=== PATIENT | male | born 1940 | race Caucasian/White ===

== ENCOUNTER 2016-10-03 12:08 | Day surgery (SDC) | payer MEDICARE ==
[2016-10-03 15:07] VITALS: BP 176/96
[2016-10-03] MEDS ORDERED: Acetaminophen TAB* 325 MG ONE (15:41)
[2016-10-03] MEDS ORDERED: Acetaminophen TAB* 325 MG PO ONE (15:41)
--- NOTE | 2016-10-03 15:46 | RAD ---
Indication: Post thoracentesis. Comparison: September 26, 2016 Technique: Upright AP 1510 hours Report: Small dependent LEFT pleural effusion markedly decreased from the prior exam with proportional decreasing compressive atelectasis. Mild prominence of the interstitial markings with decreased volume of the RIGHT lung compared with the prior exam. No focal pulmonary lesion evident. Negative for RIGHT pleural effusion. Negative for pneumothorax. Cardiomegaly. Unremarkable central pulmonary vasculature. IMPRESSION: Negative for pneumothorax post LEFT thoracentesis.
[2016-10-03 16:09] LABS: Body Fluid WBC 809 /mcL
[2016-10-03 17:13] LABS: Body Fluid Appearance Cloudy; Body Fluid Total Cells Counted 100
[2016-10-04 13:47] LABS: Total Protein, BF 3.6 g/dL
--- NOTE | 2016-10-04 16:21 | OP ---
CC: Dr. Fajardo; Dr. Addy Quezada OPERATIVE REPORT: DATE OF OPERATION: 10/03/16 DATE OF : 36 SURGEON: Gautam Fajardo MD NETWORK MGR: None. ANESTHESIOLOGIST: None. PRE-OP DIAGNOSIS: Left pleural effusion. POST-OP DIAGNOSIS: Left pleural effusion. OPERATIVE PROCEDURE: Left posterior thoracentesis. DESCRIPTION OF PROCEDURE: In the ambulatory procedure room, the patient was sitting at the bedside leaning over the table. The posterior chest was prepped with antiseptic and draped in a sterile fas hion. Local infiltrative anesthesia was administered in the left posterior chest and the posterior midscapular line at approximately the 9th interspace and clear fluid was forthcoming. The thoracent esis catheter was then placed without difficulty and suction bottle was used to evacuate the chest. The patient was closely monitored and continued to do well as the volume kept being evacuated, so w e did continue and ultimately 4 L of fluid was obtained. He did this with minimal cough, no dyspnea , was feeling well and the needle was removed. The bandage was placed. He was brought to recovery room. He was observed for half an hour and has good respiratory function and chest x-ray looks good , so he is discharged home. [id number]/[facility] #: [id number]
== END 2016-10-03 15:49 | disposition home or self-care (01) ==
LOC: OR 12:08
PROVIDERS: ATTEND Surgery
DX: J90 Pleural effusion, not elsewhere classified (principal); E11.9 Type 2 diabetes mellitus without complications; Z79.4 Long term (current) use of insulin
CPT/HCPCS: 32554; 36415; 71010; 83615; 84157; 87040; 87205; 88112; 89051; A9270-GY

== ENCOUNTER 2018-02-17 20:55 | Inpatient (IN) | payer MEDICARE ==
[2018-02-17] MEDS ORDERED: NS 0.9% 1000 ML* 1,000 ML IV ONE (21:10)
[2018-02-17 21:44] LABS: ABS Basophils 0 10^3/ul (0-0.2); ABS Eosinophils 0 10^3/ul (0-0.6); ABS Lymphocytes 0.9 10^3/ul (1.0-4.8); ABS Monocytes 0.8 10^3/ul (0-0.8); ABS Neutrophils 5.6 10^3/ul (1.5-7.7); ABS Nucleated RBC 0 10^3/ul; Eosinophil % 0.2 %; Hematocrit 40 % (42-52); Hemoglobin 13.2 g/dl (14.0-18.0); Lymphocyte % 12.3 %; Mean Corpuscular HGB Conc 33 g/dl (31-36); Mean Corpuscular Hemoglobin 28 pg (27-31); Mean Corpuscular Volume 86 fL (80-94); Mean Platelet Volume 8.2 fL (7.4-10.4); Nucleated Red Blood Cells % 0.1; Platelet Count 202 10^3/ul (150-450); Red Blood Count 4.65 10^6/ul (4.00-5.40); Red Cell Distribution Width 16 % (10.5-15); White Blood Count 7.4 10^3/ul (3.5-10.8)
[2018-02-17 21:50] LABS: INR 1.26 (0.77-1.02)
[2018-02-17 22:02] LABS: ALT 14 U/L (7-52); AST 19 U/L (13-39); Albumin 3.7 g/dL (3.2-5.2); Alkaline Phosphatase 87 U/L (34-104); Anion Gap 5 mmol/L (2-11); BUN/Creatinine Ratio 22.1 (8-20); Blood Urea Nitrogen 33 mg/dL (6-24); C Reactive Protein 3.58 mg/L (<8.01); CO2 Carbon Dioxide 31 mmol/L (22-32); Calcium 9.6 mg/dL (8.6-10.3); Chloride 101 mmol/L (101-111); EGFR Non-African American 45.5 (>60); Globulin 3.7 g/dL (2-4); Glucose 123 mg/dL (70-100); Magnesium 1.9 mg/dL (1.9-2.7); Potassium 4.6 mmol/L (3.5-5.0); Sodium 137 mmol/L (135-145); Total Protein 7.4 g/dL (6.4-8.9)
[2018-02-17 22:06] LABS: Alcohol < 10 mg/dL (<10)
[2018-02-17 22:21] LABS: TSH (Thyroid Stimulating Horm) 1.09 mcIU/mL (0.34-5.60)
[2018-02-17] MEDS ORDERED: Furosemide IV* 10 MG/ML VIAL (40 MG) IV ONE (22:52)
--- NOTE | 2018-02-17 22:54 | ED ---
Lower Extremity - HPI Summary HPI Summary: Pt is a 77 year old M presenting to the ED with a chief complaint of weakness. He fell four times today. He usually walks with a cane or rollator, but today his legs kept giving out when he would walk. EMS commonly comes for a lift assist. Pt reports sob. He did not hit his head. 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 Of Injury: Fall From A Standing Position Severity Initially: Mild Severity Currently: Mild Pain Intensity: 2 Pain Scale Used: 0-10 Numeric Timing: Constant Associated Signs And Symptoms: Positive: Negative Aggravating Factor(s): Standing, Ambulation Alleviating Factor(s): Rest - Allergies/Home Medications Allergies/Adverse Reactions: Allergies Allergy/AdvReac Type Severity Reaction Status Date / Time No Known Allergies Allergy Verified 10/03/16 12:21 Home Medications: Home Medications Amlactin TOPICAL BID 02/18/18 [History] Basaglar Kwikpen U-100 7 units SUBCUT BID WITH MEALS 02/18/18 [History Confirmed 02/18/18] Carvedilol TAB* [Coreg TAB*] 25 mg PO BID 02/18/18 [History Confirmed 02/18/18] Furosemide TAB* 20 mg PO DAILY 02/18/18 [History Confirmed 02/18/18] Novolog Flexpen units SUBCUT TID WITH MEALS 02/18/18 [History] PMH/Surg Hx/FS Hx/Imm Hx Previously Healthy: No Endocrine/Hematology History: Reports: Hx Diabetes - WELL CONTROLLED Denies: Hx Anemia Cardiovascular History: Reports: Hx Hypertension - WELL CONTROLLED Denies: Hx Congestive Heart Failure - no history prior to current admission. current admission CHF dx, Hx Pacemaker/ICD Respiratory History: Reports: Hx Chronic Obstructive Pulmonary Disease (COPD), Hx Pleural Effusion, Hx Sleep Apnea - NO CPAP GI History: Reports: Hx Gall Bladder Disease, Hx Gastroesophageal Reflux Disease , Other GI Disorders - RECENT LIVER ABSCESS Denies: Hx Jaundice History: Reports: Hx Benign Prostatic Hyperplasia, Other Problems/ Disorders - BPH Denies: Hx Renal Disease Musculoskeletal History: Reports: Hx Arthritis, Hx Back Problems, Other Musculoskeletal History - SPINAL STENOSIS, SPONDYLOLITHESIS Sensory History: Reports: Hx Cataracts - surgery both eyes, Hx Contacts or Glasses Denies: Hx Hearing Aid Opthamlomology History: Reports: Hx Cataracts - surgery both eyes, Hx Contacts or Glasses Neurological History: Reports: Other Neuro Impairments/Disorders - PERIPHERAL NEUROPATHY FEET R/T DM, VERTIGO Psychiatric History: Reports: Hx Anxiety, Hx Depression Denies: Hx Panic Disorder - Surgical History Surgery Procedure, Year, and Place: CATARACTS. EYE - LASER FOR RETINAL DETACHED. ORIF -FOREARM FX- as a child. LIVER DRNG - FOR ABCESS. 05/25/15 LAP CHOLECYSTECMY. 02/16/15 ERCP. TURP - PROSTATE - BPH Hx Anesthesia Reactions: Yes - EMERGENCE DELIRIUM FOLLOWING ERCP 02/21 Infectious Disease History: No Infectious Disease History: Denies: Hx Clostridium Difficile, Hx of Known/Suspected MRSA, Traveled Outside the [place] in Last 30 Days - Family History Known Family History: Negative: Hypertension, Diabetes - Social History Alcohol Use: None Substance Use Type: Reports: Marijuana Substance Use Comment - Amount & Last Used: medical marijuana Smoking Status (MU): Never Smoked Tobacco Have You Smoked in the Last Year: No Review of Systems Negative: Fever Positive: Shortness Of Breath Negative: Myalgia All Other Systems Reviewed And Are Negative: Yes Physical Exam - Summary Physical Exam Summary: VITAL SIGNS: Reviewed. GENERAL: Patient is a well-developed and nourished male who is lying comfortable in the stretcher. Patient is not in any acute respiratory distress. HEAD AND FACE: No signs of trauma. No ecchymosis, hematomas or skull depressions. No sinus tenderness. EYES: PERRLA, EOMI x 2, No injected conjunctiva, no nystagmus. EARS: Hearing grossly intact. Ear canals and tympanic membranes are within normal limits. MOUTH: Oropharynx within normal limits. NECK: Supple, trachea is midline, no adenopathy, no JVD, no carotid bruit, no c- spine tenderness, neck with full ROM. CHEST: Symmetric, no tenderness at palpation LUNGS: Decreased breath sounds bilaterally, more so on the L side. CVS: Regular rate and rhythm, S1 and S2 present, no murmurs or gallops appreciated. ABDOMEN: Soft, non-tender. No signs of distention. No rebound no guarding, and no masses palpated. Bowel sounds are normal. EXTREMITIES: FROM in all major joints, no cyanosis or clubbing. Bilateral LE edema. NEURO: Alert and oriented x 3. No acute neurological deficits. Speech is normal and follows commands. SKIN: Dry and warm GCS: 15 Triage Information Reviewed: Yes Vital Signs On Initial Exam: Initial Vitals Temp Pulse Resp BP Pulse Ox 97.9 F 83 20 150/98 94 02/17/18 20:59 02/17/18 20:59 02/17/18 20:59 02/17/18 20:59 02/17/18 20:59 Vital Signs Reviewed: Yes Diagnostics - Vital Signs Vital Signs Temp Pulse Resp BP Pulse Ox 02/17/18 22:34 86 24 87 02/17/18 20:59 97.9 F 83 20 150/98 94 - Laboratory Lab Results: Lab Results 02/17/18 02/17/18 02/17/18 Range/Units 21:39 21:39 21:39 WBC 7.4 (3.5-10.8) 10^3/ul RBC 4.65 (4.00-5.40) 10^6/ul Hgb 13.2 L (14.0-18.0) g/dl Hct 40 L (42-52) % MCV 86 (80-94) fL MCH 28 (27-31) pg MCHC 33 (31-36) g/dl RDW 16 H (10.5-15) % Plt Count 202 (150-450) 10^3/ul MPV 8.2 (7.4-10.4) fL Neut % (Auto) 76.3 % Lymph % (Auto) 12.3 % Edgar % (Auto) 10.5 % Eos % (Auto) 0.2 % Baso % (Auto) 0.7 % Absolute Neuts (auto) 5.6 (1.5-7.7) 10^3/ul Absolute Lymphs (auto) 0.9 L (1.0-4.8) 10^3/ul Absolute Monos (auto) 0.8 (0-0.8) 10^3/ul Absolute Eos (auto) 0 (0-0.6) 10^3/ul Absolute Basos (auto) 0 (0-0.2) 10^3/ul Absolute Nucleated RBC 0 10^3/ul Nucleated RBC % 0.1 INR (Anticoag Therapy) 1.26 H (0.77-1.02) Sodium 137 (135-145) mmol/L Potassium 4.6 (3.5-5.0) mmol/L Chloride 101 (101-111) mmol/L Carbon Dioxide 31 (22-32) mmol/L Anion Gap 5 (2-11) mmol/L BUN 33 H (6-24) mg/dL Creatinine 1.49 H (0.67-1.17) mg/dL Est GFR ( Amer) 55.0 (>60) Est GFR (Non-Af Amer) 45.5 (>60) BUN/Creatinine Ratio 22.1 H (8-20) Glucose 123 H (70-100) mg/dL Lactic Acid (0.5-2.0) mmol/L Calcium 9.6 (8.6-10.3) mg/dL Magnesium 1.9 (1.9-2.7) mg/dL Total Bilirubin 0.80 (0.2-1.0) mg/dL AST 19 (13-39) U/L ALT 14 (7-52) U/L Alkaline Phosphatase 87 (34-104) U/L Troponin I 0.22 H* (<0.04) ng/mL C-Reactive Protein 3.58 (<8.01) mg/L B-Natriuretic Peptide (<=100) pg/mL Total Protein 7.4 (6.4-8.9) g/dL Albumin 3.7 (3.2-5.2) g/dL Globulin 3.7 (2-4) g/dL Albumin/Globulin Ratio 1.0 (1-3) TSH 1.09 (0.34-5.60) mcIU/mL Serum Alcohol < 10 (<10) mg/dL 02/17/18 02/17/18 Range/Units 21:39 21:39 WBC (3.5-10.8) 10^3/ul RBC (4.00-5.40) 10^6/ul Hgb (14.0-18.0) g/dl Hct (42-52) % MCV (80-94) fL MCH (27-31) pg MCHC (31-36) g/dl RDW (10.5-15) % Plt Count (150-450) 10^3/ul MPV (7.4-10.4) fL Neut % (Auto) % Lymph % (Auto) % Edgar % (Auto) % Eos % (Auto) % Baso % (Auto) % Absolute Neuts (auto) (1.5-7.7) 10^3/ul Absolute Lymphs (auto) (1.0-4.8) 10^3/ul Absolute Monos (auto) (0-0.8) 10^3/ul Absolute Eos (auto) (0-0.6) 10^3/ul Absolute Basos (auto) (0-0.2) 10^3/ul Absolute Nucleated RBC 10^3/ul Nucleated RBC % INR (Anticoag Therapy) (0.77-1.02) Sodium (135-145) mmol/L Potassium (3.5-5.0) mmol/L Chloride (101-111) mmol/L Carbon Dioxide (22-32) mmol/L Anion Gap (2-11) mmol/L BUN (6-24) mg/dL Creatinine (0.67-1.17) mg/dL Est GFR ( Amer) (>60) Est GFR (Non-Af Amer) (>60) BUN/Creatinine Ratio (8-20) Glucose (70-100) mg/dL Lactic Acid 1.0 (0.5-2.0) mmol/L Calcium (8.6-10.3) mg/dL Magnesium (1.9-2.7) mg/dL Total Bilirubin (0.2-1.0) mg/dL AST (13-39) U/L ALT (7-52) U/L Alkaline Phosphatase (34-104) U/L Troponin I (<0.04) ng/mL C-Reactive Protein (<8.01) mg/L B-Natriuretic Peptide 1592 H (<=100) pg/mL Total Protein (6.4-8.9) g/dL Albumin (3.2-5.2) g/dL Globulin (2-4) g/dL Albumin/Globulin Ratio (1-3) TSH (0.34-5.60) mcIU/mL Serum Alcohol (<10) mg/dL Result Diagrams: 02/17/18 21:39 02/17/18 21:39 Lab Statement: Any lab studies that have been ordered have been reviewed, and results considered in the medical decision making process. - Radiology CXR Radiology Interpretation Completed By: ED Physician Summary of Radiographic Findings: Bilateral venous condition, cardiomegaly, bilateral pleural effusion (R more than L.). Pending official radiology report. - CT Head CT CT Interpretation Completed By: Radiologist Summary of CT Findings: 1. No acute intracranial abnormality. 2. Age-related atrophy and moderate chronic small vessel ischemic disease. ED physician has reviewed this report. Chest CT CT Interpretation Completed By: Radiologist Summary of CT Findings: 1. Large pleural effusions and associated chronic lung volume loss. 2. Simple right renal cyst. ED physician has reviewed this report. - EKG 2138 Cardiac Rate: NL - 84bpm EKG Rhythm: Sinus Rhythm ST Segment: Non-Specific Ectopy: None Summary of EKG Findings: LVH with secondary repolarization abnormality Lower Extremity Course/Dx - Course Course Of Treatment: Pt is a 77 y/o M presenting to the ED due to recent falls. He fell four times today, and his family is concerned as to why. The pt has a hx of COPD and LE edema. Per chest xray, he has bilateral pleural effusion (R more than L), cardiomegaly, and bilateral venous condition. The pt will be admitted to [facility] [place] with diagnoses of CHF, bilateral pleural effusion, and multiple falls. - Diagnoses Provider Diagnoses: Multiple falls, Congestive heart failure (CHF), Bilateral pleural effusion Discharge - Sign-Out/Discharge Documenting (check all that apply): Patient Departure - admit - Discharge Plan Condition: Stable Disposition: ADMITTED TO [facility] Referrals: Addy Quezada MD [Primary Care Provider] - - Attestation Statements Document Initiated by Scribe: Yes Documenting Scribe: Oneyda Swain Provider For Whom Scribe is Documenting (Include Credential): Malorie Brice MD. Scribe Attestation: Oneyda Morfin, scribed for Malorie Brice MD. on 02/18/18 at 0029. Consult Consult: 0019 - Hospitalist paged. [phone] - Spoke with Nito Reyes NP., who will be the accepting provider for the patient.
[2018-02-17 23:26] LABS: Activated Partial Thrombo Time 34.5 seconds (26.0-36.3)
[2018-02-17 23:35] LABS: Creatine Kinase 95 U/L (10-223)
[2018-02-18] MEDS ORDERED: Acetaminophen TAB* 325 MG PO PRN (01:06)
[2018-02-18] MEDS ORDERED: Furosemide IV* 10 MG/ML 2 ML VIAL (20 MG) IV SLOW PU ONE (01:06)
[2018-02-18] MEDS ORDERED: Ondansetron INJ* 2 MG/ML VIAL IV PRN (01:06)
[2018-02-18] MEDS ORDERED: Dextrose 50% Syringe 50 ML* 25 GM/50 ML SYRINGE IV PUSH PRN (01:09)
[2018-02-18] MEDS ORDERED: ceFAZolin 2 GM PREMIX 2 GM/50 ML BAG IVPB SCH (02:00)
[2018-02-18] MEDS: Carvedilol TAB* 25 MG PO SCH ×3 (03:27→20:44)
[2018-02-18 03:32] LABS: Urine Appearance Clear; Urine Bacteria Absent (Absent); Urine Bilirubin Negative (Negative); Urine Blood 2+ (Negative); Urine Color Yellow; Urine Glucose Negative (Negative); Urine Ketones Negative (Negative); Urine Nitrite Negative (Negative); Urine Protein 2+(100 mg/dL) (Negative); Urine Red Blood Cell 2+(6-10/hpf) (Absent); Urine Urobilinogen Negative (Negative); Urine White Blood Cell Absent (Absent)
[2018-02-18 04:36] LABS: ABS Basophils 0 10^3/ul (0-0.2); ABS Eosinophils 0 10^3/ul (0-0.6); ABS Lymphocytes 0.9 10^3/ul (1.0-4.8); ABS Monocytes 0.8 10^3/ul (0-0.8); ABS Neutrophils 5.3 10^3/ul (1.5-7.7); ABS Nucleated RBC 0 10^3/ul; Eosinophil % 0.2 %; Hematocrit 38 % (42-52); Hemoglobin 12.4 g/dl (14.0-18.0); Lymphocyte % 13.3 %; Mean Corpuscular HGB Conc 33 g/dl (31-36); Mean Corpuscular Hemoglobin 28 pg (27-31); Mean Corpuscular Volume 85 fL (80-94); Mean Platelet Volume 8.3 fL (7.4-10.4); Nucleated Red Blood Cells % 0.1; Platelet Count 176 10^3/ul (150-450); Red Blood Count 4.45 10^6/ul (4.00-5.40); Red Cell Distribution Width 15 % (10.5-15); White Blood Count 7.1 10^3/ul (3.5-10.8)
--- NOTE | 2018-02-18 04:45 | HP ---
CC: Dr. Addy Quezada; Dr. Minor * HISTORY AND PHYSICAL: DATE OF ADMISSION: 02/18/18 PRIMARY CARE PROVIDER: Dr. Addy Quezada. ATTENDING PHYSICIAN WHILE IN THE HOSPITAL: Dr. Rebecca Newton * (report dictated by Nito Reyes NP). CHIEF COMPLAINT: 1. Falls. 2. Shortness of breath. HISTORY OF PRESENT ILLNESS: Mr. Paniagua is a 77-year-old male patient. He has a history of CHF, CAD, type 2 diabetes, hypertension, hyperlipidemia, mild anemia , history of liver abscess requiring long-term antibiotics, BPH, GERD, chronic renal insufficiency, history of anxiety. He comes into the ED today stating that he has been falling in the last few days. He is unsure as to why he has been falling. He denies having any chest pain. He denies having any abdominal pain or any nausea or vomiting. He has noticed that the swelling in his lower extremities has been getting much worse. He has noticed redness with the swelling. He has not had any fevers or chills. There have been no URI symptoms. No coughing. He denied any chest discomfort. He does state that he notices when he lies flat, he is more short of breath, cannot catch his breath. He has been having more dyspnea on exertion. He says he has actually lost weight, although he does not check it routinely. In addition to this, he says that he has not been feeling, he has been feeling weak, and he has had increasing falls. His daughter was concerned, so they brought him into the hospital today because of the falls. On evaluation, it was noted that he had significant bilateral pleural effusions. He appeared to be in heart failure. There was concern because of this and we were asked to evaluate for admission. PAST MEDICAL HISTORY: Significant for: 1. CHF, last known EF 40% to 45%. 2. CAD. 3. Type 2 diabetes. 4. Hypertension. 5. Hyperlipidemia. 6. Anemia. 7. History of liver abscess. 8. Pleural effusions in the past. 9. BPH. 10. GERD. 11. CKD. 12. Anxiety. 13. History of SANDY. PAST SURGICAL HISTORY: He has had a cholecystectomy. MEDICATIONS: Home medications include according to his list: 1. Lantus units subcu b.i.d. 2. Aldactone 12.5 mg p.o. daily. 3. Prilosec 30 mg daily 4. Multivitamin 1 tablet daily. 5. Lisinopril 40 mg daily. 6. Lasix 20 mg daily. 7. Cymbalta 30 mg p.o. b.i.d. 8. Coreg 25 mg p.o. b.i.d. 9. Lipitor 20 mg daily. 10. Aspirin 81 mg daily. 11. Insulin sliding scale as directed. ALLERGIES TO MEDICATIONS: Include no known drug allergies. FAMILY HISTORY: His mother of old age. Father had suicidal ideation. SOCIAL HISTORY: He does not smoke. He does not drink. He lives with his . Surrogate decision maker is his daughter. REVIEW OF SYSTEMS: There is no documented fever. He does state that he has lost weight, but he does not quantify how much. He denies having any double vision. There is no ear discharge. He denied having any rhinorrhea. There is no sore throat. No thyroid enlargement. Denies having any chest pain. There is orthopnea. There is nocturnal dyspnea. There was no abdominal pain. No nausea, no vomiting. No dysuria, no frequency. No seizure, no loss of consciousness. No pruritus and no skin ulcerations. Review of 14 systems completed, all others negative. PHYSICAL EXAMINATION GENERAL: At this time, Mr. Paniagua is a 77-year-old male patient. He is sitting in the ED stretcher. He does not appear to be in any acute distress. He appears to be well nourished and well developed. VITAL SIGNS: Blood pressure 177/96, pulse 85, respirations 22, O2 sat 98%, temperature 97.9. HEENT: Head: Atraumatic and normocephalic. Eyes: EOMs are intact. Sclerae anicteric and not pale. Throat: Oral mucosa appears to be moist. No oropharyngeal erythema. NECK: Supple. LUNGS: Diminished in the bases. He does have crackles bilaterally. HEART: Sounds S1, S2. Regular rate and rhythm. No murmurs, rubs, or gallops. ABDOMEN: Soft, flat, and nontender. Bowel sounds are present. EXTREMITIES: Pulses were 2+. He had 3+ pitting edema bilaterally up to his knees, 5/5 strength. NEUROLOGICAL: He is awake, alert, and oriented x3. Tongue midline. Director Mba equal. No gross focal deficits. SKIN: Intact. He does have erythema bilaterally to the lower extremities and the left lower extremity is warmer and there is increased redness up into the thigh, otherwise skin intact. DIAGNOSTIC STUDIES/LAB DATA: Today show a WBC of 7.4, RBC of 4.65, hemoglobin of 13.2, hematocrit of 40, and platelet count of 202. INR was 1.26. His sodium is 137, potassium is 4.6, chloride 101, bicarb 31, BUN 33, creatinine 1.49, glucose 123, lactate 1, calcium 9.6, mag 1.9. Total bili 0.8, AST 19, ALT 14, alk phos 87. CK 95. Troponin 0.22. CRP of 3.58. BNP was 1592. TSH was normal. Toxicology was negative for alcohol. He had a brain CT obtained today as well, which revealed no acute intracranial abnormality, age-related atrophy, and moderate chronic small vessel ischemic change. He had a chest x-ray obtained today, which when I reviewed it, there is significant bilateral pleural effusion and pulmonary edema, looks like the left is greater than the right, he is rotated, and when you review to a chest x-ray done over a year ago, again appears to be much worse. He did have a chest CT obtained today, which showed large pleural effusion and associated chronic lung volume loss, there is simple right renal cyst. EKG obtained today shows a normal sinus rhythm with LVH. He does have intraventricular conduction delay, a T-wave inversion in lead I along with aVL, he has had previously in aVL. No ST elevation was noted. It was reviewed to the previous EKG, appears to be similar with the exception of the T-wave inversion. Old medical records were reviewed. He did have a Lexiscan stress test due to elevated troponin on 12/30/17, which showed a large anterior defect and some reversibility. He had an echo in 2017, which showed EF of 40% to 45%. ASSESSMENT AND PLAN: Mr. Paniagua is a complex 77-year-old male patient coming into the ED today with complaints of frequent falls over the last 4 weeks, increasing swelling. On evaluation today, found to be in congestive heart failure. He will be admitted under inpatient status for: 1. Falls. Etiology is unclear. It could be secondary to the significant amount of edema he has in his lower extremities. I will go ahead and get a PT evaluation. He had a CT brain, which was negative. We will continue to follow and monitor. 2. Congestive heart failure exacerbation, again with an elevated troponin. I suspect he has some demand ischemia. I would get Cardiology involved tomorrow. At this point, we will diurese him with 60 of IV Lasix and continue with Lasix. I do note that he does admit to having weight loss; however, he is clearly fluid overloaded based on chest x-ray, BNP, and of his lower extremity edema. We will continue his beta eugenio, his Aldactone, and I will continue to follow. When repeating his echo, I will certainly get daily weights. 3. Coronary artery disease. Again, according to old records the patient had declined heart cath and opted for conservative medical management. We will continue with his aspirin, statin, and beta-eugenio therapy. 4. Ischemic cardiomyopathy. Again continue his NISREEN, beta eugenio, statin, and Aldactone, and we will diurese as needed. 5. Cellulitis. I will put him on Ancef. I sent off blood cultures. 6. Diabetes. I have ordered lispro sliding scale. Continue his meds as prescribed. 7. Chronic kidney disease. His creatinine is stable. We will monitor. 8. History of anemia. H and H appears to be stable. We will continue to follow. 9. Obstructive sleep apnea. Again, he is noncompliant with mask. 10. Hypertension. Continue his meds as prescribed. 11. Hyperlipidemia. Continue statin therapy. 12. History of anxiety. Continue supportive care. 13. Benign prostatic hyperplasia Continue meds as prescribed. 14. History of gastroesophageal reflux disease. Continue current medical regimen. 15. DVT prophylaxis. He will be placed on heparin subcu. 16. Code status. Full code. 17. Fluids, electrolytes, and nutrition. He can have a heart-healthy diet. TIME SPENT: On this admission was 60 minutes, greater than half the time was spent [id number] with the patient obtaining my history and physical, other half of the time was spent going over the plan of care with the patient and implementing the plan of care. I did discuss the plan of care with my attending, Dr. Newton; she is in agreement. NITOJAKE REYES NP [id number]/[facility] #: [id number] FRANCES
[2018-02-18 04:54] LABS: BUN/Creatinine Ratio 21.3 (8-20); Calcium 9.2 mg/dL (8.6-10.3); EGFR Non-African American 43.5 (>60); Potassium 3.8 mmol/L (3.5-5.0)
[2018-02-18] MEDS: Heparin VIAL(*) 5000 UNITS/ML VIAL (FIVE THOUSAND) SUBCUT SCH ×3 (05:17→20:44)
[2018-02-18] MEDS: Omeprazole CAP* 20 MG PO SCH (07:31)
[2018-02-18] MEDS: Lisinopril TAB* 10 MG PO SCH (08:17)
[2018-02-18] MEDS: DULoxetine DR CAP* 30 MG CAP.DR PO SCH ×2 (08:17→20:44)
[2018-02-18] MEDS: Insulin GLARGINE(*) 1 UNITS UNIT SUBCUT SCH ×2 (08:17→17:09)
[2018-02-18] MEDS: Spironolactone TAB* 25 MG PO SCH (08:18)
[2018-02-18] MEDS: Insulin LISPRO* 1 UNITS UNIT SUBCUT SCH ×3 (08:18→17:10)
--- NOTE | 2018-02-18 08:27 | PN ---
Subjective - Subjective Reason for Note: Progress Note History: Mr. Surendra Paniagua told me about his presentation. He has had x4 falls. He has also had increasing weakness, edema and dyspnea for several days. There has been no chest pain, palpitations, nausea or vomiting. He denies presyncope/ syncope, nausea, vomiting or diaphoresis. 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 This morning he denies any chest pain. He has dyspnea, some orthopnea, but no paroxysmal nocturnal dyspnea. 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) I50.41 Bilateral pleural effusion (Acute) J90 Dyspnea (Acute) R06.00 Essential (primary) hypertension (Acute) I10 Mitral regurgitation (Acute) Multiple falls (Acute) R29.6 Troponin I above reference range (Acute) R74.8 Chronic low back pain (Chronic) M54.5, G89.29 Chronic renal disease, stage 3, moderately decreased glomerular filtration rate between 30-59 mL/min/1.73 square meter (Chronic) N18.3 Hypercholesteremia (Chronic) E78.0 Lumbar spinal stenosis (Chronic) M48.061 Obesity (BMI 35.0-39.9 without comorbidity) (Chronic) E66.01 Pancreatic mass (Chronic) S/P cholecystectomy (Chronic) Z90.49 Type 2 diabetes mellitus treated with insulin (Chronic) E11.9, Z79.4 Current Medications: Current Medications Acetaminophen (Tylenol Tab*) 650 mg PO Q4H PRN PRN Reason: FEVER/PAIN Aspirin (Aspirin Ec Tab*) 81 mg PO DAILY [facility] Last Admin: 02/18/18 08:16 Dose: 81 mg Atorvastatin Calcium (Lipitor*) 20 mg PO DAILY [facility] Last Admin: 02/18/18 08:16 Dose: 20 mg Carvedilol (Coreg Tab*) 25 mg PO BID [facility] Last Admin: 02/18/18 08:17 Dose: Not Given Dextrose (D50w Syringe 50 Ml*) 12.5 gm IV PUSH .FOR FS < 60 - SS PRN PRN Reason: FS < 60 Duloxetine HCl (Cymbalta Cap*) 30 mg PO BID [facility] Last Admin: 02/18/18 08:17 Dose: 30 mg Heparin Sodium (Porcine) (Heparin Vial(*)) 5,000 units SUBCUT Q8HR [facility] Last Admin: 02/18/18 05:17 Dose: 5,000 units Cefazolin Sodium/Dextrose (Kefzol 2 Gm Premix In Ors(*)) 2 gm in 50 mls @ 100 mls/hr IVPB Q8H [facility] Last Admin: 02/18/18 03:34 Dose: 100 mls/hr Insulin Glargine (Lantus(*)) 7 units SUBCUT BID WITH MEALS [facility] Last Admin: 02/18/18 08:17 Dose: 7 units Insulin Human Lispro (Humalog*) 0 units SUBCUT AC [facility]; Protocol Last Admin: 02/18/18 08:18 Dose: 3 units Lisinopril (Prinivil Tab*) 40 mg PO DAILY [facility] Last Admin: 02/18/18 08:17 Dose: 40 mg Omeprazole (Prilosec Cap*) 20 mg PO DAILY@0730 [facility] Last Admin: 02/18/18 07:31 Dose: 20 mg Ondansetron HCl (Zofran Inj*) 4 mg IV Q6H PRN PRN Reason: NAUSEA Spironolactone (Aldactone Tab*) 12.5 mg PO DAILY [facility] Last Admin: 02/18/18 08:18 Dose: 12.5 mg - Review of Systems Constitutional Symptoms: Yes: Fatigue, Unexplained Falls, No: Fever, Night Sweats Dermatology: Rash: Yes - over lower legs Eyes: Negative: Change in Vision Pulmonary: Positive: Shortness of Breath Negative: Cough, Sputum, Hemoptysis, Wheezing Cardiology: Positive: Shortness of Breath, Swelling of Ankles, Peripheral Vascular Dis, Edema, Orthopnoea Negative: Chest Pain, Palpitations, Faintness, Syncope, Proximal NocturnalDyspnea Gastroenterology: Negative: Abdominal Pain, Nausea, Vomiting, Constipation, Diarrhea Genital - Urinary: Negative: Dysuria Neurology: Positive: Change in Balancing, Change in Walking, Numbness\\ Paresthesiae - peripheral neuropathy Negative: Headache, Change in Vision, Diplopia, Change in Speech Psychiatry: Positive: Depression Home Medications: Home Medications Medication Instructions Recorded Confirmed Type Atorvastatin* [Lipitor 20 MG*] 20 mg PO DAILY 02/12/15 02/18/18 History Lisinopril TAB* [Prinivil TAB 10 40 mg PO DAILY 02/12/15 02/18/18 History MG*] Omeprazole CAP* [Prilosec CAP* 20 20 mg PO DAILY 02/12/15 02/18/18 History MG] Aspirin [Aspirin Adult Low Dose 81 81 mg PO DAILY 05/12/15 02/18/18 History MG] Multivitamin [Multivitamins] 1 cap PO DAILY 05/12/15 02/18/18 History Duloxetine HCl 30 mg PO BID 10/03/16 02/18/18 History Spironolactone TAB* [Aldactone TAB 12.5 mg PO DAILY #30 tab 12/30/16 02/18/18 Rx 25 MG*] Amlactin TOPICAL BID 02/18/18 History Basaglar Kwikpen U-100 7 units SUBCUT BID WITH MEALS 02/18/18 02/18/18 History Carvedilol TAB* [Coreg TAB*] 25 mg PO BID 02/18/18 02/18/18 History Furosemide TAB* 20 mg PO DAILY 02/18/18 02/18/18 History Novolog Flexpen units SUBCUT TID WITH MEALS 02/18/18 History Vireo Indigo .4 BID 02/18/18 History Vireo Red .2 BID 02/18/18 History Allergies: Allergies Allergy/AdvReac Type Severity Reaction Status Date / Time No Known Allergies Allergy Verified 10/03/16 12:21 Objective - Vital Signs Vital Signs: Vital Signs 02/17/18 02/17/18 02/17/18 20:59 22:34 22:48 Temperature 97.9 F Pulse Rate 83 86 86 Respiratory 20 24 19 Rate Blood Pressure 150/98 163/111 (mmHg) O2 Sat by Pulse 94 87 97 Oximetry 02/17/18 02/17/18 02/18/18 23:00 23:47 00:00 Temperature Pulse Rate 86 84 84 Respiratory 32 26 26 Rate Blood Pressure 177/102 (mmHg) O2 Sat by Pulse 99 94 98 Oximetry 02/18/18 02/18/18 02/18/18 00:17 00:34 00:47 Temperature Pulse Rate 85 84 79 Respiratory 23 23 26 Rate Blood Pressure 177/96 164/96 (mmHg) O2 Sat by Pulse 98 97 97 Oximetry 02/18/18 02/18/18 02/18/18 01:00 01:17 01:35 Temperature 96.7 F Pulse Rate 83 85 95 Respiratory 28 20 Rate Blood Pressure 174/96 183/99 (mmHg) O2 Sat by Pulse 98 98 94 Oximetry 02/18/18 02/18/18 02/18/18 02:04 02:47 03:57 Temperature 97.7 F 96.8 F 98.4 F Pulse Rate 84 91 85 Respiratory 25 20 20 Rate Blood Pressure 174/96 187/106 181/104 (mmHg) O2 Sat by Pulse 98 94 97 Oximetry 02/18/18 02/18/18 05:47 07:25 Temperature 97.3 F Pulse Rate 79 79 Respiratory 20 Rate Blood Pressure 169/93 176/77 (mmHg) O2 Sat by Pulse 94 Oximetry - Intake and Output Intake and Output: Intake & Output 02/15/18 02/16/18 02/17/18 02/18/18 11:59 11:59 11:59 11:59 Intake Total 50 Output Total 200 Balance -150 Weight 229 lb Intake: Oral 50 Output: Urine 200 Other: # Bowel Movements 0 # Voids 0 ADLs: Meal Record Start: 02/18/18 01: 35 Freq: DAILY@0900,1400,1800 Status: Active Protocol: Created 02/18/18 01:35 System (Rec: 02/18/18 01:35 System [email or web address]) Intake and Output Start: 02/17/18 21: 07 Freq: Status: Active Protocol: Created 02/17/18 21:07 System (Rec: 02/17/18 21:07 System [id number]) Document 02/18/18 02:10 [id number] (Rec: 02/18/18 02:10 [id number]) Intake and Output Start: 02/18/18 01: 35 Freq: DAILY@0600,1400,2200 Status: Active Protocol: Created 02/18/18 01:35 System (Rec: 02/18/18 01:35 System [email or web address]) Document 02/18/18 04:02 [id number] (Rec: 02/18/18 04:02 [id number]) - Physical Exam General: No Cyanosis, Yes Anemia Eye Exam: right: Other - subconjunctival hematoma, bilateral: PERRLA, Normal Fundi, EOMI Skin: Abnormal: Rash - Tight skin over edematous shins is dry and erythematous, not warm, not cellulitis Lungs and Chest: Yes: Respiratory Distress. No: Chest Expansion Full - poor expansion, Percussion Note Resonant - dull both bases, Vessicular Breath Sounds - bilateral pleural effusions, Crackles, Wheezes, Use of Accessory Muscles Heart Rate and Rhythm: Regular Additional Cardiovascular: Yes: Normal Heart Sounds, Pedal Edema - 2+. No: Heart Murmur, Carotid Bruits, Present Pedal Pulse Abdominal Exam: Yes: Soft, Bowel Sounds Present. No: Distention, Abdominal Mass , Abdominal Tenderness - Extremities Cranial Nerves II-XII Intact: Yes Limbs: Normal Tone, Normal Coordination, Abnormal Power - His legs have full movement, but generally weak - Neuro Orientation: A/O x3 Psychiatric: Depressed Speech: Normal Results - Results Lab Results: Laboratory Results - last 24 hr 02/17/18 02/17/18 02/17/18 03:20 21:39 21:39 WBC 7.4 RBC 4.65 Hgb 13.2 L Hct 40 L MCV 86 MCH 28 MCHC 33 RDW 16 H Plt Count 202 MPV 8.2 Neut % (Auto) 76.3 Lymph % (Auto) 12.3 [place] % (Auto) 10.5 Eos % (Auto) 0.2 Baso % (Auto) 0.7 Absolute Neuts (auto) 5.6 Absolute Lymphs (auto) 0.9 L Absolute Monos (auto) 0.8 Absolute Eos (auto) 0 Absolute Basos (auto) 0 Absolute Nucleated RBC 0 Nucleated RBC % 0.1 INR (Anticoag Therapy) 1.26 H APTT 34.5 Sodium Potassium Chloride Carbon Dioxide Anion Gap BUN Creatinine Est GFR ( Amer) Est GFR (Non-Af Amer) BUN/Creatinine Ratio Glucose POC Glucose (mg/dL) Lactic Acid Calcium Magnesium Total Bilirubin AST ALT Alkaline Phosphatase Total Creatine Kinase Troponin I C-Reactive Protein B-Natriuretic Peptide Total Protein Albumin Globulin Albumin/Globulin Ratio TSH Urine Color Yellow Urine Appearance Clear Urine pH 5.0 Ur Specific [place] 1.010 Urine Protein 2+(100 mg/dl) A Urine Ketones Negative Urine Blood 2+ A Urine Nitrate Negative Urine Bilirubin Negative Urine Urobilinogen Negative Ur Leukocyte Esterase Negative Urine WBC (Auto) Absent Urine RBC (Auto) 2+(6-10/hpf) A Urine Bacteria Absent Hyaline Casts Present A Urine Glucose Negative Serum Alcohol 02/17/18 02/17/18 02/17/18 21:39 21:39 21:39 WBC RBC Hgb Hct MCV MCH MCHC RDW Plt Count MPV Neut % (Auto) Lymph % (Auto) [place] % (Auto) Eos % (Auto) Baso % (Auto) Absolute Neuts (auto) Absolute Lymphs (auto) Absolute Monos (auto) Absolute Eos (auto) Absolute Basos (auto) Absolute Nucleated RBC Nucleated RBC % INR (Anticoag Therapy) APTT Sodium 137 Potassium 4.6 Chloride 101 Carbon Dioxide 31 Anion Gap 5 BUN 33 H Creatinine 1.49 H Est GFR ( Amer) 55.0 Est GFR (Non-Af Amer) 45.5 BUN/Creatinine Ratio 22.1 H Glucose 123 H POC Glucose (mg/dL) Lactic Acid 1.0 Calcium 9.6 Magnesium 1.9 Total Bilirubin 0.80 AST 19 ALT 14 Alkaline Phosphatase 87 Total Creatine Kinase 95 Troponin I 0.22 H* C-Reactive Protein 3.58 B-Natriuretic Peptide 1592 H Total Protein 7.4 Albumin 3.7 Globulin 3.7 Albumin/Globulin Ratio 1.0 TSH 1.09 Urine Color Urine Appearance Urine pH Ur Specific [place] Urine Protein Urine Ketones Urine Blood Urine Nitrate Urine Bilirubin Urine Urobilinogen Ur Leukocyte Esterase Urine WBC (Auto) Urine RBC (Auto) Urine Bacteria Hyaline Casts Urine Glucose Serum Alcohol < 10 02/18/18 02/18/18 02/18/18 01:14 01:30 04:24 WBC RBC Hgb Hct MCV MCH MCHC RDW Plt Count MPV Neut % (Auto) Lymph % (Auto) [place] % (Auto) Eos % (Auto) Baso % (Auto) Absolute Neuts (auto) Absolute Lymphs (auto) Absolute Monos (auto) Absolute Eos (auto) Absolute Basos (auto) Absolute Nucleated RBC Nucleated RBC % INR (Anticoag Therapy) APTT Sodium 138 Potassium 3.8 Chloride 101 Carbon Dioxide 31 Anion Gap 6 BUN 33 H Creatinine 1.55 H Est GFR ( Amer) 52.6 Est GFR (Non-Af Amer) 43.5 BUN/Creatinine Ratio 21.3 H Glucose 154 H POC Glucose (mg/dL) Lactic Acid 1.0 Calcium 9.2 Magnesium Total Bilirubin AST ALT Alkaline Phosphatase Total Creatine Kinase Troponin I 0.16 H* 0.18 H* C-Reactive Protein B-Natriuretic Peptide Total Protein Albumin Globulin Albumin/Globulin Ratio TSH Urine Color Urine Appearance Urine pH Ur Specific [place] Urine Protein Urine Ketones Urine Blood Urine Nitrate Urine Bilirubin Urine Urobilinogen Ur Leukocyte Esterase Urine WBC (Auto) Urine RBC (Auto) Urine Bacteria Hyaline Casts Urine Glucose Serum Alcohol 02/18/18 02/18/18 02/18/18 04:25 06:08 07:30 WBC 7.1 RBC 4.45 Hgb 12.4 L Hct 38 L MCV 85 MCH 28 MCHC 33 RDW 15 Plt Count 176 MPV 8.3 Neut % (Auto) 74.2 Lymph % (Auto) 13.3 [place] % (Auto) 11.7 Eos % (Auto) 0.2 Baso % (Auto) 0.6 Absolute Neuts (auto) 5.3 Absolute Lymphs (auto) 0.9 L Absolute Monos (auto) 0.8 Absolute Eos (auto) 0 Absolute Basos (auto) 0 Absolute Nucleated RBC 0 Nucleated RBC % 0.1 INR (Anticoag Therapy) APTT Sodium Potassium Chloride Carbon Dioxide Anion Gap BUN Creatinine Est GFR ( Amer) Est GFR (Non-Af Amer) BUN/Creatinine Ratio Glucose POC Glucose (mg/dL) 157 H Lactic Acid Calcium Magnesium Total Bilirubin AST ALT Alkaline Phosphatase Total Creatine Kinase Troponin I 0.18 H* C-Reactive Protein B-Natriuretic Peptide Total Protein Albumin Globulin Albumin/Globulin Ratio TSH Urine Color Urine Appearance Urine pH Ur Specific [place] Urine Protein Urine Ketones Urine Blood Urine Nitrate Urine Bilirubin Urine Urobilinogen Ur Leukocyte Esterase Urine WBC (Auto) Urine RBC (Auto) Urine Bacteria Hyaline Casts Urine Glucose Serum Alcohol Radiology Results: Patient Name: SURENDRA PANIAGUA Medical Record#: [id number] Ordering Physician: Dar Brice MD Acct.#: [id number] : 1940 Age: 77 Sex: M Location: EMERGENCY DEPARTMENT Exam Date: 02/17/182253 ADM Status: REG ER Order Information: CT CHEST W/O Accession Number: [id number] CPT: 05758 EXAM: CT Chest Without Contrast EXAM DATE/TIME: 02/17/2018 11:21 PM CLINICAL HISTORY: 77 years old, male; Signs and symptoms; Shortness of breath; Additional info: SOB TECHNIQUE: Axial computed tomography images of the chest without intravenous contrast. All CT scans at this facility use at least one of these dose optimization techniques: automated exposure control; mA and/or kV adjustment per patient size (includes targeted exams where dose is matched to clinical indication); or iterative reconstruction. Coronal and sagittal reformatted images were created and reviewed. COMPARISON: C/A WO CT CHEST/ABD W/O 03/23/2015 8:44 AM FINDINGS: Thyroid: No thyroid nodules. Lungs: Round atelectasis superior lingula, superior and posterior basal segments left lower lobe, medial segment right middle lobe, and basilar segments right middle lobe. No bronchiectasis, peribronchial thickening, or luminal defects. Pleural space: Large bilateral pleural effusions. No pneumothorax. Heart: There is moderate atherosclerotic calcification of the coronary arteries. Aorta: The aorta demonstrates mild atherosclerotic calcification. Lymph nodes: Normal. No enlarged lymph nodes. Bones/joints: The thoracic spine demonstrates moderate degenerative changes at multiple levels. No fractures. No suspicious bone lesions. Soft tissues: Normal. Gallbladder and bile ducts: Surgically absent gallbladder. Kidneys and ureters: Right upper pole simple renal cyst measures 3.5 cm (series 2, image 67) previously 2.9 cm. IMPRESSION: 1. Large pleural effusions and associated chronic lung volume loss. 2. Simple right renal cyst. To contact [facility] with a general question: Operations Center - [phone] For direct physician to physician contact: Physician Hotline - [phone] [facility] ([facility] Facility ID #[id number]) <Electronically signed by Debra Bailey MD in OV> 02/17/18 2348Patient Name: SURENDRA PANIAGUA Medical Record#: [id number] Ordering Physician: Dar Brice MD Acct.#: [id number] : 1940 Age: 77 Sex: M Location: EMERGENCY DEPARTMENT Exam Date: 02/17/182253 ADM Status: REG ER Order Information: CT CHEST W/O Accession Number: [id number] CPT: 88663 EXAM: CT Chest Without Contrast EXAM DATE/TIME: 02/17/2018 11:21 PM CLINICAL HISTORY: 77 years old, male; Signs and symptoms; Shortness of breath; Additional info: SOB TECHNIQUE: Axial computed tomography images of the chest without intravenous contrast. All CT scans at this facility use at least one of these dose optimization techniques: automated exposure control; mA and/or kV adjustment per patient size (includes targeted exams where dose is matched to clinical indication); or iterative reconstruction. Coronal and sagittal reformatted images were created and reviewed. COMPARISON: C/A WO CT CHEST/ABD W/O 03/23/2015 8:44 AM FINDINGS: Thyroid: No thyroid nodules. Lungs: Round atelectasis superior lingula, superior and posterior basal segments left lower lobe, medial segment right middle lobe, and basilar segments right middle lobe. No bronchiectasis, peribronchial thickening, or luminal defects. Pleural space: Large bilateral pleural effusions. No pneumothorax. Heart: There is moderate atherosclerotic calcification of the coronary arteries. Aorta: The aorta demonstrates mild atherosclerotic calcification. Lymph nodes: Normal. No enlarged lymph nodes. Bones/joints: The thoracic spine demonstrates moderate degenerative changes at multiple levels. No fractures. No suspicious bone lesions. Soft tissues: Normal. Gallbladder and bile ducts: Surgically absent gallbladder. Kidneys and ureters: Right upper pole simple renal cyst measures 3.5 cm (series 2, image 67) previously 2.9 cm. IMPRESSION: 1. Large pleural effusions and associated chronic lung volume loss. 2. Simple right renal cyst. To contact [facility] with a general question: Operations Center - [phone] For direct physician to physician contact: Physician Hotline - [phone] [facility] ([facility] Facility ID #[id number]) <Electronically signed by Debra Bailey MD in OV> 02/17/18 7890 This report is only to be considered final once signed by the Provider(s) as displayed in the "<Electronically Signed by >" field (s). Absence of a signature indicates the report is in a draft status and still needs to be finalized. In the event this document was created by someone other than the signing Provider, the individual initiating the document will be listed in the "Entered by:" or "Dictated by:" montes de oca. 1 of 2 EKG Report: 84 sinus rhythm CO 218 QTc 478 QRS axis -43. IV conduction delay. LAFB. 1st degree AV block. 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 Assessment - Problem List Assessment: Patient Problems 2+ pitting edema (Acute) Abnormal EKG (Acute) Acute combined systolic and diastolic congestive heart failure (Acute) Bilateral pleural effusion (Acute) Dyspnea (Acute) Essential (primary) hypertension (Acute) Mitral regurgitation (Acute) Multiple falls (Acute) Troponin I above reference range (Acute) Chronic low back pain (Chronic) Chronic renal disease, stage 3, moderately decreased glomerular filtration rate between 30-59 mL/min/1.73 square meter (Chronic) Hypercholesteremia (Chronic) Lumbar spinal stenosis (Chronic) Obesity (BMI 35.0-39.9 without comorbidity) (Chronic) Pancreatic mass (Chronic) S/P cholecystectomy (Chronic) Type 2 diabetes mellitus treated with insulin (Chronic) Vertigo, benign positional (Chronic) Plan: 2+ pitting edema (Acute) Acute combined systolic and diastolic congestive heart failure (Acute) Abnormal EKG (Acute) Bilateral pleural effusion (Acute) Dyspnea (Acute) Troponin I above reference range (Acute)He presents with increasing edema, shortness of breath and weakness. His troponin I levels are elevated. He has new changes on his EKG - but these are not acute. 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 Alternatively, he has some demand ischemia - though I note his rate is not increased. He had a high risk NM stress test 1 year ago (12/30/16). I presume that he has had a MO (or several) in the meantime. We are obtaining a transthoracic echocardiogram. I will give him parenteral diuretics, avoiding electrolyte imbalances. I note he is on a beta eugenio and NISREEN inhibitor and aspirin. I will obtain a cardiology consultation. Essential (primary) hypertension (Acute) His BP is elevated mitral regurgitation (Acute) This may have worsened due to papillary muscle dysfunction - echocardiogram will help. Multiple falls (Acute)Lumbar spinal stenosis (Chronic) He has a history of severe spinal stenosis and a major increase in his edema. I think the acute CHF and these comorbidities explain his falls. He has a normal neurological examination Chronic low back pain (Chronic) secondary diagnosis Chronic renal disease, stage 3, moderately decreased glomerular filtration rate between 30-59 mL/min/1.73 square meter (Chronic) This is likely to be exacerbated when we give him more diuretic therapy Hypercholesteremia (Chronic) continue current Rx Obesity (BMI 35.0-39.9 without comorbidity) (Chronic) Pancreatic mass (Chronic) inactive S/P cholecystectomy (Chronic) Type 2 diabetes mellitus treated with insulin (Chronic) His glycemic control is fine. He has no foot ulcers Vertigo, benign positional (Chronic) not exacerbated I discussed the above with the patient and his code status. He wishes to be full code. I explained he has worsening heart failure, possibly because of a recent silent MO. I explained that this degree of congestive cardiac failure has a poor prognosis. He has no evidence of an acute neurological event. He agrees with the management plan. I tried calling Martha Paniagua () - no response. I called Hannah (daughter) and updated her.
[2018-02-18] MEDS ORDERED: Carvedilol TAB* 25 MG PO SCH (09:00)
[2018-02-18] MEDS ORDERED: Aspirin TAB* 325 MG PO SCH (09:00)
[2018-02-18] MEDS ORDERED: Atorvastatin* 20 MG TAB PO SCH (09:00)
[2018-02-18] MEDS ORDERED: Aspirin EC TAB* 81 MG TAB.EC PO SCH (09:00)
[2018-02-18 11:05] LABS: Magnesium 1.8 mg/dL (1.9-2.7)
[2018-02-18] MEDS ORDERED: Potassium Chlor TAB* 20 MEQ TAB.ER PO ONE (12:22)
--- NOTE | 2018-02-18 12:31 | ECHO ---
Patient: SURENDRA MAYES [facility] Rec#: [id number] : 1940 Date: 02/18/2018 Age: 77y Height: 178 cm / 70.1 in Weight: 99 kg / 218.2 lbs Sex: M BSA: 2.17 Room#: [facility] Admit Date#: 02/18/2018 Type: Inpatient Referring: Nito Reyes NP Reading: Yajaira Sanchez MD Commercial Mortgage Broker: Naomi Ruth RDCS,RDMS CC: Addy Quezada MD Transthoracic Echocardiogram Indication: CHF BP: 163/93 HR: 70 Rhythm: NSR Findings History: CHF, CAD, ischemic cardiomyopathy, DM, HTN, HLD, CKD Technical Comments: The study quality is fair. Left Ventricle: The left ventricular chamber size is normal. Moderate concentric left ventricular hypertrophy is observed. There is a prominent septal knuckle. There is severely decreased left ventricular systolic function. The estimated ejection fraction is 25-30%. The left ventricular diastolic filling pattern is consistent with pseudonormalization. The left ventricular diastolic filling pattern is consistent with elevated left ventricular end-diastolic pressure. The patient was unable to perform a Valsalva maneuver. Left Atrium: The left atrium is moderately dilated. Right Ventricle: The right ventricular cavity size is normal. The right ventricular global systolic function is low normal. Right Atrium: The right atrial cavity size is normal. Aortic Valve: The aortic valve is trileaflet. The aortic valve leaflets are mildly thickened. There is moderate thickening of the non coronary cusp. Systolic excursion of the non coronary cusp is reduced. There is a trace of aortic regurgitation. There is no evidence of aortic stenosis. Mitral Valve: There is mitral annular calcification. The mitral valve leaflets are mildly thickened. There is mild to moderate mitral regurgitation. The mitral regurgitant jet is posteriorly directed. The mitral regurgitant jet is laterally directed. There is no evidence of mitral stenosis. Tricuspid Valve: The tricuspid valve leaflets are normal. There is trace to mild tricuspid regurgitation. Unable to estimate the right ventricular systolic pressure. Pulmonic Valve: The pulmonic valve appears normal. There is a trace pulmonic regurgitation. Pericardium: There is no significant pericardial effusion. A bilateral pleural effusion is present. There is a large pleural effusion. Aorta: The aortic arch is not well visualized. There is mild dilatation of the aortic root. Pulmonary Artery: The main pulmonary artery is not well visualized. Venous: The inferior vena cava is dilated. There is less than 50% respiratory change in the inferior vena cava dimension. Conclusions Moderate concentric left ventricular hypertrophy is observed. The estimated ejection fraction is 25-30%, large area of apical akinesis and hypokinesis extending into the anterior wall c/w with old anteriiior wall WI. The left ventricular diastolic filling pattern is consistent with pseudonormalization with elevated left ventricular end-diastolic pressure. The right ventricular global systolic function is low normal. Trileaflet aortic valve, systolic excursion of the non coronary cusp is reduced, no significant stenosis but aortic valve area may be overestimated due to low EF. There is mild to moderate mitral regurgitation. There is trace to mild tricuspid regurgitation. A bilateral pleural effusion is present. Compared with prior echo of01/22/17, EF has decresased from 40-45%, apical defect larger, MR has increased. Measurements Name Value Normal Range RVIDd (AP) 2D 2.7 cm (0.9 - 2.6) RVDdMajor (2D) 3.2 cm (2.2 - 4.4) RAd ISD 4CH 4.4 cm (3.4 - 4.9) RA (A4C)W 4.2 cm (2.9 - 4.6) IVSd (2D) 1.8 cm (0.6 - 1) LVPWd (2D) 1.4 cm (0.6 - 1) LVIDd (2D) 4.9 cm (3.6 - 5.4) LVIDs (2D) 3.7 cm - LV FS (2D) 25 % (25 - 45) Aortic Annulus 2.1 cm (1.4 - 2.6) Ao root diameter (2D) 3.6 cm (2.1 - 3.5) Ascending Ao 2.8 cm (2.1 - 3.4) LA dimension (AP) 2D 4.7 cm (2.3 - 3.8) LAd ISD 4CH 5.9 cm (2.9 - 5.3) LA ISD 4CH W 5.8 cm (2.5 - 4.5) Name Value Normal Range LA ESV BP (A/L) index 48 ml/m2 - Name Value Normal Range MV E-wave Vmax 0.8 m/sec - MV deceleration time 130 msec - MV A-wave Vmax 0.4 m/sec - MV E:A ratio 1.9 ratio - LV septal e' Vmax 0.04 m/sec - LV lateral e' Vmax 0.04 m/sec - LV E:e' septal ratio 20 ratio - LV E:e' lateral ratio 20 ratio - Name Value Normal Range AV Vmax 0.8 m/sec - AV VTI 16 cm - AV peak gradient 2.6 mmHg - AV mean gradient 1 mmHg - LVOT Vmax 0.6 m/sec - LVOT VTI 12 cm - LVOT peak gradient 1 mmHg - LVOT mean gradient 1 mmHg - Name Value Normal Range MR Vmax 4.5 m/sec - MR VTI 152 cm - MR volume (PISA) 17 ml - MR flow (PISA) 48 ml/sec - MR ERO 0.11 cm2 - MR PISA radius 0.5 cm - MR alias Vmax 31 cm/sec - Name Value Normal Range RAP 8 mmHg - IVC diameter 2.6 cm - Name Value Normal Range PV Vmax 0.4 m/sec - PV peak gradient 1 mmHg -
--- NOTE | 2018-02-18 15:00 | CONS ---
CC: Dr. Quezada * CONSULTATION REPORT: DATE OF CONSULT: 02/18/18 PRIMARY INSEAMER: Dr. Minor. PRIMARY CARE PHYSICIAN: Dr. Quezada. ATTENDING PHYSICIAN: Dr. Yajaira Sanchez. REASON FOR CONSULT: Troponin elevation, history of coronary artery disease. HISTORY OF PRESENT ILLNESS: This is a pleasant 77-year-old gentleman, who belongs to Dr. Minor of our practice due to known history of coronary artery disease with abnormal Lexiscan stress test in December 2016, which revealed a large anterior reversible defect, EF at that time was 42%. Due to the patient's chronic kidney disease, he was deemed too high risk for left heart catheterization. He has been medically treated since then. He also has a notable history of systolic heart failure, ujbf-wq-[id number] mitral regurgitation, hypertension, pancreatic head mass, chronic kidney disease. According to his daughter who is at his bedside, for the last 2 weeks the patient has had increased weakness with increased mechanical falls. Apparently , the patient has had a total of 5 falls in the last 36 hours. Historically, the patient typically falls 1 to 2 times a week. In fact, when I saw him in the office on 01/02/18, he was explaining that he was falling at least 1 to 2 times a week. At that point in time, it was deemed that the falls appeared to be mechanical in nature due to "tripping over cords or rugs." The patient denies loss of consciousness or hitting head. The patient has also been experiencing increased shortness of breath. The patient presented to the emergency department on 01/18/18. While being evaluated, he underwent CAT scan of the chest, which revealed a large left pleural effusion. Troponin was 0.22. Subsequently, he was admitted to telemetry to rule out ACS. The patient denies chest pain, palpitations, sensation of heart racing, orthopnea. He does report ongoing bilateral lower extremity edema and shortness of breath. The patient has actually been seeing the lymphedema clinic due to ongoing lower extremity edema and according to his daughter, was prescribed a medical technical writer to assist with lymphedema. When I last saw the patient in December 2017, I was trying up-titrate his carvedilol therapy; however, due to multiple reasons including medical noncompliance, confusion, advanced age, the patient did not increase carvedilol as directed. His daughter is quite concerned about the patient being cared for by the patient's . Apparently, there has been a lot of family stress surrounding the care of the patient and the daughter is interested in taking him home with her once medically stable to do so. PAST MEDICAL HISTORY: Includes: 1. Diabetes mellitus. 2. Hypertension. 3. Pancreatic head mass. 4. Known left bundle branch block. 5. Chronic kidney disease, baseline creatinine 1.3 to 1.8. 6. Systolic heart failure. 7. Zwgt-wr-wgcierzz mitral regurgitation. 8. Coronary artery disease. 9. BPH. 10. Chronic lymphedema involving lower extremities. PAST SURGICAL HISTORY: Includes: 1. ERCP in 2014. 2. Left-sided thoracentesis, September 2016. 3. Cholecystectomy. HOME MEDICATIONS: Per admission med rec. ALLERGIES: No known drug allergies. FAMILY HISTORY: Noncontributory. SOCIAL HISTORY: The patient is and lives at home with his , retired. Denies drug abuse or alcohol abuse or tobacco abuse. He ambulates with a walker. He does experience frequent falls, which appeared to be mechanical in nature. REVIEW OF SYSTEMS: All systems have been reviewed and otherwise negative except as above mentioned in the HPI. PHYSICAL EXAM: Temperature 97.5, pulse 60, respirations 24, oxygenation 99% on room air, blood pressure 121/59. General: The patient is sleeping upon entering the room with his daughter sitting at bedside. The patient aroused to his name being called. He appears alert and oriented x3. He is in no apparent distress and is cooperative with examination. HEENT: Head is atraumatic, normocephalic. Oral mucosa is moist. Tongue is midline. Neck: Supple. Trachea midline. Positive JVD. No carotid bruits. Cardiac: Normal S1, S2. Regular rate and rhythm. There is a grade 2/5 diastolic mitral murmur. Lungs: Auscultated posteriorly. Severely diminished in left greater than right lung montes de oca. Positive inspiratory crackles when auscultated anteriorly. No evidence of retractions. /GI: Abdomen is protuberant, soft, nontender. Normoactive bowel sounds x4. Extremities: 3+ bilateral lower extremity edema extending into bilateral thighs. Otherwise, no clubbing, no cyanosis. Skin is intact; however, bilateral pretibial surface is red and warm to the touch. No ecchymosis appreciated. DIAGNOSTIC STUDIES/LAB DATA: Blood work: Sodium 138, potassium 3.8, chloride 101, carbon dioxide 31, BUN 33, creatinine 1.5, glucose is 154, magnesium 1.8. Troponin peaked upon presentation at 0.22 on 02/17/18. AST and ALT were normal. INR was elevated at 1.26. White count is 7.1, hemoglobin 12.4, hematocrit 38, and platelets are 176,000. Chest x-ray reveals large left greater than right pleural effusion. Chest CT done 02/17/18 revealed large pleural effusions associated with chronic lung volume loss, simple right renal cyst. Venous Doppler, 02/18/18, was negative for DVTs. Echocardiogram performed 02/18/18 revealed an LVEF of 25% to 30%, moderate LVH. There was prominent septal knuckle, moderate dilatation of the left atrium, trace AI, no , moderate mitral regurgitation, right ventricular systolic pressure was not to be estimated unfortunately. There was a large pleural effusion. There was a large area of apical akinesis and hypokinesis extending to the anterior wall consistent with old anterior wall SC. EKG, 02/18/18, revealed normal sinus rhythm with left bundle branch block, rate 60, QRS complex does appear to be wider compared to 2017 EKG. ASSESSMENT AND PLAN: 1. History of coronary artery disease with abnormal Lexiscan stress test in 2017, which revealed a large anterior reversible defect. EF at that time was 42 %. This was done due to troponin elevation, which peaked at 0.06 at that time. The patient was deemed too high risk for left heart catheterization according to review of medical records and [facility] due to chronic kidney disease. He has been medically treated with aspirin, statin, and beta blockade therapy. He continues to deny complaints of chest pain. He is presenting to the hospital due to increased mechanical falls and shortness of breath. He denies chest pain. There are no new ischemic findings on EKG. He has a known left bundle branch block, which is now complete in nature. At this current time, we will reduce aspirin to 81 mg a day, continue carvedilol 25 mg p.o. b.i.d., up- titrate Lipitor therapy. AST and ALT are within normal limits. We will make the patient n.p.o. after midnight, check viability study. If myocardium is viable, we will consider offering left heart catheterization; however, the patient would be a high risk procedural patient due to known chronic kidney disease and LV dysfunction; however, we will await viability study before making recommendations. 2. History of chronic kidney disease. Baseline creatinine is 1.3 to 1.8. Appears stable today. We will monitor closely given NISREEN inhibitor and Aldactone therapy. 3. Large bilateral left greater than right pleural effusion. Historically required thoracentesis in 2017. He is on IV diuretic therapy, which will need to be monitored with daily BMPs given above #2. We will defer decision for thoracentesis to primary physician, Dr. Quezada, who is also following. The patient does have known pancreatic head mass. I was told that it was benign. He formally followed a physician in [place]; however, he has not had longitudinal followup in several years. Unclear if this is cardiac versus noncardiac in etiology. 4. History of severe LV dysfunction likely due to above #1. LVEF last year was 42%. It is now less than 30%. We will place an order for LifeVest. Continue Coreg 25 mg p.o. b.i.d., lisinopril 40 mg a day, Aldactone 12.5 mg a day, and diuretic therapy with daily BMPs. 5. History of hypertension, controlled on current medical therapy. 6. Disposition: Pending course. 7. The patient is a full code. We will place an order for LifeVest given now severe LV dysfunction. Please note that his daughter is desiring to have the patient discharged to her home. Dr. Sanchez agrees with the above assessment and plan. Thank you for this kind consultation. We will continue to follow the patient. Please do not hesitate to contact our service. ANITA CHAKRABORTY NP [id number]/CPS #: [id number] FRANCES
[2018-02-18] MEDS: Furosemide IV* 10 MG/ML 10 ML VIAL (100 MG) IV SCH (16:27)
--- NOTE | 2018-02-18 17:21 | PN ---
Cardiology Progress Note Date of Service: 02/18/18 - CC: falling See Sharlene Lakeside's complete consultation. I have reviewed, but an unable to esign at this time. I saw the patient and his daughter personally including exam, 35 minutes time spent. The patient was unaware of SOB, was having increasing LE edema and falls. Found in CHF and very tachypnic, able to get off O2 overnight with dieresis. The patient has presumed LAD disease, was on medical management and presents with evidence of AWMI but differential of LBBB, hibernating myocardium as well. I agree with Sharlene's plans and outline. I await the results of this combination stress test and viability study (using Thallium) to be started tomorrow. I agree with the above regimen for fluid overload, CM. The patient's daughter and the patient understand and are agreeable to the above approach. The daughter expressed concern that the patient's medical issues were too complex for the patient and his to manage at home , I concur and the discharge planning nurses are involved. I took the liberty of adding PT evaluation as well due to falls.
[2018-02-18] MEDS ORDERED: Atorvastatin* 80 MG TAB PO ONE (21:00)
[2018-02-19] MEDS: Heparin VIAL(*) 5000 UNITS/ML VIAL (FIVE THOUSAND) SUBCUT SCH ×3 (05:53→21:15)
[2018-02-19 06:39] LABS: ABS Basophils 0 10^3/ul (0-0.2); ABS Eosinophils 0 10^3/ul (0-0.6); ABS Lymphocytes 1.1 10^3/ul (1.0-4.8); ABS Monocytes 0.6 10^3/ul (0-0.8); ABS Neutrophils 3.3 10^3/ul (1.5-7.7); ABS Nucleated RBC 0 10^3/ul; Eosinophil % 0.8 %; Hematocrit 34 % (42-52); Hemoglobin 11.4 g/dl (14.0-18.0); Lymphocyte % 20.9 %; Mean Corpuscular HGB Conc 34 g/dl (31-36); Mean Corpuscular Hemoglobin 28 pg (27-31); Mean Corpuscular Volume 85 fL (80-94); Mean Platelet Volume 8.4 fL (7.4-10.4); Nucleated Red Blood Cells % 0.2; Platelet Count 156 10^3/ul (150-450); Red Blood Count 4.02 10^6/ul (4.00-5.40); Red Cell Distribution Width 16 % (10.5-15)
[2018-02-19 06:54] LABS: BUN/Creatinine Ratio 26.1 (8-20); C Reactive Protein 3.82 mg/L (<8.01); EGFR Non-African American 44.1 (>60); Potassium 3.9 mmol/L (3.5-5.0)
--- NOTE | 2018-02-19 08:11 | PN ---
Subjective - Subjective Reason for Note: Progress Note History: He was awake overnight due to anxiety - he is unable to describe the source of the anxiety. He is not clear whether this is due to dyspnea. He denies chest pain, palpitations and his telemetry was benign. He is not coughing or bringing up sputum. 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) I50.41 Bilateral pleural effusion (Acute) J90 Dyspnea (Acute) R06.00 Essential (primary) hypertension (Acute) I10 Mitral regurgitation (Acute) Multiple falls (Acute) R29.6 Silent non-ST elevation myocardial infarction (Acute) I21.4 Troponin I above reference range (Acute) R74.8 Chronic low back pain (Chronic) M54.5, G89.29 Chronic renal disease, stage 3, moderately decreased glomerular filtration rate between 30-59 mL/min/1.73 square meter (Chronic) N18.3 Hypercholesteremia (Chronic) E78.0 Lumbar spinal stenosis (Chronic) M48.061 Obesity (BMI 35.0-39.9 without comorbidity) (Chronic) E66.01 Pancreatic mass (Chronic) S/P cholecystectomy (Chronic) Z90.49 Type 2 diabetes mellitus treated with insulin (Chronic) E11.9, Z79.4 Current Medications: Current Medications Acetaminophen (Tylenol Tab*) 650 mg PO Q4H PRN PRN Reason: FEVER/PAIN Last Admin: 02/18/18 20:43 Dose: 650 mg Aspirin (Aspirin 81 Mg Chew Tab*) 81 mg PO DAILY [facility] Carvedilol (Coreg Tab*) 25 mg PO BID [facility] Last Admin: 02/18/18 20:44 Dose: 25 mg Dextrose (D50w Syringe 50 Ml*) 12.5 gm IV PUSH .FOR FS < 60 - SS PRN PRN Reason: FS < 60 Duloxetine HCl (Cymbalta Cap*) 30 mg PO BID [facility] Last Admin: 02/18/18 20:44 Dose: 30 mg Furosemide (Lasix Iv*) 60 mg IV 0800,1700 [facility] Last Admin: 02/18/18 16:27 Dose: 60 mg Heparin Sodium (Porcine) (Heparin Vial(*)) 5,000 units SUBCUT Q8HR [facility] Last Admin: 02/19/18 05:53 Dose: 5,000 units Insulin Glargine (Lantus(*)) 7 units SUBCUT BID WITH MEALS [facility] Last Admin: 02/18/18 17:09 Dose: 7 units Insulin Human Lispro (Humalog*) 0 units SUBCUT AC [facility]; Protocol Last Admin: 02/18/18 17:10 Dose: 3 units Lisinopril (Prinivil Tab*) 40 mg PO DAILY [facility] Last Admin: 02/18/18 08:17 Dose: 40 mg Omeprazole (Prilosec Cap*) 20 mg PO DAILY@0730 [facility] Last Admin: 02/18/18 07:31 Dose: 20 mg Ondansetron HCl (Zofran Inj*) 4 mg IV Q6H PRN PRN Reason: NAUSEA Spironolactone (Aldactone Tab*) 12.5 mg PO DAILY [facility] Last Admin: 02/18/18 08:18 Dose: 12.5 mg Home Medications: Home Medications Medication Instructions Recorded Confirmed Type Atorvastatin* [Lipitor 20 MG*] 20 mg PO DAILY 02/12/15 02/18/18 History Lisinopril TAB* [Prinivil TAB 10 40 mg PO DAILY 02/12/15 02/18/18 History MG*] Omeprazole CAP* [Prilosec CAP* 20 20 mg PO DAILY 02/12/15 02/18/18 History MG] Aspirin [Aspirin Adult Low Dose 81 81 mg PO DAILY 05/12/15 02/18/18 History MG] Multivitamin [Multivitamins] 1 cap PO DAILY 05/12/15 02/18/18 History Duloxetine HCl 30 mg PO BID 10/03/16 02/18/18 History Spironolactone TAB* [Aldactone TAB 12.5 mg PO DAILY #30 tab 12/30/16 02/18/18 Rx 25 MG*] Amlactin TOPICAL BID 02/18/18 History Basaglar Kwikpen U-100 7 units SUBCUT BID WITH MEALS 02/18/18 02/18/18 History Carvedilol TAB* [Coreg TAB*] 25 mg PO BID 02/18/18 02/18/18 History Furosemide TAB* 20 mg PO DAILY 02/18/18 02/18/18 History Novolog Flexpen units SUBCUT TID WITH MEALS 02/18/18 History Vireo Indigo .4 BID 02/18/18 History Vireo Red .2 BID 02/18/18 History Allergies: Allergies Allergy/AdvReac Type Severity Reaction Status Date / Time No Known Allergies Allergy Verified 10/03/16 12:21 Objective - Vital Signs Vital Signs: Vital Signs 02/18/18 02/18/18 02/18/18 12:39 15:21 16:07 Temperature 97.5 F 98.0 F Pulse Rate 60 62 Respiratory 24 20 Rate Blood Pressure 121/59 122/65 (mmHg) O2 Sat by Pulse 99 88 94 Oximetry 02/18/18 02/18/18 02/19/18 19:15 20:00 00:22 Temperature 97.8 F 97.8 F Pulse Rate 69 61 Respiratory 22 18 16 Rate Blood Pressure 129/62 133/59 (mmHg) O2 Sat by Pulse 92 90 Oximetry 02/19/18 02/19/18 03:22 07:45 Temperature 97.0 F Pulse Rate 60 Respiratory 16 18 Rate Blood Pressure 149/71 (mmHg) O2 Sat by Pulse 92 Oximetry - Intake and Output Intake and Output: Intake & Output 02/16/18 02/17/18 02/18/18 02/19/18 11:59 11:59 11:59 11:59 Intake Total 460 1120 Output Total 200 450 Balance 260 670 Weight 229 lb 230 lb Intake: Oral 460 1120 Output: Urine 200 450 Other: # Bowel Movements 0 1 Estimated Stool Amount Medium # Voids 0 2 ADLs: Meal Record Start: 02/18/18 01: 35 Freq: DAILY@0900,1400,1800 Status: Active Protocol: Created 02/18/18 01:35 System (Rec: 02/18/18 01:35 System [id number]) Document 02/18/18 09:00 [id number] (Rec: 02/18/18 09:28 [id number] TELE-C01) Document 02/18/18 14:00 [id number] (Rec: 02/18/18 15:32 [id number] TELE-C01) Document 02/18/18 18:00 [id number] (Rec: 02/18/18 21:24 [id number] TELE-M15) Intake and Output Start: 02/17/18 21: 07 Freq: Status: Active Protocol: Created 02/17/18 21:07 System (Rec: 02/17/18 21:07 System ED-C24) Document 02/18/18 02:10 [id number] (Rec: 02/18/18 02:10 [id number] ED-C19) Intake and Output Start: 02/18/18 01: 35 Freq: DAILY@0600,1400,2200 Status: Active Protocol: Created 02/18/18 01:35 System (Rec: 02/18/18 01:35 System [email or web address]) Document 02/18/18 04:02 [id number] (Rec: 02/18/18 04:02 [id number] TELE-C09) Document 02/18/18 14:00 [id number] (Rec: 02/18/18 15:32 [id number] TELE-C01) Document 02/19/18 06:00 [id number] (Rec: 02/19/18 06:19 [id number] TELE-C33) - Physical Exam General Physical Exam Comment: Sitting in a recliner chair - he is in no acute distress. He is warm and well perfused General: No Cyanosis, Yes Anemia, No Jaundice, No Clubbing Skin: Abnormal: Rash - lower legs - erythematous over shins - not cellulitis Lungs and Chest: Yes: Chest Expansion Symetrica, Vessicular Breath Sounds, Respiratory Distress. No: Chest Expansion Full, Percussion Note Resonant - Dull to percussion at bases, Crackles, Wheezes, Use of Accessory Muscles Heart Rate and Rhythm: Regular Additional Cardiovascular: Yes: Normal Heart Sounds, Heart Murmur, Pedal Edema - 2+ Abdominal Exam: Yes: Soft, Bowel Sounds Present. No: Distention, Abdominal Tenderness - Neuro Orientation: A/O x3 Psychiatric: Normal Speech: Normal Results - Results Lab Results: Laboratory Results - last 24 hr 02/18/18 02/18/18 02/18/18 06:08 11:45 16:28 WBC RBC Hgb Hct MCV MCH MCHC RDW Plt Count MPV Neut % (Auto) Lymph % (Auto) [place] % (Auto) Eos % (Auto) Baso % (Auto) Absolute Neuts (auto) Absolute Lymphs (auto) Absolute Monos (auto) Absolute Eos (auto) Absolute Basos (auto) Absolute Nucleated RBC Nucleated RBC % Sodium Potassium Chloride Carbon Dioxide Anion Gap BUN Creatinine Est GFR ( Amer) Est GFR (Non-Af Amer) BUN/Creatinine Ratio Glucose POC Glucose (mg/dL) 149 H 168 H Calcium Magnesium 1.8 L Troponin I 0.18 H* C-Reactive Protein 02/19/18 02/19/18 02/19/18 06:13 06:13 07:31 WBC 5.0 RBC 4.02 Hgb 11.4 L Hct 34 L MCV 85 MCH 28 MCHC 34 RDW 16 H Plt Count 156 MPV 8.4 Neut % (Auto) 66.1 Lymph % (Auto) 20.9 [place] % (Auto) 11.4 Eos % (Auto) 0.8 Baso % (Auto) 0.8 Absolute Neuts (auto) 3.3 Absolute Lymphs (auto) 1.1 Absolute Monos (auto) 0.6 Absolute Eos (auto) 0 Absolute Basos (auto) 0 Absolute Nucleated RBC 0 Nucleated RBC % 0.2 Sodium 140 Potassium 3.9 Chloride 103 Carbon Dioxide 31 Anion Gap 6 BUN 40 H Creatinine 1.53 H Est GFR ( Amer) 53.4 Est GFR (Non-Af Amer) 44.1 BUN/Creatinine Ratio 26.1 H Glucose 106 H POC Glucose (mg/dL) 117 H Calcium 9.0 Magnesium Troponin I C-Reactive Protein 3.82 Other Results/Reports: Transthoracic echocardiogram Conclusions Moderate concentric left ventricular hypertrophy is observed. 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 The left ventricular diastolic filling pattern is consistent with pseudonormalization with elevated left ventricular end-diastolic pressure. The right ventricular global systolic function is low normal. Trileaflet aortic valve, systolic excursion of the non coronary cusp is reduced, no significant stenosis but aortic valve area may be overestimated due to low EF. There is mild to moderate mitral regurgitation. There is trace to mild tricuspid regurgitation. A bilateral pleural effusion is present. Compared with prior echo of01/22/17, EF has decresased from 40-45%, apical defect larger, MR has increased. Assessment - Problem List Assessment: Patient Problems 2+ pitting edema (Acute) Abnormal EKG (Acute) Acute combined systolic and diastolic congestive heart failure (Acute) Bilateral pleural effusion (Acute) Dyspnea (Acute) Essential (primary) hypertension (Acute) Mitral regurgitation (Acute) Multiple falls (Acute) Silent non-ST elevation myocardial infarction (Acute) Troponin I above reference range (Acute) Chronic low back pain (Chronic) Chronic renal disease, stage 3, moderately decreased glomerular filtration rate between 30-59 mL/min/1.73 square meter (Chronic) Hypercholesteremia (Chronic) Lumbar spinal stenosis (Chronic) Obesity (BMI 35.0-39.9 without comorbidity) (Chronic) Pancreatic mass (Chronic) S/P cholecystectomy (Chronic) Type 2 diabetes mellitus treated with insulin (Chronic) Vertigo, benign positional (Chronic) Plan: 2+ pitting edema (Acute)Abnormal EKG (Acute)Acute combined systolic and diastolic congestive heart failure (Acute) 2+ pitting edema (Acute) Abnormal EKG (Acute) likely silent myocardial infarction of unknown date Bilateral pleural effusion (Acute)Dyspnea (Acute) He had a single diuretic dose yesterday without a large result (if this was completely captured). I will increase the dose of furosemide. I have reviewed the cardiology consultations from Sharlene Ortiz NP and Dr. Yajaira Sanchez. They are considering an anterior AR vs LBBB - this is more likely LBBB. He is due for NM imaging of his heart to look for reversible ischemia and viable myocardium. A year ago Yosvany Siva wanted conservative management of a high risk stress test. He states "reality is setting in" this time around and hasn't yet fully decided what to do if there is viable myocardium that is at risk for further ischemic damage on a stress test. He has bilateral pleural effusions. The left is large than the right. He has had a prior thoracocentesis and this gave him relief. I will consider this tomorrow after the cardiac risk stratification and contingent decision making. Essential (primary) hypertension (Acute) this is controlled Mitral regurgitation (Acute) This remains moderate Multiple falls (Acute) His swollen legs and spinal stenosis make falls likely. OT assessed he would benefit from skilled OT. His ultimate mobility is questioned by PT given the severity of his cardiac injuries Chronic low back pain (Chronic) No pain today Chronic renal disease, stage 3, moderately decreased glomerular filtration rate between 30-59 mL/min/1.73 square meter (Chronic) No change with single dose of IV diuretic Hypercholesteremia (Chronic) Lumbar spinal stenosis (Chronic) ongoing Obesity (BMI 35.0-39.9 without comorbidity) (Chronic) Pancreatic mass (Chronic) benign S/P cholecystectomy (Chronic) Type 2 diabetes mellitus treated with insulin (Chronic) controlled Vertigo, benign positional (Chronic) Not exacerbated Yosvany Paniagua questioned me about code status and I explained this again to him - he didn't change his decision. He would like to be discharged to [facility]'s home ( his daughter). However, it remains to be seen if this is a safe plan of discharge. We will stratify his cardiac risk today by ascertaining if he has areas of his heart that are vulnerable to acute ischemic damage (reversible ischemia). Long conversation with [facility]. Plan - go ahead with investigations. We will meet on Friday morning after risk stratification and decide on best way ahead (Hannah Thomas, Yosvany and myself) about future management. She thinks he will agree to skilled care for sub acute rehab for a better chance of succeeding in independent living at [facility]'s home subsequently.
[2018-02-19] MEDS: Insulin LISPRO* 1 UNITS UNIT SUBCUT SCH ×3 (08:13→17:03)
[2018-02-19] MEDS: DULoxetine DR CAP* 30 MG CAP.DR PO SCH ×2 (08:41→21:13)
[2018-02-19] MEDS: Lisinopril TAB* 10 MG PO SCH (08:41)
[2018-02-19] MEDS: Spironolactone TAB* 25 MG PO SCH (08:41)
[2018-02-19] MEDS: Omeprazole CAP* 20 MG PO SCH (08:41)
[2018-02-19] MEDS: Carvedilol TAB* 25 MG PO SCH ×2 (08:41→21:15)
[2018-02-19] MEDS: Furosemide IV* 10 MG/ML 10 ML VIAL (100 MG) IV SCH ×2 (08:42→17:03)
[2018-02-19] MEDS: Insulin GLARGINE(*) 1 UNITS UNIT SUBCUT SCH ×2 (08:42→17:03)
[2018-02-19] MEDS: Aspirin 81 mg CHEW TAB* 81 MG TAB.CHEW PO SCH (08:42)
[2018-02-19] MEDS ORDERED: Metolazone TAB* 5 MG PO ONE (08:46)
[2018-02-19] MEDS: Potassium Chlor TAB* 20 MEQ TAB.ER PO SCH ×2 (09:18→21:14)
--- NOTE | 2018-02-19 10:46 | PN ---
<Sharlene Ortiz - Last Filed: 02/19/18 10:41> Subjective Date of Service: 02/19/18 - CAD, ICM, CKD, Pleural effusions Interval History: No events last night per nursing staff however patient was awake most of the night due to " anxiety" He continues to deny chest pain, sensation of heart racing, palpitations, SOB. He reports good urinary output, denies dizziness or lightheadedness and currently is sitting in a chair reading a history book. Medications Active Medications: Acetaminophen (Tylenol Tab*) 650 mg PO Q4H PRN PRN Reason: FEVER/PAIN Last Admin: 02/18/18 20:43 Dose: 650 mg Aspirin (Aspirin 81 Mg Chew Tab*) 81 mg PO DAILY [facility] Last Admin: 02/19/18 08:42 Dose: 81 mg Carvedilol (Coreg Tab*) 25 mg PO BID [facility] Last Admin: 02/19/18 08:41 Dose: 25 mg Dextrose (D50w Syringe 50 Ml*) 12.5 gm IV PUSH .FOR FS < 60 - SS PRN PRN Reason: FS < 60 Duloxetine HCl (Cymbalta Cap*) 30 mg PO BID [facility] Last Admin: 02/19/18 08:41 Dose: 30 mg Furosemide (Lasix Iv*) 80 mg IV 0800,1700 [facility] Heparin Sodium (Porcine) (Heparin Vial(*)) 5,000 units SUBCUT Q8HR [facility] Last Admin: 02/19/18 05:53 Dose: 5,000 units Insulin Glargine (Lantus(*)) 7 units SUBCUT BID WITH MEALS [facility] Last Admin: 02/19/18 08:42 Dose: 7 units Insulin Human Lispro (Humalog*) 0 units SUBCUT AC [facility]; Protocol Last Admin: 02/19/18 08:13 Dose: Not Given Lisinopril (Prinivil Tab*) 40 mg PO DAILY [facility] Last Admin: 02/19/18 08:41 Dose: 40 mg Omeprazole (Prilosec Cap*) 20 mg PO DAILY@0730 [facility] Last Admin: 02/19/18 08:41 Dose: 20 mg Ondansetron HCl (Zofran Inj*) 4 mg IV Q6H PRN PRN Reason: NAUSEA Potassium Chloride (Klor Con Er Tab*) 20 meq PO BID [facility] Last Admin: 02/19/18 09:18 Dose: 20 meq Spironolactone (Aldactone Tab*) 12.5 mg PO DAILY [facility] Last Admin: 02/19/18 08:41 Dose: 12.5 mg Objective Vital Signs: Temp Pulse Resp BP Pulse Ox 98.4 F 65 16 172/96 96 02/19/18 08:34 02/19/18 08:34 02/19/18 08:34 02/19/18 08:34 02/19/18 08:34 Oxygen Devices in Use Now: Nasal Cannula Appearance: sitting in chair, NAD, cooperative with exam, alert and oriented X3 Ears/Nose/Mouth/Throat: NL Teeth, Lips, Gums, Mucous Membranes Moist Neck: No Thyroid Enlargement, Masses, - - + JVD, no carotid bruit. Respiratory: - - diminished throughout with inspiratory and expiratory crackles. Left lung sounds are more diminished than right. Cardiovascular: - - Normal S1, S2, RRR, grade 3/6 systolic aortic murmur, + gallop. 3+ bilateral lower extremity edema Abdominal: NL Sounds; No Tenderness; No Distention Skin: - - + redness involving bilateral pretibial surface of both legs. Lines/Tubes/Other Access: Clean, Dry and Intact Peripheral IV Laboratory Results: 02/19/18 06:13 02/19/18 06:13 INR (Anticoag Therapy) 1.26 (0.77-1.02) H 02/17/18 21:39 APTT 34.5 seconds (26.0-36.3) 02/17/18 21:39 Total Bilirubin 0.80 mg/dL (0.2-1.0) 02/17/18 21:39 AST 19 U/L (13-39) 02/17/18 21:39 ALT 14 U/L (7-52) 02/17/18 21:39 Alkaline Phosphatase 87 U/L (34-104) 02/17/18 21:39 B-Natriuretic Peptide 1592 pg/mL (<=100) H 02/17/18 21:39 Total Protein 7.4 g/dL (6.4-8.9) 02/17/18 21:39 Albumin 3.7 g/dL (3.2-5.2) 02/17/18 21:39 Globulin 3.7 g/dL (2-4) 02/17/18 21:39 Albumin/Globulin Ratio 1.0 (1-3) 02/17/18 21:39 TSH 1.09 mcIU/mL (0.34-5.60) 02/17/18 21:39 02/17/18 02/18/18 02/18/18 21:39 01:14 04:24 Troponin I 0.22 H* 0.16 H* 0.18 H* 02/18/18 06:08 Troponin I 0.18 H* Laboratory Results - last 24 hr 02/18/18 02/18/18 02/18/18 06:08 11:45 16:28 WBC RBC Hgb Hct MCV MCH MCHC RDW Plt Count MPV Neut % (Auto) Lymph % (Auto) [place] % (Auto) Eos % (Auto) Baso % (Auto) Absolute Neuts (auto) Absolute Lymphs (auto) Absolute Monos (auto) Absolute Eos (auto) Absolute Basos (auto) Absolute Nucleated RBC Nucleated RBC % Sodium Potassium Chloride Carbon Dioxide Anion Gap BUN Creatinine Est GFR ( Amer) Est GFR (Non-Af Amer) BUN/Creatinine Ratio Glucose POC Glucose (mg/dL) 149 H 168 H Calcium Magnesium 1.8 L Troponin I 0.18 H* C-Reactive Protein 02/19/18 02/19/18 02/19/18 06:13 06:13 07:31 WBC 5.0 RBC 4.02 Hgb 11.4 L Hct 34 L MCV 85 MCH 28 MCHC 34 RDW 16 H Plt Count 156 MPV 8.4 Neut % (Auto) 66.1 Lymph % (Auto) 20.9 [place] % (Auto) 11.4 Eos % (Auto) 0.8 Baso % (Auto) 0.8 Absolute Neuts (auto) 3.3 Absolute Lymphs (auto) 1.1 Absolute Monos (auto) 0.6 Absolute Eos (auto) 0 Absolute Basos (auto) 0 Absolute Nucleated RBC 0 Nucleated RBC % 0.2 Sodium 140 Potassium 3.9 Chloride 103 Carbon Dioxide 31 Anion Gap 6 BUN 40 H Creatinine 1.53 H Est GFR ( Amer) 53.4 Est GFR (Non-Af Amer) 44.1 BUN/Creatinine Ratio 26.1 H Glucose 106 H POC Glucose (mg/dL) 117 H Calcium 9.0 Magnesium Troponin I C-Reactive Protein 3.82 Diagnostic Imaging: Echo 02/18/2018; LVEF 25-305 with mild to moderate MR Venous duplex 02/18/2018; negative DVT. Viability study is pending and to be done today. EKG Data: none to review for today. Assessment/Plan #1 Decompensated SHF; likely ischemic in nature given LVEF was 42 last year with large reversible anterior defect. LVEF now 25-30%. Continue aggressive IV diuresis I agree with increase dose. Will add 2.5mg Metolazone before tonights dose of lasix. Continue Coreg 25mg PO BID, Lisinopril 40mg/day, Aldactone 12.5/ day. Renal function is stable. Recommend daily BMP with aggressive diuretic. Daily weights, NA+ restricted diet < 1500mg, fluid restricted diet. will follow. [facility] approved. Patient full code #2 h/o CAD with troponinemia; troponin peaked upon presentation at .22. He continues to deny chest pain. He is to have viabilty study today. Will follow. On ASA, statin and Bblocker therapy. #3 L>R pleural effusion. on IV lasdix 80mg BID. Dr. Quezada is considering thorocentesis tomorrow depending on viability study which will determine if patient may benefit from revascularization. #4 h/o CKD; creat stable. #5 Disposition pending course. Will follow closely.Patient is a full code. Attending: Ayaan Garcia <Ayaan Garcia - Last Filed: 02/19/18 14:38> Subjective Interval History: addendum Jessica Garcia MD. Patient seen and examined and d/w Ms. Ortiz and daughter [place] at bedside. SURENDRA MAYES is a 77 year old M. Patient's diagnosis is CHF CELLULITIS., falls, cardiomyopathy, CKD, hypertension. Patient without complaints of cp or llanes. Limited by numbness /weakness in legs associated with recent falls. Found to have reduced LV function and viability study is pending. I explained that he is at risk for worsening renal insufficiency/possible dialysis and worseing cognitive function with cath/iv contract/ and possible cabg. In addition, I explained that the leg weakness may be related to noncardiac issues and may not improve with revascularization. I answered multiple questions about options for further evaluation and treatment including medical management given the potential risks and his focus on quality of life. Will await further results of his thallium scan. for now, 1. will try to optimize medical rx with addition of hydralazine, nitrates 2. will check ekg, tropoinins. 3. continue beta eugenio more than 35 min spent face to face and coordinating care. Medications Active Medications: Acetaminophen (Tylenol Tab*) 650 mg PO Q4H PRN PRN Reason: FEVER/PAIN Last Admin: 02/18/18 20:43 Dose: 650 mg Aspirin (Aspirin 81 Mg Chew Tab*) 81 mg PO DAILY [facility] Last Admin: 02/19/18 08:42 Dose: 81 mg Carvedilol (Coreg Tab*) 25 mg PO BID [facility] Last Admin: 02/19/18 08:41 Dose: 25 mg Dextrose (D50w Syringe 50 Ml*) 12.5 gm IV PUSH .FOR FS < 60 - SS PRN PRN Reason: FS < 60 Duloxetine HCl (Cymbalta Cap*) 30 mg PO BID [facility] Last Admin: 02/19/18 08:41 Dose: 30 mg Furosemide (Lasix Iv*) 80 mg IV 0800,1700 [facility] Heparin Sodium (Porcine) (Heparin Vial(*)) 5,000 units SUBCUT Q8HR [facility] Last Admin: 02/19/18 13:46 Dose: 5,000 units Hydralazine HCl (Apresoline Tab*) 10 mg PO TID [facility] Last Admin: 02/19/18 13:45 Dose: 10 mg Insulin Glargine (Lantus(*)) 7 units SUBCUT BID WITH [facility] Last Admin: 02/19/18 08:42 Dose: 7 units Insulin Human Lispro (Humalog*) 0 units SUBCUT AC [facility]; Protocol Last Admin: 02/19/18 11:20 Dose: Not Given Isosorbide Dinitrate (Isordil Tab*) 5 mg PO TID [facility] Last Admin: 02/19/18 13:45 Dose: 5 mg Lisinopril (Prinivil Tab*) 40 mg PO DAILY [facility] Last Admin: 02/19/18 08:41 Dose: 40 mg Omeprazole (Prilosec Cap*) 20 mg PO DAILY@0730 [facility] Last Admin: 02/19/18 08:41 Dose: 20 mg Ondansetron HCl (Zofran Inj*) 4 mg IV Q6H PRN PRN Reason: NAUSEA Potassium Chloride (Klor Con Er Tab*) 20 meq PO BID [facility] Last Admin: 02/19/18 09:18 Dose: 20 meq Spironolactone (Aldactone Tab*) 12.5 mg PO DAILY [facility] Last Admin: 02/19/18 08:41 Dose: 12.5 mg Objective Vital Signs: Temp Pulse Resp BP Pulse Ox 98.0 F 52 16 148/71 98 02/19/18 11:04 02/19/18 11:04 02/19/18 11:04 02/19/18 11:04 02/19/18 11:04 Laboratory Results: 02/19/18 06:13 02/19/18 06:13 INR (Anticoag Therapy) 1.26 (0.77-1.02) H 02/17/18 21:39 APTT 34.5 seconds (26.0-36.3) 02/17/18 21:39 Total Bilirubin 0.80 mg/dL (0.2-1.0) 02/17/18 21:39 AST 19 U/L (13-39) 02/17/18 21:39 ALT 14 U/L (7-52) 02/17/18 21:39 Alkaline Phosphatase 87 U/L (34-104) 02/17/18 21:39 B-Natriuretic Peptide 1592 pg/mL (<=100) H 02/17/18 21:39 Total Protein 7.4 g/dL (6.4-8.9) 02/17/18 21:39 Albumin 3.7 g/dL (3.2-5.2) 02/17/18 21:39 Globulin 3.7 g/dL (2-4) 02/17/18 21:39 Albumin/Globulin Ratio 1.0 (1-3) 02/17/18 21:39 TSH 1.09 mcIU/mL (0.34-5.60) 02/17/18 21:39 02/17/18 02/18/18 02/18/18 21:39 01:14 04:24 Troponin I 0.22 H* 0.16 H* 0.18 H* 02/18/18 06:08 Troponin I 0.18 H*
[2018-02-19] MEDS ORDERED: Regadenoson* 0.4 MG/5 ML SYRINGE ONE (11:53)
[2018-02-19] MEDS: hydrALAZINE TAB* 10 MG PO SCH ×2 (13:45→21:15)
[2018-02-19] MEDS: Isosorbide Dinitrate TAB* 5 MG PO SCH ×2 (13:45→21:13)
[2018-02-19] MEDS: traZODone TAB* 50 MG TAB PO SCH (21:14)
[2018-02-20] MEDS: Heparin VIAL(*) 5000 UNITS/ML VIAL (FIVE THOUSAND) SUBCUT SCH ×3 (05:51→21:32)
[2018-02-20 06:29] LABS: ABS Basophils 0 10^3/ul (0-0.2); ABS Eosinophils 0 10^3/ul (0-0.6); ABS Monocytes 0.7 10^3/ul (0-0.8); ABS Neutrophils 4.1 10^3/ul (1.5-7.7); ABS Nucleated RBC 0 10^3/ul; Eosinophil % 0.7 %; Hematocrit 35 % (42-52); Hemoglobin 11.9 g/dl (14.0-18.0); Lymphocyte % 16.4 %; Mean Corpuscular HGB Conc 34 g/dl (31-36); Mean Corpuscular Hemoglobin 29 pg (27-31); Mean Corpuscular Volume 85 fL (80-94); Mean Platelet Volume 8.2 fL (7.4-10.4); Nucleated Red Blood Cells % 0; Platelet Count 171 10^3/ul (150-450); Red Blood Count 4.12 10^6/ul (4.00-5.40); Red Cell Distribution Width 15 % (10.5-15); White Blood Count 5.8 10^3/ul (3.5-10.8)
[2018-02-20 06:45] LABS: Calcium 9.1 mg/dL (8.6-10.3); Potassium 3.9 mmol/L (3.5-5.0)
--- NOTE | 2018-02-20 07:52 | PN ---
Subjective - Subjective Reason for Note: Progress Note History: He had a good result from his diuretic therapy. He was more comfortable overnight and had no problems with chest pain or dyspnea. He is doing better with mobilization, according to PT - needs to use a RW. 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) I50.41 Bilateral pleural effusion (Acute) J90 Dyspnea (Acute) R06.00 Essential (primary) hypertension (Acute) I10 Mitral regurgitation (Acute) Multiple falls (Acute) R29.6 Silent non-ST elevation myocardial infarction (Acute) I21.4 Troponin I above reference range (Acute) R74.8 Chronic low back pain (Chronic) M54.5, G89.29 Chronic renal disease, stage 3, moderately decreased glomerular filtration rate between 30-59 mL/min/1.73 square meter (Chronic) N18.3 Hypercholesteremia (Chronic) E78.0 Lumbar spinal stenosis (Chronic) M48.061 Obesity (BMI 35.0-39.9 without comorbidity) (Chronic) E66.01 Pancreatic mass (Chronic) S/P cholecystectomy (Chronic) Z90.49 Type 2 diabetes mellitus treated with insulin (Chronic) E11.9, Z79.4 Current Medications: Current Medications Acetaminophen (Tylenol Tab*) 650 mg PO Q4H PRN PRN Reason: FEVER/PAIN Last Admin: 02/18/18 20:43 Dose: 650 mg Aspirin (Aspirin 81 Mg Chew Tab*) 81 mg PO DAILY [facility] Last Admin: 02/19/18 08:42 Dose: 81 mg Carvedilol (Coreg Tab*) 25 mg PO BID [facility] Last Admin: 02/19/18 21:15 Dose: 25 mg Dextrose (D50w Syringe 50 Ml*) 12.5 gm IV PUSH .FOR FS < 60 - SS PRN PRN Reason: FS < 60 Duloxetine HCl (Cymbalta Cap*) 30 mg PO BID [facility] Last Admin: 02/19/18 21:13 Dose: 30 mg Furosemide (Lasix Iv*) 80 mg IV 0800,1700 [facility] Last Admin: 02/19/18 17:03 Dose: 80 mg Heparin Sodium (Porcine) (Heparin Vial(*)) 5,000 units SUBCUT Q8HR [facility] Last Admin: 02/20/18 05:51 Dose: 5,000 units Hydralazine HCl (Apresoline Tab*) 10 mg PO TID [facility] Last Admin: 02/19/18 21:15 Dose: 10 mg Insulin Glargine (Lantus(*)) 7 units SUBCUT BID WITH MEALS [facility] Last Admin: 02/19/18 17:03 Dose: 7 units Insulin Human Lispro (Humalog*) 0 units SUBCUT AC [facility]; Protocol Last Admin: 02/19/18 17:03 Dose: 3 units Isosorbide Dinitrate (Isordil Tab*) 5 mg PO TID [facility] Last Admin: 02/19/18 21:13 Dose: 5 mg Lisinopril (Prinivil Tab*) 40 mg PO DAILY [facility] Last Admin: 02/19/18 08:41 Dose: 40 mg Omeprazole (Prilosec Cap*) 20 mg PO DAILY@0730 [facility] Last Admin: 02/19/18 08:41 Dose: 20 mg Ondansetron HCl (Zofran Inj*) 4 mg IV Q6H PRN PRN Reason: NAUSEA Potassium Chloride (Klor Con Er Tab*) 20 meq PO BID [facility] Last Admin: 02/19/18 21:14 Dose: 20 meq Spironolactone (Aldactone Tab*) 12.5 mg PO DAILY [facility] Last Admin: 02/19/18 08:41 Dose: 12.5 mg Trazodone HCl (Desyrel Tab*) 50 mg PO BEDTIME [facility] Last Admin: 02/19/18 21:14 Dose: 50 mg Home Medications: Home Medications Medication Instructions Recorded Confirmed Type Atorvastatin* [Lipitor 20 MG*] 20 mg PO DAILY 02/12/15 02/18/18 History Lisinopril TAB* [Prinivil TAB 10 40 mg PO DAILY 02/12/15 02/18/18 History MG*] Omeprazole CAP* [Prilosec CAP* 20 20 mg PO DAILY 02/12/15 02/18/18 History MG] Aspirin [Aspirin Adult Low Dose 81 81 mg PO DAILY 05/12/15 02/18/18 History MG] Multivitamin [Multivitamins] 1 cap PO DAILY 05/12/15 02/18/18 History Duloxetine HCl 30 mg PO BID 10/03/16 02/18/18 History Spironolactone TAB* [Aldactone TAB 12.5 mg PO DAILY #30 tab 12/30/16 02/18/18 Rx 25 MG*] Amlactin TOPICAL BID 02/18/18 History Basaglar Kwikpen U-100 7 units SUBCUT BID WITH MEALS 02/18/18 02/18/18 History Carvedilol TAB* [Coreg TAB*] 25 mg PO BID 02/18/18 02/18/18 History Furosemide TAB* 20 mg PO DAILY 02/18/18 02/18/18 History Novolog Flexpen units SUBCUT TID WITH MEALS 02/18/18 History Vireo Indigo .4 BID 02/18/18 History Vireo Red .2 BID 02/18/18 History Allergies: Allergies Allergy/AdvReac Type Severity Reaction Status Date / Time No Known Allergies Allergy Verified 10/03/16 12:21 Objective - Vital Signs Vital Signs: Vital Signs 02/19/18 02/19/18 02/19/18 07:45 08:34 10:44 Temperature 98.4 F Pulse Rate 65 Respiratory 18 16 Rate Blood Pressure 172/96 140/78 (mmHg) O2 Sat by Pulse 96 Oximetry 02/19/18 02/19/18 02/19/18 11:04 15:24 19:36 Temperature 98.0 F 97.0 F Pulse Rate 52 61 65 Respiratory 16 18 16 Rate Blood Pressure 148/71 137/66 175/87 (mmHg) O2 Sat by Pulse 98 95 96 Oximetry 02/19/18 02/19/18 02/20/18 20:00 23:35 03:28 Temperature 98.1 F 97.7 F Pulse Rate 67 64 Respiratory 20 20 20 Rate Blood Pressure 146/63 133/58 (mmHg) O2 Sat by Pulse 93 89 Oximetry - Intake and Output Intake and Output: Intake & Output 02/17/18 02/18/18 02/19/18 02/20/18 11:59 11:59 11:59 11:59 Intake Total 460 1120 560 Output Total 272 152 2638 Balance 260 670 -2920 Weight 229 lb 230 lb 222 lb 8 oz Intake: Oral 460 1120 560 Output: Urine 495 170 7657 Other: # Bowel Movements 0 1 1 Estimated Stool Amount Medium Medium # Voids 0 2 ADLs: Meal Record Start: 02/18/18 01: 35 Freq: DAILY@0900,1400,1800 Status: Active Protocol: Created 02/18/18 01:35 System (Rec: 02/18/18 01:35 System [email or web address]-C02) Document 02/18/18 09:00 [id number] (Rec: 02/18/18 09:28 [id number] TELE-C01) Document 02/18/18 14:00 [id number] (Rec: 02/18/18 15:32 [id number] TELE-C01) Document 02/18/18 18:00 [id number] (Rec: 02/18/18 21:24 [id number] TELE-M15) Document 02/19/18 09:00 [id number] (Rec: 02/19/18 10:48 [id number] TELE-C05) Document 02/19/18 14:00 [id number] (Rec: 02/19/18 14:57 [id number] TELE-C05) Document 02/19/18 18:00 [id number] (Rec: 02/19/18 18:28 [id number] TELE-C01) Intake and Output Start: 02/17/18 21: 07 Freq: Status: Active Protocol: Created 02/17/18 21:07 System (Rec: 02/17/18 21:07 System ED-C24) Document 02/18/18 02:10 [id number] (Rec: 02/18/18 02:10 [id number] ED-C19) Intake and Output Start: 02/18/18 01: 35 Freq: DAILY@0600,1400,2200 Status: Active Protocol: Created 02/18/18 01:35 System (Rec: 02/18/18 01:35 System TELE-C02) Document 02/18/18 04:02 [id number] (Rec: 02/18/18 04:02 [id number] TELE-C09) Document 02/18/18 14:00 [id number] (Rec: 02/18/18 15:32 [id number] TELE-C01) Document 02/19/18 06:00 [id number] (Rec: 02/19/18 06:19 [id number] TELE-C33) Document 02/19/18 14:00 [id number] (Rec: 02/19/18 14:57 [id number] TELE-C05) Document 02/19/18 17:45 [id number] (Rec: 02/19/18 17:46 [id number] TELE-C01) Document 02/19/18 18:39 [id number] (Rec: 02/19/18 18:39 [id number] TELE-C01) Document 02/19/18 20:18 [id number] (Rec: 02/19/18 20:18 [id number] TELE-C01) Document 02/19/18 21:13 [id number] (Rec: 02/19/18 21:13 [id number] TELE-C01) Document 02/20/18 06:00 [id number] (Rec: 02/20/18 06:23 [id number] TELE-C35) - Physical Exam General Physical Exam Comment: He was lying flat, comfortably with his NC malpositioned and non-functional. He showed no respiratory distress. General: No Cyanosis, No Anemia, No Jaundice, No Clubbing Lungs and Chest: Yes: Chest Expansion Symetrica, Crackles. No: Chest Expansion Full, Percussion Note Resonant - dull bases L>R, Vessicular Breath Sounds - diminished bases, Wheezes, Respiratory Distress, Use of Accessory Muscles Heart Rate and Rhythm: Regular Additional Cardiovascular: Yes: Normal Heart Sounds, Heart Murmur, Pedal Edema Abdominal Exam: Yes: Soft, Bowel Sounds Present. No: Distention, Abdominal Tenderness Results - Results Lab Results: Laboratory Results - last 24 hr 02/19/18 02/19/18 02/19/18 07:31 11:09 16:35 WBC RBC Hgb Hct MCV MCH MCHC RDW Plt Count MPV Neut % (Auto) Lymph % (Auto) [place] % (Auto) Eos % (Auto) Baso % (Auto) Absolute Neuts (auto) Absolute Lymphs (auto) Absolute Monos (auto) Absolute Eos (auto) Absolute Basos (auto) Absolute Nucleated RBC Nucleated RBC % Sodium Potassium Chloride Carbon Dioxide Anion Gap BUN Creatinine Est GFR ( Amer) Est GFR (Non-Af Amer) BUN/Creatinine Ratio Glucose POC Glucose (mg/dL) 117 H 100 167 H Calcium 02/20/18 02/20/18 06:15 06:15 WBC 5.8 RBC 4.12 Hgb 11.9 L Hct 35 L MCV 85 MCH 29 MCHC 34 RDW 15 Plt Count 171 MPV 8.2 Neut % (Auto) 70.7 Lymph % (Auto) 16.4 [place] % (Auto) 11.4 Eos % (Auto) 0.7 Baso % (Auto) 0.8 Absolute Neuts (auto) 4.1 Absolute Lymphs (auto) 1.0 Absolute Monos (auto) 0.7 Absolute Eos (auto) 0 Absolute Basos (auto) 0 Absolute Nucleated RBC 0 Nucleated RBC % 0 Sodium 140 Potassium 3.9 Chloride 102 Carbon Dioxide 33 H Anion Gap 5 BUN 44 H Creatinine 1.63 H Est GFR ( Amer) 49.6 Est GFR (Non-Af Amer) 41.0 BUN/Creatinine Ratio 27.0 H Glucose 103 H POC Glucose (mg/dL) Calcium 9.1 Assessment - Problem List Assessment: Patient Problems 2+ pitting edema (Acute) Abnormal EKG (Acute) Acute combined systolic and diastolic congestive heart failure (Acute) Bilateral pleural effusion (Acute) Dyspnea (Acute) Essential (primary) hypertension (Acute) Mitral regurgitation (Acute) Multiple falls (Acute) Silent non-ST elevation myocardial infarction (Acute) Troponin I above reference range (Acute) Chronic low back pain (Chronic) Chronic renal disease, stage 3, moderately decreased glomerular filtration rate between 30-59 mL/min/1.73 square meter (Chronic) Hypercholesteremia (Chronic) Lumbar spinal stenosis (Chronic) Obesity (BMI 35.0-39.9 without comorbidity) (Chronic) Pancreatic mass (Chronic) S/P cholecystectomy (Chronic) Type 2 diabetes mellitus treated with insulin (Chronic) Vertigo, benign positional (Chronic) Plan: 2+ pitting edema (Acute)Abnormal EKG (Acute)Acute combined systolic and diastolic congestive heart failure (Acute)Bilateral pleural effusion (Acute) Dyspnea (Acute) Mitral regurgitation (Acute) Silent non-ST elevation myocardial infarction (Acute)Troponin I above reference range (Acute) I have reviewed Dr. Garcia's note. We are continuing active diuretic therapy and I note a slight bump in his BUN/Cr and a notable negative water balance. He seems more comfortable. He will complete his myocardial risk assessment today. We will consider if he is a candidate for revascularization, an ICD or other interventions. Also, we will establish if he would benefit from a left thoracocentisis. I note that he has some degree of venous insufficiency in his legs contributing to his edema - he was previously going (not faithfully) to the lymphedema clinic. Essential (primary) hypertension (Acute) Controlled Multiple falls (Acute) He is progressing with PT Lumbar spinal stenosis (Chronic)Chronic low back pain (Chronic) secondary problem Chronic renal disease, stage 3, moderately decreased glomerular filtration rate between 30-59 mL/min/1.73 square meter (Chronic) We are watching this closely Hypercholesteremia (Chronic) secondary diagnosis Obesity (BMI 35.0-39.9 without comorbidity) (Chronic) Pancreatic mass (Chronic) secondary diagnosis S/P cholecystectomy (Chronic) Type 2 diabetes mellitus treated with insulin (Chronic) controlled with insulin therapy Vertigo, benign positional (Chronic) inactive. I discussed the above with the patient and he agrees with the management plan. I spoke to his daughter Hannah. She is concerned there is something separately wrong with his legs. I explained that he has chronic problems with his legs due to spinal stenosis and edema, but this is exacerbated by the weakness from his acute CHF. I will meet with the family tomorrow morning to help them make some choices once we have the cardiac evaluations completed and the cardiologists have informed me about his cardiac status.
[2018-02-20] MEDS: Insulin LISPRO* 1 UNITS UNIT SUBCUT SCH ×3 (08:27→17:09)
[2018-02-20] MEDS: Lisinopril TAB* 10 MG PO SCH (08:50)
[2018-02-20] MEDS: Potassium Chlor TAB* 20 MEQ TAB.ER PO SCH ×2 (08:50→21:24)
[2018-02-20] MEDS: Carvedilol TAB* 25 MG PO SCH (08:50)
[2018-02-20] MEDS: Furosemide IV* 10 MG/ML 10 ML VIAL (100 MG) IV SCH ×2 (08:50→17:09)
[2018-02-20] MEDS: hydrALAZINE TAB* 10 MG PO SCH ×3 (08:50→21:25)
[2018-02-20] MEDS: Aspirin 81 mg CHEW TAB* 81 MG TAB.CHEW PO SCH (08:50)
[2018-02-20] MEDS: DULoxetine DR CAP* 30 MG CAP.DR PO SCH ×2 (08:50→21:24)
[2018-02-20] MEDS: Omeprazole CAP* 20 MG PO SCH (08:50)
[2018-02-20] MEDS: Insulin GLARGINE(*) 1 UNITS UNIT SUBCUT SCH ×2 (08:50→17:09)
[2018-02-20] MEDS: Spironolactone TAB* 25 MG PO SCH (08:51)
[2018-02-20] MEDS: Isosorbide Dinitrate TAB* 5 MG PO SCH ×3 (09:18→21:23)
[2018-02-20] MEDS: Carvedilol TAB* 6.25 MG PO SCH (21:24)
[2018-02-20] MEDS: traZODone TAB* 50 MG TAB PO SCH (21:24)
[2018-02-21] MEDS: Heparin VIAL(*) 5000 UNITS/ML VIAL (FIVE THOUSAND) SUBCUT SCH ×3 (05:12→21:26)
[2018-02-21 06:56] LABS: ABS Basophils 0.1 10^3/ul (0-0.2); ABS Eosinophils 0 10^3/ul (0-0.6); ABS Lymphocytes 1.1 10^3/ul (1.0-4.8); ABS Monocytes 0.7 10^3/ul (0-0.8); ABS Neutrophils 3.5 10^3/ul (1.5-7.7); ABS Nucleated RBC 0 10^3/ul; Eosinophil % 0.9 %; Hematocrit 35 % (42-52); Hemoglobin 11.7 g/dl (14.0-18.0); Lymphocyte % 20.3 %; Mean Corpuscular HGB Conc 33 g/dl (31-36); Mean Corpuscular Hemoglobin 29 pg (27-31); Mean Corpuscular Volume 85 fL (80-94); Mean Platelet Volume 8.3 fL (7.4-10.4); Nucleated Red Blood Cells % 0.1; Platelet Count 176 10^3/ul (150-450); Red Cell Distribution Width 16 % (10.5-15); White Blood Count 5.3 10^3/ul (3.5-10.8)
[2018-02-21] MEDS: Omeprazole CAP* 20 MG PO SCH (07:28)
[2018-02-21] MEDS: Furosemide IV* 10 MG/ML 10 ML VIAL (100 MG) IV SCH (07:28)
[2018-02-21 07:31] LABS: CO2 Carbon Dioxide 32 mmol/L (22-32); Calcium 9.3 mg/dL (8.6-10.3); Chloride 100 mmol/L (101-111); Sodium 139 mmol/L (135-145)
[2018-02-21 07:36] LABS: BUN/Creatinine Ratio 26.9 (8-20); Blood Urea Nitrogen 45 mg/dL (6-24); EGFR Non-African American 39.9 (>60); Glucose 105 mg/dL (70-100)
[2018-02-21 08:03] LABS: Anion Gap 7 mmol/L (2-11)
[2018-02-21] MEDS: Insulin LISPRO* 1 UNITS UNIT SUBCUT SCH ×3 (08:15→17:47)
[2018-02-21] MEDS: Insulin GLARGINE(*) 1 UNITS UNIT SUBCUT SCH ×2 (08:56→18:00)
[2018-02-21] MEDS: Carvedilol TAB* 6.25 MG PO SCH ×2 (09:00→21:24)
[2018-02-21] MEDS: DULoxetine DR CAP* 30 MG CAP.DR PO SCH ×2 (09:01→21:23)
[2018-02-21] MEDS: Spironolactone TAB* 25 MG PO SCH (09:02)
[2018-02-21] MEDS: Aspirin 81 mg CHEW TAB* 81 MG TAB.CHEW PO SCH (09:02)
[2018-02-21] MEDS: hydrALAZINE TAB* 10 MG PO SCH (09:02)
[2018-02-21] MEDS: Lisinopril TAB* 10 MG PO SCH (09:03)
[2018-02-21] MEDS: Potassium Chlor TAB* 20 MEQ TAB.ER PO SCH ×2 (09:03→21:25)
[2018-02-21] MEDS: Isosorbide Dinitrate TAB* 5 MG PO SCH (09:07)
--- NOTE | 2018-02-21 10:31 | PN ---
Subjective - Subjective Reason for Note: Progress Note History: He is feeling stronger now that he has had diuretic therapy. He was able to walk around the [place] twice yesterday with a walker. He describes no paroxysmal nocturnal dyspnea or chest pressure/pain. He is in no distress. His glycemic control is on target. His BP remains a little high. 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) I50.41 Bilateral pleural effusion (Acute) J90 Dyspnea (Acute) R06.00 Essential (primary) hypertension (Acute) I10 Mitral regurgitation (Acute) Multiple falls (Acute) R29.6 Silent non-ST elevation myocardial infarction (Acute) I21.4 Troponin I above reference range (Acute) R74.8 Chronic low back pain (Chronic) M54.5, G89.29 Chronic renal disease, stage 3, moderately decreased glomerular filtration rate between 30-59 mL/min/1.73 square meter (Chronic) N18.3 Hypercholesteremia (Chronic) E78.0 Lumbar spinal stenosis (Chronic) M48.061 Obesity (BMI 35.0-39.9 without comorbidity) (Chronic) E66.01 Pancreatic mass (Chronic) S/P cholecystectomy (Chronic) Z90.49 Type 2 diabetes mellitus treated with insulin (Chronic) E11.9, Z79.4 Current Medications: Current Medications Acetaminophen (Tylenol Tab*) 650 mg PO Q4H PRN PRN Reason: FEVER/PAIN Last Admin: 02/18/18 20:43 Dose: 650 mg Aspirin (Aspirin 81 Mg Chew Tab*) 81 mg PO DAILY [facility] Last Admin: 02/21/18 09:02 Dose: 81 mg Carvedilol (Coreg Tab*) 12.5 mg PO BID [facility] Last Admin: 02/21/18 09:00 Dose: 12.5 mg Dextrose (D50w Syringe 50 Ml*) 12.5 gm IV PUSH .FOR FS < 60 - SS PRN PRN Reason: FS < 60 Duloxetine HCl (Cymbalta Cap*) 30 mg PO BID [facility] Last Admin: 02/21/18 09:01 Dose: 30 mg Furosemide (Lasix Iv*) 80 mg IV 0800,1700 [facility] Last Admin: 02/21/18 07:28 Dose: 80 mg Heparin Sodium (Porcine) (Heparin Vial(*)) 5,000 units SUBCUT Q8HR [facility] Last Admin: 02/21/18 05:12 Dose: 5,000 units Hydralazine HCl (Apresoline Tab*) 10 mg PO TID [facility] Last Admin: 02/21/18 09:02 Dose: 10 mg Insulin Glargine (Lantus(*)) 7 units SUBCUT BID WITH MEALS [facility] Last Admin: 02/21/18 08:56 Dose: 7 units Insulin Human Lispro (Humalog*) 0 units SUBCUT AC [facility]; Protocol Last Admin: 02/21/18 08:15 Dose: Not Given Isosorbide Dinitrate (Isordil Tab*) 5 mg PO TID [facility] Last Admin: 02/21/18 09:07 Dose: 5 mg Lisinopril (Prinivil Tab*) 40 mg PO DAILY [facility] Last Admin: 02/21/18 09:03 Dose: 40 mg Omeprazole (Prilosec Cap*) 20 mg PO DAILY@0730 [facility] Last Admin: 02/21/18 07:28 Dose: 20 mg Ondansetron HCl (Zofran Inj*) 4 mg IV Q6H PRN PRN Reason: NAUSEA Potassium Chloride (Klor Con Er Tab*) 20 meq PO BID [facility] Last Admin: 02/21/18 09:03 Dose: 20 meq Spironolactone (Aldactone Tab*) 12.5 mg PO DAILY [facility] Last Admin: 02/21/18 09:02 Dose: 12.5 mg Trazodone HCl (Desyrel Tab*) 50 mg PO BEDTIME [facility] Last Admin: 02/20/18 21:24 Dose: 50 mg Home Medications: Home Medications Medication Instructions Recorded Confirmed Type Atorvastatin* [Lipitor 20 MG*] 20 mg PO DAILY 02/12/15 02/18/18 History Lisinopril TAB* [Prinivil TAB 10 40 mg PO DAILY 02/12/15 02/18/18 History MG*] Omeprazole CAP* [Prilosec CAP* 20 20 mg PO DAILY 02/12/15 02/18/18 History MG] Aspirin [Aspirin Adult Low Dose 81 81 mg PO DAILY 05/12/15 02/18/18 History MG] Multivitamin [Multivitamins] 1 cap PO DAILY 05/12/15 02/18/18 History Duloxetine HCl 30 mg PO BID 10/03/16 02/18/18 History Spironolactone TAB* [Aldactone TAB 12.5 mg PO DAILY #30 tab 12/30/16 02/18/18 Rx 25 MG*] Amlactin TOPICAL BID 02/18/18 History Basaglar Kwikpen U-100 7 units SUBCUT BID WITH MEALS 02/18/18 02/18/18 History Carvedilol TAB* [Coreg TAB*] 25 mg PO BID 02/18/18 02/18/18 History Furosemide TAB* 20 mg PO DAILY 02/18/18 02/18/18 History Novolog Flexpen units SUBCUT TID WITH MEALS 02/18/18 History Vireo Indigo .4 BID 02/18/18 History Vireo Red .2 BID 02/18/18 History Allergies: Allergies Allergy/AdvReac Type Severity Reaction Status Date / Time No Known Allergies Allergy Verified 10/03/16 12:21 Objective - Vital Signs Vital Signs: Vital Signs 02/20/18 02/20/18 02/20/18 11:53 15:22 19:05 Temperature 97.2 F 97.6 F Pulse Rate 58 57 Respiratory 18 16 18 Rate Blood Pressure 140/60 123/59 (mmHg) O2 Sat by Pulse 94 95 Oximetry 02/20/18 02/20/18 02/21/18 19:47 23:44 04:05 Temperature 98.1 F 98.3 F 97.4 F Pulse Rate 64 61 65 Respiratory 16 20 24 Rate Blood Pressure 162/79 147/68 155/70 (mmHg) O2 Sat by Pulse 95 93 90 Oximetry 02/21/18 08:03 Temperature 98.1 F Pulse Rate 65 Respiratory 16 Rate Blood Pressure 164/82 (mmHg) O2 Sat by Pulse 97 Oximetry - Intake and Output Intake and Output: Intake & Output 02/18/18 02/19/18 02/20/18 02/21/18 11:59 11:59 11:59 11:59 Intake Total 460 1120 800 0 Output Total 684 282 8883 3150 Balance 260 670 -2930 -3150 Weight 229 lb 230 lb 222 lb 8 oz 217 lb 4.8 oz Intake: Oral 460 1120 800 0 Output: Urine 074 182 3328 3150 Liquid Stool 0 0 Other: Estimated Void Small Medium # Bowel Movements 0 1 1 1 Estimated Stool Amount Medium Medium Medium # Voids 0 2 1 ADLs: Meal Record Start: 02/18/18 01: 35 Freq: DAILY@0900,1400,1800 Status: Active Protocol: Created 02/18/18 01:35 System (Rec: 02/18/18 01:35 System TELE-C02) Document 02/18/18 09:00 [id number] (Rec: 02/18/18 09:28 [id number] TELE-C01) Document 02/18/18 14:00 [id number] (Rec: 02/18/18 15:32 [id number] TELE-C01) Document 02/18/18 18:00 [id number] (Rec: 02/18/18 21:24 [id number] TELE-M15) Document 02/19/18 09:00 [id number] (Rec: 02/19/18 10:48 [id number] TELE-C05) Document 02/19/18 14:00 [id number] (Rec: 02/19/18 14:57 [id number] TELE-C05) Document 02/19/18 18:00 [id number] (Rec: 02/19/18 18:28 [id number] TELE-C01) Document 02/20/18 09:00 [id number] (Rec: 02/20/18 15:01 [id number] TELE-C05) Document 02/20/18 14:00 [id number] (Rec: 02/20/18 15:04 [id number] TELE-C05) Document 02/20/18 18:24 [id number] (Rec: 02/20/18 18:24 [id number] TELE-C01) Intake and Output Start: 02/17/18 21: 07 Freq: Status: Active Protocol: Created 02/17/18 21:07 System (Rec: 02/17/18 21:07 System ED-C24) Document 02/18/18 02:10 [id number] (Rec: 02/18/18 02:10 [id number] ED-C19) Intake and Output Start: 02/18/18 01: 35 Freq: DAILY@0600,1400,2200 Status: Active Protocol: Created 02/18/18 01:35 System (Rec: 02/18/18 01:35 System TELE-C02) Document 02/18/18 04:02 [id number] (Rec: 02/18/18 04:02 [id number] TELE-C09) Document 02/18/18 14:00 [id number] (Rec: 02/18/18 15:32 [id number] TELE-C01) Document 02/19/18 06:00 [id number] (Rec: 02/19/18 06:19 [id number] TELE-C33) Document 02/19/18 14:00 [id number] (Rec: 02/19/18 14:57 [id number] TELE-C05) Document 02/19/18 17:45 [id number] (Rec: 02/19/18 17:46 [id number] TELE-C01) Document 02/19/18 18:39 [id number] (Rec: 02/19/18 18:39 [id number] TELE-C01) Document 02/19/18 20:18 [id number] (Rec: 02/19/18 20:18 RVP1704 TELE-C01) Document 02/19/18 21:13 [id number] (Rec: 02/19/18 21:13 [id number] TELE-C01) Document 02/20/18 06:00 [id number] (Rec: 02/20/18 06:23 [id number] TELE-C35) Document 02/20/18 12:54 CIF1683 (Rec: 02/20/18 12:54 [id number] TELE-C02) Document 02/20/18 18:24 [id number] (Rec: 02/20/18 18:24 [id number] TELE-C01) Document 02/20/18 22:00 [id number] (Rec: 02/20/18 22:06 [id number] TELE-C13) Document 02/21/18 06:00 [id number] (Rec: 02/21/18 06:50 [id number] TELE-C35) Document 02/21/18 07:51 [id number] (Rec: 02/21/18 07:51 [id number] TELE-C02) - Physical Exam General Physical Exam Comment: He is sitting in a chair and is not in any distress breathing room air. He has chronic edema of his legs. General: No Cyanosis, No Anemia, No Jaundice, No Clubbing Lungs and Chest: Yes: Chest Expansion Symetrica, Vessicular Breath Sounds, Crackles - scattered. No: Chest Expansion Full, Percussion Note Resonant - dull at bases, Respiratory Distress, Use of Accessory Muscles Heart Rate and Rhythm: Regular Additional Cardiovascular: Yes: Normal Heart Sounds, Heart Murmur, Pedal Edema Abdominal Exam: Yes: Soft. No: Distention, Abdominal Tenderness - Neuro Orientation: A/O x3 Psychiatric: Normal Speech: Normal Results - Results Lab Results: Laboratory Results - last 24 hr 02/20/18 02/20/18 02/21/18 11:24 16:15 06:43 WBC 5.3 RBC 4.10 Hgb 11.7 L Hct 35 L MCV 85 MCH 29 MCHC 33 RDW 16 H Plt Count 176 MPV 8.3 Neut % (Auto) 65.5 Lymph % (Auto) 20.3 Mcclain % (Auto) 12.2 Eos % (Auto) 0.9 Baso % (Auto) 1.1 Absolute Neuts (auto) 3.5 Absolute Lymphs (auto) 1.1 Absolute Monos (auto) 0.7 Absolute Eos (auto) 0 Absolute Basos (auto) 0.1 Absolute Nucleated RBC 0 Nucleated RBC % 0.1 Sodium Potassium Chloride Carbon Dioxide Anion Gap BUN Creatinine Est GFR ( Amer) Est GFR (Non-Af Amer) BUN/Creatinine Ratio Glucose POC Glucose (mg/dL) 200 H 191 H Calcium Troponin I 02/21/18 02/21/18 06:43 07:27 WBC RBC Hgb Hct MCV MCH MCHC RDW Plt Count MPV Neut % (Auto) Lymph % (Auto) Mcclain % (Auto) Eos % (Auto) Baso % (Auto) Absolute Neuts (auto) Absolute Lymphs (auto) Absolute Monos (auto) Absolute Eos (auto) Absolute Basos (auto) Absolute Nucleated RBC Nucleated RBC % Sodium 139 Potassium TNP Chloride 100 L Carbon Dioxide 32 Anion Gap 7 BUN 45 H Creatinine 1.67 H Est GFR ( Amer) 48.3 Est GFR (Non-Af Amer) 39.9 BUN/Creatinine Ratio 26.9 H Glucose 105 H POC Glucose (mg/dL) 115 H Calcium 9.3 Troponin I 0.07 H* Radiology Results: Patient Name: SURENDRA MAYES Medical Record#: [id number] Ordering Physician: Sharlene Ortiz NP Acct.#: [id number] : 1940 Age: 77 Sex: M Location: [address] [place] [address]/TELEMETRY Exam Date: 02/19/18 1223 ADM Status: ADM IN Order Information: NM MYOCARD THALL 24H VIABILITY Accession Number: [id number] CPT: 98774 INDICATION: Assess viability. COMPARISON: Comparison is made with a prior study from December 30, 2016. Technique: A myocardial perfusion stress study was performed on February 19, 2018. Under the direction of Dr. Sanchez the patient was given an intravenous injection of Lexiscan. Subsequently the patient was given intravenous injection of 3.0 mCi of technetium thallium-201 chloride and the heart was imaged in multiple projections. The patient returned approximately 4 hours later and was reimaged. The patient returned in 24 hours and was given a reinjection of 1.1 mCi of technetium thallium-201 chloride and the heart was reimaged. Images were reconstructed in the axial, sagittal and coronal planes and in a 3- D format FINDINGS: There is a large defect on the post pharmacologic stress images involving the apex adjacent anterior, lateral and inferior olivia. On the 4 hour delayed images there is mild jordin-infarct redistribution in the anterior and inferoseptal olivia. There is no additional redistribution is seen on the 24-hour delayed images. IMPRESSION: LARGE INFARCT DESCRIBED WITH MILD JORDIN-INFARCT ISCHEMIC CHANGE. ASSESSMENT: High risk. <Electronically signed by Serge Espana MD in OV> 02/20/18 1502 Dictated By: Serge Espana MD Dictated Date/Time: 02/20/18 1502 Transcribed Date/Time: 02/20/18 1443 Copy to: CC:Addy Quezada MD; Sharlene Ortiz BILLING [employer]LECTIONS SPECIALIST; Rebecca Newton MD Imaging - [facility] - [facility] [address] [address] ph ([phone]) ph ([phone]) ph ([phone]) This report is only to be considered final once signed by the Provider(s) as displayed in the "<Electronically Signed by >" field (s). Absence of a signature indicates the report is in a draft status and still needs to be finalized. In the event this document was created by someone other than the signing Provider, the individual initiating the document will be listed in the "Entered by:" or "Dictated by:" [place]. 1 of 2 Assessment - Problem List Assessment: Patient Problems 2+ pitting edema (Acute) Abnormal EKG (Acute) Acute combined systolic and diastolic congestive heart failure (Acute) Bilateral pleural effusion (Acute) Dyspnea (Acute) Essential (primary) hypertension (Acute) Mitral regurgitation (Acute) Multiple falls (Acute) Silent non-ST elevation myocardial infarction (Acute) Troponin I above reference range (Acute) Chronic low back pain (Chronic) Chronic renal disease, stage 3, moderately decreased glomerular filtration rate between 30-59 mL/min/1.73 square meter (Chronic) Hypercholesteremia (Chronic) Lumbar spinal stenosis (Chronic) Obesity (BMI 35.0-39.9 without comorbidity) (Chronic) Pancreatic mass (Chronic) S/P cholecystectomy (Chronic) Type 2 diabetes mellitus treated with insulin (Chronic) Vertigo, benign positional (Chronic) Plan: Acute combined systolic and diastolic congestive heart failure (Acute)Silent non -ST elevation myocardial infarction (Acute) Abnormal EKG (Acute)Bilateral pleural effusion (Acute)Dyspnea (Acute) Mitral regurgitation (Acute) Troponin I above reference range (Acute) He is doing better with IV furosemide therapy. He is stronger and is more functional than he has been for many weeks Essential (primary) hypertension (Acute) His BP remains on the high side Multiple falls (Acute) This was exacerbated by his CHF-related weakness 2+ pitting edema (Acute) He has lost a component that is mobilizable by diuretic - however, he has venous insufficiency/lymphedema that will not improve much more Chronic low back pain (Chronic) stable Chronic renal disease, stage 3, moderately decreased glomerular filtration rate between 30-59 mL/min/1.73 square meter (Chronic) This remains stable despite the diuretic therapy Hypercholesteremia (Chronic) continue current Rx Lumbar spinal stenosis (Chronic) A major comorbidity contributing to his poor mobilization Obesity (BMI 35.0-39.9 without comorbidity) (Chronic) Pancreatic mass (Chronic) This is benign S/P cholecystectomy (Chronic) Type 2 diabetes mellitus treated with insulin (Chronic) on target Vertigo, benign positional (Chronic) Inactive. I had a 30 min discussion with Surendra Mayes, his daughter Hannah and her . For the first half, Dr. Ayaan Garcia was present. 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 - We gave the poor prognosis if he has no intervention - that he would likely have further episodes of worsening heart failure/infarction. His heart would enlarge. He would become weaker. He would be at high risk of malignant heart rhythm disturbances. Thus there would be a downward clinical course punctuated by acute cardiac events. The prognosis 1 - 2 years at most. However, during that time he would likely be able to continue his usual main sedentary enthusiasms - reading being top amongst these. - We discussed interventions and their risks - cardiac catheterization - with the possibility of renal damage or even the need for dialysis. With that data he would either not have anatomy amenable to revascularization and he would be back to conservative management. Intervention would most likely be CABG - stenting less likely given the diffuse pattern of myocardial dysfunction on the thallium scan. - We outlined CABG - this would be at another center. It is possible he would have an uncomplicated path which would require skilled rehabilitation afterwards. However, there are many risks - myocardial infarction during the procedure, stroke or other more unusual issues. After surgery there is the possibility of rhythm disturbances (predominantly atrial fibrillation, but ventricular rhythm disturbances are possible with his scarred LV). Wound healing issues. Bed sores etc. - If all of this goes well his prognosis will be better with the CABG, but he continues to have a poor prognosis (maybe years rather than months) from his CHF due already to his diastolic dysfunction and his currently infarcted myocardium. - A month or so after surgery we would be able to assess the benefits of the surgery. He may continue to require an ICD. He may also need resynchronization therapy (he has LBBB). We answered many question. In the end Surendra Mayes was clear as to what he wants - he would like to go the interventional route. He can articulate the possible problems and understands the risks. I discussed this with Dr. Garcia. On balance, we think he would best have the cardiac catheterization at [facility] in case the anatomy precludes revascularization. If the anatomy looks consistent with surgery, we will decide based upon the appearance of the anatomy whether this is acute (direct transfer to a tertiary care center for emergency CABG) subacute - discharge, further improvement in management of his CHF and outpatient elective CABG.
[2018-02-21] MEDS: hydrALAZINE TAB* 25 MG PO SCH ×3 (12:31→21:24)
[2018-02-21] MEDS: Isosorbide Dinitrate TAB* 10 MG PO SCH ×3 (12:31→21:24)
[2018-02-21] MEDS: traZODone TAB* 50 MG TAB PO SCH (21:25)
[2018-02-22] MEDS: Heparin VIAL(*) 5000 UNITS/ML VIAL (FIVE THOUSAND) SUBCUT SCH ×3 (05:30→21:55)
[2018-02-22 05:49] LABS: BUN/Creatinine Ratio 27.5 (8-20); Calcium 9.2 mg/dL (8.6-10.3); EGFR Non-African American 44.1 (>60); Potassium 3.8 mmol/L (3.5-5.0)
[2018-02-22] MEDS: Insulin LISPRO* 1 UNITS UNIT SUBCUT SCH ×3 (07:40→16:57)
[2018-02-22] MEDS ORDERED: Furosemide IV* 10 MG/ML 10 ML VIAL (100 MG) IV SCH (09:00)
[2018-02-22] MEDS: Omeprazole CAP* 20 MG PO SCH (09:02)
[2018-02-22] MEDS: DULoxetine DR CAP* 30 MG CAP.DR PO SCH ×2 (09:02→21:55)
[2018-02-22] MEDS: Aspirin 81 mg CHEW TAB* 81 MG TAB.CHEW PO SCH (09:04)
[2018-02-22] MEDS: Carvedilol TAB* 6.25 MG PO SCH ×2 (09:04→21:55)
[2018-02-22] MEDS: Lisinopril TAB* 10 MG PO SCH (09:04)
[2018-02-22] MEDS: hydrALAZINE TAB* 25 MG PO SCH ×3 (09:04→21:54)
[2018-02-22] MEDS: Spironolactone TAB* 25 MG PO SCH (09:04)
[2018-02-22] MEDS: Potassium Chlor TAB* 20 MEQ TAB.ER PO SCH ×2 (09:05→21:55)
[2018-02-22] MEDS: Insulin GLARGINE(*) 1 UNITS UNIT SUBCUT SCH ×2 (09:05→17:08)
[2018-02-22] MEDS: Isosorbide Dinitrate TAB* 10 MG PO SCH ×3 (09:52→21:55)
--- NOTE | 2018-02-22 10:36 | PN ---
Subjective - Subjective Reason for Note: Progress Note History: He is feeling comfortable this morning. He has had no dyspnea overnight. He has continued to respond to diuretic therapy. 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) I50.41 Bilateral pleural effusion (Acute) J90 Dyspnea (Acute) R06.00 Essential (primary) hypertension (Acute) I10 Mitral regurgitation (Acute) Multiple falls (Acute) R29.6 Silent non-ST elevation myocardial infarction (Acute) I21.4 Troponin I above reference range (Acute) R74.8 Chronic low back pain (Chronic) M54.5, G89.29 Chronic renal disease, stage 3, moderately decreased glomerular filtration rate between 30-59 mL/min/1.73 square meter (Chronic) N18.3 Hypercholesteremia (Chronic) E78.0 Lumbar spinal stenosis (Chronic) M48.061 Obesity (BMI 35.0-39.9 without comorbidity) (Chronic) E66.01 Pancreatic mass (Chronic) S/P cholecystectomy (Chronic) Z90.49 Type 2 diabetes mellitus treated with insulin (Chronic) E11.9, Z79.4 Current Medications: Current Medications Acetaminophen (Tylenol Tab*) 650 mg PO Q4H PRN PRN Reason: FEVER/PAIN Last Admin: 02/18/18 20:43 Dose: 650 mg Aspirin (Aspirin 81 Mg Chew Tab*) 81 mg PO DAILY [facility] Last Admin: 02/22/18 09:04 Dose: 81 mg Carvedilol (Coreg Tab*) 12.5 mg PO BID [facility] Last Admin: 02/22/18 09:04 Dose: 12.5 mg Dextrose (D50w Syringe 50 Ml*) 12.5 gm IV PUSH .FOR FS < 60 - SS PRN PRN Reason: FS < 60 Duloxetine HCl (Cymbalta Cap*) 30 mg PO BID [facility] Last Admin: 02/22/18 09:02 Dose: 30 mg Furosemide (Lasix Iv*) 80 mg IV DAILY [facility] Last Admin: 02/22/18 08:59 Dose: 80 mg Heparin Sodium (Porcine) (Heparin Vial(*)) 5,000 units SUBCUT Q8HR [facility] Last Admin: 02/22/18 05:30 Dose: 5,000 units Hydralazine HCl (Apresoline Tab*) 25 mg PO TID [facility] Last Admin: 02/22/18 09:04 Dose: 25 mg Insulin Glargine (Lantus(*)) 7 units SUBCUT BID WITH MEALS [facility] Last Admin: 02/22/18 09:05 Dose: 7 units Insulin Human Lispro (Humalog*) 0 units SUBCUT AC [facility]; Protocol Last Admin: 02/22/18 07:40 Dose: Not Given Isosorbide Dinitrate (Isordil Tab*) 10 mg PO TID [facility] Last Admin: 02/22/18 09:52 Dose: 10 mg Lisinopril (Prinivil Tab*) 40 mg PO DAILY [facility] Last Admin: 02/22/18 09:04 Dose: 40 mg Omeprazole (Prilosec Cap*) 20 mg PO DAILY@0730 [facility] Last Admin: 02/22/18 09:02 Dose: 20 mg Ondansetron HCl (Zofran Inj*) 4 mg IV Q6H PRN PRN Reason: NAUSEA Potassium Chloride (Klor Con Er Tab*) 20 meq PO BID [facility] Last Admin: 02/22/18 09:05 Dose: 20 meq Spironolactone (Aldactone Tab*) 12.5 mg PO DAILY [facility] Last Admin: 02/22/18 09:04 Dose: 12.5 mg Trazodone HCl (Desyrel Tab*) 50 mg PO BEDTIME [facility] Last Admin: 02/21/18 21:25 Dose: 50 mg Home Medications: Home Medications Medication Instructions Recorded Confirmed Type Atorvastatin* [Lipitor 20 MG*] 20 mg PO DAILY 02/12/15 02/18/18 History Lisinopril TAB* [Prinivil TAB 10 40 mg PO DAILY 02/12/15 02/18/18 History MG*] Omeprazole CAP* [Prilosec CAP* 20 20 mg PO DAILY 02/12/15 02/18/18 History MG] Aspirin [Aspirin Adult Low Dose 81 81 mg PO DAILY 05/12/15 02/18/18 History MG] Multivitamin [Multivitamins] 1 cap PO DAILY 05/12/15 02/18/18 History Duloxetine HCl 30 mg PO BID 10/03/16 02/18/18 History Spironolactone TAB* [Aldactone TAB 12.5 mg PO DAILY #30 tab 12/30/16 02/18/18 Rx 25 MG*] Amlactin TOPICAL BID 02/18/18 History Basaglar Kwikpen U-100 7 units SUBCUT BID WITH MEALS 02/18/18 02/18/18 History Carvedilol TAB* [Coreg TAB*] 25 mg PO BID 02/18/18 02/18/18 History Furosemide TAB* 20 mg PO DAILY 02/18/18 02/18/18 History Novolog Flexpen units SUBCUT TID WITH MEALS 02/18/18 History Vireo Indigo .4 BID 02/18/18 History Vireo Red .2 BID 02/18/18 History Allergies: Allergies Allergy/AdvReac Type Severity Reaction Status Date / Time No Known Allergies Allergy Verified 10/03/16 12:21 Objective - Vital Signs Vital Signs: Vital Signs 02/21/18 02/21/18 02/21/18 11:46 15:26 15:56 Temperature 98.2 F 97.0 F Pulse Rate 56 59 Respiratory 16 16 Rate Blood Pressure 144/74 136/78 126/64 (mmHg) O2 Sat by Pulse 95 96 Oximetry 02/21/18 02/21/18 02/21/18 20:00 20:16 23:00 Temperature 97.2 F 98.0 F Pulse Rate 60 69 Respiratory 17 14 16 Rate Blood Pressure 134/61 143/65 (mmHg) O2 Sat by Pulse 96 91 Oximetry 02/22/18 02/22/18 02/22/18 02:05 03:51 07:15 Temperature 98.4 F 97.9 F Pulse Rate 64 67 Respiratory 28 16 Rate Blood Pressure 160/70 148/67 162/81 (mmHg) O2 Sat by Pulse 96 93 Oximetry 02/22/18 07:41 Temperature Pulse Rate Respiratory 16 Rate Blood Pressure (mmHg) O2 Sat by Pulse Oximetry - Intake and Output Intake and Output: Intake & Output 02/19/18 02/20/18 02/21/18 02/22/18 11:59 11:59 11:59 11:59 Intake Total 1120 469 93 7526 Output Total 450 3730 3150 1600 Balance 670 -2930 -3070 -460 Weight 230 lb 222 lb 8 oz 217 lb 4.8 oz 212 lb 9.6 oz Intake: Oral 1120 570 10 5957 Output: Urine 450 3730 3150 1600 Liquid Stool 0 0 Other: Estimated Void Small Medium # Bowel Movements 1 1 1 0 Estimated Stool Amount Medium Medium Medium # Voids 2 1 ADLs: Meal Record Start: 02/18/18 01: 35 Freq: DAILY@0900,1400,1800 Status: Active Protocol: Created 02/18/18 01:35 System (Rec: 02/18/18 01:35 System TELE-C02) Document 02/18/18 09:00 [id number] (Rec: 02/18/18 09:28 [id number] TELE-C01) Document 02/18/18 14:00 [id number] (Rec: 02/18/18 15:32 RRV6886 TELE-C01) Document 02/18/18 18:00 [id number] (Rec: 02/18/18 21:24 [id number] TELE-M15) Document 02/19/18 09:00 [id number] (Rec: 02/19/18 10:48 WID7054 TELE-C05) Document 02/19/18 14:00 [id number] (Rec: 02/19/18 14:57 [id number] TELE-C05) Document 02/19/18 18:00 [id number] (Rec: 02/19/18 18:28 [id number] TELE-C01) Document 02/20/18 09:00 GOQ0503 (Rec: 02/20/18 15:01 IBL7536 TELE-C05) Document 02/20/18 14:00 [id number] (Rec: 02/20/18 15:04 KRZ2377 TELE-C05) Document 02/20/18 18:24 [id number] (Rec: 02/20/18 18:24 MLI4401 TELE-C01) Document 02/21/18 09:00 [id number] (Rec: 02/21/18 15:19 FYT9155 TELE-C08) Document 02/21/18 14:00 [id number] (Rec: 02/21/18 15:21 [id number] TELE-C08) Document 02/21/18 18:00 [id number] (Rec: 02/21/18 21:22 [id number] TELE-C07) Intake and Output Start: 02/17/18 21: 07 Freq: Status: Active Protocol: Created 02/17/18 21:07 System (Rec: 02/17/18 21:07 System ED-C24) Document 02/18/18 02:10 [id number] (Rec: 02/18/18 02:10 WVG1069 ED-C19) Intake and Output Start: 02/18/18 01: 35 Freq: DAILY@0600,1400,2200 Status: Active Protocol: Created 02/18/18 01:35 System (Rec: 02/18/18 01:35 System TELE-C02) Document 02/18/18 04:02 [id number] (Rec: 02/18/18 04:02 ZTJ4090 TELE-C09) Document 02/18/18 14:00 [id number] (Rec: 02/18/18 15:32 [id number] TELE-C01) Document 02/19/18 06:00 [id number] (Rec: 02/19/18 06:19 VES1073 TELE-C33) Document 02/19/18 14:00 ZVX7167 (Rec: 02/19/18 14:57 SSP8848 TELE-C05) Document 02/19/18 17:45 XTE1984 (Rec: 02/19/18 17:46 IKI3648 TELE-C01) Document 02/19/18 18:39 QCI7104 (Rec: 02/19/18 18:39 OVK3885 TELE-C01) Document 02/19/18 20:18 EJI8871 (Rec: 02/19/18 20:18 SBC3945 TELE-C01) Document 02/19/18 21:13 [id number] (Rec: 02/19/18 21:13 [id number] TELE-C01) Document 02/20/18 06:00 TPS1334 (Rec: 02/20/18 06:23 FYM4473 TELE-C35) Document 02/20/18 12:54 NZD8621 (Rec: 02/20/18 12:54 IIQ9557 TELE-C02) Document 02/20/18 18:24 [id number] (Rec: 02/20/18 18:24 SQV6058 TELE-C01) Document 02/20/18 22:00 AYG0475 (Rec: 02/20/18 22:06 LNQ7271 TELE-C13) Document 02/21/18 06:00 [id number] (Rec: 02/21/18 06:50 QTI8326 TELE-C35) Document 02/21/18 07:51 [id number] (Rec: 02/21/18 07:51 IPX4726 TELE-C02) Document 02/21/18 14:00 [id number] (Rec: 02/21/18 15:21 SZJ8025 TELE-C08) Document 02/21/18 22:00 [id number] (Rec: 02/21/18 22:55 PYU5621 TELE-C01) Document 02/22/18 05:44 [id number] (Rec: 02/22/18 05:51 [id number] TELE-C33) - Physical Exam General: No Cyanosis, No Anemia, No Jaundice, No Clubbing Lungs and Chest: Yes: Chest Expansion Full, Chest Expansion Symetrica, Crackles. No: Percussion Note Resonant, Vessicular Breath Sounds, Wheezes, Respiratory Distress, Use of Accessory Muscles Heart Rate and Rhythm: Regular Additional Cardiovascular: Yes: Normal Heart Sounds, Heart Murmur, Pedal Edema Abdominal Exam: Yes: Soft. No: Distention, Abdominal Tenderness Results - Results Lab Results: Laboratory Results - last 24 hr 02/21/18 02/21/18 02/22/18 11:52 16:54 05:25 Sodium 139 Potassium 3.8 Chloride 97 L Carbon Dioxide 38 H Anion Gap 4 BUN 42 H Creatinine 1.53 H Est GFR ( Amer) 53.4 Est GFR (Non-Af Amer) 44.1 BUN/Creatinine Ratio 27.5 H Glucose 119 H POC Glucose (mg/dL) 246 H 114 H Calcium 9.2 02/22/18 07:14 Sodium Potassium Chloride Carbon Dioxide Anion Gap BUN Creatinine Est GFR ( Amer) Est GFR (Non-Af Amer) BUN/Creatinine Ratio Glucose POC Glucose (mg/dL) 120 H Calcium Assessment - Problem List Assessment: Patient Problems 2+ pitting edema (Acute) Abnormal EKG (Acute) Acute combined systolic and diastolic congestive heart failure (Acute) Bilateral pleural effusion (Acute) Dyspnea (Acute) Essential (primary) hypertension (Acute) Mitral regurgitation (Acute) Multiple falls (Acute) Silent non-ST elevation myocardial infarction (Acute) Troponin I above reference range (Acute) Chronic low back pain (Chronic) Chronic renal disease, stage 3, moderately decreased glomerular filtration rate between 30-59 mL/min/1.73 square meter (Chronic) Hypercholesteremia (Chronic) Lumbar spinal stenosis (Chronic) Obesity (BMI 35.0-39.9 without comorbidity) (Chronic) Pancreatic mass (Chronic) S/P cholecystectomy (Chronic) Type 2 diabetes mellitus treated with insulin (Chronic) Vertigo, benign positional (Chronic) Plan: 1. Acute systolic and diastolic CHF/ischemic heart disease: he has responded well to IV diuretic therapy, nitrates and hydralazine. Dr. Garcia thinks that this response is encouraging as the nitrates may have helped his myocardial perfusion. He is going to have a cardiac catheterization tomorrow to determine if he is a candidate for revascularization (CABG or even angioplasty/stenting). He has had a good response from diuretic therapy. 2. Pleural effusions - no indication right now for thoracocentesis as he has no dyspnea. 3. Renal insufficiency - his kidneys have tolerated the diuretic therapy 4. T2D: Well controlled 5. Hypertension: his BP remains on the high side, he is tolerating the vasodilators. I discussed the above with the patient and he is aware of and approves of the management plan
[2018-02-22] MEDS: traZODone TAB* 50 MG TAB PO SCH (21:55)
[2018-02-23] MEDS: Insulin LISPRO* 1 UNITS UNIT SUBCUT SCH ×4 (04:01→17:42)
[2018-02-23] MEDS ORDERED: NS 0.9% 1000 ML* 1,000 ML IV SCH ×2 (07:00→08:44)
[2018-02-23] MEDS: Omeprazole CAP* 20 MG PO SCH (07:44)
[2018-02-23 07:56] LABS: BUN/Creatinine Ratio 24.7 (8-20); EGFR Non-African American 45.1 (>60); Potassium 4.2 mmol/L (3.5-5.0)
[2018-02-23] MEDS: Insulin GLARGINE(*) 1 UNITS UNIT SUBCUT SCH ×2 (07:56→18:37)
--- NOTE | 2018-02-23 08:34 | PN ---
Subjective - Subjective Reason for Note: Progress Note History: He is feeling well this morning having slept through the night. He has no dyspnea at rest, palpitations, chest pressure, nausea, diaphoresis or light headedness. He feels his legs are improved in terms of edema. 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) I50.41 Bilateral pleural effusion (Acute) J90 Dyspnea (Acute) R06.00 Essential (primary) hypertension (Acute) I10 Mitral regurgitation (Acute) Multiple falls (Acute) R29.6 Silent non-ST elevation myocardial infarction (Acute) I21.4 Troponin I above reference range (Acute) R74.8 Chronic low back pain (Chronic) M54.5, G89.29 Chronic renal disease, stage 3, moderately decreased glomerular filtration rate between 30-59 mL/min/1.73 square meter (Chronic) N18.3 Hypercholesteremia (Chronic) E78.0 Lumbar spinal stenosis (Chronic) M48.061 Obesity (BMI 35.0-39.9 without comorbidity) (Chronic) E66.01 Pancreatic mass (Chronic) S/P cholecystectomy (Chronic) Z90.49 Type 2 diabetes mellitus treated with insulin (Chronic) E11.9, Z79.4 Current Medications: Current Medications Acetaminophen (Tylenol Tab*) 650 mg PO Q4H PRN PRN Reason: FEVER/PAIN Last Admin: 02/18/18 20:43 Dose: 650 mg Aspirin (Aspirin 81 Mg Chew Tab*) 81 mg PO DAILY [facility] Last Admin: 02/22/18 09:04 Dose: 81 mg Carvedilol (Coreg Tab*) 12.5 mg PO BID [facility] Last Admin: 02/22/18 21:55 Dose: 12.5 mg Dextrose (D50w Syringe 50 Ml*) 12.5 gm IV PUSH .FOR FS < 60 - SS PRN PRN Reason: FS < 60 Duloxetine HCl (Cymbalta Cap*) 30 mg PO BID [facility] Last Admin: 02/22/18 21:55 Dose: 30 mg Hydralazine HCl (Apresoline Tab*) 25 mg PO TID [facility] Last Admin: 02/22/18 21:54 Dose: 25 mg Sodium Chloride (Ns 0.9% 1000 Ml*) 1,000 mls @ 25 mls/hr IV PER RATE [facility] Last Admin: 02/23/18 07:40 Dose: 25 mls/hr Insulin Glargine (Lantus(*)) 7 units SUBCUT BID WITH MEALS [facility] Last Admin: 02/23/18 07:56 Dose: 7 units Insulin Human Lispro (Humalog*) 0 units SUBCUT AC [facility]; Protocol Last Admin: 02/23/18 07:43 Dose: Not Given Isosorbide Dinitrate (Isordil Tab*) 10 mg PO TID [facility] Last Admin: 02/22/18 21:55 Dose: 10 mg Omeprazole (Prilosec Cap*) 20 mg PO DAILY@0730 [facility] Last Admin: 02/23/18 07:44 Dose: Not Given Ondansetron HCl (Zofran Inj*) 4 mg IV Q6H PRN PRN Reason: NAUSEA Potassium Chloride (Klor Con Er Tab*) 20 meq PO BID [facility] Last Admin: 02/22/18 21:55 Dose: 20 meq Spironolactone (Aldactone Tab*) 12.5 mg PO DAILY [facility] Last Admin: 02/22/18 09:04 Dose: 12.5 mg Trazodone HCl (Desyrel Tab*) 50 mg PO BEDTIME [facility] Last Admin: 02/22/18 21:55 Dose: 50 mg Home Medications: Home Medications Medication Instructions Recorded Confirmed Type Atorvastatin* [Lipitor 20 MG*] 20 mg PO DAILY 02/12/15 02/18/18 History Lisinopril TAB* [Prinivil TAB 10 40 mg PO DAILY 02/12/15 02/18/18 History MG*] Omeprazole CAP* [Prilosec CAP* 20 20 mg PO DAILY 02/12/15 02/18/18 History MG] Aspirin [Aspirin Adult Low Dose 81 81 mg PO DAILY 05/12/15 02/18/18 History MG] Multivitamin [Multivitamins] 1 cap PO DAILY 05/12/15 02/18/18 History Duloxetine HCl 30 mg PO BID 10/03/16 02/18/18 History Spironolactone TAB* [Aldactone TAB 12.5 mg PO DAILY #30 tab 12/30/16 02/18/18 Rx 25 MG*] Amlactin TOPICAL BID 02/18/18 History Basaglar Kwikpen U-100 7 units SUBCUT BID WITH MEALS 02/18/18 02/18/18 History Carvedilol TAB* [Coreg TAB*] 25 mg PO BID 02/18/18 02/18/18 History Furosemide TAB* 20 mg PO DAILY 02/18/18 02/18/18 History Novolog Flexpen units SUBCUT TID WITH MEALS 02/18/18 History Vireo Indigo .4 BID 02/18/18 History Vireo Red .2 BID 02/18/18 History Allergies: Allergies Allergy/AdvReac Type Severity Reaction Status Date / Time No Known Allergies Allergy Verified 10/03/16 12:21 Objective - Vital Signs Vital Signs: Vital Signs 02/22/18 02/22/18 02/22/18 12:08 13:44 15:50 Temperature 97.1 F 97.4 F Pulse Rate 55 58 61 Respiratory 16 16 Rate Blood Pressure 133/69 136/67 139/67 (mmHg) O2 Sat by Pulse 98 96 Oximetry 02/22/18 02/22/18 02/22/18 19:06 20:36 23:15 Temperature 97.3 F 98.2 F Pulse Rate 58 64 Respiratory 16 16 22 Rate Blood Pressure 139/63 156/76 (mmHg) O2 Sat by Pulse 95 92 Oximetry 02/23/18 03:18 Temperature 97.7 F Pulse Rate 67 Respiratory 18 Rate Blood Pressure 144/58 (mmHg) O2 Sat by Pulse 93 Oximetry - Intake and Output Intake and Output: Intake & Output 02/20/18 02/21/18 02/22/18 02/23/18 11:59 11:59 11:59 11:59 Intake Total 076 57 3527 1360 Output Total 3730 3150 1600 2550 Balance -2930 -3070 -342 -1190 Weight 222 lb 8 oz 217 lb 4.8 oz 212 lb 9.6 oz 212 lb 4.8 oz Intake: Oral 075 51 9021 1360 Output: Urine 3730 3150 1600 2550 Liquid Stool 0 0 Other: Estimated Void Small Medium # Bowel Movements 1 1 0 0 Estimated Stool Amount Medium Medium Small # Voids 1 0 ADLs: Meal Record Start: 02/18/18 01: 35 Freq: DAILY@0900,1400,1800 Status: Active Protocol: Created 02/18/18 01:35 System (Rec: 02/18/18 01:35 System TELE-C02) Document 02/18/18 09:00 [id number] (Rec: 02/18/18 09:28 [id number] TELE-C01) Document 02/18/18 14:00 [id number] (Rec: 02/18/18 15:32 [id number] TELE-C01) Document 02/18/18 18:00 [id number] (Rec: 02/18/18 21:24 GPS5915 TELE-M15) Document 02/19/18 09:00 SHV0843 (Rec: 02/19/18 10:48 HOC5982 TELE-C05) Document 02/19/18 14:00 MDE5860 (Rec: 02/19/18 14:57 ELH8309 TELE-C05) Document 02/19/18 18:00 [id number] (Rec: 02/19/18 18:28 IOH0507 TELE-C01) Document 02/20/18 09:00 [id number] (Rec: 02/20/18 15:01 YWK6998 TELE-C05) Document 02/20/18 14:00 UHW0337 (Rec: 02/20/18 15:04 PBU1681 TELE-C05) Document 02/20/18 18:24 JOU2273 (Rec: 02/20/18 18:24 WVB9162 TELE-C01) Document 02/21/18 09:00 LDW4632 (Rec: 02/21/18 15:19 MEG8469 TELE-C08) Document 02/21/18 14:00 QCC4212 (Rec: 02/21/18 15:21 XWG2594 TELE-C08) Document 02/21/18 18:00 OSY2059 (Rec: 02/21/18 21:22 [id number] TELE-C07) Document 02/22/18 09:00 ZAN2655 (Rec: 02/22/18 14:21 FIK7692 TELE-C13) Document 02/22/18 14:00 UIS8753 (Rec: 02/22/18 14:23 HTX0091 TELE-C13) Document 02/22/18 17:45 [id number] (Rec: 02/22/18 17:46 VPJ6268 TELE-C01) Intake and Output Start: 02/17/18 21: 07 Freq: Status: Active Protocol: Created 12/11/18 21:07 System (Rec: 02/17/18 21:07 System ED-C24) Document 02/18/18 02:10 [id number] (Rec: 02/18/18 02:10 [id number] ED-C19) Intake and Output Start: 02/18/18 01: 35 Freq: DAILY@0600,1400,2200 Status: Active Protocol: Created 02/18/18 01:35 System (Rec: 02/18/18 01:35 System TELE-C02) Document 02/18/18 04:02 [id number] (Rec: 02/18/18 04:02 GNC1260 TELE-C09) Document 02/18/18 14:00 ACY5513 (Rec: 02/18/18 15:32 [id number] TELE-C01) Document 02/19/18 06:00 KSH6540 (Rec: 02/19/18 06:19 IMJ1834 TELE-C33) Document 02/19/18 14:00 BYY0002 (Rec: 02/19/18 14:57 EDV3601 TELE-C05) Document 02/19/18 17:45 KRC5700 (Rec: 02/19/18 17:46 BAS7334 TELE-C01) Document 02/19/18 18:39 XUQ1524 (Rec: 02/19/18 18:39 PCB0360 TELE-C01) Document 02/19/18 20:18 WAQ5964 (Rec: 02/19/18 20:18 UVH5188 TELE-C01) Document 02/19/18 21:13 WJR5104 (Rec: 02/19/18 21:13 WFT9138 TELE-C01) Document 02/20/18 06:00 ISV4915 (Rec: 02/20/18 06:23 THZ1642 TELE-C35) Document 02/20/18 12:54 [id number] (Rec: 02/20/18 12:54 LZV6998 TELE-C02) Document 02/20/18 18:24 EKE2003 (Rec: 02/20/18 18:24 AHP8300 TELE-C01) Document 02/20/18 22:00 LYQ5725 (Rec: 02/20/18 22:06 GQP8539 TELE-C13) Document 02/21/18 06:00 SRL8178 (Rec: 02/21/18 06:50 BCA4086 TELE-C35) Document 02/21/18 07:51 VCN5030 (Rec: 02/21/18 07:51 QJX9588 TELE-C02) Document 02/21/18 14:00 LYH8962 (Rec: 02/21/18 15:21 CBQ7125 TELE-C08) Document 02/21/18 22:00 KYH6949 (Rec: 02/21/18 22:55 EXI0518 TELE-C01) Document 02/22/18 05:44 UIS6078 (Rec: 02/22/18 05:51 YNY1399 TELE-C33) Document 02/22/18 14:00 KXP1127 (Rec: 02/22/18 14:23 HOE5500 TELE-C13) Document 02/22/18 14:26 JPH6439 (Rec: 02/22/18 14:26 PAR6692 TELE-C13) Document 02/22/18 21:58 WBA0466 (Rec: 02/22/18 21:58 MGU6181 TELE-C01) Document 02/23/18 01:30 TWS7922 (Rec: 02/23/18 01:30 ADW9886 TELE-M11) Document 02/23/18 04:07 [id number] (Rec: 02/23/18 04:07 KHP8478 TELE-M11) Document 02/23/18 06:00 PRD0637 (Rec: 02/23/18 06:22 QZO2924 TELE-C33) Document 02/23/18 06:00 MHC9523 (Rec: 02/23/18 06:21 MJA6515 TELE-M11) - Physical Exam General: No Cyanosis, No Anemia, No Jaundice, No Clubbing Lungs and Chest: Yes: Chest Expansion Full, Chest Expansion Symetrica, Percussion Note Resonant - dull bases L>R, Vessicular Breath Sounds, Crackles, Wheezes. No: Respiratory Distress Heart Rate and Rhythm: Regular Additional Cardiovascular: Yes: Normal Heart Sounds, Heart Murmur, Pedal Edema Abdominal Exam: Yes: Soft. No: Distention, Abdominal Tenderness - Neuro Orientation: A/O x3 Speech: Normal Results - Results Lab Results: Laboratory Results - last 24 hr 02/22/18 02/22/18 02/23/18 11:59 16:28 03:53 Sodium Potassium Chloride Carbon Dioxide Anion Gap BUN Creatinine Est GFR ( Amer) Est GFR (Non-Af Amer) BUN/Creatinine Ratio Glucose POC Glucose (mg/dL) 213 H 111 H 164 H Calcium 02/23/18 02/23/18 07:29 07:42 Sodium 140 Potassium 4.2 Chloride 100 L Carbon Dioxide 36 H Anion Gap 4 BUN 37 H Creatinine 1.50 H Est GFR ( Amer) 54.6 Est GFR (Non-Af Amer) 45.1 BUN/Creatinine Ratio 24.7 H Glucose 88 POC Glucose (mg/dL) 82 Calcium 9.0 Assessment - Problem List Assessment: Patient Problems 2+ pitting edema (Acute) Abnormal EKG (Acute) Acute combined systolic and diastolic congestive heart failure (Acute) Bilateral pleural effusion (Acute) Dyspnea (Acute) Essential (primary) hypertension (Acute) Mitral regurgitation (Acute) Multiple falls (Acute) Silent non-ST elevation myocardial infarction (Acute) Troponin I above reference range (Acute) Chronic low back pain (Chronic) Chronic renal disease, stage 3, moderately decreased glomerular filtration rate between 30-59 mL/min/1.73 square meter (Chronic) Hypercholesteremia (Chronic) Lumbar spinal stenosis (Chronic) Obesity (BMI 35.0-39.9 without comorbidity) (Chronic) Pancreatic mass (Chronic) S/P cholecystectomy (Chronic) Type 2 diabetes mellitus treated with insulin (Chronic) Vertigo, benign positional (Chronic) Plan: 2+ pitting edema (Acute) Acute combined systolic and diastolic congestive heart failure (Acute) Bilateral pleural effusion (Acute) Abnormal EKG (Acute) Dyspnea (Acute)Troponin I above reference range (Acute) He has continued to benefit from his current pharmacology. He is much improved compared to his state on admission. Dr. Bhavik Rossi is planning a coronary angiogram this morning using minimal dye to reduce risk to his renal function. If there is a possibility revascularization will improve myocardial function, we will transfer him for this procedure ( whether this be angioplasty or the more likely CABG). If there is no clear benefit from revascularization, we will manage him with maximal medical therapy. Essential (primary) hypertension (Acute) stable Mitral regurgitation (Acute) secondary diagnosis Multiple falls (Acute) This is multifactorial - but weakness from CHF was an exacerbating factor Chronic renal disease, stage 3, moderately decreased glomerular filtration rate between 30-59 mL/min/1.73 square meter (Chronic) This remains stable, despite diuretic use Type 2 diabetes mellitus treated with insulin (Chronic) His glucose is 80 mg/ dl this morning and he has had glargine 7 units this morning. I would prefer an IV infusion of 10% Dextrose/W at 50 mls per hour, but we can also check his FS more frequently. I will discuss this with Dr. Rossi I discussed the above with the patient and he agrees to proceed with the coronary angiogram.
[2018-02-23] MEDS ORDERED: D10W 500 ML BAG* 500 ML IV SCH (09:00)
[2018-02-23] MEDS: Carvedilol TAB* 6.25 MG PO SCH ×2 (10:10→22:00)
[2018-02-23] MEDS: Spironolactone TAB* 25 MG PO SCH (10:11)
[2018-02-23] MEDS: hydrALAZINE TAB* 25 MG PO SCH ×3 (10:11→22:00)
[2018-02-23] MEDS: Aspirin 81 mg CHEW TAB* 81 MG TAB.CHEW PO SCH (10:11)
[2018-02-23] MEDS ORDERED: Midazolam* 1 MG/ML 10 ML VIAL (10 MG) ONE (12:26)
[2018-02-23] MEDS ORDERED: fentaNYL* 50 MCG/ML 2 ML VIAL (100 MCG VIAL) ONE (12:26)
[2018-02-23] MEDS ORDERED: Heparin 2 UNITS/ML IVPREMIX* 2,000 ML IV ONE (12:27)
[2018-02-23] MEDS ORDERED: Iodixanol 320 (CONTRAST) 100 ML SDV ONE (12:27)
[2018-02-23] MEDS ORDERED: Lidocaine 1% INJ* 10 MG/ML 30 ML SDV ONE (12:27)
[2018-02-23] MEDS: Isosorbide Dinitrate TAB* 10 MG PO SCH ×3 (14:14→22:01)
[2018-02-23] MEDS ORDERED: Nitroglycerin TAB 0.4 MG* 0.4 MG TAB ONE (14:22)
[2018-02-23] MEDS ORDERED: hydrALAZINE TAB* 25 MG PO ONE (15:00)
[2018-02-23] MEDS ORDERED: Isosorbide Dinitrate TAB* 10 MG PO ONE (15:00)
[2018-02-23] MEDS: Potassium Chlor TAB* 20 MEQ TAB.ER PO SCH ×2 (16:00→22:01)
[2018-02-23] MEDS: DULoxetine DR CAP* 30 MG CAP.DR PO SCH ×2 (16:00→22:00)
--- NOTE | 2018-02-23 16:36 | CATH ---
CC: Dr. Addy Quezada; Dr. Joan Minor, [facility] CARDIAC CATHETERIZATION REPORT: DATE OF PROCEDURE: 02/23/18 INDICATION FOR PROCEDURE: The patient with severe left ventricular systolic dysfunction with evidence of prior apical infarct with question some hibernating myocardium to limited areas by thallium imaging, assessed for the presence of significant multivessel disease to decide on possible therapy options. The patient with a history of chronic renal insufficiency, insulin- requiring diabetes. PROCEDURE: Coronary arteriography, left heart catheterization. APPROACH: Right femoral artery. PRE-CARDIAC CATHETERIZATION LABORATORY RESULTS: Hemoglobin and hematocrit 11.7 and 35 with a platelet count of 176,000. BUN and creatinine were 37 and 1.5, sodium 140, potassium 4.2, chloride 100, bicarb 36. EQUIPMENT UTILIZED: 1. Right femoral artery sheath was a 5-Paraguayan diagnostic sheath. 2. Coronary arteriography diagnostic catheters - a 5-Paraguayan FL4 and a 5-[place]aguayan FR4 curved diagnostic catheter. DESCRIPTION OF PROCEDURE: The patient was interviewed and examined on the floor of the hospital where the risks and benefits were explained. Particular attention was made to describing the potential for worsening renal failure given the fact that he has chronic renal insufficiency. He understood them along with his daughter and both wished to proceed. The patient was brought to the cardiovascular laboratory where a formal time- out was performed. The patient was prepped and draped in sterile fashion. The right femoral artery area was anesthetized with 1% lidocaine. The right femoral artery where he was cannulated, a 5-Paraguayan introducer was placed and coronary arteriography was performed trying to utilize as minimal dye as possible. Of note the right coronary catheter crossed the aortic valve and as such left heart catheterization was obtained. Following this, an injection was made into the right femoral sheath and found that it was in the deep femoral artery. Decision was made to perform manual compression in the holding area. The total contrast used was 45 cc of Omnipaque dye. The radiation exposure included 4.1 minutes of fluoro time. The air kerma radiation was 1109 milligray. The DAP radiation was 6354 microgray per meter square. RESULTS: HEMODYNAMIC DATA: Left heart catheterization revealed left ventricular pressure 189 over left ventricular end-diastolic pressure of 28, central aortic pressure was 190/92 with a mean of 131. CORONARY ARTERIOGRAPHY: A. Left coronary artery: 1. Left main - there was calcium seen in the distal portion of the left main. There was mild tapering of it of approximately 25% to 30%. 2. Left anterior descending artery - there was heavy calcification seen throughout the course of the left anterior descending artery. Just prior to the first septal moving worker, there was narrowing of 45% to 50%. After the first septal moving worker, the artery had a critically diffusely diseased area of high-grade stenosis of 90%. Past this in the mid to distal portion was another subtotally occluded area. Further down the artery was subtotally occluded. It seemed to traverse to the apical region. The distal most part of the LAD was difficult to assess as to whether or not it is a chronic total occlusion and filled by collaterals from a large first septal moving worker. The mid diagonal branches of the left anterior descending artery are not visualized at all in an antegrade fashion and I do not see good evidence for retrograde filling. 3. Circumflex artery - the circumflex artery supplied a very high thin first obtuse marginal branch. The second obtuse marginal branch was longer in nature and had multiple high-grade stenoses seen in its proximal to mid portion. The caliber of the vessel is possibly borderline bypassable. The continuation of the circumflex supplied a low-lying bifurcating obtuse marginal branch. The superior branch is not well visualized. The lower inferior branch extends across the low posterolateral wall and had a critically stenosed proximal area. In general, the artery size of the mid to distal vessels throughout the left system are small in caliber. B. Right coronary artery - dominant vessel supplying the PDA and at least 4 posterior left ventricular branches. There was kckk-ai-xrwegdnf disease seen in the proximal and mid portion of the right coronary artery. As it turned on to the inferior surface, there was an area of 40% to 45%. The PDA itself had a proximal to mid segment that had a critical 95% obstruction. The first and second posterior left ventricular branches were small in caliber and somewhat short in nature. The third posterior left ventricular branch was a longer vessel. The exact caliber of it is questionable given the fact that it could be hypoperfused or just severely diffusely diseased. OVERALL ASSESSMENT: Severe multivessel disease as described above with small caliber mid to distal vessels. Elevated left ventricular end-diastolic pressure in the face of significant systolic hypertension. At this point in time, an opinion is needed at a tertiary medical center, one that can offer potential opinions regarding high-risk PCI to multivessel versus high-risk bypass surgery versus only medical management. I will discuss this at length with the patient's daughter as well as the patient as to the center they wish to proceed to consider for evaluation. This information was shared with Dr. Addy Quezada. [id number]/[facility] #: [id number] FRANCES
[2018-02-23] MEDS ORDERED: Lisinopril TAB* 10 MG PO ONE (17:50)
[2018-02-23] MEDS: traZODone TAB* 50 MG TAB PO SCH (22:01)
[2018-02-24 06:40] LABS: BUN/Creatinine Ratio 25.4 (8-20); Calcium 8.8 mg/dL (8.6-10.3); EGFR Non-African American 49.7 (>60); Potassium 4.7 mmol/L (3.5-5.0)
[2018-02-24] MEDS: Insulin LISPRO* 1 UNITS UNIT SUBCUT SCH (08:18)
[2018-02-24 08:25] VITALS: BP 118/49
--- NOTE | 2018-02-24 12:02 | DS ---
CC: Dr. Bhavik Rossi; Dr. Jeannie Minor; Department of Cardiology at [facility] * TRANSFER SUMMARY: A transfer [facility] to [facility]. DATE OF ADMISSION: 02/18/18. DATE OF DISCHARGE: 02/24/18. DISCHARGE DIAGNOSES: 1. Acute systolic and diastolic congestive cardiac failure. 2. Weakness and multiple falls. 3. Triple vessel coronary artery disease. 4. History of silent myocardial infarction. COMORBIDITIES: 1. Lymphedema both legs. 2. Bilateral pleural effusion, left greater than right. 3. Lwzt-nc-lmhuyexv mitral regurgitation. 4. Troponin I above reference range. 5. Stage 3 chronic renal disease. SECONDARY DIAGNOSES: 1. Type 2 diabetes mellitus, insulin requiring. 2. Essential hypertension. 3. Dyslipidemia. 4. History of morbid obesity. 5. Benign pancreatic mass. 6. Lumbar spinal stenosis with gait disorder. 7. Chronic low back pain. 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, [place]. He has had multiple chronic comorbidities, which include congestive cardiac failure, coronary artery disease , type 2 diabetes mellitus insulin requiring, lymphedema of his legs, lumbar spinal stenosis. His presentation is documented in the admitting history and physical by Rebecca Newton MD. In short, he had history of worsening weakness and difficulty. He had several falls prior to presenting to the emergency room with weakness and dyspnea and worsening edema. PHYSICAL EXAMINATION: Vital Signs: Temperature 97.9, pulse 83, respirations 20 , oxygen saturation 94%, blood pressure 150/98. He was found to have acute congestive cardiac failure with bilateral pleural effusions, left worse than right and marked edema of both legs. INITIAL INVESTIGATIONS: At presentation, sodium 137, potassium 4.6, chloride 101, bicarbonate 31, BUN 33, creatinine 1.49, EGFR of 45.5, glucose 123, calcium 9.6. LFTs were normal. Troponin I's are 0.22. BNP 1592. TSH was 1.09. CBC showed a white count of 7.4, hemoglobin of 13.2, hematocrit 40, and platelets 202,000. INR 1.26, APTT 34.5. Urinalysis showed 2+ protein, 2+ blood. Serum alcohol was less than 10. Initial 12-lead EKG: Rate 84, NV interval 218, QTC 478, QRS axis -43. He has an intraventricular conduction defect, which just falls short of full criteria for a left bundle-branch block. He has left anterior fascicular block, Q's in III and aVF, and poor R-wave progression and left ventricular hypertrophy. INITIAL IMPRESSION: Acute congestive cardiac failure, which was likely systolic on the basis of the investigations at clinical evaluation. He was admitted for intensive management of his congestive heart failure and for investigation of the underlying ischemic causes. IMAGING: Owing to his altered mental status at presentation, he had a CT scan of his brain, which showed no acute intracranial abnormality and just age- related atrophy. Chest x-ray revealing pulmonary edema associated with right and a large left pleural effusion. CAT scan of his chest without contrast: Large left pleural effusion, associated left lung volume loss on 02/18/18. A venous Doppler study was negative for DVT on 02/19/18. A nuclear medicine thallium viability scan, which showed a large infarct in the post- pharmacological stress images adjacent anterolateral and inferior olivia. On 4- hour delayed images, mild nick-infarct redistribution. Transthoracic echocardiogram on 02/18/18: Moderate concentric LVH, estimated ejection fraction 25% to 30%, large area of apical akinesis and hypokinesis extending into the anterior wall consistent with old anterior wall infarct with thinning, left ventricular diastolic filling pattern suggestive of elevated LV end- diastolic pressure, eokn-sn-zfwegwer mitral regurgitation, nzsik-yc-ytma tricuspid regurgitation. PROCEDURES: On 02/23/18, cardiac catheterization, the report is part of the electronic medical records. This showed severe multivessel disease with small caliber peu-og-nppyyt vessels. Detailed description is in Dr. Rossi's electronic consultation. HOSPITAL COURSE: Initial phase of his hospitalization, we treated him aggressively for his acute congestive cardiac failure. This included IV furosemide 80 mg twice daily. We added isosorbide dinitrate and also hydralazine. He tolerated this well. He had a gratifying diuresis and he had marked improvement in his clinical status. He was seen in consultation by several cardiologists during this hospitalization. They were particularly impressed by his marked clinical improvement and attributed a portion of this to the use of nitrates, which may have helped with some reversible ischemia. He was able to walk again with the help of physical therapy and a walker. A LifeVest was used to reduce his risk of malignant dysrhythmias, though none was seen during telemetry. On the day of transfer, he is feeling well. He has no chest pain, shortness of breath or palpitations. In fact, he has not had chest pain during all of his medical problems due most likely to neuropathy from his diabetes. PHYSICAL EXAMINATION ON DAY OF DISCHARGE: He is warm and well perfused, in no acute distress, eating breakfast. Temperature 97.9, heart rate 83, respirations 20, oxygen saturation 94%, blood pressure 150/98. He has no cyanosis, anemia, jaundice, clubbing or lymphadenopathy. Cardiovascular System : His pulse was regular. Venous pressure was not distended. Heart sounds were normal. He has a 2/6 systolic murmur in the apex. He has 2+ chronic edema of both legs with some erythema over his shins. Respiratory System: Chest expansion was symmetrical. Percussion note dull particularly at the left base. Breath sounds diminished in the left base, some basal crackles. No wheezes. Abdominal Examination: No distention, masses, tenderness or organomegaly. Nervous System: He is alert and oriented. Cranial nerves II through XII intact. Speech normal. He is moving his arms and his legs. INVESTIGATIONS ON DAY OF DISCHARGE: Sodium 138, potassium 3.8, bicarbonate 31, BUN 33, creatinine 1.55, EGFR 43.5, glucose 154, lactic acid 1.0. Troponin I of 0.18. On the penultimate day in the hospital, his BNP was 1592. ASSESSMENT AND PLAN: 1. Multivessel coronary artery disease in the patient with acute congestive cardiac failure with a large area of damaged myocardium over the apex and anterior wall. We had long conversations with Yosvany Paniagua and his family. He wishes to go for further risk stratification and revascularization if this is possible either by surgery or by angioplasty. He needs to go to a tertiary care center for this. I note that he has responded well to diuretics therapy and also vasodilators. He has not had any major rhythm disturbances. He is currently wearing a LifeVest. 2. Chronic lymphedema. His legs were less swollen; however, this is chronic and persistent. 3. Left pleural effusion. We have not performed the thoracocentesis as he is not especially symptomatic at present. 4. Essential hypertension. His blood pressure is maintained despite addition of vasodilators, diuretics, and nitrates. 5. Multiple falls. His tendency to fall is multifactorial. He has severe spinal stenosis in the lumbar region. He has marked lymphedema of his legs, but also the weakness of his acute congestive cardiac failure contributed to this. 6. Silent non-ST elevation myocardial infarction. The age of his previous heart attack is unknown. A year ago, he was stratified for risk in the hospital and at that time he had not infarcted this area; however, he does not have symptoms of chest pain or equivalence when he has ischemia. 7. Chronic renal disease, stage 3. This has not exacerbated after the dye load from the cardiac catheterization. 8. Hypercholesterolemia. Continue current medication. 9. Morbid obesity. This is longstanding. 10. Type 2 diabetes mellitus, insulin requiring. His requirement for insulin during his hospitalization plummeted. It is clear that as an outpatient, he is not being compliant of his diet or exercise . 11. Pancreatic mass. This is being evaluated at [facility] and is thought to be benign. DISCHARGE MEDICATIONS: 1. Acetaminophen 650 mg q.4 hours p.r.n. 2. Aspirin 81 mg daily. 3. Carvedilol 12.5 mg twice daily. 4. Duloxetine 30 mg twice daily. 5. Hydralazine 25 mg t.i.d. p.o. 6. Glargine insulin 7 units b.i.d. subcutaneously. 7. Lispro insulin plus scale 2 units for every 50 mg/dL greater than 150 mg/dL. 8. Isosorbide dinitrate 10 mg p.o. t.i.d. 9. Lisinopril 20 mg daily. 10. Omeprazole 20 mg daily. 11. Ondansetron 4 mg q.6 hours p.r.n. for nausea. 12. Potassium chloride 20 mEq p.o. b.i.d. 13. Spironolactone 12.5 mg daily. 14. Trazodone 50 mg q.h.s. We are holding his furosemide prior to transportation. SPECIAL MEASURES: He will wear a LifeVest during his transportation. [id number]/[facility] [place]: [id number] [facility]
== END 2018-02-24 09:10 | disposition short-term general hospital (02) | DRG 286 ==
LOC: ED 20:55 → MEDTELE 02-18 01:01
PROVIDERS: ADMIT Internal Medicine; ATTEND Internal Medicine
PROC: 4A02XM4 Measurement of Cardiac Total Activity, External Approach (ICD-10-PCS; 2018-02-19)
PROC: 4A023N7 Measurement of Cardiac Sampling and Pressure, Left Heart, Percutaneous Approach (ICD-10-PCS; 2018-02-23)
PROC: B2111ZZ Fluoroscopy of Multiple Coronary Arteries using Low Osmolar Contrast (ICD-10-PCS; principal; 2018-02-23 12:00)
DX: I13.0 Hypertensive heart and chronic kidney disease with heart failure and stage 1 through stage 4 chronic kidney disease, or unspecified chronic kidney disease (principal); I50.43 Acute on chronic combined systolic (congestive) and diastolic (congestive) heart failure; I24.8 Other forms of acute ischemic heart disease; J44.9 Chronic obstructive pulmonary disease, unspecified; K21.9 Gastro-esophageal reflux disease without esophagitis; N40.0 Benign prostatic hyperplasia without lower urinary tract symptoms; M19.90 Unspecified osteoarthritis, unspecified site; M43.10 Spondylolisthesis, site unspecified; R21 Rash and other nonspecific skin eruption; E11.42 Type 2 diabetes mellitus with diabetic polyneuropathy; F41.9 Anxiety disorder, unspecified; F32.9 Major depressive disorder, single episode, unspecified; R40.2412 Glasgow coma scale score 13-15, at arrival to emergency department; N28.1 Cyst of kidney, acquired; R29.6 Repeated falls; I89.0 Lymphedema, not elsewhere classified; I25.10 Atherosclerotic heart disease of native coronary artery without angina pectoris; K86.9 Disease of pancreas, unspecified; E11.22 Type 2 diabetes mellitus with diabetic chronic kidney disease; I25.5 Ischemic cardiomyopathy; E66.01 Morbid (severe) obesity due to excess calories; D63.1 Anemia in chronic kidney disease; G47.33 Obstructive sleep apnea (adult) (pediatric); M54.5 Low back pain; G89.29 Other chronic pain; N18.3 Chronic kidney disease, stage 3 (moderate); E78.00 Pure hypercholesterolemia, unspecified; M48.061 Spinal stenosis, lumbar region without neurogenic claudication; K86.89 Other specified diseases of pancreas; H57.89 Other specified disorders of eye and adnexa; H81.10 Benign paroxysmal vertigo, unspecified ear; I08.1 Rheumatic disorders of both mitral and tricuspid valves; I44.7 Left bundle-branch block, unspecified; Z98.42 Cataract extraction status, left eye; Z98.41 Cataract extraction status, right eye; I25.2 Old myocardial infarction; Z90.49 Acquired absence of other specified parts of digestive tract; Z91.81 History of falling; Z79.82 Long term (current) use of aspirin; Z79.02 Long term (current) use of antithrombotics/antiplatelets; Z68.35 Body mass index [BMI] 35.0-35.9, adult
CPT/HCPCS: 36415; 70450; 71045; 71250; 76937; 78452; 80048; 80053; 80320; 81003; 81015; 82550; 83605; 83735; 83880; 84443; 84484; 85025; 85610; 85730; 86140; 87040; 93005; 93017; 93306; 93458; 93970; 99284; A9270-GY; A9502; A9505; C1769; C1887; G0480; G8978-GP-CJ; G8979-GP-CI; G8987-GO-CL; G8988-GO-CI; J0690; J1644; J1940; J2250; J2785; J3010

== ENCOUNTER 2018-07-10 14:32 | Observation (INO) | payer MEDICARE ==
--- OUTSIDE RECORDS SUMMARY | 2018-07-10 14:53 | XMS REPORT | Continuity of Care Document ---
:1940 External Reference #:[id number] Author Name Aleksandar Salas MD Address [facility] [place] [address] Care Team Providers Name Role Phone Addy Quezada MD Care Team Information [employer] Worker Unavailable Addy Quezada MD Primary Care Physician Unavailable Payers Date Identification Numbers Payment Provider Subscriber Policy Number: [id number] Medicare Yosvany Paniagua PayID: [id number] [facility] [address] [place] [address] Policy Number: [id number] [facility] Health Care Option Yosvany Lopez Siva PayID: [id number] Claims, [address] [place] [address] Advance Directives Description No Information Available Problems Active Problems Provider Date Problem Onset: Cyst of pancreas Perfecto Hurley MD Onset: 07/01/2016 Diabetes mellitus Perfecto Hurley MD Onset: 07/02/2016 Family History Description No Information Available Social History Type Date Description Comments Sex Unknown Tobacco Use Start: Unknown Patient has never smoked Smoking Status Reviewed: 07/01/18 Patient has never smoked Allergies, Adverse Reactions, Alerts Active Allergies Reaction Severity Comments Date Lyrica Other Moderate 04/25/2016 Pregabalin 07/03/2016 Medications Active Medications SIG Qnty Indications Ordering Date Provider Vireo Yellow Evening Perfecto Hurley 07/02/2016 Amlodipine Besylate amlodipine 5 mg Unknown 5mg tablet 1 pill daily Tablets Atenolol atenolol 50 mg Unknown 50mg Tablets tablet 1 opill daily Atorvastatin Calcium atorvastatin 20 mg Unknown tablet 1 pill daily 20mg Tablets Aspirin Low Dose Baby Aspirin 81 mg Unknown 81mg chewable tablet Chew Chewtabs 1 tablet every day by oral route. Duloxetine HCL duloxetine 30 mg Unknown 30mg capsule,delayed Caps DR Part release Take 1 capsule twice a day by oral route. Humalog Kwikpen Humalog KwikPen 100 Unknown unit/mL subcutaneous 100Unit/ML Solution base is 6u 3x daily Pen-Inject and 2u for every 50 over 150 up to 75u TDD Levemir Flexpen Levemir FlexTouch Unknown 100 unit/mL (3 mL) 100Unit/ML Solution subcutaneous insulin Pen-Inject pen 29u twice daily mdd 60u Lisinopril lisinopril 40 mg Unknown 40mg Tablets tablet Take 1 Tablet By Mouth Every Day Lorazepam lorazepam 0.5 mg Unknown 0.5mg Tablets tablet 1 pill daily as needed, MDD 1 Meclizine HCL meclizine 12.5 mg Unknown 12.5mg tablet as needed Tablets Omeprazole Magnesium omeprazole 20 mg Unknown capsule,delayed 20.6(20Base) mg release [address] C[address] Spenser Mendoza In Am Unknown Alprazolam take 1 tab this Unknown 0.5mg evening and 1 tab Tablets 30-60 minutes before procedure Lantus Solostar 18 u AmM and 12u PM Unknown 100Unit/ML Solution Pen-Inject Immunizations CPT Code Status Date Vaccine Lot # [id number] Given 12/19/2015 Influenza Virus Vacc[place], [place] [id number] Given 12/08/2014 Influenza Virus Vacc[place], [place] [id number] Given 01/24/2004 Pneumovax Vital Signs Date Vital Result Comment 07/01/2018 2:42pm Height 69 inches 5'9" Weight 2002.00 lb BP Systolic 138 mmHg BP Diastolic 88 mmHg Heart Rate 62 /min BMI (Body Mass Index) 295.6 kg/m2 02/12/2017 12:53pm Height 69 inches 5'9" Weight 233.00 lb BP Systolic 148 mmHg BP Diastolic 90 mmHg Heart Rate 82 /min BMI (Body Mass Index) 34.4 kg/m2 07/02/2016 10:50am Height 68 inches 5'8" Weight 252.00 lb BMI (Body Mass Index) 38.3 kg/m2 Results Test Date Facility Test Result H/L Range Note BUN/Creat/GFR 09/23/[place] [facility] [place] Blood Urea Nitrogen 23 mg/dL N 8-26 [facility] Creatinine 1.3 mg/dL N 0.6-1.3 1 [facility]oc BUN/Creatinine Ratio 17.7 N 8-20 Egfr Non- 53.3 >60 Egfr 64.4 >60 2 BMP W/Egfr 02/05/2017 [facility] Sodium(!) <pending> Potassium(!) <pending> Chloride Serum/Plasma(!) <pending> Carbon Dioxide Ser/Plasm(!) <pending> Calcium Ser/Plasma Mass/Vol(!) <pending> Glucose Serum(!) <pending> Xray 01/22/2017 [facility] [place] Chest PA And Lat 2 <pending> VWS CBC W/Auto 01/01/2017 [facility] White Blood Count <pending> Differential(!) Ser Auto CNT RBC Red Blood Count <pending> Hemoglobin Blood <pending> Hematocrit <pending> MCV (Corpuscular Volume) <pending> MCH (Corpuscular Hemoglobin) <pending> MCHC (Corpuscular Hemog Conc) <pending> RDW <pending> Platelet Count Blood Auto CNT <pending> MPV <pending> Lymph% <pending> [place]% <pending> Neutrophil % <pending> Absolute Lymphocytes <pending> Absolute Monocytes <pending> Absolute Neutrophils <pending> Xray 12/30/2016 [facility] [place] Chest PA And <pending> Lat 2 VWS Xray 12/26/2016 [facility] [place] Chest PA And <pending> Lat 2 VWS Xray 12/19/2016 [facility] [place] Chest PA And <pending> Lat 2 VWS Xray 10/03/2016 [facility] [place] Chest Ap <pending> Portable Laboratory test 09/17/2016 [facility] - Urea 27 mg/dL High 6-24 [address] [facility] Nitrogen(!) [place] [address] [phone] Creatinine Serum Mass/Vol(!) 1.5 mg/dL High 0.5-1.4 Xray 04/23/2016 [facility] [place] Abdomen W/Wo <pending> Creatinine and 04/23/2016 N2N/CCD Import creatinine 1.53 mg/dL High 0.67- 1. Glomerular 17 filtration rate.predicte eGFR 57.0 >60 eGFR non- 44.4 >60 Xray 09/14/2015 [facility] [place] Abdomen W/Wo <pending> Laboratory test 05/25/2015 [facility] Pathology Surgical <pending> finding Other CBC W/Auto 05/10/2015 [facility] White Blood Count <pending> Differential(!) Ser Auto CNT RBC Red Blood Count <pending> Hemoglobin Blood <pending> Hematocrit <pending> MCV (Corpuscular Volume) <pending> MCH (Corpuscular Hemoglobin) <pending> MCHC (Corpuscular Hemog Conc) <pending> RDW <pending> Platelet Count Blood Auto CNT <pending> MPV <pending> Lymph% <pending> [place]% <pending> Neutrophil % <pending> Absolute Lymphocytes <pending> Absolute Monocytes <pending> Absolute Neutrophils <pending> Xray 05/01/2015 [facility] [place] Abdomen W/O <pending> Xray 03/31/2015 [facility] [place] Abscess Drain <pending> Xray 03/30/2015 [facility] [place] Abdomen W/O <pending> Xray 03/29/2015 [facility] [place] Chest Ap <pending> Portable Laboratory test 03/22/2015 [facility] Occult Blood <pending> finding Stool Comp Metabolic 02/17/2015 [facility] [place] Sodium 137 mmol/L N 133-145 Panel Potassium 4.3 mmol/L N 3.5-5.0 Chloride 105 mmol/L N 101-111 Co2 Carbon Dioxide 24 mmol/L N 22-32 Anion Gap 8 mmol/L N 2-11 Glucose 168 mg/dL High 70-100 Blood Urea Nitrogen 30 mg/dL High 6-24 Creatinine 1.53 mg/dL High 0.67-1.17 BUN/Creatinine Ratio 19.6 N 8-20 Calcium 8.7 mg/dL N 8.6-10.3 Total Protein 6.0 g/dL Low 6.4-8.9 Albumin 3.2 g/dL N 3.2-5.2 Globulin 2.8 g/dL N 2-4 Albumin/Globulin Ratio 1.1 N 1-3 Total Bilirubin 0.50 mg/dL N 0.2-1.0 Alkaline Phosphatase 272 U/L High 34-104 Alt 161 U/L High 7-52 Ast 40 U/L High 13-39 Egfr Non- 44.5 N >60 Egfr 57.2 N >60 3 Laboratory test finding 02/17/2015 [facility] [place] 19-9 27 U/mL N <55 4 CBC Auto Diff 02/17/2015 [facility] [place] White Blood Count 10.3 10^3/uL N 3.5-10.8 Red Blood Count 4.18 10^6/uL N 4.0-5.4 Hemoglobin 12.6 g/dL Low 14.0-18.0 Hematocrit 37 % Low 42-52 Mean Corpuscular Volume 89 fL N 80-94 Mean Corpuscular Hemoglobin 30 pg N 27-31 Mean Corpuscular HGB Conc 34 g/dL N 31-36 Red Cell Distribution Width 14 % N 10.5-15 Platelet Count 283 10^3/uL N 150-450 Mean Platelet Volume 8 um3 N 7.4-10.4 Abs Neutrophils 7.3 10^3/uL N 1.5-7.7 Abs Lymphocytes 1.6 10^3/uL N 1.0-4.8 Abs Monocytes 1.3 10^3/uL High 0-0.8 Abs Eosinophils 0 10^3/uL N 0-0.6 Abs Basophils 0 10^3/uL N 0-0.2 Abs Nucleated RBC 0 10^3/uL N Granulocyte % 71.4 % N 38-83 Lymphocyte % 15.9 % Low 25-47 Monocyte % 12.1 % High 1-9 Eosinophil % 0.4 % N 0-6 Basophil % 0.2 % N 0-2 Nucleated Red Blood Cells % 0 N BMP W/O Egfr(!) 02/16/2015 [facility] Sodium(!) <pending> Potassium(!) <pending> Chloride Serum/Plasma(!) <pending> Carbon Dioxide Ser/Plasm(!) <pending> BUN - Urea Nitrogen(!) <pending> Calcium Ser/Plasma Mass/Vol(!) <pending> Creatinine Serum Mass/Vol(!) <pending> Glucose Serum(!) <pending> Liver Panel 02/16/2015 [facility] Alkaline Phosphatase(!) <pending> GGT-Gammaglytamyl Trans (!) <pending> Ast - Sgot <pending> Alt - SGPT <pending> LDH Ser/Plasma <pending> Bilirubin Total Mass/Vol(!) <pending> Bilirubin Direct Mass/Vol(!) <pending> Protein Total <pending> Albumin Serum/Plasma(!) <pending> Cholesterol Total Mass/Vol(!) <pending> Laboratory test 02/16/2015 [facility] C-Reative Protein <pending> finding CBC No Diff 02/16/2015 [facility] Hematocrit <pending> Hemoglobin Blood <pending> Platelet Count Blood Auto CNT <pending> RBC Red Blood Count <pending> RDW <pending> White Blood Count Ser Auto CNT <pending> MCH (Corpuscular Hemoglobin) <pending> MCHC (Corpuscular Hemog Conc) <pending> MPV <pending> MCV (Corpuscular Volume) <pending> Laboratory test 02/16/2015 [facility]oc Glucose Blood <pending> finding Laboratory test 02/15/2015 [facility] Pathology Surgical <pending> finding Other Urinalysis Complete 02/12/2015 [facility] Ua Appearance <pending> W/ Micro(! Ua Bacteria <pending> Ua Bilirubin <pending> Ua Blood Qual <pending> Ua Casts <pending> Ua Casts Other <pending> Ua Color <pending> Ua Crystals Unidentified <pending> Ua Epithelial Cells QL <pending> Ua Glucose <pending> Ua Ketones <pending> Ua Leuko <pending> Ua Nitrite <pending> Ua PH Test <pending> Ua Protein <pending> Ua RBC <pending> Ua Source <pending> Ua Specific [place] <pending> Ua Urobilinogen <pending> Ua WBC <pending> Ua Yeast <pending> Xray 02/12/2015 [facility] [place] US Gall Bladder <pending> Xray 02/12/2015 [facility] [place] Chest PA And Lat 2 VWS <pending> Xray 02/12/2015 [facility] [place] Cta Chest/Abd/Pel <pending> Xray 02/24/2002 [facility] [place] NM/Myocardium <pending> 1 Church Warden: [id number] 2 Because ethnic data is not always readily available, this report includes an eGFR for both -Americans and non- Americans. The National Kidney Disease Education Program (NKDEP) does not endorse the use of the MDRD equation for patients that are not between the ages of 18 and 70, are , have extremes of body size, muscle mass, or nutritional status, or are non- or non-. According to the National Kidney Foundation, irrespective of diagnosis, the stage of the disease is based on the level of kidney function: Stage Description GFR(mL/min/1.73 m(2)) 1 Kidney damage with normal or decreased GFR 90 2 Kidney damage with mild decrease in GFR 60-89 3 Moderate decrease in GFR 30-59 4 Severe decrease in GFR 15-29 5 Kidney failure <15 (or dialysis) 3 Because ethnic data is not always readily available, this report includes an eGFR for both -Americans and non- Americans. The National Kidney Disease Education Program (NKDEP) does not endorse the use of the MDRD equation for patients that are not between the ages of 18 and 70, are , have extremes of body size, muscle mass, or nutritional status, or are non- or non-. According to the National Kidney Foundation, irrespective of diagnosis, the stage of the disease is based on the level of kidney function: Stage Description GFR(mL/min/1.73 m(2)) 1 Kidney damage with normal or decreased GFR 90 2 Kidney damage with mild decrease in GFR 60-89 3 Moderate decrease in GFR 30-59 4 Severe decrease in GFR 15-29 5 Kidney failure <15 (or dialysis) 4 ADDITIONAL INFORMATION The testing method is an immunoenzymatic assay manufactured by [employer] and performed on the [employer] DxI 800. Values obtained with different assay methods or kits may be different and cannot be used interchangeably. Test results cannot be interpreted as absolute evidence for the presence or absence of malignant disease. Test Performed by: [address] [address] [employer] Packer: Giovanni G. Morice, II, M.D., Ph.D. Procedures Date Code Description Status 02/14/2015 70788 Ercp RM Duct Stones/Debris/Calculi Completed 02/14/2015 99457 Ercp+Sphincterectomy/Papillotomy Completed 02/14/2015 59575 Ercp W/ Biopsy; Single Or Multiple Completed 10/31/2006 24665 Colonscopy+Biopsy Completed 09/07/2003 55275 EGD+Biopsy Single Or Multiple Completed Encounters Type Date Location Provider Dx Diagnosis Office Visit 02/12/2017 [facility] Aleksandar Arnold K86.2 Cyst of pancreas 1:00p Marty Salas MD Office Visit 07/02/2016 [facility] Perfecto Dunn K86.2 Cyst of pancreas 11:00a [facility] Nitza Hurley MD Office Visit 02/17/2015 [facility]enterology Arash Gonsalves K86.8 Other specified 4:00p Marty Polanco MD diseases of pancreas K80.10 Calculus of gallbladder w chronic cholecyst w/o obstruction 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 We had another long discussion regarding his cyst. We discussed the fact that it has been very stable on his last MRI and we can probably extend at the next MRI. They are understanding and agreeable. I think we can probably hold off until at least next number. We may not need to perform any more MRIs. They are understanding of this. We will touch base with them next year and they will call sooner if any symptoms change
--- OUTSIDE RECORDS SUMMARY | 2018-07-10 14:53 | XMS REPORT | Continuity of Care Document ---
:1940 External Reference #:[id number] Author Name Wil Das M.D. Address [address] [place] [address] Care Team Providers Name Role Phone Giovanni Patton NP Care Team Information Quiller Hand Unavailable Addy Quezada M.D. Primary Care Physician Unavailable Payers Date Identification Numbers Payment Provider Subscriber Policy Number: [id number] [place] [employer] Yosvany Paniagua PayID: [id number] [address] [place] [address] Policy Number: [id number] [facility] Yosvany Paniagua PayID: [id number] [address] [place] [address] Advance Directives Description No Information Available Problems Active Problems Provider Date Type 2 diabetes mellitus Wil Das M.D. Onset: 03/28/2009 Essential hypertension Wil Das M.D. Onset: 03/28/2009 Impacted cerumen Wil Das M.D. Onset: 06/26/2011 Obstructive sleep apnea syndrome Wil Das M.D. 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 Tobacco Use Start: Unknown Never Smoked Cigarettes Tobacco Use Start: Unknown End: current.no Unknown Tobacco Use Start: Unknown End: current.no Unknown Smokeless Tobacco current.no ETOH Use does not drink alcohol Tobacco Use Start: Unknown Patient has never smoked Smoking Status Reviewed: 06/29/18 Patient has never smoked Allergies, Adverse Reactions, Alerts Description No Known Drug Allergies Medications Active Medications SIG Qnty Indications Ordering Provider Date Nitroglycerin Unknown 0.4mg Tablets Sub Basaglar Kwikpen Inject 7 Units Unknown 100Unit/ML Under The Skin Solution Pen-Inject Twice A Day Novolog Flexpen Inject 3 Units Unknown 100Unit/ML Under The Skin Solution Pen-Inject Three Times Daily And Inject 2 Units For Every 50 Over 150 Up To A Total Daily Dose Of 75 Units Trazodone HCL Take 1 Tablet By Unknown 50mg Tablets Mouth Every Day Torsemide Take 2 Tablets By Unknown 10mg Tablets Mouth Every Day Pantoprazole Sodium Take 1 Tablet By Unknown 40mg Mouth Every Day Tablets DR Lisinopril Take 1 Tablet By Unknown 5mg Tablets Mouth Every Day Duloxetine HCL Take 1 Capsule By Unknown 30mg Caps DR Mouth Twice A Day Part Clopidogrel Bisulfate Abdi TAPE CONTROLLED MACHINE STITCHER, 75mg Giovanni Tablets Carvedilol Take 1 Tablet By Unknown 25mg Tablets Mouth Twice A Day Bupropion Hydrochloride Abdi TAPE CONTROLLED MACHINE STITCHER, ER (XL) Giovanni 150mg Tablets ER 24HR Atorvastatin Calcium Abdi TAPE CONTROLLED MACHINE STITCHER, 80mg Giovanni Tablets History Medications Evoxac 1 po tid 90days 527.7 Wil Aguero 03/28/2009 - 30mg Capsules Mahogany Das 06/26/2011 Refalen Unknown - 06/30/2018 Miralax Unknown - 06/30/2018 Lexapro Unknown - 06/30/2018 Lisinopril/Hydrochloro Unknown - thiazide 06/30/2018 20/12.5 Amitriptyline HCL one po qhs 90tabs Unknown - 25mg 06/26/2011 Tablets Atenolol Unknown - 50mg Tablets 06/30/2018 Terazosin HCL Unknown - 10mg 06/30/2018 Capsules Avepro Unknown - 06/30/2018 Humalog Unknown - 06/30/2018 Aspirin qd Unknown - 81mg Chewtabs 06/30/2018 Omeprazole Unknown - 06/30/2018 Lisinopril Unknown - 06/30/2018 One Daily Unknown - 06/30/2018 Avodart Unknown - 0.5mg Capsules 06/30/2018 Immunizations Description No Information Available Vital Signs Date Vital Result Comment 06/30/2018 2:11pm Weight 200.12 lb Weight 90.777 kg Height 67 inches 5'7" Height in cm's 170.2 cm BMI (Body Mass Index) 31.3 kg/m2 06/26/2011 3:24pm BP Systolic 188 mmHg BP Diastolic 81 mmHg Heart Rate 66 /min Respiratory Rate 16 /min Weight 265.25 lb Weight 120.317 kg Height 68.50 inches 5'8.50" Height in cm's 174.0 cm BMI (Body Mass Index) 39.7 kg/m2 03/28/2009 2:37pm BP Systolic 163 mmHg BP Diastolic 80 mmHg Heart Rate 73 /min Respiratory Rate 16 /min Results Description No Information Available Procedures Date Code Description Status 06/30/2018 46197 Fiberoptic Laryngoscopy Completed 06/26/2011 96568 Binocular Microscopy Completed 03/28/2009 64259 Removal Wax Impaction Completed 03/28/2009 42040 Fiberoptic Laryngoscopy Completed Encounters Type Date Location Provider Dx Diagnosis Office Visit 06/30/2018 [place] Wil Aguero H61.23 Impacted cerumen, 2:00p 03/10/07 Mahogany Das bilateral R49.0 Dysphonia 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, 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, bilateral Office Visit 06/26/2011 [place] Wil Aguero 327.23 Obstructive 3:15p 03/10/07 Mahogany Das Sleep Apnea Adult Pediatric 327.23 Obstructive Sleep Apnea Adult Pediatric 380.4 Impacted Cerumen / Wax 380.4 Impacted Cerumen / Wax Office Visit 03/28/2009 [place] Wil Aguero 784.49 Hoarseness 2:45p 03/10/07 Mahogany Das /Other 527.7 Xerostomia/Hyposecretion/Dry Mouth 380.4 Impacted Cerumen / Wax 250.00 Diabetes, Type II W/Out Metion Of Complication Or Unspec.Typ 401.9 High Blood Pressure Or Hypertension/Unspecified Plan of Treatment 06/30/2018 - Wil Das M.D.H61.23 Impacted cerumen, bilateralComments:The patients ears were cleaned without difficulty. This was not enough to cause his hearing loss.R49.0 DysphoniaComments:The patient has a left vocal cord paralysis. This might be idiopathic/post viral given it happened when the other family members had a URI. But we can't assume that. This could be cancer and the workup is for a neck and chest CT with contrast ( if his kidneys can handle the contrast)Treatment is either with an injection medialization or a thyroplasty. The latter is more definitive but an open neck surgery. The latter is easier from an anesthesia standpoint with less risk but is not as definitive.the plan is for :CT with contrast if possible, non contrast if needed because of kidney functionTranscutaneous Merari Implant injection into the left vocal cord. I will need the Olympus flexible nasolaryngoscopy during this surgeryThis procedure is done under local anesthesia with or without some IV sedation.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, unilateralNew Xrays:CT Chest with contrast, Ordered: 06/30/18CT Soft Tissue Neck with contrast, Ordered: 06/30/18H90.3 Sensorineural hearing loss, bilateralComments:He has had hearing aids but keeps on missing them. I have recommended:. [email or web address]/and getting rechargeable hearing aids
--- OUTSIDE RECORDS SUMMARY | 2018-07-10 14:53 | XMS REPORT | Continuity of Care Document ---
:1940 External Reference #:[id number] Author Name Gladys Weiss Care Team Providers Name Role Phone Addy Quezada MD Primary Care Physician Unavailable Payers Date Identification Numbers Payment Provider Subscriber Effective: 2004 Policy Number: [id number] Medicare Surendra Paniagua PayID: [id number] [address] [place] [address] Policy Number: [id number] [facility] Surendra Jessica Siva PayID: [id number] [address] [place] [address] Advance Directives Description No Information Available Problems Active Problems Provider Date Obstructive sleep apnea syndrome Tuyet Soares DNP, RN, [employer]- Onset: Resolved Problems Body mass index 30+ - obesity Tuyet Soares DNP, RN, [employer]-BC Onset: 2017 Resolved: 04/09/2018 Family History Date Family Member(s) Observation Comments General and 2 out of 3 children with sleep apnea Father No Current Problems Father due to Suicide () Mother due to Obstruction () - in late 70s Mother No Current Problems Siblings 1 Siblings 1 brother passed Hodgkin Social History Type Date Description Comments Sex Unknown Marital Status Lives With Daughter Hannah and family Occupation Retired Tobacco Use Start: Unknown Never Smoked Cigarettes Smoking Status Reviewed: 07/03/18 Never Smoked Cigarettes ETOH Use Rarely consumes alcohol Tobacco Use Start: Unknown Patient has never smoked Recreational Drug Use Denies Drug Use Exercise Type/Frequency Exercises regularly physical therapy 2-3 times weekly Allergies, Adverse Reactions, Alerts Active Allergies Reaction Severity Comments Date Pregabalin Per rehab facility 04/09/2018 Keflex Per rehab facility 04/09/2018 Inactive Allergies NKDA 04/13/2015 Medications Active Medications SIG Qnty Indications Ordering Provider Date Compression - ble 2units Sharlene Ortiz NP 06/05/2018 Stockings swelling/edema- Misc below the knee Acetaminophen Take 650 mg by Faith Mata 03/27/2018 325mg mouth every 6 Vásquez, [employer] Tablets hours as needed for pain Carvedilol take one tablet by 60tabs Sharlene Otriz NP 03/16/2018 25mg mouth twice a day. Tablets Colace 3 capsules daily Unknown 100mg Capsules Torsemide 1 by mouth every Unknown 20mg day Tablets Pantoprazole Sodium 1 by mouth every Unknown day 40mg Tablets DR [place] Sliding scale as Unknown 100Unit/ML directed. check Solution blood sugar before meals. Bupropion HCL ER Take 150 mg by Unknown (SR) mouth every day in 150mg Tablets ER the am 12HR Trazodone HCL 2 by mouth every Unknown 50mg day .. Tablets Nitroglycerin Take 0.4 mg Unknown 0.4mg sublingual every 5 Tablets Sub minutes as needed for chest pain. MDD 3 tabs Eucerin Cream Apply topically to Unknown Cream bilateral lower extremities two times per day Clopidogrel Take 75 mg by Unknown Bisulfate mouth every day 75mg Tablets Duloxetine HCL Take 30 mg po Unknown 30mg twice daily Wu Tran Inject 7 units SQ Unknown Q Am and 7 units Q 100Unit/ML Solution PM, as directed Aspir-81 1 by mouth every Unknown 81mg Tablets day Multiple Vitamin Take 1 tablet by Unknown mouth every day Tablets Atorvastatin Take 80 mg by Unknown (Lipitor) mouth at bedtime 80mg Tablets Lisinopril Take 1 tablets by Unknown 10mg mouth every day Tablets History Medications Torsemide take 1 by mouth 30tabs Najma Lou, 05/22/2018 - 10mg Tablets daily N.P. 06/22/2018 Lasix 1 by mouth every 30tabs Jeannie Salomon 05/19/2018 - 20mg Tablets day Mahogany Minor 05/22/2018 Torsemide Take 20 mg by Nelida James, 04/10/2018 - 20mg Tablets mouth once daily D.O. 05/20/2018 Hold - see triage Vireo bid Sharlene Ortiz, 01/02/2018 - .4 [employer] 03/15/2018 Levofloxacin 1 by mouth every 14tabs K75.0 Huber D. 05/17/2015 - 500mg day Mahogany Cedeño Unknown Tablets Levaquin 1 by mouth every 14tabs Huber DMiriam 05/09/2015 - 500mg Tablets day Mahogany Cedeño 06/06/2015 Aspirin 2 by mouth every Unknown - 325mg Tablets 6 hours as needed 04/09/2018 Calazime Skin apply topically Unknown - Protectant/Olivamine to buttocks two 06/04/2018 times per day Paste Torsemide 1 by mouth every Unknown - 20mg Tablets day 03/26/2018 Vireo Red bid Unknown - .2 Powder 03/15/2018 Vireo Indigo 1 @ 4 am and 1 in Unknown - evening 05/20/2017 Vireo Red 1 in Am/ 1 in PM Unknown - 05/20/2017 Ondansetron HCL 1 tablet po tid Giovanni Patton, - 4mg as needed ( for [employer] 01/27/2017 Tablets nausea) Spironolactone 1 tablet po daily Addy Quezada MD - 25mg Hold (see triage) 05/21/2018 Tablets Furosemide 1 by mouth every 90tabs Sharlene Ortiz, - 20mg Tablets day [employer] 03/15/2018 Hydrocodone-Acetaminop Eckenrode, - stephany Braun NP Unknown 5-325mg Tablets Tylenol 1 tab every 6 hrs Unknown - prn MDD 4 03/15/2018 Levemir 40 units sc twice Unknown - 100Unit/ML daily Unknown Solution Bupropion HCL ER (SR) 1 by mouth once Unknown - daily Unknown 150mg Tablets ER 12HR Humalog base is 6 units Unknown - 100Unit/ML then 2 unit for 03/15/2018 Solution every blood sugar over 150 sc before meals Lorazepam 1 po q 6 hrs prn Unknown - 0.5mg Tablets anxiety 04/12/2015 Omeprazole 1 by mouth every Unknown - 20mg Capsules day 04/26/2018 Triamterene/Hydrochlor 1 by mouth every Unknown - othiazide day Unknown 37.5-25mg Capsules Amlodipine Besylate 1 by mouth every Unknown - 5mg day 01/15/2017 Tablets Atenolol 1 by mouth every Unknown - 50mg Tablets day 01/15/2017 Metronidazole one tablet by Unknown - 500mg mouth 2 times 05/16/2015 Tablets daily Ceftriaxone Sodium iv every 24 hours Unknown - 2gm x 40 days at [facility] [place] [facility] [place]2015 [facility] Immunizations CPT Code Status Date Vaccine Lot # [id number] Given 12/12/2014 Influenza Virus Vaccine, Quadrivalent, Split, Preservative Free Vital Signs Date Vital Result Comment 07/03/2018 1:44pm Height 68 inches 5'8" Weight 208.75 lb Heart Rate 64 /min BP Systolic Sitting 136 mmHg Lue reg cuff BP Diastolic Sitting 82 mmHg Lue reg cuff BMI (Body Mass Index) 31.7 kg/m2 06/05/2018 1:47pm Height 68 inches 5'8" Weight 196.00 lb with shoes Heart Rate 70 /min BP Systolic Sitting 130 mmHg Lue reg cuff BP Diastolic Sitting 60 mmHg Lue reg cuff Respiratory Rate 16 /min BMI (Body Mass Index) 29.8 kg/m2 05/22/2018 2:42pm Height 68 inches 5'8" Weight 196.00 lb w/o shoes Heart Rate 60 /min BP Systolic Sitting 125 mmHg Rue reg cuff BP Diastolic Sitting 65 mmHg Rue reg cuff BMI (Body Mass Index) 29.8 kg/m2 Ejection Fraction 30-35% 05/12/18 echo 04/27/2018 1:52pm Height 68 inches 5'8" Weight 190.50 lb with shoes and life vest Heart Rate 56 /min BP Systolic Sitting 122 mmHg ule sitting regular cuff BP Diastolic Sitting 62 mmHg ule sitting regular cuff BMI (Body Mass Index) 29.0 kg/m2 Ejection Fraction 25-30% Echo 02/18/18 04/09/2018 2:18pm Height 68 inches 5'8" Weight 209.00 lb Heart Rate 60 /min BP Systolic Sitting 134 mmHg BP Diastolic Sitting 82 mmHg BMI (Body Mass Index) 31.8 kg/m2 Ejection Fraction 25-30% echo 02/18/18 04/09/2018 10:11am Height 68 inches 5'8" Weight 194.00 lb Heart Rate 64 /min BP Systolic Sitting 134 mmHg Lue reg cuff BP Diastolic Sitting 72 mmHg Lue reg cuff Respiratory Rate 16 /min O2 % BldC Oximetry 95 % On Ra BMI (Body Mass Index) 29.5 kg/m2 03/16/2018 1:38pm Weight 196.50 lb Heart Rate 68 /min BP Systolic Sitting 125 mmHg Rue reg cuff BP Diastolic Sitting 65 mmHg Rue reg cuff Respiratory Rate 18 /min 01/02/2018 2:33pm Weight 207.00 lb with shoes Heart Rate 96 /min BP Systolic Sitting 152 mmHg Lue large cuff BP Diastolic Sitting 90 mmHg Lue large cuff Ejection Fraction 40-45 echocardiogram 01/22/17 09/25/2017 9:18am Height 68 inches 5'8" Weight 227.00 lb Heart Rate 80 /min BP Systolic Sitting 132 mmHg Lue large cuff BP Diastolic Sitting 82 mmHg Lue large cuff Respiratory Rate 22 /min O2 % BldC Oximetry 95 % On Ra BMI (Body Mass Index) 34.5 kg/m2 05/21/2017 11:18am Height 68 inches 5'8" Weight 237.00 lb Heart Rate 78 /min BP Systolic Sitting 140 mmHg BP Diastolic Sitting 80 mmHg Respiratory Rate 16 /min O2 % BldC Oximetry 93 % BMI (Body Mass Index) 36.0 kg/m2 04/03/2017 2:03pm Height 68 inches 5'8" Weight 231.00 lb Heart Rate 64 /min BP Systolic Sitting 126 mmHg BP Diastolic Sitting 86 mmHg Respiratory Rate 14 /min O2 % BldC Oximetry 98 % BMI (Body Mass Index) 35.1 kg/m2 Neck Circumference in inches 18.25 01/28/2017 12:49pm Height 68 inches 5'8" Weight 237.00 lb with shoes Heart Rate 82 /min BP Systolic Sitting 142 mmHg BP Diastolic Sitting 80 mmHg Respiratory Rate 18 /min BMI (Body Mass Index) 36.0 kg/m2 Ejection Fraction 40-45% 01/22/2017-echo 01/16/2017 11:21am Height 68 inches 5'8" Weight 236.00 lb with shoes, at home 233.3 lbs Heart Rate 80 /min BP Systolic Sitting 90 mmHg Rue reg cuff BP Diastolic Sitting 70 mmHg Rue reg cuff Respiratory Rate 17 /min BMI (Body Mass Index) 35.9 kg/m2 Ejection Fraction 40-45% date 12/27/16 ECHO 10/02/2016 10:32am Height 68 inches 5'8" Weight 245.00 lb Heart Rate 76 /min BP Systolic 150 mmHg BP Diastolic 90 mmHg Respiratory Rate 20 /min Body Temperature 97.4 F BMI (Body Mass Index) 37.2 kg/m2 06/07/2015 1:42pm Height 68 inches 5'8" Weight 236.00 lb per pt report Heart Rate 60 /min BP Systolic Sitting 130 mmHg BP Diastolic Sitting 62 mmHg Respiratory Rate 14 /min Body Temperature 97.4 F BMI (Body Mass Index) 35.9 kg/m2 05/17/2015 1:18pm Height 68 inches 5'8" Weight 237.00 lb Heart Rate 60 /min BP Systolic Sitting 126 mmHg BP Diastolic Sitting 72 mmHg Respiratory Rate 14 /min Body Temperature 98.3 F BMI (Body Mass Index) 36.0 kg/m2 04/27/2015 1:28pm Height 68 inches 5'8" Weight 227.00 lb Heart Rate 74 /min BP Systolic Sitting 140 mmHg BP Diastolic Sitting 78 mmHg Respiratory Rate 16 /min Body Temperature 96.7 F BMI (Body Mass Index) 34.5 kg/m2 04/13/2015 1:23pm Height 68 inches 5'8" Weight 241.00 lb Heart Rate 66 /min BP Systolic Sitting 152 mmHg BP Diastolic Sitting 74 mmHg Respiratory Rate 16 /min Body Temperature 96.9 F BMI (Body Mass Index) 36.6 kg/m2 Results Test Date Facility Test Result H/L Range Note Basic Metabolic 06/29/2018 [facility] Sodium 139 mmol/L N 135- [address] [place] [address] [phone] Potassium 3.6 mmol/L N 3.5-5.0 Chloride 103 mmol/L N 101-111 Co2 Carbon Dioxide 32 mmol/L N 22-32 Anion Gap 4 mmol/L N 2-11 Glucose 157 mg/dL High 70-100 Blood Urea Nitrogen 32 mg/dL High 6-24 Creatinine 1.46 mg/dL High 0.67-1.17 BUN/Creatinine Ratio 21.9 High 8-20 Calcium 8.2 mg/dL Low 8.6-10.3 Egfr Non- 46.6 >60 Egfr 56.4 >60 1 Basic Metabolic Panel 06/12/2018 [facility] Sodium 139 mmol/L N 135-145 2 [address] [place] [address] [phone] Potassium 3.7 mmol/L N 3.5-5.0 Chloride 104 mmol/L N 101-111 Co2 Carbon Dioxide 31 mmol/L N 22-32 Anion Gap 4 mmol/L N 2-11 Glucose 116 mg/dL High 70-100 Blood Urea Nitrogen 31 mg/dL High 6-24 Creatinine 1.34 mg/dL High 0.67-1.17 BUN/Creatinine Ratio 23.1 High 8-20 Calcium 8.4 mg/dL Low 8.6-10.3 Egfr Non- 51.4 >60 Egfr 62.2 >60 3 Basic Metabolic Panel 06/01/2018 [facility] Sodium 135 mmol/L N 135-145 [address] [place] [address] [phone] Potassium 3.9 mmol/L N 3.5-5.0 Chloride 102 mmol/L N 101-111 Co2 Carbon Dioxide 29 mmol/L N 22-32 Anion Gap 4 mmol/L N 2-11 Glucose 171 mg/dL High 70-100 Blood Urea Nitrogen 28 mg/dL High 6-24 Creatinine 1.47 mg/dL High 0.67-1.17 BUN/Creatinine Ratio 19.0 N 8-20 Calcium 8.0 mg/dL Low 8.6-10.3 Egfr Non- 46.2 >60 Egfr 55.9 >60 4 Basic Metabolic Panel 05/22/2018 [facility] Sodium 137 mmol/L N 135-145 [address] [place] [address] [phone] Potassium 4.1 mmol/L N 3.5-5.0 Chloride 106 mmol/L N 101-111 Co2 Carbon Dioxide 25 mmol/L N 22-32 Anion Gap 6 mmol/L N 2-11 Glucose 84 mg/dL N 70-100 Blood Urea Nitrogen 36 mg/dL High 6-24 Creatinine 1.35 mg/dL High 0.67-1.17 BUN/Creatinine Ratio 26.7 High 8-20 Calcium 8.5 mg/dL Low 8.6-10.3 Egfr Non- 51.0 >60 Egfr 61.7 >60 5 Basic Metabolic Panel 05/12/2018 [facility] Sodium 135 mmol/L N 135-[address] [place] [address] [phone] Potassium 4.9 mmol/L N 3.5-5.0 Chloride 104 mmol/L N 101-111 Co2 Carbon Dioxide 22 mmol/L N 22-32 Anion Gap 9 mmol/L N 2-11 Glucose 136 mg/dL High 70-100 Blood Urea Nitrogen 47 mg/dL High 6-24 Creatinine 1.48 mg/dL High 0.67-1.17 BUN/Creatinine Ratio 31.8 High 8-20 Calcium 8.6 mg/dL N 8.6-10.3 Egfr Non- 45.8 >60 Egfr 55.5 >60 6 CBC Auto Diff 05/12/2018 [facility] White Blood 5.6 10^3/uL N 3.5-10.[address] [place] [address] [phone] Red Blood Count 3.75 10^6/uL Low 4.00-5.40 Hemoglobin 10.9 g/dL Low 14.0-18.0 Hematocrit 32 % Low 42-52 Mean Corpuscular Volume 85 fL N 80-94 Mean Corpuscular Hemoglobin 29 pg N 27-31 Mean Corpuscular HGB Conc 34 g/dL N 31-36 Red Cell Distribution Width 15 % N 10.5-15 Platelet Count 180 10^3/uL N 150-450 Mean Platelet Volume 7.7 fL N 7.4-10.4 Abs Neutrophils 4.0 10^3/uL N 1.5-7.7 Abs Lymphocytes 0.9 10^3/uL Low 1.0-4.8 Abs Monocytes 0.6 10^3/uL N 0-0.8 Abs Eosinophils 0.1 10^3/uL N 0-0.6 Abs Basophils 0 10^3/uL N 0-0.2 Abs Nucleated RBC 0 10^3/uL Granulocyte % 71.3 % Lymphocyte % 16.1 % Monocyte % 10.6 % Eosinophil % 1.5 % Basophil % 0.5 % Nucleated Red Blood Cells % 0 Laboratory test 05/12/2018 [facility] C Reactive 5.57 mg/L N < 8.01 finding [address] [facility] [place] [address] [phone] Urinalysis Profile 05/12/2018 [facility] Urine Color Yellow [address] [place] [address] [phone] Urine Appearance Clear Urine Specific [place] 1.012 N 1.010-1.030 Urine pH 6.0 N 5-9 Urine Urobilinogen Negative Negative Urine Ketones Negative Negative Urine Protein Negative Negative Urine Leukocytes Negative Negative Urine Blood Negative Negative * * Abnormal Negative 7 Urine Nitrite Negative Negative Urine Bilirubin Negative Negative Urine Glucose Negative Negative Basic Metabolic 05/09/2018 [facility] Sodium 134 mmol/L Low 135-145 Panel [address] [place] [address] [phone] Potassium 4.8 mmol/L N 3.5-5.0 Chloride 103 mmol/L N 101-111 Co2 Carbon Dioxide 26 mmol/L N 22-32 Anion Gap 5 mmol/L N 2-11 Glucose 137 mg/dL High 70-100 Blood Urea Nitrogen 51 mg/dL High 6-24 Creatinine 1.63 mg/dL High 0.67-1.17 BUN/Creatinine Ratio 31.3 High 8-20 Calcium 8.7 mg/dL N 8.6-10.3 Egfr Non- 41.0 >60 Egfr 49.6 >60 8 Basic Metabolic Panel 05/07/2018 [facility] Sodium 135 mmol/L N 135-145 [address] [place] [address] [phone] Potassium 4.6 mmol/L N 3.5-5.0 Chloride 102 mmol/L N 101-111 Co2 Carbon Dioxide 29 mmol/L N 22-32 Anion Gap 4 mmol/L N 2-11 Glucose 97 mg/dL N 70-100 Blood Urea Nitrogen 60 mg/dL High 6-24 Creatinine 1.83 mg/dL High 0.67-1.17 BUN/Creatinine Ratio 32.8 High 8-20 Calcium 8.8 mg/dL N 8.6-10.3 Egfr Non- 35.9 >60 Egfr 43.4 >60 9 Basic Metabolic Panel 04/15/2018 [facility] Sodium 137 mmol/L N 135-145 [address] [place] [address] [phone] Potassium 3.9 mmol/L N 3.5-5.0 Chloride 104 mmol/L N 101-111 Co2 Carbon Dioxide 26 mmol/L N 22-32 Anion Gap 7 mmol/L N 2-11 Glucose 83 mg/dL N 70-100 Blood Urea Nitrogen 57 mg/dL High 6-24 Creatinine 1.58 mg/dL High 0.67-1.17 BUN/Creatinine Ratio 36.1 High 8-20 Calcium 8.7 mg/dL N 8.6-10.3 Egfr Non- 42.5 >60 Egfr 51.4 >60 11 Basic Metabolic Panel 04/13/2018 [facility] Sodium 135 mmol/L N 135-145 [address] [place] [address] [phone] Potassium 4.4 mmol/L N 3.5-5.0 Chloride 104 mmol/L N 101-111 Co2 Carbon Dioxide 25 mmol/L N 22-32 Anion Gap 6 mmol/L N 2-11 Glucose 160 mg/dL High 70-100 Blood Urea Nitrogen 54 mg/dL High 6-24 Creatinine 1.59 mg/dL High 0.67-1.17 BUN/Creatinine Ratio 34.0 High 8-20 Calcium 8.6 mg/dL N 8.6-10.3 Egfr Non- 42.2 >60 Egfr 51.1 >60 13 Basic Metabolic Panel 04/01/2018 [facility] Sodium 136 mmol/L N 135-145 [address] [place] [address] [phone] Potassium 4.5 mmol/L N 3.5-5.0 Chloride 104 mmol/L N 101-111 Co2 Carbon Dioxide 28 mmol/L N 22-32 Anion Gap 4 mmol/L N 2-11 Glucose 96 mg/dL N 70-100 Blood Urea Nitrogen 54 mg/dL High 6-24 Creatinine 1.47 mg/dL High 0.67-1.17 BUN/Creatinine Ratio 36.7 High 8-20 Calcium 9.1 mg/dL N 8.6-10.3 Egfr Non- 46.2 >60 Egfr 55.9 >60 15 Basic Metabolic Panel 03/26/2018 [facility] Sodium 135 mmol/L N 135-145 [address] [place] [address] [phone] Potassium 4.6 mmol/L N 3.5-5.0 Chloride 101 mmol/L N 101-111 Co2 Carbon Dioxide 29 mmol/L N 22-32 Anion Gap 5 mmol/L N 2-11 Glucose 107 mg/dL High 70-100 Blood Urea Nitrogen 67 mg/dL High 6-24 Creatinine 1.70 mg/dL High 0.67-1.17 BUN/Creatinine Ratio 39.4 High 8-20 Calcium 8.9 mg/dL N 8.6-10.3 Egfr Non- 39.1 >60 Egfr 47.3 >60 16 Laboratory test 03/26/2018 [facility] Magnesium 1.9 mg/dL N 1.9-2.7 finding [address] [place] [address] [phone] Lipid Profile 01/19/2018 [facility] Triglycerides 93 mg/dL 17 (Trig/Chol/HDL) [address] [place] [address] [phone] Cholesterol 112 mg/dL 18 HDL Cholesterol 32.1 mg/dL 19 LDL Cholesterol 61 mg/dL 20 Comp Metabolic Panel 01/19/2018 [facility] Sodium 141 mmol/L N 135-145 [address] [place] [address] [phone] Potassium 4.4 mmol/L N 3.5-5.0 Chloride 103 mmol/L N 101-111 Co2 Carbon Dioxide 31 mmol/L N 22-32 Anion Gap 7 mmol/L N 2-11 Glucose 175 mg/dL High 70-100 Blood Urea Nitrogen 24 mg/dL N 6-24 Creatinine 1.34 mg/dL High 0.67-1.17 BUN/Creatinine Ratio 17.9 N 8-20 Calcium 9.7 mg/dL N 8.6-10.3 Total Protein 6.9 g/dL N 6.4-8.9 Albumin 3.5 g/dL N 3.2-5.2 Globulin 3.4 g/dL N 2-4 Albumin/Globulin Ratio 1.0 N 1-3 Total Bilirubin 0.90 mg/dL N 0.2-1.0 Alkaline Phosphatase 93 U/L N 34-104 Alt 13 U/L N 7-52 Ast 15 U/L N 13-39 Egfr Non- 51.4 >60 Egfr 62.2 >60 21 Lipid Panel - 01/19/2018 [facility] Creatine 55 U/L N 10-223 [address] Kinase(CK) [place] [address] [phone] Laboratory test 10/03/2016 [facility] Gram Stain SEE RESULT [address] [place] [place] [address] [phone] Body Fluid Total 10/03/2016 [facility] Total Protein, 3.6 g/dL N [address] [place] [address] [phone] Fluid Source PLEURAL FLUID N 25 Lactate 10/03/2016 [facility] Lactate 140 U/L N 26 Dehydrogenase,BF [address] Dehydrogenase, BF [place], [place] [id number] [phone] Fluid Source PLEURAL FLUID N 27 Laboratory test 10/03/2016 [facility] Cytology SEE RESULT [address] [place] [address] [phone] Body Fluid Cell 10/03/2016 [facility] Body Fluid Pleural Fluid N Count [address] [place] [address] [phone] Body Fluid Appearance Cloudy N Body Fluid Color Yellow N Body Fluid Volume 7 mL N Body Fluid WBC 809 /mcL N 29 Body Fluid RBC 1114 /mcL N Body Fluid Neutrophils 16 % N Body Fluid Lymph 77 % N Body Fluid Bradley 7 % N Body Fluid Total Cells Counted 100 N Fluid Reviewed By MD (SEE NOTE) N 30 Laboratory test 10/03/2016 [facility] Body Fluid SEE RESULT [address] [place] [address] Bottles [phone] CBC Auto Diff 05/10/2015 [facility] White Blood 8.2 10^3/uL N 3.5-[address] Count .8 [place] [address] [phone] Red Blood Count 4.62 10^6/uL N 4.0-5.4 Hemoglobin 13.0 g/dL Low 14.0-18.0 Hematocrit 39 % Low 42-52 Mean Corpuscular Volume 83 fL N 80-94 Mean Corpuscular Hemoglobin 28 pg N 27-31 Mean Corpuscular HGB Conc 34 g/dL N 31-36 Red Cell Distribution Width 18 % High 10.5-15 Platelet Count 281 10^3/uL N 150-450 Mean Platelet Volume 8 um3 N 7.4-10.4 Abs Neutrophils 6.0 10^3/uL N 1.5-7.7 Abs Lymphocytes 1.6 10^3/uL N 1.0-4.8 Abs Monocytes 0.6 10^3/uL N 0-0.8 Abs Eosinophils 0 10^3/uL N 0-0.6 Abs Basophils 0.1 10^3/uL N 0-0.2 Abs Nucleated RBC 0 10^3/uL N Granulocyte % 72.6 % N 38-83 Lymphocyte % 19.0 % Low 25-47 Monocyte % 7.0 % N 1-9 Eosinophil % 0.6 % N 0-6 Basophil % 0.8 % N 0-2 Nucleated Red Blood Cells % 0 N Comp Metabolic Panel 05/10/2015 [facility] Sodium 137 mmol/L N 133-145 [address] [place] [address] [phone] Potassium 3.9 mmol/L N 3.5-5.0 Chloride 106 mmol/L N 101-111 Co2 Carbon Dioxide 25 mmol/L N 22-32 Anion Gap 6 mmol/L N 2-11 Glucose 228 mg/dL High 70-100 Blood Urea Nitrogen 21 mg/dL N 6-24 Creatinine 1.29 mg/dL High 0.67-1.17 BUN/Creatinine Ratio 16.3 N 8-20 Calcium 9.0 mg/dL N 8.6-10.3 Total Protein 6.6 g/dL N 6.4-8.9 Albumin 3.5 g/dL N 3.2-5.2 Globulin 3.1 g/dL N 2-4 Albumin/Globulin Ratio 1.1 N 1-3 Total Bilirubin 0.50 mg/dL N 0.2-1.0 Alkaline Phosphatase 59 U/L N 34-104 Alt 17 U/L N 7-52 Ast 19 U/L N 13-39 Egfr Non- 54.2 N >60 Egfr 69.6 N >60 32 Laboratory test 05/10/2015 [facility] C Reactive < 1.00 N < 5.00 [address] Protein mg/[place] [address] [phone] CBC Auto Diff 05/03/2015 [facility] White Blood 8.5 N 3.5- 10.[address] Count 10^3/[place] [address] [phone] Red Blood Count 4.57 10^6/uL N 4.0-5.4 Hemoglobin 12.9 g/dL Low 14.0-18.0 Hematocrit 39 % Low 42-52 Mean Corpuscular Volume 84 fL N 80-94 Mean Corpuscular Hemoglobin 28 pg N 27-31 Mean Corpuscular HGB Conc 34 g/dL N 31-36 Red Cell Distribution Width 18 % High 10.5-15 Platelet Count 314 10^3/uL N 150-450 Mean Platelet Volume 8 um3 N 7.4-10.4 Abs Neutrophils 7.0 10^3/uL N 1.5-7.7 Abs Lymphocytes 0.8 10^3/uL Low 1.0-4.8 Abs Monocytes 0.6 10^3/uL N 0-0.8 Abs Eosinophils 0 10^3/uL N 0-0.6 Abs Basophils 0.1 10^3/uL N 0-0.2 Abs Nucleated RBC 0 10^3/uL N Granulocyte % 82.6 % N 38-83 Lymphocyte % 9.2 % Low 25-47 Monocyte % 7.2 % N 1-9 Eosinophil % 0.4 % N 0-6 Basophil % 0.6 % N 0-2 Nucleated Red Blood Cells % 0 N Comp Metabolic Panel 05/03/2015 [facility] Sodium 136 mmol/L N 133-[address] [place] [address] [phone] Potassium 4.5 mmol/L N 3.5-5.0 Chloride 106 mmol/L N 101-111 Co2 Carbon Dioxide 25 mmol/L N 22-32 Anion Gap 5 mmol/L N 2-11 Glucose 153 mg/dL High 70-100 Blood Urea Nitrogen 29 mg/dL High 6-24 Creatinine 1.53 mg/dL High 0.67-1.17 BUN/Creatinine Ratio 19.0 N 8-20 Calcium 9.1 mg/dL N 8.6-10.3 Total Protein 6.9 g/dL N 6.4-8.9 Albumin 3.5 g/dL N 3.2-5.2 Globulin 3.4 g/dL N 2-4 Albumin/Globulin Ratio 1.0 N 1-3 Total Bilirubin 0.40 mg/dL N 0.2-1.0 Alkaline Phosphatase 76 U/L N 34-104 Alt 15 U/L N 7-52 Ast 21 U/L N 13-39 Egfr Non- 44.5 N >60 Egfr 57.2 N >60 34 Laboratory test 05/03/2015 [facility] C Reactive < 1.00 N < 5.00 [address] Protein mg/[place] [address] [phone] CBC Auto Diff 04/26/2015 [facility] White Blood 6.5 N 3.5- 10.[address] Count 10^3/[place] [address] [phone] Red Blood Count 4.40 10^6/uL N 4.0-5.4 Hemoglobin 12.3 g/dL Low 14.0-18.0 Hematocrit 37 % Low 42-52 Mean Corpuscular Volume 84 fL N 80-94 Mean Corpuscular Hemoglobin 28 pg N 27-31 Mean Corpuscular HGB Conc 33 g/dL N 31-36 Red Cell Distribution Width 18 % High 10.5-15 Platelet Count 276 10^3/uL N 150-450 Mean Platelet Volume 9 um3 N 7.4-10.4 Abs Neutrophils 4.3 10^3/uL N 1.5-7.7 Abs Lymphocytes 1.4 10^3/uL N 1.0-4.8 Abs Monocytes 0.7 10^3/uL N 0-0.8 Abs Eosinophils 0.1 10^3/uL N 0-0.6 Abs Basophils 0.1 10^3/uL N 0-0.2 Abs Nucleated RBC 0 10^3/uL N Granulocyte % 65.6 % N 38-83 Lymphocyte % 22.1 % Low 25-47 Monocyte % 10.4 % High 1-9 Eosinophil % 0.8 % N 0-6 Basophil % 1.1 % N 0-2 Nucleated Red Blood Cells % 0 N Comp Metabolic Panel 04/26/2015 [facility] Sodium 136 mmol/L N 133-[address] [place] [address] [phone] Potassium 4.2 mmol/L N 3.5-5.0 Chloride 105 mmol/L N 101-111 Co2 Carbon Dioxide 25 mmol/L N 22-32 Anion Gap 6 mmol/L N 2-11 Glucose 190 mg/dL High 70-100 Blood Urea Nitrogen 30 mg/dL High 6-24 Creatinine 1.52 mg/dL High 0.67-1.17 BUN/Creatinine Ratio 19.7 N 8-20 Calcium 9.0 mg/dL N 8.6-10.3 Total Protein 6.6 g/dL N 6.4-8.9 Albumin 3.4 g/dL N 3.2-5.2 Globulin 3.2 g/dL N 2-4 Albumin/Globulin Ratio 1.1 N 1-3 Total Bilirubin 0.40 mg/dL N 0.2-1.0 Alkaline Phosphatase 81 U/L N 34-104 Alt 12 U/L N 7-52 Ast 15 U/L N 13-39 Egfr Non- 44.8 N >60 Egfr 57.6 N >60 36 Laboratory test 04/26/2015 [facility] C Reactive 1.22 mg/L N < 5.[address] [place] [address] [phone] CBC Auto Diff 04/19/2015 [facility] White Blood 6.5 N 3.5- 10.[address] Count 10^3/uL [place] [address] [phone] Red Blood Count 4.34 10^6/uL N 4.0-5.4 Hemoglobin 12.3 g/dL Low 14.0-18.0 Hematocrit 37 % Low 42-52 Mean Corpuscular Volume 85 fL N 80-94 Mean Corpuscular Hemoglobin 28 pg N 27-31 Mean Corpuscular HGB Conc 34 g/dL N 31-36 Red Cell Distribution Width 18 % High 10.5-15 Platelet Count 266 10^3/uL N 150-450 Mean Platelet Volume 8 um3 N 7.4-10.4 Abs Neutrophils 4.6 10^3/uL N 1.5-7.7 Abs Lymphocytes 1.1 10^3/uL N 1.0-4.8 Abs Monocytes 0.7 10^3/uL N 0-0.8 Abs Eosinophils 0 10^3/uL N 0-0.6 Abs Basophils 0.1 10^3/uL N 0-0.2 Abs Nucleated RBC 0 10^3/uL N Granulocyte % 70.5 % N 38-83 Lymphocyte % 17.5 % Low 25-47 Monocyte % 10.4 % High 1-9 Eosinophil % 0.5 % N 0-6 Basophil % 1.1 % N 0-2 Nucleated Red Blood Cells % 0.1 N Comp Metabolic Panel 04/19/2015 [facility] Sodium 137 mmol/L N 133-[address] [place] [address] [phone] Potassium 4.0 mmol/L N 3.5-5.0 Chloride 107 mmol/L N 101-111 Co2 Carbon Dioxide 26 mmol/L N 22-32 Anion Gap 4 mmol/L N 2-11 Glucose 152 mg/dL High 70-100 Blood Urea Nitrogen 25 mg/dL High 6-24 Creatinine 1.32 mg/dL High 0.67-1.17 BUN/Creatinine Ratio 18.9 N 8-20 Calcium 8.9 mg/dL N 8.6-10.3 Total Protein 6.9 g/dL N 6.4-8.9 Albumin 3.4 g/dL N 3.2-5.2 Globulin 3.5 g/dL N 2-4 Albumin/Globulin Ratio 1.0 N 1-3 Total Bilirubin 0.40 mg/dL N 0.2-1.0 Alkaline Phosphatase 95 U/L N 34-104 Alt 11 U/L N 7-52 Ast 13 U/L N 13-39 Egfr Non- 52.7 N >60 Egfr 67.8 N >60 38 Laboratory test 04/19/2015 [facility] C Reactive 1.35 mg/L N < 5.00 [address] [place] [address] [phone] CBC Auto Diff 04/12/2015 [facility] White Blood 8.2 N 3.5- 10.[address] Count 10^3/[place] [address] [phone] Red Blood Count 4.22 10^6/uL N 4.0-5.4 Hemoglobin 11.8 g/dL Low 14.0-18.0 Hematocrit 35 % Low 42-52 Mean Corpuscular Volume 84 fL N 80-94 Mean Corpuscular Hemoglobin 28 pg N 27-31 Mean Corpuscular HGB Conc 33 g/dL N 31-36 Red Cell Distribution Width 16 % High 10.5-15 Platelet Count 316 10^3/uL N 150-450 Mean Platelet Volume 8 um3 N 7.4-10.4 Abs Neutrophils 6.1 10^3/uL N 1.5-7.7 Abs Lymphocytes 1.4 10^3/uL N 1.0-4.8 Abs Monocytes 0.6 10^3/uL N 0-0.8 Abs Eosinophils 0 10^3/uL N 0-0.6 Abs Basophils 0.1 10^3/uL N 0-0.2 Abs Nucleated RBC 0 10^3/uL N Granulocyte % 74.6 % N 38-83 Lymphocyte % 16.6 % Low 25-47 Monocyte % 7.6 % N 1-9 Eosinophil % 0.4 % N 0-6 Basophil % 0.8 % N 0-2 Nucleated Red Blood Cells % 0 N Comp Metabolic Panel 04/12/2015 [facility] Sodium 137 mmol/L N 133-[address] [place] [address] [phone] Potassium 4.1 mmol/L N 3.5-5.0 Chloride 105 mmol/L N 101-111 Co2 Carbon Dioxide 26 mmol/L N 22-32 Anion Gap 6 mmol/L N 2-11 Glucose 221 mg/dL High 70-100 Blood Urea Nitrogen 24 mg/dL N 6-24 Creatinine 1.39 mg/dL High 0.67-1.17 BUN/Creatinine Ratio 17.3 N 8-20 Calcium 9.1 mg/dL N 8.6-10.3 Total Protein 6.9 g/dL N 6.4-8.9 Albumin 3.3 g/dL N 3.2-5.2 Globulin 3.6 g/dL N 2-4 Albumin/Globulin Ratio 0.9 Low 1-3 Total Bilirubin 0.40 mg/dL N 0.2-1.0 Alkaline Phosphatase 86 U/L N 34-104 Alt 14 U/L N 7-52 Ast 14 U/L N 13-39 Egfr Non- 49.7 N >60 Egfr 63.9 N >60 40 Laboratory test 04/12/2015 [facility] C Reactive 1.44 mg/L N < 5.00 [address] [place] [address] [phone] CBC Auto Diff 04/05/2015 [facility] White Blood 9.7 N 3.5- 10.[address] Count 10^3/[place] [address] [phone] Red Blood Count 3.73 10^6/uL Low 4.0-5.4 Hemoglobin 10.3 g/dL Low 14.0-18.0 Hematocrit 32 % Low 42-52 Mean Corpuscular Volume 85 fL N 80-94 Mean Corpuscular Hemoglobin 28 pg N 27-31 Mean Corpuscular HGB Conc 33 g/dL N 31-36 Red Cell Distribution Width 15 % N 10.5-15 Platelet Count 392 10^3/uL N 150-450 Mean Platelet Volume 7 um3 Low 7.4-10.4 Abs Neutrophils 7.6 10^3/uL N 1.5-7.7 Abs Lymphocytes 1.4 10^3/uL N 1.0-4.8 Abs Monocytes 0.6 10^3/uL N 0-0.8 Abs Eosinophils 0 10^3/uL N 0-0.6 Abs Basophils 0.1 10^3/uL N 0-0.2 Abs Nucleated RBC 0 10^3/uL N Granulocyte % 78.1 % N 38-83 Lymphocyte % 14.2 % Low 25-47 Monocyte % 6.6 % N 1-9 Eosinophil % 0.3 % N 0-6 Basophil % 0.8 % N 0-2 Nucleated Red Blood Cells % 0 N Laboratory test 04/05/2015 [facility] C Reactive 8.74 mg/L High < 5.00 [address] [place] [address] [phone] Comp Metabolic 04/05/2015 [facility] Sodium 136 N 133-[address] mmol/[place] [address] [phone] Potassium 4.3 mmol/L N 3.5-5.0 Chloride 103 mmol/L N 101-111 Co2 Carbon Dioxide 26 mmol/L N 22-32 Anion Gap 7 mmol/L N 2-11 Glucose 187 mg/dL High 70-100 Blood Urea Nitrogen 22 mg/dL N 6-24 Creatinine 1.35 mg/dL High 0.67-1.17 BUN/Creatinine Ratio 16.3 N 8-20 Calcium 8.8 mg/dL N 8.6-10.3 Total Protein 6.5 g/dL N 6.4-8.9 Albumin 2.9 g/dL Low 3.2-5.2 Globulin 3.6 g/dL N 2-4 Albumin/Globulin Ratio 0.8 Low 1-3 Total Bilirubin 0.40 mg/dL N 0.2-1.0 Alkaline Phosphatase 92 U/L N 34-104 Alt 21 U/L N 7-52 Ast 20 U/L N 13-39 Egfr Non- 51.4 N >60 Egfr 66.1 N >60 43 1 Because ethnic data is not always readily [...] 15-29 5 Kidney failure <15 (or dialysis) 2 [id number] 3 Because ethnic data is not always [...] 5 Kidney failure <15 (or dialysis) 4 Because ethnic data is not always readily [...] 15-29 5 Kidney failure <15 (or dialysis) 5 Because ethnic data is not always readily [...] 15-29 5 Kidney failure <15 (or dialysis) 6 Because ethnic data is not always readily [...] 15-29 5 Kidney failure <15 (or dialysis) 7 *Ascorbic acid is present which may interfere with detection of blood. 8 Because ethnic data is not always readily [...] 15-29 5 Kidney failure <15 (or dialysis) 9 Because ethnic data is not always readily [...] 15-29 5 Kidney failure <15 (or dialysis) 10 [facility] , Room Number [id number] 11 Because ethnic data is not always readily [...] 15-29 5 Kidney failure <15 (or dialysis) 12 [facility] [id number] 13 Because ethnic data is not always readily [...] 15-29 5 Kidney failure <15 (or dialysis) 14 [facility] , Room Number [id number] 15 Because ethnic data is not always readily [...] 15-29 5 Kidney failure <15 (or dialysis) 16 Because ethnic data is not always readily [...] 15-29 5 Kidney failure <15 (or dialysis) 17 Desirable: <150 Borderline High: 150-199 High: 200-499 Very High: >500 18 Desirable: <200 Borderline High: 200-239 High: >239 19 Low: <40 Desirable: 40-60 High: >60 20 Desirable: <100 Near Optimal: 100-129 Borderline High: 130-159 High: 160-189 Very High: >189 21 Because ethnic data is not always readily [...] 15-29 5 Kidney failure <15 (or dialysis) 22 FASTING Copy Result to: ADDY QUEZADA ([id number]) 23 SEE RESULT BELOW Name: SURENDRA PANIAGUA : [address]: Gautam Fajardo MD Acct: [id number] Unit: [id number] AGE: 76 Location: OR Re10/03/16 SEX: M Status: KARIE SDC SPEC: [id number] DELMY: 10/03/16-14[address] [facility] [address]: Gautam Fajardo MD REQ: [id number] RECD: 10/03/16-1513 STATUS: SUNITA WOLFE DR: Addy Quezada MD _ SOURCE: BODY FLUID SPDESC:PLEURA ORDERED: Gram Stain Procedure Result Reported Site Gram Stain Final 10/03/16- 1615 ML 4+ Nucleated Cells No Neutrophils Observed No Organisms Seen BY CYTOSPIN SMEAR. * ML - [facility] ([facility]) . END OF REPORT * ML=Testing performed at Main Lab DEPARTMENT OF PATHOLOGY, [address] [place] [place] [address] Yogesh Hampton M.D. Director [facility] # [id number] 24 REFERENCE VALUE Not Applicable 25 Test Performed by: [facility] [address] [place] [address] 26 REFERENCE VALUE Not Applicable 27 Test Performed by: [facility] [address] [place] [address] 28 SEE RESULT BELOW Name: SURENDRA PANIAGUA: [address]: Gautam Fajardo MD Acct: [id number] Unit: [id number] AGE: 76 Location: OR Re10/03/16 SEX: M Status: DEP SDC SPEC: [id number] DELMY: 10/03/16-14[address] [facility] [address]: Gautam Fajardo MD REQ: [id number] RECD: 10/03/16 STATUS: SOUT _ ORDERED: NG THIN LAYER FINAL DIAGNOSIS Pleural, left, thoracentesis: --Negative for malignant cells. --Inflammation. 1. PLEURAL - LEFT PLEURAL EFFUSION CLINICAL HISTORY Left pleural effusion. GROSS DESCRIPTION 1.7 liter of cloudy elizalde yellow gelatinous fluid. Signed (signature on file) Zayda Gray MD [id number] END OF REPORT * ML=Testing performed at Main Lab DEPARTMENT OF PATHOLOGY, [address] [place] [place] [address] Yogesh Hampton M.D. Director [facility] # [id number] 29 -- REFERENCE VALUE -- Synovial: <150/mcL Peritoneal: <500/mcL Pleural: <500/mcL Pericardial: <500/mcL 30 Lymphocytes and reactive mesothelial cells. No evidence of an acute inflammatory response. No evidence of malignancy. Reviewed by Zayda Gray MD 31 SEE RESULT BELOW Name: SURENDRA PANIAGUA : [address]: Gautam Fajardo MD Acct: [id number] Unit: [id number] AGE: 76 Location: OR Re10/03/16 SEX: M Status: DEP SDC SPEC: [id number] DELMY: 10/03/16-14[address] [facility] [address]: Gautam Fajardo MD REQ: [id number] RECD: 10/03/16 STATUS: SUNITA WOLFE DR: Addy Quezada MD _ SOURCE: PLEURAL FL SPDESC: ORDERED: BF Cult Bottles Procedure Result Reported Site BF Aerobic Culture Bottle Final 10/08/16- 1513 ML No Growth Day 5 BF Anaerobic Culture Bottle Final 10/08/16- 1513 ML No Growth Day 5 * ML - MAIN LAB ([facility]) . END OF REPORT * ML=Testing performed at Main Lab DEPARTMENT OF PATHOLOGY, [address] [place] [address] Yogesh Hampton M.D. Director [facility] # [id number] 32 Because ethnic data is not always readily [...] 15-29 5 Kidney failure <15 (or dialysis) 33 Acute inflammation: >10.00 34 Because ethnic data is not always readily [...] 15-29 5 Kidney failure <15 (or dialysis) 35 Acute inflammation: >10.00 36 Because ethnic data is not always readily [...] 15-29 5 Kidney failure <15 (or dialysis) 37 Acute inflammation: >10.00 38 Because ethnic data is not always readily [...] 15-29 5 Kidney failure <15 (or dialysis) 39 Acute inflammation: >10.00 40 Because ethnic data is not always readily [...] 15-29 5 Kidney failure <15 (or dialysis) 41 Acute inflammation: >10.00 42 Acute inflammation: >10.00 43 Because ethnic data is not always readily [...] 15-29 5 Kidney failure <15 (or dialysis) Procedures Date Code Description Status 06/25/2018 34841 Echocardiogram, Limited Study Completed 06/25/2018 00575 Echocardiogram, Limited Study Completed 06/05/2018 80050 EKG Tracing & Interpretation Completed 05/18/2018 15156 Polysomnography Sleep Staging 4+ Parameters Completed 05/12/2018 52463 Echocardiogram, Limited Study Completed 05/12/2018 12754 Echocardiogram, Limited Study Completed 03/16/2018 56713 EKG Tracing & Interpretation Completed 02/23/2018 09787 Left Heart Cath. Incl S/I Coronaries, Angio S/I V Gram If Completed Done 02/21/2018 38089 EKG, Interpretation Only Completed 02/19/2018 37676 Treadmill Interp/Report Only Completed 02/19/2018 88224 Stress Test Supervsn W/Out I/R Completed 02/18/2018 82906 EKG, Interpretation Only Completed 02/18/2018 64983 ECHO Transthorasic Realtime 2D W Doppler & Color Flow Hosp Completed 01/02/2018 12215 EKG Tracing & Interpretation Completed 04/08/2017 44611 Sleep Study Unattended,HRT Rate,Oxygen Sat,Resp Completed Effort/Airflow 01/22/2017 26226 ECHO Transthorasic Realtime 2D W Doppler & Color Flow Hosp Completed 01/16/2017 87290 EKG Tracing & Interpretation Completed 12/30/2016 65865 Treadmill Interp/Report Only Completed 12/30/2016 67439 Stress Test Supervsn W/Out I/R Completed 12/27/2016 23566 ECHO Transthorasic Realtime 2D W Doppler & Color Flow Hosp Completed 10/03/2016 91362 Thoracentesis Needle/Catheter Aspiration W/ Img Guidance Completed 10/12/2015 26967 EEG Recording Awake & Drowsy Completed 05/25/2015 08083 Laparoscopy Cholecystectomy Completed Encounters Type Date Location Provider Dx Diagnosis Office Visit 07/03/2018 [facility] Sharlene Ortiz, 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 N18.3 Chronic kidney disease, stage 3 (moderate) G47.30 Sleep apnea, unspecified Office Visit 04/09/2018 2:30p [facility] Sharlene I25.5 Ischemic Cardiology Radhaselma, [employer] cardiomyopathy I12.9 Hypertensive chronic kidney disease w stg 1-4/unsp chr kdny N18.3 Chronic kidney disease, stage 3 (moderate) 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 I34.0 Nonrheumatic mitral (valve) insufficiency I50.810 Right heart failure, unspecified Office Visit 04/09/2018 Pulmonology And Tuyet G47.33 Obstructive sleep 10:00a Sleep Services Of Fany, RUKHSANA, RN, apnea (adult) [employer] (pediatric) Z68.31 Body mass index (BMI) 31.0-31.9, adult Office Visit 04/01/2018 10:30a [facility] Nelida I25.5 Ischemic Eduar James cardiomyopathy 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 I44.7 Left bundle-branch block, unspecified I12.9 Hypertensive chronic kidney disease w stg 1-4/unsp chr kdny E11.22 Type 2 diabetes mellitus w diabetic chronic kidney disease N18.3 Chronic kidney disease, stage 3 (moderate) Office Visit 03/16/2018 2:00p Leander Su I25.5 Ischemic Cardiology Of Diana, [employer] cardiomyopathy [facility] 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 cardiomyopathy I21.4 Non-St elevation (Nstemi) myocardial infarction I50.9 Heart failure, unspecified E11.9 Type 2 diabetes mellitus without complications I34.0 Nonrheumatic mitral (valve) insufficiency I10 Essential (primary) hypertension N18.9 Chronic kidney disease, unspecified Office Visit 02/21/2018 Ciarra Herring I25.5 Ischemic 2:20p Cardiology Mahogany Garcia cardiomyopathy E11.9 Type 2 diabetes mellitus without complications I10 Essential (primary) hypertension I50.9 Heart failure, unspecified I21.4 Non-St elevation (Nstemi) myocardial infarction Office Visit 02/20/2018 2:16p [facility] Ayaan Herring I50.9 Heart failure, Mahogany Garcia unspecified 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 I25.5 Ischemic cardiomyopathy N18.9 Chronic kidney disease, unspecified Office Visit 02/18/2018 12:25p [facility], R06.02 Shortness of Of [facility] [employer] breath R79.89 Other specified abnormal findings of blood chemistry R29.6 Repeated falls I44.7 Left bundle-branch block, unspecified I12.9 Hypertensive chronic kidney disease w stg 1-4/unsp chr kdny N18.9 Chronic kidney disease, unspecified I50.22 Chronic systolic (congestive) heart failure 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 G47.33 Obstructive sleep apnea (adult) (pediatric) N18.3 Chronic kidney disease, stage 3 (moderate) R29.6 Repeated falls Office Visit 09/25/2017 Pulmonology And Tuyet G47.33 Obstructive sleep 9:15a Sleep Services Of RUKHSANA Soares RN, apnea (adult) [facility] (pediatric) Z68.34 Body mass index (BMI) 34.0-34.9, adult Office Visit 05/21/2017 Pulmonology And Tuyet G47.33 Obstructive sleep 11:15a Sleep Services Of URKHSANA Soares RN, apnea (adult) [facility] (pediatric) Office Visit 04/03/2017 Pulmonology And Angelica Michelle, G47.33 Obstructive sleep 2:00p Sleep Services Of MD ludwig (adult) Radha (pediatric) Office Visit 01/28/2017 [facility] ASHLEY Tanner 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 1:00p Of [facility] systolic and diastolic hrt fail I34.0 Nonrheumatic mitral (valve) insufficiency I10 Essential (primary) hypertension R09.02 Hypoxemia Office Visit 01/16/2017 11:20a [facility] Jeannie SMiriam I50.9 Heart failure, Cardiology Of Mahogany Minor unspecified [facility] 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 systolic and diastolic hrt fail I42.9 Cardiomyopathy, unspecified I34.0 Nonrheumatic mitral (valve) insufficiency I10 Essential (primary) hypertension I44.0 Atrioventricular block, first degree R94.31 Abnormal electrocardiogram [ECG] [EKG] Office Visit 12/30/2016 9:58a [facility] Brent Arnold I50.9 Heart failure, Of Radha Salas M.D. unspecified Office Visit 12/29/2016 12:05p [facility] Yajaira Sanchez 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 Of aRdha Vides systolic and diastolic hrt fail Office Visit 12/28/2016 12:04p [facility] Yajaira Sanchez 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 Of Radha Vides systolic and diastolic hrt fail Office Visit 12/27/2016 12:02p [facility] Jeannie Salomon I50.9 Heart failure, [facility], bronwynified Mahogany I42.9 Cardiomyopathy, unspecified I34.0 Nonrheumatic mitral (valve) insufficiency I10 Essential (primary) hypertension Office Visit 12/26/2016 1:39p [facility] Nelida I50.9 Heart failure, Assoc,avril James D.O. unspecified Hospitalists J96.01 Acute respiratory failure with hypoxia J90 Pleural effusion, not elsewhere classified E11.42 Type 2 diabetes mellitus with diabetic polyneuropathy Office Visit 10/02/2016 10:30a Krishna Dunn J90 Pleural effusion, Associates Of Radha Fajardo M.D. not elsewhere classified J90 Pleural effusion, not elsewhere classified Office Visit 06/07/2015 1:40p [facility] Huber D. K75.0 Abscess of Infectious Sarah Cedeño. liver Diseases Office Visit 05/17/2015 1:20p [facility] Claudy Arnold K75.0 Abscess of Infectious Sarah Cedeño. liver Diseases Office Visit 04/27/2015 1:40p [facility] Claudy Arnold K75.0 Abscess of Infectious Sarah Cedeño. liver Diseases R93.2 Abnormal findings on dx imaging of liver and biliary tract Office Visit 04/13/2015 1:40p [facility] Claudy Arnold K75.0 Abscess of liver Infectious Sarah Cedeño. Diseases Office Visit 03/31/2015 12:49p [facility] Claudy Arnold K75.0 Abscess of liver Infectious Sarah Cedeño. Diseases Office Visit 03/30/2015 9:06a [facility] Claudy Arnold K75.0 Abscess of liver Infectious Sarah Cdeeño. Diseases Office Visit 03/29/2015 9:00a [facility] Claudy Arnold R78.81 Bacteremia Infectious Mahogany Cedeño Diseases K75.0 Abscess of liver Office Visit 03/28/2015 8:49a [facility] Claudy Arnold R78.81 Bacteremia Infectious Diseases Mahogany Cedeño K75.0 Abscess of liver K80.20 Calculus of gallbladder w/o cholecystitis w/o obstruction E11.21 Type 2 diabetes mellitus with diabetic nephropathy E11.40 Type 2 diabetes mellitus with diabetic neuropathy, unsp E11.319 Type 2 diabetes w unsp diabetic rtnop w/o macular edema Office Visit 02/12/2015 4:15p [facility] Skylar Pickens, M54.6 Pain in Assoc,pc N.P. thoracic spine Hospitalists K86.9 Disease of pancreas, unspecified I10 Essential (primary) hypertension E11.9 Type 2 diabetes mellitus without complications Office Visit 11/15/2009 Neurosurgery Manuel Sanchez 756.12 Spondylolisthesis 9:00a Services Of Radha Rowe M.D. 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 Congenital 724.02 Spinal Stenosis, Lumbar Region, W/O Neurogenic Claudication Plan of Treatment Future Appointment(s):08/18/2018 3:30 pm - Ica Pacer Schedule at [facility]08/07/2018 4:00 pm - Jeannie Minor M.D. 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 Minor in 1 month after device implant. f/u with device clinic in 1.5 months.Recommendations:Please increase Torsemide to 20mg in am and 10mg at noon. obtain labs on Friday07/06/2018 Continuedaily weights, elevating legs, reduce sodium intake.N18.3 Chronic kidney disease, stage 3 (moderate)G47.30 Sleep apnea, unspecified
--- NOTE | 2018-07-10 15:33 | ED ---
Altered Mental Status - HPI Summary HPI Summary: A 77 y/o male accompanied by her daughter presents to [facility] with a chief complaint of being disoriented since 09:00 today. Per daughter, the patient is better now but was at [facility] yesterday having a pacemaker and defibrillator placed in the same day. The patient was reportedly normal last night but woke up today feeling more "fuzzy" than usual. Per daughter, the patient was asking the same things over and over again on a loop, saying that he couldnt get the closed captions to work on the TV, and so Dr. Quezada recommended he come to the ED. Pt denies any fever, chills, erythema of eyes, sore throat, CP, SOB, cough, abdominal pain, N/V, dysuria, hematuria, myalgia, edema, rash, or dizziness. He denies a Hx of CVA. There were no falls that the daughter knows about, but states that the patient has had difficulty walking. The patient is on Plavix. - History Of Current Complaint Chief Complaint: EDAltMentalStatus Stated Complaint: DISORIENTED PER PT DAUGHTER Time Seen by Provider: 07/10/18 15:26 Hx Obtained From: Patient, Family/Automotive Hardware Engineer Onset/Duration: Still Present Timing: Constant, Lasting Hours Severity Initially: Mild Severity Currently: Mild Character: Confusion Aggravating Factor(s): Nothing Alleviating Factor(s): Nothing Associated Signs And Symptoms: Negative: Dizziness, Nausea, Vomiting, Fever - Allergies/Home Medications Allergies/Adverse Reactions: Allergies Allergy/AdvReac Type Severity Reaction Status Date / Time No Known Allergies Allergy Verified 07/10/18 14:45 Home Medications: Home Medications Aspirin 81 mg CHEW TAB* 81 mg PO DAILY 07/10/18 [History Confirmed 07/10/18] Atorvastatin* [Lipitor 80 MG*] 80 mg PO DAILY WITH MEAL 07/10/18 [History Confirmed 07/10/18] Bupropion XL* [Wellbutrin XL *] 150 mg PO QAM 07/10/18 [History Confirmed ] Carvedilol TAB* [Coreg TAB*] 25 mg PO BID 07/10/18 [History Confirmed 07/10/18] Clopidogrel TAB* [Plavix TAB*] 75 mg PO DAILY 07/10/18 [History Confirmed ] DULoxetine CAP* [Cymbalta CAP*] 30 mg PO BID 07/10/18 [History Confirmed 05/26] Docusate CAP* [Colace Cap*] 300 mg PO DAILY 07/10/18 [History Confirmed 07/10/18 ] Insulin GLARGINE(*) [Lantus(*)] 7 units SUBCUT BID 07/10/18 [History Confirmed 07/10/18] Insulin LISPRO* [HumaLOG*] 3 units SUBCUT .WITH MEALS 07/10/18 [History Confirmed 07/10/18] Lisinopril TAB* [Prinivil TAB 5 MG*] 5 mg PO DAILY 07/10/18 [History Confirmed 07/10/18] Multivit-Min/FA/Lycopen/Lutein [Centrum Silver Men Tablet] 1 tab PO DAILY [History Confirmed 07/10/18] Nitroglycerin TAB 0.4 MG* 0.4 mg SL Q5M PRN 07/10/18 [History Confirmed 07/10/18 ] Pantoprazole TAB * [Protonix TAB*] 40 mg PO DAILY 07/10/18 [History Confirmed ] Torsemide TAB* [Demadex 20 MG*] 10 mg PO DAILY 07/10/18 [History Confirmed 07/10] traZODone TAB* [Desyrel TAB*] 100 mg PO BEDTIME 07/10/18 [History Confirmed 05/26] PMH/Surg Hx/FS Hx/Imm Hx Endocrine/Hematology History: Reports: Hx Diabetes - DM II Denies: Hx Anemia Cardiovascular History: Reports: Hx Coronary Artery Disease, Hx Hypertension, Hx Peripheral Vascular Disease Denies: Hx Angina, Hx Auto Implanted Cardiovert Defib, Hx Cardiac Arrest, Hx Congestive Heart Failure - no history prior to current admission. current admission CHF dx, Hx Pacemaker/ICD Respiratory History: Reports: Hx Chronic Obstructive Pulmonary Disease (COPD), Hx Pleural Effusion, Hx Sleep Apnea - NO CPAP GI History: Reports: Hx Gall Bladder Disease, Hx Gastroesophageal Reflux Disease , Other GI Disorders - RECENT LIVER ABSCESS Denies: Hx Jaundice History: Reports: Hx Benign Prostatic Hyperplasia, Other Problems/ Disorders - BPH Denies: Hx Renal Disease Musculoskeletal History: Reports: Hx Arthritis, Hx Back Problems, Other Musculoskeletal History - SPINAL STENOSIS, SPONDYLOLITHESIS Sensory History: Reports: Hx Cataracts - surgery both eyes, Hx Contacts or Glasses Denies: Hx Hearing Aid Opthamlomology History: Reports: Hx Cataracts - surgery both eyes, Hx Contacts or Glasses Neurological History: Reports: Other Neuro Impairments/Disorders - PERIPHERAL NEUROPATHY FEET R/T DM, VERTIGO Denies: Hx Headaches, Hx Migraine, Hx Nerve Disease, Hx Seizures, Hx Spinal Cord Injury, Hx Transient Ischemic Attacks (TIA) Psychiatric History: Reports: Hx Anxiety, Hx Depression Denies: Hx Panic Disorder - Surgical History Surgery Procedure, Year, and Place: CATARACTS. EYE - LASER FOR RETINAL DETACHED. ORIF -FOREARM FX- as a child. LIVER DRNG - FOR ABCESS. 05/25/15 LAP CHOLECYSTECMY. 02/16/15 ERCP. TURP - PROSTATE - BPH Hx Anesthesia Reactions: Yes - EMERGENCE DELIRIUM FOLLOWING ERCP 02/21 Infectious Disease History: No Infectious Disease History: Denies: Hx Clostridium Difficile, Hx of Known/Suspected MRSA, Traveled Outside the [place] in Last 30 Days - Family History Known Family History: Negative: Hypertension, Diabetes - Social History Alcohol Use: None Substance Use Type: Reports: None Substance Use Comment - Amount & Last Used: medical marijuana Smoking Status (MU): Never Smoked Tobacco Have You Smoked in the Last Year: No Review of Systems Positive: Fatigue. Negative: Fever, Chills Negative: Erythema Negative: Sore Throat Negative: Chest Pain Negative: Shortness Of Breath, Cough Negative: Abdominal Pain, Vomiting, Nausea Negative: dysuria, hematuria Positive: Arthralgia - left shoulder. Negative: Myalgia, Edema Negative: Rash Neurological: Negative - dizziness, Other - positive: disoriented All Other Systems Reviewed And Are Negative: Yes Physical Exam - Summary Physical Exam Summary: Constitutional: Well-developed, Well-nourished, Alert. (-) Distressed Skin: Warm, Dry HENT: Normocephalic; Atraumatic Eyes: Conjunctiva normal Neck: Musculoskeletal ROM normal neck. (-) JVD, (-) Stridor, (-) Tracheal deviation Cardio: Rhythm regular, rate normal, Heart sounds normal; Intact distal pulses; The pedal pulses are 2+ and symmetric. Radial pulses are 2+ and symmetric. (-) Murmur Pulmonary/Chest wall: Effort normal. (-) Respiratory distress, (-) Wheezes, (-) Rales Abd: Soft, (-) tenderness, (-) Distension, (-) Guarding, (-) Rebound Musculoskeletal: (-) Edema Lymph: (-) Cervical adenopathy Neuro: Alert, Oriented x3, Mild right facial asymmetry with lip line, right eyebrow did not fully elevate, 100 percent accurate with sentences, object naming and describing scene, language currently seems fluent. Psych: Mood and affect Normal Triage Information Reviewed: Yes Vital Signs On Initial Exam: Initial Vitals Temp Pulse Resp BP Pulse Ox 99.2 F 61 18 134/78 92 07/10/18 14:38 07/10/18 14:38 07/10/18 14:38 07/10/18 14:38 07/10/18 14:38 Vital Signs Reviewed: Yes - Dre Coma Scale Best Eye Response: 4 - Spontaneous Best Motor Response: 6 - Obeys Commands Best Verbal Response: 5 - Oriented Coma Scale Total: 15 Diagnostics - Vital Signs Vital Signs Temp Pulse Resp BP Pulse Ox 07/10/18 15:18 63 10 149/83 92 07/10/18 14:38 99.2 F 61 18 134/78 92 - Laboratory Result Diagrams: 07/11/18 02:57 07/11/18 02:57 Lab Statement: Any lab studies that have been ordered have been reviewed, and results considered in the medical decision making process. - Radiology CXR Radiology Interpretation Completed By: Radiologist Summary of Radiographic Findings: The constellation of findings favors chronic pulmonary edema with pleural effusions and. rounded atelectasis. ED physician has reviewed this imaging report. - CT Brain CT Interpretation Completed By: Radiologist Summary of CT Findings: Involutional change and stigmata of chronic small vessel ischemic disease. No acute intracranial process evident. ED physician has reviewed this imaging report. head/neck CTA CT Interpretation Completed By: Radiologist Summary of CT Findings: Head IMPRESSION: Negative CTA neck. No significant stenosis or occlusion. Neck IMPRESSION: 1. Pacemaker in position from the left with subcutaneous gas throughout the. generator pocket suggesting placement. Infection is not excluded. 2. Bilateral pleural effusions with suggestion of some loculation on the left. 3. Plaque in the proximal internal carotid arteries bilaterally with less than. 30% stenosis on the right and 30- 50% stenosis on the left. 4. Degenerative spondylosis of the cervical spine with multilevel spinal. stenosis and neural foraminal stenosis. ED physician has reviewed this imaging report. - EKG 16:59 Cardiac Rate: Other Rate - Paced rhythm at 65 bpm. Summary of EKG Findings: Paced rhythm at 65 bpm, no STEMI. Re-Evaluation - Re-Evaluation First Eval Re-Evaluation Time: 15:59 Change: Unchanged Comment: Mild right facial asymmetry with lip line, right eyebrow did not fully elevate, 100 percent accurate with sentences, object naming and describing scene , language currently seems fluent. Second Eval Re-Evaluation Time: 17:14 Change: Unchanged Comment: Reviewed notes from [facility], Pt has Fults scientific MRI compatible pacemaker defibrillator Altered Mental Statu Course/Dx - Course Course Of Treatment: A 77 y/o male accompanied by her daughter presents to [facility] with a chief complaint of being disoriented since 09:00 today. Per daughter, the patient is better now but was at [facility] yesterday having a pacemaker and defibrillator placed in the same day. The patient woke up today feeling more fuzzy than usual. Per daughter, the patient was asking the same things over and over again on a loop, saying that he couldnt get the closed captions to work on the TV, and so Dr. Quezada recommended he come to the ED. The physical exam revealed mild right facial asymmetry with lip line, right eyebrow did not fully elevate, 100 percent accurate with sentences, object naming and describing scene, language currently seems fluent. GCS 15. CXR impression: The constellation of findings favors chronic pulmonary edema with pleural effusions and. rounded atelectasis. EKG showed Paced rhythm at 65 bpm, no STEMI. Reviewed notes from [facility], Pt has Fults scientific MRI compatible pacemaker defibrillator. Brain CT impression: Involutional change and stigmata of chronic small vessel ischemic disease. No acute intracranial process evident. Head/neck CTA impression: Head IMPRESSION: Negative CTA neck. No significant stenosis or occlusion. Neck IMPRESSION: 1. Pacemaker in position from the left with subcutaneous gas throughout the. generator pocket suggesting placement. Infection is not excluded. 2. Bilateral pleural effusions with suggestion of some loculation on the left. 3. Plaque in the proximal internal carotid arteries bilaterally with less than. 30% stenosis on the right and 30-50% stenosis on the left. 4. Degenerative spondylosis of the cervical spine with multilevel spinal. stenosis and neural foraminal stenosis. Case discussed with Dr. Abreu, hospitalist, who accepted the patient for admission. - Diagnoses Provider Diagnoses: CVA (cerebral vascular accident) - Provider Notifications Discussed Care Of Patient With: Gautam Zhang Time Discussed With Above Provider: 18:30 Instructed by Provider To: Other - recommended CTA of head and neck and MRI done this weekend and recommended admission to the hospital. Discharge - Sign-Out/Discharge Documenting (check all that apply): Patient Departure - Discharge Plan Condition: Stable Disposition: ADMITTED TO [facility] - Billing Disposition and Condition Condition: STABLE Disposition: Admitted to [facility] - Attestation Statements Document Initiated by Scribe: Yes Documenting Scribe: Bhavik Fox Provider For Whom Scribe is Documenting (Include Credential): Sascha Quick MD Scribe Attestation: IBhavik, scribed for Sascha Quick MD on 07/24/18 at 1746. Scribe Documentation Reviewed: Yes Provider Attestation: The documentation as recorded by the [email or web address] accurately reflects the service I personally performed and the decisions made by , Sascha Quick MD Status of Scribe Document: Viewed Consult Consult: At 17:22 Discussed with Christni coroner technician, who reports that they are backlogged with patients. At 20:[address] Abreu, hospitalist, who accepted the patient for admission.
[2018-07-10 17:01] LABS: ABS Basophils 0.1 10^3/ul (0-0.2); ABS Lymphocytes 0.9 10^3/ul (1.0-4.8); ABS Monocytes 0.9 10^3/ul (0-0.8); ABS Neutrophils 5.8 10^3/ul (1.5-7.7); Eosinophil % 0.4 %; Hematocrit 30 % (42-52); Hemoglobin 10.2 g/dL (14.0-18.0); Lymphocyte % 12.1 %; Mean Corpuscular HGB Conc 34 g/dL (31-36); Mean Corpuscular Hemoglobin 29 pg (27-31); Mean Corpuscular Volume 85 fL (80-94); Mean Platelet Volume 7.5 fL (7.4-10.4); Platelet Count 186 10^3/uL (150-450); Red Blood Count 3.47 10^6 /uL (4.18-5.48); Red Cell Distribution Width 16 % (10.5-15); White Blood Count 7.7 10^3/uL (3.5-10.8)
[2018-07-10 17:17] LABS: ALT 13 U/L (7-52); AST 20 U/L (13-39); Albumin 2.9 g/dL (3.2-5.2); Albumin/Globulin Ratio 0.7 (1-3); Alkaline Phosphatase 106 U/L (34-104); Anion Gap 4 mmol/L (2-11); BUN/Creatinine Ratio 26.4 (8-20); Blood Urea Nitrogen 38 mg/dL (6-24); CO2 Carbon Dioxide 32 mmol/L (22-32); Calcium 8.7 mg/dL (8.6-10.3); Chloride 103 mmol/L (101-111); EGFR African American 57.3 (>60); EGFR Non-African American 47.3 (>60); Globulin 3.9 g/dL (2-4); Glucose 151 mg/dL (70-100); Potassium 3.4 mmol/L (3.5-5.0); Sodium 139 mmol/L (135-145); Total Protein 6.8 g/dL (6.4-8.9)
[2018-07-10 17:26] LABS: Troponin I 0.08 ng/mL (<0.04)
[2018-07-10] MEDS ORDERED: Iodixanol* (CONTRAST) 320 MG/ML 100 ML SDV IV ONE (18:41)
[2018-07-10] MEDS ORDERED: Atorvastatin* 80 MG TAB PO SCH (19:00)
[2018-07-10] MEDS ORDERED: Dextrose 50% Syringe 50 ML* 25 GM/50 ML SYRINGE IV PUSH PRN (20:55)
[2018-07-10] MEDS ORDERED: Potassium Chlor TAB* 20 MEQ TAB.ER PO ONE (20:56)
[2018-07-10] MEDS ORDERED: Enoxaparin(*) 40 MG/0.4 ML SYR SUBCUT SCH (21:00)
[2018-07-10] MEDS ORDERED: traZODone TAB* 50 MG TAB PO SCH (21:00)
[2018-07-10] MEDS ORDERED: Nitroglycerin TAB 0.4 MG* 0.4 MG TAB SL PRN (21:15)
[2018-07-10 22:11] LABS: Troponin I 0.07 ng/mL (<0.04)
--- NOTE | 2018-07-10 22:46 | ADMNOTE ---
Subjective Date of Service: 07/10/18 Interval History: HISTORY AND PHYSICAL PCP: CC: trouble speaking HPI: Patient is a 77 year old man who had AICD/pacer placed 1 day prior to admission at the [facility]. His reported to the ED that he had normal mental status when she drove him home yesterday, but that upon waking this morning he seemed confused, and had word-finding difficulty. She initially though he was just groggy, so she put him back to bed. However, she noted continued mild aphasia, trouble reading closed captioning on the TV, and so she spoke to his primary care office. He was referred to the ED. There was a concern about RT facial droop in the ED, but NIHSS was 30. His does endorse mild dementia. The patient says he does not know if anything is wrong. He denies headache, pain, or limb weakness. Patient has complex cardiac history. He had a cardiac cath in early February 2018, showed multi-vessel disease, with severe stenosis distal LAD, RCA and Circ. He had an EF of 30-35% in 05/25. He was referred to Dr. Lopez in [place], had a stent to LAD later in February. He was scheduled for AICD due to low EF, widened QRS, risk of VT. He also has a pancreatic mass. This has been followed by PCP and gastroenterology. 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, surrogate decision maker is daughter Hannah, never smoker, no alcohol/drug use Past Medical History: Findings - ischemic cardiomyopathy, type 2 diabetes, hypertension, hyperlipidemia, CAD, anemia, anxiety, h/o liver abscess, BPH, GERD , CKD, sleep apnea, dementia; PSH: CABG Review of Systems - Review of Systems General Comments: patient is vague historian Dermatology: Positive: Normal HEENT: Positive: Normal Eyes: Positive: Normal Thyroid: Positive: Normal Pulmonary: Positive: Normal Cardiology: Positive: Normal Gastroenterology: Positive: Normal Genital - Urinary: Positive: Normal Genitourinary - Male: Positive: Prostatism Musculoskeletal: Negative: Low Back Pain Endocrinology: Positive: Diabetes Mellitus Hematologic/Lymphatic: Positive: Anemia Neurology: Positive: Change in Speech Negative: Headache, Diplopia, Numbness\Paresthesiae Psychiatry: Positive: Normal Objective Active Medications: Home Medications: Aspirin (Aspirin 81 Mg Chew Tab*) 81 mg PO DAILY [facility] Atorvastatin Calcium (Lipitor*) 80 mg PO 1900 [facility] Bupropion HCl (Wellbutrin Xl *) 150 mg PO QAM [facility] Carvedilol (Coreg Tab*) 25 mg PO BID [facility] Clopidogrel Bisulfate (Plavix Tab*) 75 mg PO DAILY [facility] Docusate Sodium (Colace Cap*) 300 mg PO DAILY [facility] Duloxetine HCl (Cymbalta Cap*) 30 mg PO BID [facility] Insulin Glargine (Lantus(*)) 7 units SUBCUT BID [facility] Insulin Human Lispro (Humalog*) 3 units SUBCUT AC TID [facility]; Lisinopril (Prinivil Tab*) 5 mg PO DAILY [facility] Nitroglycerin (Nitroglycerin Tab 0.4 Mg*) 0.4 mg SL Q5M PRN PRN Reason: PAIN - CHEST Pantoprazole Sodium (Protonix Tab*) 40 mg PO DAILY [facility] Torsemide (Torsemide) 10 mg PO DAILY [facility] Trazodone HCl (Desyrel Tab*) 100 mg PO BEDTIME [facility] Vital Signs - 8 hr 07/10/18 07/10/18 07/10/18 15:18 15:48 16:00 Temperature Pulse Rate 63 63 63 Respiratory 10 9 8 Rate Blood Pressure 149/83 152/78 (mmHg) O2 Sat by Pulse 92 92 91 Oximetry 07/10/18 07/10/18 07/10/18 20:18 20:48 21:00 Temperature Pulse Rate 69 68 68 Respiratory 5 1 30 Rate Blood Pressure 171/78 159/89 (mmHg) O2 Sat by Pulse 93 94 92 Oximetry 07/10/18 22:05 Temperature 37.2 C Pulse Rate 68 Respiratory 12 Rate Blood Pressure 179/84 (mmHg) O2 Sat by Pulse 94 Oximetry Oxygen Devices in Use Now: None Appearance: alert, no distress Eyes: No Scleral Icterus Ears/Nose/Mouth/Throat: Clear Oropharnyx Neck: NL Appearance and Movements; NL JVP, Trachea Midline, No Thyroid Enlargement, Masses Respiratory: Symmetrical Chest Expansion and Respiratory Effort, Clear to Auscultation Cardiovascular: NL Sounds; No Murmurs; No JVD, RRR Abdominal: NL Sounds; No Tenderness; No Distention Lymphatic: No Cervical Adenopathy Extremities: - - 1+ edema bilat LE Skin: No Rash or Ulcers, - - AICD site LT upper chest wound fresh but clear/dry/ intact, covered w/ glue Neurological: NL Sensation, NL Muscle Strength and Tone, - - alert, oriented to place, self, thinks it's late July 2017, speech intact, no significant facial droop Lines/Tubes/Other Access: Clean, Dry and Intact Peripheral IV Nutrition: Taking PO's Result Diagrams: 07/11/18 02:57 07/11/18 02:57 Additional Lab and Data: Laboratory Tests 07/10/18 07/10/18 07/10/18 16:51 16:51 16:52 Glucose 151 H POC Glucose (mg/dL) Lactic Acid 0.6 Calcium 8.7 Total Bilirubin 0.40 Troponin I 0.08 H* B-Natriuretic Peptide 690 H Albumin 2.9 L 07/10/18 07/10/18 21:46 22:45 Glucose POC Glucose (mg/dL) 289 H Lactic Acid Calcium Total Bilirubin Troponin I 0.07 H* B-Natriuretic Peptide Albumin Diagnostic Imaging: CXR: pulmonary edema with small pleural effusions bilat CT brain: no bleed/acute infarct CTA head/neck: mild plaques in carotids, bilateral pleural effusions, question of loculation on LT EKG Data: 100% paced Assess/Plan/Problems-Billing Assessment: 77 year old man with pacer/AICD placement yesterday in [place], here with possible TIA/stroke - Patient Problems (1) Aphasia due to stroke Current Visit: Yes Status: Acute Priority: High Code(s): LDA5360 - SNOMED Code(s): 43890992 Comment: -Differential would include small embolism from heart, carotids, vs lacunar infarct -May have had TIA, resolved now -Already on dual antiplatelet therapy, no clear way to upgrade -Will have MRI tomorrow, and consultation with neurology -Overall, I suspect he has mild dementia with some new aphasia related to conscious sedation yesterday, that should clear on its own. (2) Ischemic cardiomyopathy Current Visit: Yes Status: Acute Priority: Medium Code(s): I25.5 - ISCHEMIC CARDIOMYOPATHY SNOMED Code(s): 088363163 Comment: -Cardiac situation appears stable -Will monitor on telemetry, and trend troponins. (3) Chronic renal disease, stage 3, moderately decreased glomerular filtration rate between 30-59 mL/min/1.73 square meter Current Visit: Yes Status: Chronic Priority: Medium Code(s): N18.3 - CHRONIC KIDNEY DISEASE, STAGE 3 (MODERATE) SNOMED Code(s): 511922029 Comment: -Creatinine is at baseline -Will avoid nephrotoxic drugs (4) Type 2 diabetes mellitus treated with insulin Current Visit: Yes Status: Chronic Priority: Medium Code(s): E11.9 - TYPE 2 DIABETES MELLITUS WITHOUT COMPLICATIONS; Z79.4 - DISH CARRIER (CURRENT) USE OF INSULIN SNOMED Code(s): 208667219 Comment: -Will continue present doses long-acting insulin and use sliding scale mealtime insulin while inpatient (5) DVT prophylaxis Current Visit: Yes Status: Acute Priority: Low Code(s): Z29.9 - ENCOUNTER FOR PROPHYLACTIC MEASURES, UNSPECIFIED SNOMED Code(s): 173172449 Comment: -SC Lovenox Status and Disposition: observation
[2018-07-10] MEDS: Insulin LISPRO* 1 UNITS UNIT SUBCUT SCH (22:49)
[2018-07-10] MEDS: Carvedilol TAB* 25 MG PO SCH (22:50)
[2018-07-11 00:53] LABS: Troponin I 0.07 ng/mL (<0.04)
[2018-07-11 03:10] LABS: ABS Eosinophils 0.1 10^3/ul (0-0.6); ABS Lymphocytes 0.9 10^3/ul (1.0-4.8); ABS Neutrophils 5.5 10^3/ul (1.5-7.7); Eosinophil % 1.1 %; Hematocrit 30 % (42-52); Hemoglobin 10.2 g/dL (14.0-18.0); Lymphocyte % 11.6 %; Mean Corpuscular HGB Conc 34 g/dL (31-36); Mean Corpuscular Hemoglobin 29 pg (27-31); Mean Corpuscular Volume 85 fL (80-94); Mean Platelet Volume 7.7 fL (7.4-10.4); Platelet Count 175 10^3/uL (150-450); Red Blood Count 3.56 10^6 /uL (4.18-5.48); Red Cell Distribution Width 16 % (10.5-15); White Blood Count 7.4 10^3/uL (3.5-10.8)
[2018-07-11 03:25] LABS: Anion Gap 4 mmol/L (2-11); BUN/Creatinine Ratio 25.9 (8-20); Blood Urea Nitrogen 35 mg/dL (6-24); CO2 Carbon Dioxide 30 mmol/L (22-32); Calcium 8.6 mg/dL (8.6-10.3); Chloride 104 mmol/L (101-111); EGFR African American 61.7 (>60); Glucose 153 mg/dL (70-100); Magnesium 1.9 mg/dL (1.9-2.7); Potassium 3.5 mmol/L (3.5-5.0); Sodium 138 mmol/L (135-145)
[2018-07-11 03:29] LABS: Troponin I 0.07 ng/mL (<0.04)
[2018-07-11] MEDS ORDERED: Docusate CAP* 100 MG PO SCH (09:00)
[2018-07-11] MEDS ORDERED: Aspirin 81 mg CHEW TAB* 81 MG TAB.CHEW PO SCH (09:00)
[2018-07-11] MEDS ORDERED: Pantoprazole TAB * 40 MG TAB PO SCH (09:00)
[2018-07-11] MEDS ORDERED: Potassium Chlor TAB* 10 MEQ TAB.ER PO SCH (09:00)
[2018-07-11] MEDS ORDERED: Lisinopril TAB* 5 MG PO SCH (09:00)
[2018-07-11] MEDS ORDERED: Clopidogrel TAB* 75 MG PO SCH (09:00)
[2018-07-11] MEDS ORDERED: BuPROPion XL* 150 MG TAB.XL PO SCH (09:00)
[2018-07-11] MEDS ORDERED: Insulin GLARGINE(*) 1 UNITS UNIT SUBCUT SCH (09:00)
[2018-07-11] MEDS ORDERED: Torsemide TAB 10 MG PO SCH (09:00)
[2018-07-11] MEDS ORDERED: DULoxetine DR CAP* 30 MG CAP.DR PO SCH (09:00)
--- NOTE | 2018-07-11 09:42 | PN ---
Subjective - Subjective Reason for Note: Discharge Note History: DISCHARGE SUMMARY: I reviewed his presentation with altered mental status in the admitting history and physical. He is feeling back to normal today. He has no symptoms of neurological deficit. He is able to give an account of himself and is ready to go home Active Problems: Active Problems Altered mental status (Acute) R41.82 ICD (implantable cardioverter-defibrillator) in place (Acute) Z95.810 Chronic renal disease, stage 3, moderately decreased glomerular filtration rate between 30-59 mL/min/1.73 square meter (Chronic) N18.3 -Creatinine is at baseline -Will avoid nephrotoxic drugs DVT prophylaxis (Chronic) Z29.9 -SC Lovenox Ischemic cardiomyopathy (Chronic) I25.5 -Cardiac situation appears stable -Will monitor on telemetry, and trend troponins. Type 2 diabetes mellitus treated with insulin (Chronic) E11.9, Z79.4 -Will continue present doses long-acting insulin and use sliding scale mealtime insulin while inpatient Current Medications: Current Medications Aspirin (Aspirin 81 Mg Chew Tab*) 81 mg PO DAILY [facility] Atorvastatin Calcium (Lipitor*) 80 mg PO 1900 [facility] Last Admin: 07/10/18 22:50 Dose: 80 mg Bupropion HCl (Wellbutrin Xl *) 150 mg PO QAM [facility] Carvedilol (Coreg Tab*) 25 mg PO BID [facility] Last Admin: 07/10/18 22:50 Dose: 25 mg Clopidogrel Bisulfate (Plavix Tab*) 75 mg PO DAILY [facility] Dextrose (D50w Syringe 50 Ml*) 12.5 gm IV PUSH .FOR FS < 60 - SS PRN PRN Reason: FS < 60 Docusate Sodium (Colace Cap*) 300 mg PO DAILY [facility] Duloxetine HCl (Cymbalta Cap*) 30 mg PO BID [facility] Enoxaparin Sodium (Lovenox(*)) 40 mg SUBCUT Q24H [facility] Last Admin: 07/10/18 22:57 Dose: 40 mg Insulin Glargine (Lantus(*)) 7 units SUBCUT BID [facility] Insulin Human Lispro (Humalog*) 0 units SUBCUT ACHS [facility]; Protocol Last Admin: 07/10/18 22:49 Dose: 3 units Lisinopril (Prinivil Tab*) 5 mg PO DAILY [facility] Nitroglycerin (Nitroglycerin Tab 0.4 Mg*) 0.4 mg SL Q5M PRN PRN Reason: PAIN - CHEST Pantoprazole Sodium (Protonix Tab*) 40 mg PO DAILY [facility] Potassium Chloride (Klor Con Er Tab*) 10 meq PO BID [facility] Torsemide (Torsemide) 10 mg PO DAILY [facility] Trazodone HCl (Desyrel Tab*) 100 mg PO BEDTIME [facility] Last Admin: 07/10/18 22:50 Dose: 100 mg - Review of Systems Constitutional Symptoms: Yes: Fatigue, No: Fever, Night Sweats Pulmonary: Negative: Cough, Sputum Cardiology: Positive: Swelling of Ankles Negative: Chest Pain, Shortness of Breath, Palpitations Gastroenterology: Positive: Constipation Negative: Abdominal Pain, Nausea, Anorexia Genital - Urinary: Positive: Normal Home Medications: Home Medications Medication Instructions Recorded Confirmed Type Aspirin 81 mg CHEW TAB* 81 mg PO DAILY 07/10/18 07/10/18 History Atorvastatin* [Lipitor 80 MG*] 80 mg PO DAILY WITH MEAL 07/10/18 07/10/18 History Bupropion XL* [Wellbutrin XL *] 150 mg PO QAM 07/10/18 07/10/18 History Carvedilol TAB* [Coreg TAB*] 25 mg PO BID 07/10/18 07/10/18 History Clopidogrel TAB* [Plavix TAB*] 75 mg PO DAILY 07/10/18 07/10/[address] CAP* [Cymbalta CAP*] 30 mg PO BID 07/10/18 07/10/18 History Docusate CAP* [Colace Cap*] 300 mg PO DAILY 07/10/18 07/10/18 History Insulin GLARGINE(*) [Lantus(*)] 7 units SUBCUT BID 07/10/18 07/10/18 History Insulin LISPRO* [HumaLOG*] 3 units SUBCUT .WITH MEALS 07/10/18 07/10/18 History Lisinopril TAB* [Prinivil TAB 5 5 mg PO DAILY 07/10/18 07/10/18 History MG*] Multivit-Min/FA/Lycopen/Lutein 1 tab PO DAILY 07/10/18 07/10/18 History [Centrum Silver Men Tablet] Nitroglycerin TAB 0.4 MG* 0.4 mg SL Q5M PRN 07/10/18 07/10/18 History Pantoprazole TAB * [Protonix TAB*] 40 mg PO DAILY 07/10/18 07/10/18 History Torsemide TAB* [Demadex 20 MG*] 10 mg PO DAILY 07/10/18 07/10/18 History traZODone TAB* [Desyrel TAB*] 100 mg PO BEDTIME 07/10/18 07/10/18 History Allergies: Allergies Allergy/AdvReac Type Severity Reaction Status Date / Time No Known Allergies Allergy Verified 07/10/18 14:45 Objective - Vital Signs Vital Signs: Vital Signs 07/10/18 07/10/18 07/10/18 14:38 15:18 15:48 Temperature 99.2 F Pulse Rate 61 63 63 Respiratory 18 10 9 Rate Blood Pressure 134/78 149/83 152/78 (mmHg) O2 Sat by Pulse 92 92 92 Oximetry 07/10/18 07/10/18 07/10/18 16:00 16:18 17:00 Temperature Pulse Rate 63 Respiratory 8 10 17 Rate Blood Pressure 159/84 (mmHg) O2 Sat by Pulse 91 Oximetry 07/10/18 07/10/18 07/10/18 17:08 17:18 17:48 Temperature Pulse Rate 64 61 Respiratory 15 12 18 Rate Blood Pressure 155/79 149/74 163/77 (mmHg) O2 Sat by Pulse 93 92 Oximetry 07/10/18 07/10/18 07/10/18 18:00 18:18 18:49 Temperature Pulse Rate 67 Respiratory 12 22 28 Rate Blood Pressure 151/76 160/76 (mmHg) O2 Sat by Pulse 94 Oximetry 07/10/18 07/10/18 07/10/18 19:09 19:18 19:49 Temperature Pulse Rate 69 69 68 Respiratory 13 9 19 Rate Blood Pressure 163/78 156/79 (mmHg) O2 Sat by Pulse 89 90 93 Oximetry 07/10/18 07/10/18 07/10/18 20:00 20:18 20:48 Temperature Pulse Rate 69 69 68 Respiratory 20 5 1 Rate Blood Pressure 171/78 159/89 (mmHg) O2 Sat by Pulse 94 93 94 Oximetry 07/10/18 07/10/18 07/10/18 21:00 21:18 21:49 Temperature Pulse Rate 68 Respiratory 30 12 8 Rate Blood Pressure 172/99 181/86 (mmHg) O2 Sat by Pulse 92 Oximetry 07/10/18 07/10/18 07/10/18 22:00 22:05 22:30 Temperature 98.9 F 98.3 F Pulse Rate 68 73 Respiratory 19 12 17 Rate Blood Pressure 179/84 175/80 (mmHg) O2 Sat by Pulse 94 93 Oximetry 07/11/18 03:45 Temperature 97.8 F Pulse Rate 70 Respiratory 14 Rate Blood Pressure 166/81 (mmHg) O2 Sat by Pulse 92 Oximetry - Intake and Output Intake and Output: Intake & Output 07/08/18 07/09/18 07/10/18 07/11/18 11:59 11:59 11:59 11:59 Intake Total 0 Output Total 0 Balance 0 Weight 205 lb 6 oz Intake: Oral 0 Output: Urine 0 Other: Estimated Void Medium # Voids 1 ADLs: Meal Record Start: 07/10/18 22: 12 Freq: DAILY@0900,1400,1800 Status: Active Protocol: Created 07/10/18 22:12 System (Rec: 07/10/18 22:12 System [email or web address]) Intake and Output Start: 07/10/18 14: 45 Freq: Status: Active Protocol: Created 07/10/18 14:45 System (Rec: 07/10/18 14:45 System [id number]) Intake and Output Start: 07/10/18 22: 12 Freq: DAILY@0600,1400,2200 Status: Active Protocol: Created 07/10/18 22:12 System (Rec: 07/10/18 22:12 System [email or web address]) Document 07/11/18 05:14 [id number] (Rec: 07/11/18 06:01 [id number] [email or web address]) - Physical Exam General Physical Exam Comment: warm and well perfused/hydrated. Sitting calmly in a chair. Conversational and in his usual baseline mental state. He is oriented x 3. He is able to independently stand and walk with a walker half way down the tinajero with clear stability. General: No Cyanosis, Yes Anemia, No Jaundice, No Clubbing Lungs and Chest: Yes: Chest Expansion Full, Chest Expansion Symetrica, Percussion Note Resonant, Vessicular Breath Sounds. No: Crackles, Wheezes Heart Rate and Rhythm: Regular Additional Cardiovascular: Yes: Normal Heart Sounds, Heart Murmur, Pedal Edema - 1+ Abdominal Exam: Yes: Soft, Bowel Sounds Present. No: Distention, Abdominal Tenderness - Extremities Cranial Nerves II-XII Intact: Yes Limbs: Normal Power, Normal Tone, Normal Coordination - finger-nose, Normal Gait - with walker - Neuro Orientation: A/O x3 Psychiatric: Normal Speech: Normal Results - Results Lab Results: Laboratory Results - last 24 hr 07/10/18 07/10/18 07/10/18 16:51 16:51 16:51 WBC 7.7 RBC 3.47 L Hgb 10.2 L Hct 30 L MCV 85 MCH 29 MCHC 34 RDW 16 H Plt Count 186 MPV 7.5 Neut % (Auto) 75.2 Lymph % (Auto) 12.1 [place] % (Auto) 11.6 Eos % (Auto) 0.4 Baso % (Auto) 0.7 Absolute Neuts (auto) 5.8 Absolute Lymphs (auto) 0.9 L Absolute Monos (auto) 0.9 H Absolute Eos (auto) 0.0 Absolute Basos (auto) 0.1 Absolute Nucleated RBC 0.0 Nucleated RBC % 0.0 Sodium 139 Potassium 3.4 L Chloride 103 Carbon Dioxide 32 Anion Gap 4 BUN 38 H Creatinine 1.44 H Est GFR ( Amer) 57.3 Est GFR (Non-Af Amer) 47.3 BUN/Creatinine Ratio 26.4 H Glucose 151 H POC Glucose (mg/dL) Lactic Acid 0.6 Calcium 8.7 Magnesium Total Bilirubin 0.40 AST 20 ALT 13 Alkaline Phosphatase 106 H Troponin I 0.08 H* B-Natriuretic Peptide Total Protein 6.8 Albumin 2.9 L Globulin 3.9 Albumin/Globulin Ratio 0.7 L 07/10/18 07/10/18 07/10/18 16:52 21:46 22:45 WBC RBC Hgb Hct MCV MCH MCHC RDW Plt Count MPV Neut % (Auto) Lymph % (Auto) [place] % (Auto) Eos % (Auto) Baso % (Auto) Absolute Neuts (auto) Absolute Lymphs (auto) Absolute Monos (auto) Absolute Eos (auto) Absolute Basos (auto) Absolute Nucleated RBC Nucleated RBC % Sodium Potassium Chloride Carbon Dioxide Anion Gap BUN Creatinine Est GFR ( Amer) Est GFR (Non-Af Amer) BUN/Creatinine Ratio Glucose POC Glucose (mg/dL) 289 H Lactic Acid Calcium Magnesium Total Bilirubin AST ALT Alkaline Phosphatase Troponin I 0.07 H* B-Natriuretic Peptide 690 H Total Protein Albumin Globulin Albumin/Globulin Ratio 07/11/18 07/11/18 07/11/18 00:25 02:57 02:57 WBC 7.4 RBC 3.56 L Hgb 10.2 L Hct 30 L MCV 85 MCH 29 MCHC 34 RDW 16 H Plt Count 175 MPV 7.7 Neut % (Auto) 73.3 Lymph % (Auto) 11.6 [place] % (Auto) 13.4 Eos % (Auto) 1.1 Baso % (Auto) 0.6 Absolute Neuts (auto) 5.5 Absolute Lymphs (auto) 0.9 L Absolute Monos (auto) 1.0 H Absolute Eos (auto) 0.1 Absolute Basos (auto) 0.0 Absolute Nucleated RBC 0.0 Nucleated RBC % 0.0 Sodium 138 Potassium 3.5 Chloride 104 Carbon Dioxide 30 Anion Gap 4 BUN 35 H Creatinine 1.35 H Est GFR ( Amer) 61.7 Est GFR (Non-Af Amer) 51.0 BUN/Creatinine Ratio 25.9 H Glucose 153 H POC Glucose (mg/dL) Lactic Acid Calcium 8.6 Magnesium 1.9 Total Bilirubin AST ALT Alkaline Phosphatase Troponin I 0.07 H* 0.07 H* B-Natriuretic Peptide Total Protein Albumin Globulin Albumin/Globulin Ratio 07/11/18 08:06 WBC RBC Hgb Hct MCV MCH MCHC RDW Plt Count MPV Neut % (Auto) Lymph % (Auto) [place] % (Auto) Eos % (Auto) Baso % (Auto) Absolute Neuts (auto) Absolute Lymphs (auto) Absolute Monos (auto) Absolute Eos (auto) Absolute Basos (auto) Absolute Nucleated RBC Nucleated RBC % Sodium Potassium Chloride Carbon Dioxide Anion Gap BUN Creatinine Est GFR ( Amer) Est GFR (Non-Af Amer) BUN/Creatinine Ratio Glucose POC Glucose (mg/dL) 160 H Lactic Acid Calcium Magnesium Total Bilirubin AST ALT Alkaline Phosphatase Troponin I B-Natriuretic Peptide Total Protein Albumin Globulin Albumin/Globulin Ratio Radiology Results: [facility] Patient Name:SURENDRA PANIAGUA MR: [id number] : 1940 aneurysm. IMPRESSION: Negative CTA neck. No significant stenosis or occlusion. EXAM: CT Angiography Neck With Contrast EXAM DATE/TIME: 07/10/2018 7:02 PM CLINICAL HISTORY: 77 years old, male; Signs and symptoms; Speech disturbance; Aphasia; Additional info: Expressive aphasia TECHNIQUE: Imaging protocol: Axial computed tomographic angiography images of the neck with intravenous contrast using CT angiography protocol. Coronal and sagittal reformatted images were created and reviewed. 3D rendering: MIP reconstructed images were created and reviewed. Radiation optimization: All CT scans at this facility use at least one of these dose optimization techniques: automated exposure control; mA and/or kV adjustment per patient size (includes targeted exams where dose is matched to clinical indication); or iterative reconstruction. Contrast material: VISI 320; Contrast volume: 80 ml; Contrast route: IV; COMPARISON: BRAIN WO CT BRAIN WO 07/10/2018 5:43 PM FINDINGS: VASCULATURE: Right common carotid artery: Normal. No significant stenosis. No dissection or occlusion. Right internal carotid artery: Plaque proximal right internal carotid artery with less than 30% stenosis. Right external carotid artery: Normal. No occlusion or significant stenosis. Right vertebral artery: Normal. No significant stenosis. No dissection or occlusion. Left common carotid artery: Normal. No significant stenosis. No dissection or occlusion. Left internal carotid artery: Pacemaker in position from the left with subcutaneous gas around the generator pocket suggesting recent placement. Plaque in the proximal left internal carotid artery with 30-50% stenosis. Left external carotid artery: Normal. No occlusion or significant stenosis. Left vertebral artery: Normal. No significant stenosis. No dissection or occlusion. NECK: Bones/joints: Degenerative spondylosis of the cervical spine with multilevel spinal and neural foraminal stenosis. Soft tissues: Normal. No significant soft tissue swelling. Lungs: Bilateral pleural effusions question of some loculation on the left. IMPRESSION: 1. Pacemaker in position from the left with subcutaneous gas throughout the generator pocket suggesting placement. Infection is not excluded. 2. Bilateral pleural effusions with suggestion of some loculation on the left. 3. Plaque in the proximal internal carotid arteries bilaterally with less than 30% stenosis on the right and 30-50% stenosis on the left. 4. Degenerative spondylosis of the cervical spine with multilevel spinal stenosis and neural foraminal stenosis. This report is only to be considered final once signed by the Provider(s) as displayed in the "<Electronically Signed by >" field (s). Absence of a signature indicates the report is in a draft status and still needs to be finalized. In the event this document was created by someone other than the signing Provider, the individual initiating the document will be listed in the "Entered by:" or "Dictated by:" [place]. [facility] Patient Name:SURENDRA PANIAGUA MR: [id number] : 1940 COMMENT: Reference per NASCET criteria for degree of stenosis: Mild: less than 50% stenosis. Moderate: 50-69% stenosis. Severe: 70-94% stenosis. Near occlusion: 95-99% stenosis. To contact [facility] with a general question: Operations Center - [phone] For direct physician to physician contact: Physician Hotline - [phone] [facility] [place] ([facility] Facility ID #[id number]) <Electronically signed by Sony Hall MD in OV> 07/10/182008 Dictated By: Sony Hall MD Dictated Date/Time: 07/10/182008 Transcribed Date/Time: Copy to: CC:Addy Quezada MD; Sascha Quick MD Imaging - [facility] - [place] [facility] [address] [address] ph [phone]) ph ([phone]) ph ([phone]) Assessment - Problem List Assessment: Patient Problems Altered mental status (Acute) ICD (implantable cardioverter-defibrillator) in place (Acute) Chronic renal disease, stage 3, moderately decreased glomerular filtration rate between 30-59 mL/min/1.73 square meter (Chronic) DVT prophylaxis (Chronic) Ischemic cardiomyopathy (Chronic) Type 2 diabetes mellitus treated with insulin (Chronic) Chronic low back pain (Chronic) Essential (primary) hypertension (Chronic) Hypercholesteremia (Chronic) Lumbar spinal stenosis (Chronic) Mitral regurgitation (Chronic) Obesity (BMI 35.0-39.9 without comorbidity) (Chronic) Pancreatic mass (Chronic) S/P cholecystectomy (Chronic) Vertigo, benign positional (Chronic) Plan: Altered mental status (Acute) He presented with altered speech and disorientation. This has completely cleared. This morning he is neurologically intact. The neuro-imaging shows nothing new. I think this episode was likely fatigue. Other possibilities are a seizure and a TIA. There is no requirement to change his medication. He is safe for discharge. I will follow him as an outpatient ICD (implantable cardioverter-defibrillator) in place (Acute) this was just replaced - no problems Mild elevation of troponin I - I think this relates to the ICD procedure Secondary diagnoses: no acute problems: Chronic renal disease, stage 3, moderately decreased glomerular filtration rate between 30-59 mL/min/1.73 square meter (Chronic) DVT prophylaxis (Chronic) Ischemic cardiomyopathy (Chronic) Type 2 diabetes mellitus treated with insulin (Chronic) Chronic low back pain (Chronic) Essential (primary) hypertension (Chronic) Hypercholesteremia (Chronic) Lumbar spinal stenosis (Chronic) Mitral regurgitation (Chronic) Obesity (BMI 35.0-39.9 without comorbidity) (Chronic) Pancreatic mass (Chronic) S/P cholecystectomy (Chronic) Vertigo, benign positional (Chronic) I spoke with Surendra Paniagua and also his daughter Hannah. He will visit me for a transition of care visit at my primary care office early this coming week.
[2018-07-11] MEDS: Insulin LISPRO* 1 UNITS UNIT SUBCUT SCH ×2 (09:46→12:13)
[2018-07-11] MEDS: Carvedilol TAB* 25 MG PO SCH (09:50)
[2018-07-11 12:45] VITALS: BP 128/58
== END 2018-07-11 13:18 | disposition home or self-care (01) ==
LOC: ED 14:32 → MEDTELE 20:53
PROVIDERS: ADMIT Internal Medicine; ATTEND Internal Medicine
DX: R41.82 Altered mental status, unspecified (principal); Z95.810 Presence of automatic (implantable) cardiac defibrillator; N18.3 Chronic kidney disease, stage 3 (moderate); I25.5 Ischemic cardiomyopathy; R47.01 Aphasia; R53.83 Other fatigue; I25.10 Atherosclerotic heart disease of native coronary artery without angina pectoris; I12.9 Hypertensive chronic kidney disease with stage 1 through stage 4 chronic kidney disease, or unspecified chronic kidney disease; I73.9 Peripheral vascular disease, unspecified; Z79.82 Long term (current) use of aspirin; E11.22 Type 2 diabetes mellitus with diabetic chronic kidney disease; Z79.4 Long term (current) use of insulin; N40.0 Benign prostatic hyperplasia without lower urinary tract symptoms; K21.9 Gastro-esophageal reflux disease without esophagitis; Z29.9 Encounter for prophylactic measures, unspecified
CPT/HCPCS: 36415; 70450; 70496; 70498; 71045; 80048; 80053; 83605; 83735; 83880; 84484; 85025; 93005; 96372; 99285; A9270-GY; G0378; J1650; Q9967

== ENCOUNTER 2018-08-16 14:46 | Emergency (ER) | payer MEDICARE ==
[2018-08-16 15:04] VITALS: BP 139/73
--- OUTSIDE RECORDS SUMMARY | 2018-08-16 15:13 | XMS REPORT | Continuity of Care Document ---
:1940 External Reference #:[id number] Author Name Jaci Vela Care Team Providers Name Role Phone Giovanni Patton NP Care Team Information Interface Engineer Unavailable Addy Quezada M.D. Primary Care Physician Unavailable Payers Date Identification Numbers Payment Provider Subscriber Policy Number: [id number] [place] [employer] [employer] Yosvany Paniagua PayID: [id number] [address] [place] [address] Policy Number: [id number] [facility] Yosvany Paniagua PayID: [id number] [address] [place] [address] Advance Directives Description No Information Available Problems [...] Twice A Day Part Clopidogrel Bisulfate Abdi REGISTERED DIET TECHNICIAN, 75mg Giovanni Tablets Carvedilol Take 1 Tablet By Unknown 25mg Tablets Mouth Twice A Day Bupropion Hydrochloride Abdi REGISTERED DIET TECHNICIAN, ER (XL) Giovanni 150mg Tablets ER 24HR Atorvastatin Calcium Abdi REGISTERED DIET TECHNICIAN, 80mg Giovanni Tablets History Medications Evoxac 1 [...] Available Procedures Date Code Description Status 06/30/2018 22825 Fiberoptic Laryngoscopy Completed 06/26/2011 93441 Binocular Microscopy Completed 03/28/2009 14388 Removal Wax Impaction Completed 03/28/2009 36208 Fiberoptic Laryngoscopy Completed Encounters Type Date Location Provider Dx Diagnosis Office Visit 06/30/2018 [place],After Wil Aguero H61.23 Impacted cerumen, 2:00p 03/10/07 Mahogany Das bilateral R49.0 Dysphonia 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, 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, bilateral Office Visit 06/26/2011 [place],After Wil Aguero 327.23 Obstructive 3:15p 03/10/07 Mahogany Das Sleep Apnea Adult Pediatric 327.23 Obstructive Sleep Apnea Adult Pediatric 380.4 Impacted Cerumen / Wax 380.4 Impacted Cerumen / Wax Office Visit 03/28/2009 [place],After Wil Aguero 784.49 Hoarseness 2:45p 03/10/07 Mhaogany Das /Other 527.7 Xerostomia/Hyposecretion/Dry Mouth 380.4 Impacted Cerumen / Wax 250.00 Diabetes, Type II W/Out Metion Of Complication Or Unspec.Typ 401.9 High Blood Pressure Or Hypertension/Unspecified Plan of Treatment Future Appointment(s):08/19/2018 7:45 am - Wil Das M.D. at [facility]
--- OUTSIDE RECORDS SUMMARY | 2018-08-16 15:13 | XMS REPORT | Continuity of Care Document ---
:1940 External Reference #:[id number] Author Name Bharati Diego Care Team Providers Name Role Phone Addy Quezada MD Primary Care Physician Unavailable Payers Date Identification Numbers Payment Provider Subscriber Effective: 2004 Policy Number: [id number] Medicare Surendra Paniagua PayID: [id number] [address] [place] [address] Policy Number: [id number] [facility] Surendra Jessica Siva PayID: [id number] [address] [place] [address] Problems Active Problems Provider Date Obstructive sleep apnea syndrome Tuyet Soares DNP, RN, RN RESEARCH-BC Onset: Resolved Problems Body mass index 30+ - obesity Tuyet Soares DNP, RN, RN RESEARCH-BC Onset: 2017 Resolved: 04/09/2018 Family History Date [...] Unknown Never Smoked Cigarettes Smoking Status Reviewed: 08/07/18 Never Smoked Cigarettes ETOH Use Rarely consumes [...] Medications SIG Qnty Indications Ordering Provider Date K-Tab one po qd 30tabs Jeannie Salomon 08/07/2018 10Meq Tablets Mahogany Minor ER Compression 40 - ble 2units Sharlene Ortiz NP 06/05/2018 Stockings swelling/edema- Misc below the knee Acetaminophen Take 650 mg by Faith Mata 03/27/2018 325mg mouth every 6 Vásquez, MEDICAL SPECIALIST Tablets hours as needed for pain Carvedilol take one tablet 60tabs Sharlene Ortiz NP 03/16/2018 25mg by mouth twice a Tablets day. Colace 3 capsules daily Unknown 100mg Capsules Torsemide 1 by mouth every 90tabs Sharlene Ortiz NP 20mg morning, and 1 by Tablets mouth at noon Pantoprazole Sodium 1 by mouth every Unknown day 40mg Tablets DR [place] Sliding scale as Unknown 100Unit/ML directed. check Solution blood sugar before meals. Bupropion HCL ER Take 150 mg by Unknown (SR) mouth every day 150mg Tablets ER in the am 12HR Trazodone HCL 2 by mouth every Unknown 50mg day .. Tablets Nitroglycerin Take 0.4 mg Unknown 0.4mg sublingual every Tablets Sub 5 minutes as needed for chest pain. MDD 3 tabs Clopidogrel Take 75 mg by Unknown Bisulfate mouth every day 75mg Tablets Duloxetine HCL Take 30 mg po Unknown 30mg twice daily Basaglar Kwikpen Inject 7 units SQ Unknown Q Am and 7 units 100Unit/ML Solution Q PM, as directed Aspir-81 1 by mouth every Unknown 81mg Tablets day Multiple Vitamin Take 1 tablet by Unknown mouth every day Tablets Atorvastatin Take 80 mg by Unknown (Lipitor) mouth at bedtime 80mg Tablets Lisinopril take 1 tablets by 90tabs Sharlene Ortiz NP 10mg mouth every day Tablets History Medications Torsemide take 1 by mouth 30tabs Najma Lou, 05/22/2018 - 10mg Tablets daily N.P. 06/22/2018 Lasix 1 by mouth every 30tabs Jeannie S. 05/19/2018 - 20mg Tablets day Mahogany Minor 05/22/2018 Torsemide Take 20 mg by Nelida James, 04/10/2018 - 20mg Tablets mouth once daily D.O. 05/20/2018 Hold - see triage Vireo bid Sharlene Ortiz, 01/02/2018 - .4 MEDICAL SPECIALIST 03/15/2018 Levofloxacin 1 by mouth every 14tabs K75.0 Huber D. 05/17/2015 - 500mg day Mahogany Cedeño Unknown Tablets Levaquin 1 by mouth every 14tabs Huber DMiriam 05/09/2015 - 500mg Tablets day Mahogany Cedeño 06/06/2015 Aspirin 2 by mouth every 6 Unknown - 325mg Tablets hours as needed 04/09/2018 Calazime Skin apply topically to Unknown - Protectant/Olivamine buttocks two times 06/04/2018 per day Paste Torsemide 1 by mouth every Unknown - 20mg Tablets day 03/26/2018 Eucerin Cream Apply topically to Unknown - Cream bilateral lower 08/06/2018 extremities two times per day Vireo Red bid Unknown - .2 Powder 03/15/2018 Vireo Indigo 1 @ 4 am and 1 in Unknown - evening 05/20/2017 Vireo Red 1 in Am/ 1 in PM Unknown - 05/20/2017 Ondansetron HCL 1 tablet po tid as Abdi, - 4mg needed ( for KENNA Davila 01/27/2017 Tablets nausea) Spironolactone 1 tablet po daily Addy Quezada MD - 25mg Hold (see triage) 05/21/2018 Tablets Furosemide 1 by mouth every 90tabs Sharlene Ortiz, - 20mg Tablets day MEDICAL SPECIALIST 03/15/2018 Hydrocodone-Acetaminop [place], - hen IAIN Braun Unknown 5-325mg Tablets Tylenol 1 tab every [...] Unknown - 2gm x 40 days at [facility] 05/10/2015 [facility] Immunizations CPT Code Status Date Vaccine Lot # [id number] Given 12/12/2014 Influenza Virus Vaccine, Quadrivalent, Split, Preservative Free Vital Signs Date Vital Result Comment 08/07/2018 3:44pm Height 68 inches 5'8" Weight 200.00 lb with shoes Heart Rate 62 /min reg ectopy BP Systolic Sitting 130 mmHg Lue reg cuff BP Diastolic Sitting 80 mmHg Lue reg cuff Respiratory Rate 16 /min BMI (Body Mass Index) 30.4 kg/m2 Ejection Fraction 35-40% date 06/25/18 ECHO 07/03/2018 1:44pm Height 68 inches 5'8" Weight [...] Test Result H/L Range Note Basic Metabolic 07/17/2018 [facility] Sodium 137 mmol/L N 135- [address] [place] [address] [phone] Potassium 3.8 mmol/L N 3.5-5.0 Chloride 101 mmol/L N 101-111 Co2 Carbon Dioxide 32 mmol/L N 22-32 Anion Gap 4 mmol/L N 2-11 Glucose 158 mg/dL High 70-100 Blood Urea Nitrogen 37 mg/dL High 6-24 Creatinine 1.49 mg/dL High 0.67-1.17 BUN/Creatinine Ratio 24.8 High 8-20 Calcium 8.6 mg/dL N 8.6-10.3 Egfr Non- 45.5 >60 Egfr 55.0 >60 1 Basic Metabolic Panel 07/13/2018 [facility] Sodium 138 mmol/L N 135-145 [address] [place] [address] [phone] Potassium 3.9 mmol/L N 3.5-5.0 Chloride 102 mmol/L N 101-111 Co2 Carbon Dioxide 31 mmol/L N 22-32 Anion Gap 5 mmol/L N 2-11 Glucose 176 mg/dL High 70-100 Blood Urea Nitrogen 34 mg/dL High 6-24 Creatinine 1.39 mg/dL High 0.67-1.17 BUN/Creatinine Ratio 24.5 High 8-20 Calcium 8.2 mg/dL Low 8.6-10.3 Egfr Non- 49.3 >60 Egfr 59.6 >60 2 Basic Metabolic Panel 07/08/2018 [facility] Sodium 140 mmol/L N 135-145 [address] [place] [address] [phone] Potassium 3.5 mmol/L N 3.5-5.0 Chloride 101 mmol/L N 101-111 Co2 Carbon Dioxide 33 mmol/L High 22-32 Anion Gap 6 mmol/L N 2-11 Glucose 140 mg/dL High 70-100 Blood Urea Nitrogen 38 mg/dL High 6-24 Creatinine 1.51 mg/dL High 0.67-1.17 BUN/Creatinine Ratio 25.2 High 8-20 Calcium 8.6 mg/dL N 8.6-10.3 Egfr Non- 44.8 >60 Egfr 54.2 >60 3 Basic Metabolic Panel 07/06/2018 [facility] Sodium 139 mmol/L N 135-145 [address] [place] [address] [phone] Potassium 3.4 mmol/L Low 3.5-5.0 Chloride 102 mmol/L N 101-111 Co2 Carbon Dioxide 32 mmol/L N 22-32 Anion Gap 5 mmol/L N 2-11 Glucose 154 mg/dL High 70-100 Blood Urea Nitrogen 37 mg/dL High 6-24 Creatinine 1.43 mg/dL High 0.67-1.17 BUN/Creatinine Ratio 25.9 High 8-20 Calcium 8.7 mg/dL N 8.6-10.3 Egfr Non- 47.7 >60 Egfr 57.7 >60 4 Basic Metabolic Panel 06/29/2018 [facility] Sodium 139 mmol/L N 135-145 [address] [place] [address] [phone] Potassium 3.6 mmol/L N 3.5-5.0 Chloride 103 mmol/L N 101-111 Co2 Carbon Dioxide 32 mmol/L N 22-32 Anion Gap 4 mmol/L N 2-11 Glucose 157 mg/dL High 70-100 Blood Urea Nitrogen 32 mg/dL High 6-24 Creatinine 1.46 mg/dL High 0.67-1.17 BUN/Creatinine Ratio 21.9 High 8-20 Calcium 8.2 mg/dL Low 8.6-10.3 Egfr Non- 46.6 >60 Egfr 56.4 >60 5 Basic Metabolic Panel 06/12/2018 [facility] Sodium 139 mmol/L N 135-145 6 [address] [place] [address] [phone] Potassium 3.7 mmol/L N 3.5-5.0 Chloride 104 mmol/L N 101-111 Co2 Carbon Dioxide 31 mmol/L N 22-32 Anion Gap 4 mmol/L N 2-11 Glucose 116 mg/dL High 70-100 Blood Urea Nitrogen 31 mg/dL High 6-24 Creatinine 1.34 mg/dL High 0.67-1.17 BUN/Creatinine Ratio 23.1 High 8-20 Calcium 8.4 mg/dL Low 8.6-10.3 Egfr Non- 51.4 >60 Egfr 62.2 >60 7 Basic Metabolic Panel 06/01/2018 [facility] Sodium 135 mmol/L N 135-145 [address] [place] [address] [phone] Potassium 3.9 mmol/L N 3.5-5.0 Chloride 102 mmol/L N 101-111 Co2 Carbon Dioxide 29 mmol/L N 22-32 Anion Gap 4 mmol/L N 2-11 Glucose 171 mg/dL High 70-100 Blood Urea Nitrogen 28 mg/dL High 6-24 Creatinine 1.47 mg/dL High 0.67-1.17 BUN/Creatinine Ratio 19.0 N 8-20 Calcium 8.0 mg/dL Low 8.6-10.3 Egfr Non- 46.2 >60 Egfr 55.9 >60 8 Basic Metabolic Panel 05/22/2018 [facility] Sodium 137 mmol/L N 135-145 [address] [place] [address] [phone] Potassium 4.1 mmol/L N 3.5-5.0 Chloride 106 mmol/L N 101-111 Co2 Carbon Dioxide 25 mmol/L N 22-32 Anion Gap 6 mmol/L N 2-11 Glucose 84 mg/dL N 70-100 Blood Urea Nitrogen 36 mg/dL High 6-24 Creatinine 1.35 mg/dL High 0.67-1.17 BUN/Creatinine Ratio 26.7 High 8-20 Calcium 8.5 mg/dL Low 8.6-10.3 Egfr Non- 51.0 >60 Egfr 61.7 >60 9 Basic Metabolic Panel 05/12/2018 [facility] Sodium 135 mmol/L N 135-145 [address] [place] [address] [phone] Potassium 4.9 mmol/L N 3.5-5.0 Chloride 104 mmol/L N 101-111 Co2 Carbon Dioxide 22 mmol/L N 22-32 Anion Gap 9 mmol/L N 2-11 Glucose 136 mg/dL High 70-100 Blood Urea Nitrogen 47 mg/dL High 6-24 Creatinine 1.48 mg/dL High 0.67-1.17 BUN/Creatinine Ratio 31.8 High 8-20 Calcium 8.6 mg/dL N 8.6-10.3 Egfr Non- 45.8 >60 Egfr 55.5 >60 10 CBC Auto Diff 05/12/2018 [facility] White Blood 5.6 10^3/uL N 3.5-10.[address] [place] [address] [phone] Red Blood Count 3.75 10^6/uL Low 4.00-5.40 [...] Blood Cells % 0 Laboratory test 05/12/2018 [facility] C Reactive 5.57 mg/L N < 8.01 finding [address] [facility] [place] [address] [phone] Urinalysis Profile 05/12/2018 [facility] Urine Color Yellow [address] [place] [address] [phone] Urine Appearance Clear Urine Specific [place] 1.012 N 1.010-1.030 Urine pH 6.0 N 5-9 Urine Urobilinogen Negative Negative Urine Ketones Negative Negative Urine Protein Negative Negative Urine Leukocytes Negative Negative Urine Blood Negative Negative * * Abnormal Negative 11 Urine Nitrite Negative Negative Urine Bilirubin Negative Negative Urine Glucose Negative Negative Basic Metabolic 05/09/2018 [facility] Sodium 134 mmol/L Low 135-145 Panel [address] [place] [address] [phone] Potassium 4.8 mmol/L N 3.5-5.0 Chloride 103 mmol/L N 101-111 Co2 Carbon Dioxide 26 mmol/L N 22-32 Anion Gap 5 mmol/L N 2-11 Glucose 137 mg/dL High 70-100 Blood Urea Nitrogen 51 mg/dL High 6-24 Creatinine 1.63 mg/dL High 0.67-1.17 BUN/Creatinine Ratio 31.3 High 8-20 Calcium 8.7 mg/dL N 8.6-10.3 Egfr Non- 41.0 >60 Egfr 49.6 >60 12 Basic Metabolic Panel 05/07/2018 [facility] Sodium 135 mmol/L N 135-145 [address] [place] [address] [phone] Potassium 4.6 mmol/L N 3.5-5.0 Chloride 102 mmol/L N 101-111 Co2 Carbon Dioxide 29 mmol/L N 22-32 Anion Gap 4 mmol/L N 2-11 Glucose 97 mg/dL N 70-100 Blood Urea Nitrogen 60 mg/dL High 6-24 Creatinine 1.83 mg/dL High 0.67-1.17 BUN/Creatinine Ratio 32.8 High 8-20 Calcium 8.8 mg/dL N 8.6-10.3 Egfr Non- 35.9 >60 Egfr 43.4 >60 13 Basic Metabolic Panel 04/15/2018 [facility] Sodium 137 mmol/L N 135-145 14 [address] [place] [address] [phone] Potassium 3.9 mmol/L N 3.5-5.0 Chloride 104 mmol/L N 101-111 Co2 Carbon Dioxide 26 mmol/L N 22-32 Anion Gap 7 mmol/L N 2-11 Glucose 83 mg/dL N 70-100 Blood Urea Nitrogen 57 mg/dL High 6-24 Creatinine 1.58 mg/dL High 0.67-1.17 BUN/Creatinine Ratio 36.1 High 8-20 Calcium 8.7 mg/dL N 8.6-10.3 Egfr Non- 42.5 >60 Egfr 51.4 >60 15 Basic Metabolic Panel 04/13/2018 [facility] Sodium 135 mmol/L N 135-145 16 [address] [place] [address] [phone] Potassium 4.4 mmol/L N 3.5-5.0 Chloride 104 mmol/L N 101-111 Co2 Carbon Dioxide 25 mmol/L N 22-32 Anion Gap 6 mmol/L N 2-11 Glucose 160 mg/dL High 70-100 Blood Urea Nitrogen 54 mg/dL High 6-24 Creatinine 1.59 mg/dL High 0.67-1.17 BUN/Creatinine Ratio 34.0 High 8-20 Calcium 8.6 mg/dL N 8.6-10.3 Egfr Non- 42.2 >60 Egfr 51.1 >60 17 Basic Metabolic Panel 04/01/2018 [facility] Sodium 136 mmol/L N 135-145 18 [address] [place] [address] [phone] Potassium 4.5 mmol/L N 3.5-5.0 Chloride 104 mmol/L N 101-111 Co2 Carbon Dioxide 28 mmol/L N 22-32 Anion Gap 4 mmol/L N 2-11 Glucose 96 mg/dL N 70-100 Blood Urea Nitrogen 54 mg/dL High 6-24 Creatinine 1.47 mg/dL High 0.67-1.17 BUN/Creatinine Ratio 36.7 High 8-20 Calcium 9.1 mg/dL N 8.6-10.3 Egfr Non- 46.2 >60 Egfr 55.9 >60 19 Basic Metabolic Panel 03/26/2018 [facility] Sodium 135 mmol/L N 135-145 [address] [place] [address] [phone] Potassium 4.6 mmol/L N 3.5-5.0 Chloride 101 mmol/L N 101-111 Co2 Carbon Dioxide 29 mmol/L N 22-32 Anion Gap 5 mmol/L N 2-11 Glucose 107 mg/dL High 70-100 Blood Urea Nitrogen 67 mg/dL High 6-24 Creatinine 1.70 mg/dL High 0.67-1.17 BUN/Creatinine Ratio 39.4 High 8-20 Calcium 8.9 mg/dL N 8.6-10.3 Egfr Non- 39.1 >60 Egfr 47.3 >60 20 Laboratory test 03/26/2018 [facility] Magnesium 1.9 mg/dL N 1.9-2.7 finding [address] [place] [address] [phone] Lipid Panel - 01/19/2018 [facility] Creatine 55 U/L N 10-223 [address] Kinase(CK) [place] [address] [phone] Comp Metabolic 01/19/2018 [facility] Sodium 141 mmol/L N 135- [address] [place] [address] [phone] Potassium 4.4 mmol/L N 3.5-5.0 Chloride 103 [...] Egfr Non- 51.4 >60 Egfr 62.2 >60 22 Lipid Profile 01/19/2018 [facility] Triglycerides 93 mg/dL 23 (Trig/Chol/HDL) [address] [place] [address] [phone] Cholesterol 112 mg/dL 24 HDL Cholesterol 32.1 mg/dL 25 LDL Cholesterol 61 mg/dL 26 Laboratory test 10/03/2016 [facility] Gram Stain SEE RESULT [address] [place] [address] [phone] Body Fluid Total 10/03/2016 [facility] Total 3.6 g/dL N [address] Protein, [place] [address] [phone] Fluid Source PLEURAL FLUID N 29 Lactate 10/03/2016 [facility] Lactate 140 U/L N 30 Dehydrogenase,BF [address] Dehydrogenase, [place] [address] [phone] Fluid Source PLEURAL FLUID N 31 Laboratory test 10/03/2016 [facility] Body Fluid SEE RESULT [address] [place] [address] [phone] Body Fluid Cell 10/03/2016 [facility] Body Fluid Pleural Fluid N Count [address] Source [place], [place] [id number] [phone] Body Fluid Appearance Cloudy N Body Fluid Color Yellow N Body Fluid Volume 7 mL N Body Fluid WBC 809 /mcL N 33 Body Fluid RBC 1114 /mcL N Body Fluid Neutrophils 16 % N Body Fluid Lymph 77 % N Body Fluid [place] 7 % N Body Fluid Total Cells Counted 100 N Fluid Reviewed By MD (SEE NOTE) N 34 Laboratory test 10/03/2016 [facility] Cytology SEE RESULT [address] Non-Alfalfa Dehydrator Operator BELOW [place], [place] [id number] [phone] Laboratory test 05/10/2015 [facility] C Reactive < 1.00 mg/L N < 5.00 [address] Protein [place], [place] [id number] [phone] Comp Metabolic 05/10/2015 [facility] Sodium 137 mmol/L N 133- [address] [place] [address] [phone] Potassium 3.9 mmol/L N 3.5-5.0 Chloride 106 [...] 54.2 N >60 Egfr 69.6 N >60 37 CBC Auto Diff 05/10/2015 [facility] White Blood 8.2 10^3/uL N 3.5-10.[address] [place] [address] [phone] Red Blood Count 4.62 10^6/uL N 4.0-5.4 [...] Nucleated Red Blood Cells % 0 N CBC Auto Diff 05/03/2015 [facility] White Blood 8.5 10^3/uL N 3.5-10.[address] [place] [address] [phone] Red Blood Count 4.57 10^6/uL N 4.0-5.4 [...] % 0 N Comp Metabolic Panel 05/03/2015 [facility] Sodium 136 mmol/L N 133-[address] [place] [address] [phone] Potassium 4.5 mmol/L N 3.5-5.0 Chloride 106 [...] 44.5 N >60 Egfr 57.2 N >60 38 Laboratory test 05/03/2015 [facility] C Reactive < 1.00 N < 5.00 [address] Protein mg/[place] [address] [phone] CBC Auto Diff 04/26/2015 [facility] White Blood 6.5 N 3.5- 10.[address] Count 10^3/[place] [address] [phone] Red Blood Count 4.40 10^6/uL N 4.0-5.4 [...] % 0 N Comp Metabolic Panel 04/26/2015 [facility] Sodium 136 mmol/L N 133-[address] [place] [address] [phone] Potassium 4.2 mmol/L N 3.5-5.0 Chloride 105 [...] 44.8 N >60 Egfr 57.6 N >60 40 Laboratory test 04/26/2015 [facility] C Reactive 1.22 mg/L N < 5.00 [address] [place] [address] [phone] Laboratory test 04/19/2015 [facility] C Reactive 1.35 mg/L N < 5.00 [address] [place] [address] [phone] Comp Metabolic 04/19/2015 [facility] Sodium 137 mmol/L N 133- [address] [place] [address] [phone] Potassium 4.0 mmol/L N 3.5-5.0 Chloride 107 [...] 52.7 N >60 Egfr 67.8 N >60 43 CBC Auto Diff 04/19/2015 [facility] White Blood 6.5 10^3/uL N 3.5-10.[address] [place] [address] [phone] Red Blood Count 4.34 10^6/uL N 4.0-5.4 [...] Cells % 0.1 N Comp Metabolic Panel 04/12/2015 [facility] Sodium 137 mmol/L N 133-[address] [place], [place] [address] [phone] Potassium 4.1 mmol/L N 3.5-5.0 Chloride 105 [...] 49.7 N >60 Egfr 63.9 N >60 44 CBC Auto Diff 04/12/2015 [facility] White Blood 8.2 10^3/uL N 3.5-10.[address] [place] [address] [phone] Red Blood Count 4.22 10^6/uL N 4.0-5.4 [...] Blood Cells % 0 N Laboratory test 04/12/2015 [facility] C Reactive 1.44 mg/L N < 5.00 [address] [place] [address] [phone] CBC Auto Diff 04/05/2015 [facility] White Blood 9.7 N 3.5- 10.[address] Count 10^3/[place] [address] [phone] Red Blood Count 3.73 10^6/uL Low 4.0-5.4 [...] Cells % 0 N Comp Metabolic Panel 04/05/2015 [facility] Sodium 136 mmol/L N 133-[address] [place] [address] [phone] Potassium 4.3 mmol/L N 3.5-5.0 Chloride 103 [...] 51.4 N >60 Egfr 66.1 N >60 46 Laboratory test 04/05/2015 [facility] C Reactive 8.74 mg/L High < 5.00 [address] [place] [address] [phone] 1 Because ethnic data is not always [...] 5 Kidney failure <15 (or dialysis) 2 Because ethnic data is not always [...] 5 Kidney failure <15 (or dialysis) 6 [id number] 7 Because ethnic data is not always readily [...] 15-29 5 Kidney failure <15 (or dialysis) 8 Because ethnic data is not always [...] 5 Kidney failure <15 (or dialysis) 10 Because ethnic data is not always readily [...] 15-29 5 Kidney failure <15 (or dialysis) 11 *Ascorbic acid is present which may interfere with detection of blood. 12 Because ethnic data is not always readily [...] 15-29 5 Kidney failure <15 (or dialysis) 13 Because ethnic data is not always [...] Kidney failure <15 (or dialysis) 14 [facility] , Room Number [id number] 15 Because ethnic data is not always [...] 5 Kidney failure <15 (or dialysis) 16 [facility] [id number] 17 Because ethnic data is not always readily [...] 15-29 5 Kidney failure <15 (or dialysis) 18 [facility] , Room Number [id number] 19 Because ethnic data is not always readily [...] 15-29 5 Kidney failure <15 (or dialysis) 20 Because ethnic data is not always readily [...] 15-29 5 Kidney failure <15 (or dialysis) 21 FASTING Copy Result to: ADDY QUEZADA ([id number]) 22 Because ethnic data is not always readily [...] 15-29 5 Kidney failure <15 (or dialysis) 23 Desirable: <150 Borderline High: 150-199 High: 200-499 Very High: >500 24 Desirable: <200 Borderline High: 200-239 High: >239 25 Low: <40 Desirable: 40-60 High: >60 26 Desirable: <100 Near Optimal: 100-129 Borderline High: 130-159 High: 160-189 Very High: >189 27 SEE RESULT BELOW Name: SURENDRA PANIAGUA : [address]: Gautam Fajardo MD Acct: [id number] Unit: [id number] AGE: 76 Location: OR Re10/03/16 SEX: M Status: DEP SDC SPEC: [id number] DELMY: 10/03/16-[address] [facility] [address]: Gautam Fajardo MD REQ: [id number] RECD: 10/03/16151 STATUS: SUNITA WOLFE DR: Addy Quezada MD _ SOURCE: BODY FLUID SPDESC:PLEURA ORDERED: Gram Stain Procedure Result Reported Site Gram Stain Final 10/03/16- 1615 ML 4+ Nucleated Cells No Neutrophils Observed No Organisms Seen BY CYTOSPIN SMEAR. * ML - [facility] ([facility]) . END OF REPORT * ML=Testing performed at Main Lab DEPARTMENT OF PATHOLOGY, [address] [place] [address] Yogesh Hampton M.D. Director [facility] # [id number] 28 REFERENCE VALUE Not Applicable 29 Test Performed by: [facility] [address] [place] [address] 30 REFERENCE VALUE Not Applicable 31 Test Performed by: [facility] [address] [place] [address] 32 SEE RESULT BELOW Name: SURENDRA PANIAGUA: [address]: Gautam Fajardo MD Acct: [id number] Unit: [id number] AGE: 76 Location: OR Re10/03/16 SEX: M Status: DEP SDC SPEC: [id number] DELMY: 10/03/[address] [facility] [address]: Gautam Fajardo MD REQ: [id number] RECD: 10/03/16 STATUS: SUNITA WOLFE DR: Addy [...] performed at Main Lab DEPARTMENT OF PATHOLOGY, [address] [place] [address] Yogesh Hampton M.D. Director [facility] # [id number] 33 -- REFERENCE VALUE -- Synovial: <150/mcL Peritoneal: <500/mcL Pleural: <500/mcL Pericardial: <500/mcL 34 Lymphocytes and reactive mesothelial cells. No evidence of an acute inflammatory response. No evidence of malignancy. Reviewed by Zayda Gray MD 35 SEE RESULT BELOW Name: SURENDRA PANIAGUA : [address]: Gautam Fajardo MD Acct: [id number] Unit: [id number] AGE: 76 Location: OR Re10/03/16 SEX: M Status: DEP [facility] SPEC: [id number] DELMY: 10/03/16-[address] [facility] [address]: Gautam Fajardo MD REQ: [id number] RECD: 10/03/16 STATUS: SOUT _ ORDERED: NG THIN LAYER FINAL DIAGNOSIS Pleural, left, thoracentesis: --Negative for malignant cells. --Inflammation. 1. PLEURAL - LEFT PLEURAL EFFUSION CLINICAL HISTORY Left pleural effusion. GROSS DESCRIPTION 1.7 liter of cloudy elizalde yellow gelatinous fluid. Signed (signature on file) Zayda Gray MD 1446 END OF REPORT * ML=Testing performed at Main Lab DEPARTMENT OF PATHOLOGY, [address] [place] [address] Yogesh Hampton M.D. Director [facility] # [id number] 36 Acute inflammation: >10.00 37 Because ethnic data is not always readily [...] 15-29 5 Kidney failure <15 (or dialysis) 38 Because ethnic data is not always [...] 15-29 5 Kidney failure <15 (or dialysis) 44 Because ethnic data is not always readily [...] 15-29 5 Kidney failure <15 (or dialysis) 45 Acute inflammation: >10.00 46 Because ethnic data is not always readily [...] 15-29 5 Kidney failure <15 (or dialysis) 47 Acute inflammation: >10.00 Procedures Date Code Description Status 08/07/2018 41365 Icd Eval With Iterative Adjustmt Multiple Lead System Completed 06/25/2018 40298 Echocardiogram, Limited Study Completed 06/25/2018 04361 Echocardiogram, Limited Study Completed 06/05/2018 37178 EKG Tracing & Interpretation Completed 05/18/2018 13457 Polysomnography Sleep Staging 4+ Parameters Completed 05/12/2018 46676 Echocardiogram, Limited Study Completed 05/12/2018 81224 Echocardiogram, Limited Study Completed 03/16/2018 04366 EKG Tracing & Interpretation Completed 02/23/2018 91261 Left Heart Cath. Incl S/I Coronaries, Angio S/I V Gram If Completed Done 02/21/2018 72020 EKG, Interpretation Only Completed 02/19/2018 38888 Treadmill Interp/Report Only Completed 02/19/2018 43100 Stress Test Supervsn W/Out I/R Completed 02/18/2018 14535 EKG, Interpretation Only Completed 02/18/2018 35921 ECHO Transthorasic Realtime 2D W Doppler & Color Flow Hosp Completed 01/02/2018 34520 EKG Tracing & Interpretation Completed 04/08/2017 59906 Sleep Study Unattended,HRT Rate,Oxygen Sat,Resp Completed Effort/Airflow 01/22/2017 76584 ECHO Transthorasic Realtime 2D W Doppler & Color Flow Hosp Completed 01/16/2017 42029 EKG Tracing & Interpretation Completed 12/30/2016 86361 Treadmill Interp/Report Only Completed 12/30/2016 98722 Stress Test Supervsn W/Out I/R Completed 12/27/2016 89457 ECHO Transthorasic Realtime 2D W Doppler & Color Flow Hosp Completed 10/03/2016 34080 Thoracentesis Needle/Catheter Aspiration W/ Img Guidance Completed 10/12/2015 15737 EEG Recording Awake & Drowsy Completed 05/25/2015 39719 Laparoscopy Cholecystectomy Completed Encounters Type Date Location Provider Dx Diagnosis Office Visit 07/10/2018 [facility] Catalino Arnold R47.01 Aphasia 9:48a Assoc,avril Abreu M.D.,FACP Hospitalists Office Visit 07/03/2018 [facility] Sharlene Ortiz, I25.10 [facility] 2:00p [place] MEDICAL SPECIALIST 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 I25.5 Ischemic Cardiology Of Carmine N.P. 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 N18.3 Chronic kidney disease, stage 3 (moderate) I25.10 [facility] heart disease of [place] coronary artery w/o ang pctrs I34.0 Nonrheumatic mitral (valve) insufficiency I50.810 Right heart failure, unspecified Office Visit 04/09/2018 [facility] And Tuyet G47.33 Obstructive sleep 10:00a Sleep Services Of Fany, RUKHSANA, RN, apnea (adult) [place] RN RESEARCH-BC (pediatric) Z68.31 Body mass index (BMI) 31.0-31.9, adult Office Visit 04/01/2018 10:30a [facility] Chepe Krause I25.5 Ischemic Eduar James cardiomyopathy I25.10 [facility] heart disease of [place] coronary artery w/o ang pctrs I44.7 Left bundle-branch block, unspecified 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 cardiomyopathy I21.4 Non-St elevation (Nstemi) myocardial infarction I50.9 Heart failure, unspecified E11.9 Type 2 diabetes mellitus without complications I34.0 Nonrheumatic mitral (valve) insufficiency I10 Essential (primary) hypertension N18.9 Chronic kidney disease, unspecified Office Visit 02/21/2018 [facility] Ayaan Herring I25.5 Ischemic 2:20p Cardiology Mahogany Garcia cardiomyopathy E11.9 Type 2 diabetes mellitus without complications I10 Essential (primary) hypertension I50.9 Heart failure, unspecified I21.4 Non-St elevation (Nstemi) myocardial infarction Office Visit 02/20/2018 2:16p [facility] Ayaan Herring I50.9 Heart failure, Mahogany Garcia unspecified I25.10 Aths[facility] heart disease of [place] coronary artery w/o ang pctrs I25.5 Ischemic cardiomyopathy N18.9 Chronic kidney disease, unspecified Office Visit 02/18/2018 12:25p [facility] Sharlene Ortiz, R06.02 Shortness of Of [place] MEDICAL SPECIALIST breath R79.89 Other specified abnormal findings of blood chemistry R29.6 Repeated falls I44.7 Left bundle-branch block, unspecified I12.9 Hypertensive chronic kidney disease w stg 1-4/unsp chr kdny N18.9 Chronic kidney disease, unspecified I50.22 Chronic systolic (congestive) heart failure I25.10 Athscl heart disease of [place] coronary artery w/o ang pctrs Office Visit 02/18/2018 [facility] I11.0 Hypertensive heart 8:56a Assoc,pc Eric, N.P. 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 MEDICAL SPECIALIST systolic and diastolic hrt fail I10 Essential (primary) hypertension I25.10 Athscl heart disease of [place] coronary artery w/o ang pctrs G47.33 Obstructive sleep apnea (adult) (pediatric) N18.3 Chronic kidney disease, stage 3 (moderate) R29.6 Repeated falls Office Visit 09/25/2017 Pul[facility] And Tuyet G47.33 Obstructive sleep 9:15a Sleep Services Of RUKHSANA Soares RN, apnea (adult) [facility] RN RESEARCH-BC (pediatric) Z68.34 Body mass index (BMI) 34.0-34.9, adult Office Visit 05/21/2017 Pul[facility] Tuyet G47.33 Obstructive sleep 11:15a Sleep Services Of RUKHSANA Soares RN, apnea (adult) [facility]- (pediatric) Office Visit 04/03/2017 Pulmonology And Angelica Martinez G47.33 Obstructive sleep 2:00p Sleep Services Of MD ludwig (adult) [facility] (pediatric) Office Visit 01/28/2017 [facility] ASHLEY Tanner 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 1:00p Of [facility] systolic and diastolic hrt fail I34.0 Nonrheumatic mitral (valve) insufficiency I10 Essential (primary) hypertension R09.02 Hypoxemia Office Visit 01/16/2017 11:20a [facility] Jeannie Salomon I50.9 Heart failure, Cardiology Of Mahogany Minor unspecified [facility] 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 systolic and diastolic hrt fail I42.9 Cardiomyopathy, unspecified I34.0 Nonrheumatic mitral (valve) insufficiency I10 Essential (primary) hypertension I44.0 Atrioventricular block, first degree R94.31 Abnormal electrocardiogram [ECG] [EKG] Office Visit 12/30/2016 9:58a [facility] Brent Arnold I50.9 Heart failure, Of Radha Salas M.D. unspecified Office Visit 12/29/2016 12:05p [facility] Yajaira Sanchez 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 Of Radha Vides systolic and diastolic hrt fail Office Visit 12/28/2016 12:04p [facility] Yajaira Sanchez 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 Of Radha Vides systolic and diastolic hrt fail Office Visit 12/27/2016 12:02p [facility] Jeannie Salomon I50.Ximena Heart failure, nickie Minor M.D. I42.9 Cardiomyopathy, unspecified I34.0 Nonrheumatic mitral (valve) insufficiency I10 Essential (primary) hypertension Office Visit 12/26/2016 1:39p [facility] Nelida I50.9 Heart failure, Assoc,pc Jacob, D.O. unspecified Hospitalists J96.01 Acute respiratory failure with hypoxia J90 Pleural effusion, not elsewhere classified E11.42 Type 2 diabetes mellitus with diabetic polyneuropathy Office Visit 10/02/2016 10:30a Surgical Gautam Dunn J90 Pleural effusion, Associates Of Radha Fajardo M.D. not elsewhere classified J90 Pleural effusion, not elsewhere classified Office Visit 06/07/2015 1:40p [facility] Claudy Arnold K75.0 Abscess of Infectious Mahogany Cedeño liver Diseases Office Visit 05/17/2015 1:20p [facility] Claudy Arnold K75.0 Abscess of Infectious Sarah Cedeño. liver Diseases Office Visit 04/27/2015 1:40p [facility] Claudy Arnold K75.0 Abscess of Infectious Mahogany Cedeño liver Diseases R93.2 Abnormal findings on dx imaging of liver and biliary tract Office Visit 04/13/2015 1:40p [facility] Claudy Arnold K75.0 Abscess of liver Infectious Sarah Cedeño. Diseases Office Visit 03/31/2015 12:49p [facility] Claudy Arnold K75.0 Abscess of liver Infectious Mahogany Cedeño Diseases Office Visit 03/30/2015 9:06a [facility] Claudy Arnold K75.0 Abscess of liver Infectious Mahogany Cedeño Diseases Office Visit 03/29/2015 9:00a [facility] Claudy Arnold R78.81 Bacteremia Infectious Mahogany Cedeño Diseases K75.0 Abscess of liver Office Visit 03/28/2015 8:49a [facility] Claudy Arnold R78.81 Bacteremia Infectious Diseases Mahogany Cedeño K75.0 Abscess of liver K80.20 Calculus of gallbladder w/o cholecystitis w/o obstruction E11.21 Type 2 diabetes mellitus with diabetic nephropathy E11.40 Type 2 diabetes mellitus with diabetic neuropathy, unsp E11.319 Type 2 diabetes w unsp diabetic rtnop w/o macular edema Office Visit 02/12/2015 4:15p [facility] Skylar Pickens, M54.6 Pain in Assoc,pc N.P. [...] Manuel Sanchez 756.12 Spondylolisthesis 9:45a Services Of Mahogany Leyva 724.02 Spinal Stenosis, Lumbar Region, W/O Neurogenic Claudication Plan of Treatment 08/07/2018 - Jeannie Minor M.D.I25.5 Ischemic cardiomyopathyNew Orders: Echocardiogram, Ordered: 08/07/18Follow up:6-8 wks ov Sharlene MEDICAL SPECIALIST 9 months ov with meZ95.810 Presence of automatic (implantable) cardiac zwweqqgperfzaF86.10 Atherosclerotic heart disease of [place] coronary artery withG47.30 Sleep apnea, unspecified
== END 2018-08-16 16:41 | disposition left against medical advice (07) ==
LOC: ED 14:46
DX: E16.2 Hypoglycemia, unspecified (principal); R41.0 Disorientation, unspecified; Z53.21 Procedure and treatment not carried out due to patient leaving prior to being seen by health care provider

== ENCOUNTER 2018-10-26 20:27 | Emergency (ER) | payer MEDICARE ==
--- NOTE | 2018-10-26 20:59 | ED ---
Throat Pain/Nasal Congestion - HPI Summary HPI Summary: Pt is an 78 y/o M presenting to the ED brought in by EMS for a chief complaint of epistaxis. Per the pts daughter, she saw his nose bleeding initially at 1830 , EMS picked him up at 1945, and it looks like it stopped as of 2029. He admits that he was picking his nose. He reports associated mild shortness of breath, and he is on Plavix and Aspirin. - History of Current Complaint Chief Complaint: EDBleedingDisorder Time Seen by Provider: 10/26/18 20:38 Hx Obtained From: Patient, Family/Marble Carver - daughter Onset/Duration: Sudden Onset, Lasting Hours, Resolved Severity: Moderate Associated Signs And Symptoms: Positive: Negative - Allergies/Home Medications Allergies/Adverse Reactions: Allergies Allergy/AdvReac Type Severity Reaction Status Date / Time No Known Allergies Allergy Verified 07/10/18 14:45 PMH/Surg Hx/FS Hx/Imm Hx Previously Healthy: Yes Endocrine/Hematology History: Reports: Hx Anticoagulant Therapy - plavix, aspirin, Hx Diabetes, Hx Anemia Cardiovascular History: Reports: Hx Coronary Artery Disease, Hx Hypertension, Hx Peripheral Vascular Disease Denies: Hx Angina, Hx Auto Implanted Cardiovert Defib, Hx Cardiac Arrest, Hx Congestive Heart Failure - no history prior to current admission. current admission CHF dx, Hx Pacemaker/ICD Respiratory History: Reports: Hx Chronic Obstructive Pulmonary Disease (COPD), Hx Pleural Effusion, Hx Sleep Apnea - NO CPAP GI History: Reports: Hx Gall Bladder Disease, Hx Gastroesophageal Reflux Disease , Other GI Disorders - RECENT LIVER ABSCESS Denies: Hx Jaundice History: Reports: Hx Benign Prostatic Hyperplasia, Other Problems/ Disorders - BPH Denies: Hx Renal Disease Musculoskeletal History: Reports: Hx Arthritis, Hx Back Problems, Other Musculoskeletal History - SPINAL STENOSIS, SPONDYLOLITHESIS Sensory History: Reports: Hx Cataracts - surgery both eyes, Hx Contacts or Glasses Denies: Hx Hearing Aid Opthamlomology History: Reports: Hx Cataracts - surgery both eyes, Hx Contacts or Glasses Neurological History: Reports: Other Neuro Impairments/Disorders - PERIPHERAL NEUROPATHY FEET R/T DM, VERTIGO Denies: Hx Headaches, Hx Migraine, Hx Nerve Disease, Hx Seizures, Hx Spinal Cord Injury, Hx Transient Ischemic Attacks (TIA) Psychiatric History: Reports: Hx Anxiety, Hx Depression Denies: Hx Panic Disorder - Surgical History Surgery Procedure, Year, and Place: CATARACTS. EYE - LASER FOR RETINAL DETACHED. ORIF -FOREARM FX- as a child. LIVER DRNG - FOR ABCESS. 05/25/15 LAP CHOLECYSTECMY. 02/16/15 ERCP. TURP - PROSTATE - BPH Hx Anesthesia Reactions: Yes - EMERGENCE DELIRIUM FOLLOWING ERCP 02/21 Infectious Disease History: No Infectious Disease History: Denies: Hx Clostridium Difficile, Hx of Known/Suspected MRSA, Traveled Outside the [place] in Last 30 Days - Family History Known Family History: Negative: Hypertension, Diabetes - Social History Alcohol Use: None Hx Substance Use: No Substance Use Type: Reports: None Substance Use Comment - Amount & Last Used: medical marijuana Hx Tobacco Use: No Smoking Status (MU): Never Smoked Tobacco Have You Smoked in the Last Year: No Review of Systems Positive: Epistaxis Positive: Shortness Of Breath All Other Systems Reviewed And Are Negative: Yes Physical Exam - Summary Physical Exam Summary: Constitutional: Well-developed, Well-nourished, Alert. (-) Distressed Skin: Warm, Dry HENT: Normocephalic; Atraumatic. Mild dry blood on the nasal septum in the L nare with a mild excoriation. Eyes: Conjunctiva slightly pale Neck: Musculoskeletal ROM normal neck. (-) JVD, (-) Stridor, (-) Tracheal deviation Cardio: Rhythm regular, rate normal, Heart sounds normal; Intact distal pulses; The pedal pulses are 2+ and symmetric. Radial pulses are 2+ and symmetric. Pulmonary/Chest wall: Effort normal. Very faint crackles in the bases, L more than R. (-) Respiratory distress, (-) Wheezes, (-) Rales Abd: Soft, (-) tenderness, (-) Distension, (-) Guarding, (-) Rebound Musculoskeletal: (-) Edema Neuro: Alert, Oriented x3 Psych: Mood and affect Normal Triage Information Reviewed: Yes Vital Signs On Initial Exam: Initial Vitals Pulse BP Pulse Ox 65 188/101 100 10/26/18 20:32 10/26/18 20:32 10/26/18 20:32 Vital Signs Reviewed: Yes Diagnostics - Vital Signs Vital Signs Temp Pulse Resp BP Pulse Ox 10/26/18 20:35 98.2 F 65 18 188/100 100 10/26/18 20:32 65 188/101 100 - Laboratory Result Diagrams: 10/26/18 21:20 Lab Statement: Any lab studies that have been ordered have been reviewed, and results considered in the medical decision making process. EENT Course/Dx - Course Course Of Treatment: Pt is an 78 y/o M presenting to the ED brought in by EMS for a chief complaint of epistaxis. Per the pts daughter, she saw his nose bleeding initially at 1830, EMS picked him up at 1945, and it looks like it stopped as of 2029. He admits that he was picking his nose. He reports associated mild shortness of breath, and he is on Plavix and Aspirin. On exam, in the pt's L nare, he has a small excoriation on the septum with some mild dried blood present. His conjunctiva is slightly pale, and there are very faint crackles in the bilateral lung bases, more so on the left. The pts INR is 1.56. It has always been slightly elevated as per his hx, including 1.44 at its highest, so this level may be a contributing factor but it is not critically high to the point where the pt would need to be hospitalized. His Hgb is 10.2, and his Plt is 200, which is better than his baseline. Being that the epistaxis has stopped, he is stable for discharge at this point. The pts dx will be epistaxis, and he is instructed to f/u with his PCP. - Diagnoses Provider Diagnoses: Epistaxis Discharge - Sign-Out/Discharge Documenting (check all that apply): Patient Departure Patient Received Moderate/Deep Sedation with Procedure: No - Discharge Plan Condition: Good Disposition: HOME Patient Education Materials: Nosebleed (ED) Referrals: Addy Quezada MD [Primary Care Provider] - - Billing Disposition and Condition Condition: GOOD Disposition: Home - Attestation Statements Document Initiated by Tieraibhe: Yes Documenting Scribe: Oneyda Swain Provider For Whom Juan Pablo is Documenting (Include Credential): Gautam Anna MD. Scribe Attestation: Oneyda Morfin scribed for Gautam Anna MD. on 10/27/18 at 0503. Scribe Documentation Reviewed: Yes Provider Attestation: The documentation as recorded by the Oneyda chin accurately reflects the service I personally performed and the decisions made by , Gautam Anna MD. Status of Scribe Document: Viewed
[2018-10-26 21:25] LABS: ABS Eosinophils 0.1 10^3/ul (0-0.6); ABS Lymphocytes 0.7 10^3/ul (1.0-4.8); ABS Monocytes 0.8 10^3/ul (0-0.8); Eosinophil % 0.9 %; Hematocrit 31 % (42-52); Hemoglobin 10.2 g/dL (14.0-18.0); Lymphocyte % 10.5 %; Mean Corpuscular HGB Conc 33 g/dL (31-36); Mean Corpuscular Hemoglobin 27 pg (27-31); Mean Corpuscular Volume 82 fL (80-94); Mean Platelet Volume 7.1 fL (7.4-10.4); Platelet Count 203 10^3/uL (150-450); Red Blood Count 3.75 10^6 /uL (4.18-5.48); Red Cell Distribution Width 17 % (10-15); White Blood Count 6.6 10^3/uL (3.5-10.8)
[2018-10-26 21:33] LABS: INR 1.56 (0.82-1.09)
[2018-10-26 21:34] LABS: Activated Partial Thrombo Time 34.3 seconds (26.0-38.0)
[2018-10-26 22:21] VITALS: BP 164/92
== END 2018-10-26 22:20 | disposition home or self-care (01) ==
LOC: ED 20:27
DX: R04.0 Epistaxis (principal); R06.02 Shortness of breath; E11.9 Type 2 diabetes mellitus without complications; Z79.4 Long term (current) use of insulin; I25.10 Atherosclerotic heart disease of native coronary artery without angina pectoris; I10 Essential (primary) hypertension; I73.9 Peripheral vascular disease, unspecified; J44.9 Chronic obstructive pulmonary disease, unspecified; Z79.01 Long term (current) use of anticoagulants; Z79.82 Long term (current) use of aspirin
CPT/HCPCS: 36415; 85025; 85610; 85730; 99282

== ENCOUNTER 2018-12-18 19:59 | Emergency (ER) | payer MEDICARE ==
--- OUTSIDE RECORDS SUMMARY | 2018-12-18 20:10 | XMS REPORT | Continuity of Care Document ---
:1940 External Reference #:[id number] Author Name Sharlene Ortiz NP (transmitted by agent of provider Elana Gallego) Address [address] [place] [id number] Care Team Providers Name Role Phone Addy Quezada MD - Endocrinology, Care Team Information Hospice Chaplain Diabetes & Metabolism Wil Das MD - Care Team Information Hospice Chaplain [phone] Otolaryngology Problems Active Problems Provider Date Obstructive sleep apnea syndrome Tuyet Soares DNP, RN, JEWELRY ENAMELER- Onset: Social History Type Date Description Comments Sex Unknown Tobacco Use Start: Unknown Never Smoked Cigarettes Smoking Status Reviewed: 11/27/18 Never Smoked Cigarettes ETOH Use Rarely consumes alcohol Tobacco Use Start: Unknown Patient has never smoked Recreational Drug Use Denies Drug Use Exercise Type/Frequency Does not exercise Allergies, Adverse Reactions, Alerts Active Allergies Reaction Severity Comments Date Pregabalin Per rehab facility 04/09/2018 Keflex Per rehab facility 04/09/2018 Inactive Allergies NKDA 04/13/2015 Medications Active Medications SIG Qnty Indications Ordering Provider Date Metolazone 1 tab by mouth 6tabs I25.5 Sharlene Ortiz NP 11/12/2018 2.5mg every Friday 30 Tablets minutes before giving Torsemide. K-Tab 2tablets by mouth 90tabs Qutaybeh S. 08/07/2018 10Meq Tablets every day [facility] Compression - ble 2units Sharlene Ortiz NP 06/05/2018 Stockings swelling/edema- Misc below the knee Acetaminophen Take 650 mg by Faith Mata 03/27/2018 325mg mouth every 6 Vásquez, PITCH WORKER Tablets hours as needed for pain Carvedilol take 1.5 tablets 60tabs Sharlene Ortiz NP 03/16/2018 25mg by mouth twice a Tablets day. Torsemide 3 by mouth every Unknown 10mg day Tablets Colace 3 capsules daily Unknown 100mg Capsules Pantoprazole Sodium 1 by mouth every Unknown day 40mg Tablets DR Bupropion HCL ER Take 150 mg by [...] units 100Unit/ML Solution Q PM, as directed Multiple Vitamin Take 1 tablet by Unknown mouth every day Tablets Atorvastatin Take 80 mg by Unknown (Lipitor) mouth at bedtime 80mg Tablets Lisinopril take 1 tablets by 90tabs Sharlene Ortiz NP 10mg mouth every day Tablets History Medications Torsemide 2 by mouth every 180tabs Sharlene Ortiz NP 08/11/2018 - 10mg morning and 1 by 11/04/2018 Tablets mouth every afternoon Immunizations CPT Code Status Date Vaccine Lot # [id number] Given 12/12/2014 Influenza Virus Vaccine, Quadrivalent, Split, Preservative Free Vital Signs Date Vital Result Comment 11/27/2018 2:53pm Weight 179.50 lb Heart Rate 64 /min BP Systolic Sitting 130 mmHg Rue Small BP Diastolic Sitting 78 mmHg Rue Small BP Systolic Standing 132 mmHg Rue Small BP Diastolic Standing 74 mmHg Rue Small 11/12/2018 12:34pm Weight 194.25 lb with clothes/shoes Results Test Date Facility Test Result H/L Range Note Basic Metabolic 11/19/2018 [facility] Sodium 139 mmol/L Normal 135-[address] [place] [address] [phone] Potassium 3.6 mmol/L Normal 3.5-5.0 Chloride 100 mmol/L Low 101-111 Co2 Carbon Dioxide 35 mmol/L High 22-32 Anion Gap 4 mmol/L Normal 2-11 Glucose 101 mg/dL High 70-100 Blood Urea Nitrogen 38 mg/dL High 6-24 Creatinine 1.46 mg/dL High 0.67-1.17 BUN/Creatinine Ratio 26.0 High 8-20 Calcium 8.7 mg/dL Normal 8.6-10.3 Egfr Non- 46.5 >60 Egfr 56.2 >60 1 Laboratory test 11/19/2018 [facility] Magnesium 2.0 mg/dL Normal 1.9-2.7 finding [address] [place] [address] [phone] Basic Metabolic 11/03/2018 [facility] Sodium 137 mmol/L Normal 135-145 Panel [address] [place] [address] [phone] Potassium 4.0 mmol/L Normal 3.5-5.0 Chloride 100 mmol/L Low 101-111 Co2 Carbon Dioxide 33 mmol/L High 22-32 Anion Gap 4 mmol/L Normal 2-11 Glucose 122 mg/dL High 70-100 Blood Urea Nitrogen 35 mg/dL High 6-24 Creatinine 1.65 mg/dL High 0.67-1.17 BUN/Creatinine Ratio 21.2 High 8-20 Calcium 8.8 mg/dL Normal 8.6-10.3 Egfr Non- 40.3 >60 Egfr 48.8 >60 2 Basic Metabolic 07/17/2018 [facility] Sodium 137 mmol/L Normal 135-145 Panel [address] [place] [address] [phone] Potassium 3.8 mmol/L Normal 3.5-5.0 Chloride 101 mmol/L Normal 101-111 Co2 Carbon Dioxide 32 mmol/L Normal 22-32 Anion Gap 4 mmol/L Normal 2-11 Glucose 158 mg/dL High 70-100 Blood Urea Nitrogen 37 mg/dL High 6-24 Creatinine 1.49 mg/dL High 0.67-1.17 BUN/Creatinine Ratio 24.8 High 8-20 Calcium 8.6 mg/dL Normal 8.6-10.3 Egfr Non- 45.5 >60 Egfr 55.0 >60 3 Basic Metabolic 07/13/2018 [facility] Sodium 138 mmol/L Normal 135-145 Panel [address] [place] [address] [phone] Potassium 3.9 mmol/L Normal 3.5-5.0 Chloride 102 mmol/L Normal 101-111 Co2 Carbon Dioxide 31 mmol/L Normal 22-32 Anion Gap 5 mmol/L Normal 2-11 Glucose 176 mg/dL High 70-100 Blood Urea Nitrogen 34 mg/dL High 6-24 Creatinine 1.39 mg/dL High 0.67-1.17 BUN/Creatinine Ratio 24.5 High 8-20 Calcium 8.2 mg/dL Low 8.6-10.3 Egfr Non- 49.3 >60 Egfr 59.6 >60 4 Basic Metabolic 07/08/2018 [facility] Sodium 140 mmol/L Normal 135-145 Panel [address] [place] [address] [phone] Potassium 3.5 mmol/L Normal 3.5-5.0 Chloride 101 mmol/L Normal 101-111 Co2 Carbon Dioxide 33 mmol/L High 22-32 Anion Gap 6 mmol/L Normal 2-11 Glucose 140 mg/dL High 70-100 Blood Urea Nitrogen 38 mg/dL High 6-24 Creatinine 1.51 mg/dL High 0.67-1.17 BUN/Creatinine Ratio 25.2 High 8-20 Calcium 8.6 mg/dL Normal 8.6-10.3 Egfr Non- 44.8 >60 Egfr 54.2 >60 5 Basic Metabolic 07/06/2018 [facility] Sodium 139 mmol/L Normal 135-145 Panel [address] [place] [address] [phone] Potassium 3.4 mmol/L Low 3.5-5.0 Chloride 102 mmol/L Normal 101-111 Co2 Carbon Dioxide 32 mmol/L Normal 22-32 Anion Gap 5 mmol/L Normal 2-11 Glucose 154 mg/dL High 70-100 Blood Urea Nitrogen 37 mg/dL High 6-24 Creatinine 1.43 mg/dL High 0.67-1.17 BUN/Creatinine Ratio 25.9 High 8-20 Calcium 8.7 mg/dL Normal 8.6-10.3 Egfr Non- 47.7 >60 Egfr 57.7 >60 6 Basic Metabolic 06/29/2018 [facility] Sodium 139 mmol/L Normal 135-145 Panel [address] [place] [address] [phone] Potassium 3.6 mmol/L Normal 3.5-5.0 Chloride 103 mmol/L Normal 101-111 Co2 Carbon Dioxide 32 mmol/L Normal 22-32 Anion Gap 4 mmol/L Normal 2-11 Glucose 157 mg/dL High 70-100 Blood Urea Nitrogen 32 mg/dL High 6-24 Creatinine 1.46 mg/dL High 0.67-1.17 BUN/Creatinine Ratio 21.9 High 8-20 Calcium 8.2 mg/dL Low 8.6-10.3 Egfr Non- 46.6 >60 Egfr 56.4 >60 7 Basic Metabolic 06/12/2018 [facility] Sodium 139 mmol/L Normal 135-145 8 Panel [address] [place] [address] [phone] Potassium 3.7 mmol/L Normal 3.5-5.0 Chloride 104 mmol/L Normal 101-111 Co2 Carbon Dioxide 31 mmol/L Normal 22-32 Anion Gap 4 mmol/L Normal 2-11 Glucose 116 mg/dL High 70-100 Blood Urea Nitrogen 31 mg/dL High 6-24 Creatinine 1.34 mg/dL High 0.67-1.17 BUN/Creatinine Ratio 23.1 High 8-20 Calcium 8.4 mg/dL Low 8.6-10.3 Egfr Non- 51.4 >60 Egfr 62.2 >60 9 Basic Metabolic 06/01/2018 [facility] Sodium 135 mmol/L Normal 135-145 Panel [address] [place] [address] [phone] Potassium 3.9 mmol/L Normal 3.5-5.0 Chloride 102 mmol/L Normal 101-111 Co2 Carbon Dioxide 29 mmol/L Normal 22-32 Anion Gap 4 mmol/L Normal 2-11 Glucose 171 mg/dL High 70-100 Blood Urea Nitrogen 28 mg/dL High 6-24 Creatinine 1.47 mg/dL High 0.67-1.17 BUN/Creatinine Ratio 19.0 Normal 8-20 Calcium 8.0 mg/dL Low 8.6-10.3 Egfr Non- 46.2 >60 Egfr 55.9 >60 10 1 Because ethnic data is not always [...] 5 Kidney failure <15 (or dialysis) 7 Because ethnic data is not always [...] 5 Kidney failure <15 (or dialysis) 8 [id number] Because ethnic data is not always [...] (or dialysis) Procedures Date Code Description Status 11/03/2018 39586 ECHO Transthoracic, Real-Time 2D With Doppler And Color Completed Flow 09/11/2018 91914 ECHO Transthoracic, Real-Time 2D With Doppler And Color Completed Flow 09/11/2018 44563 ECHO Transthoracic, Real-Time 2D With Doppler And Color Completed Flow 09/11/2018 67501 Icd Eval With Iterative Adjustmt Multiple Lead System Completed 09/11/2018 60965 Icd Eval With Iterative Adjustmt Multiple Lead System Completed 08/07/2018 33946 Icd Eval With Iterative Adjustmt Multiple Lead System Completed 08/07/2018 47993 Icd Eval With Iterative Adjustmt Multiple Lead System Completed 06/25/2018 84661 Echocardiogram, Limited Study Completed 06/25/2018 71778 Echocardiogram, Limited Study Completed 06/05/2018 11137 EKG Tracing & Interpretation Completed Medical Devices Description No Information Available Encounters Type Date Location Provider Dx Diagnosis Office Visit 11/27/2018 [facility] Sharlene Ortiz, I25.5 Ischemic 3:00p Of [employer] PITCH WORKER cardiomyopathy I34.0 Nonrheumatic mitral (valve) insufficiency N18.3 Chronic kidney disease, stage 3 (moderate) Z95.810 Presence of automatic (implantable) cardiac defibrillator Z79.01 nursing home (current) use of anticoagulants Office Visit 11/12/2018 12:00p [facility] I25.5 Ischemic Cardiology Radhaselma, PITCH WORKER cardiomyopathy I34.0 Nonrheumatic mitral (valve) insufficiency I12.9 Hypertensive chronic kidney disease w stg 1-4/unsp chr kdny I10 Essential (primary) hypertension Office Visit 11/05/2018 2:00p [facility] I25.5 Ischemic Cardiology Thuman, PITCH WORKER cardiomyopathy I34.0 Nonrheumatic mitral (valve) insufficiency I12.9 Hypertensive chronic kidney disease w stg 1-4/unsp chr kdny R53.1 Weakness I25.10 Athscl heart disease of [place] coronary artery w/o ang pctrs Office Visit 10/30/2018 1:00p [facility] I25.5 Ischemic Cardiology Of Thuman, PITCH WORKER cardiomyopathy [employer] Z95.810 Presence of automatic (implantable) cardiac defibrillator I12.9 Hypertensive chronic kidney disease w stg 1-4/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 cardiomyopathy [facility] Z95.810 Presence of automatic (implantable) cardiac defibrillator I10 Essential (primary) hypertension I25.10 Athscl heart disease of [place] coronary artery w/o ang pctrs G47.30 Sleep apnea, unspecified Office Visit 07/10/2018 9:48a [facility] Catalino Arnold R47.01 [facility],avril Abreu M.D.,[facility] Hospital[facility] Office Visit 07/03/2018 2:00p [facility] Sharlene selma, I25.10 Athscl heart Of [facility] PITCH WORKER disease of [place] coronary artery w/o ang pctrs I25.5 Ischemic cardiomyopathy N18.3 Chronic kidney disease, stage 3 (moderate) G47.30 Sleep apnea, unspecified Office Visit 06/05/2018 2:00p [facility] Sharlene uman, I25.10 Athscl heart Of [facility] PITCH WORKER disease of [place] coronary artery w/o ang pctrs I25.5 Ischemic cardiomyopathy N18.3 Chronic kidney disease, stage 3 (moderate) G47.30 Sleep apnea, unspecified Assessments Date Code Description Provider 11/27/2018 I25.5 Ischemic cardiomyopathy Sharlene Thuman, PITCH WORKER 11/27/2018 I34.0 Nonrheumatic mitral (valve) Sharlene Ortiz, PITCH WORKER insufficiency 11/27/2018 N18.3 Chronic kidney disease, stage 3 Sharlene Thselma, PITCH WORKER (moderate) 11/27/2018 Z95.810 Presence of automatic (implantable) Sharlene IAIN Ortiz cardiac defibrillator 11/27/2018 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 Sharlenelouann Ortiz NP anticoagulants 11/12/2018 I25.5 Ischemic cardiomyopathy Sharlene GarciaIAIN hahn 11/12/2018 I34.0 Nonrheumatic mitral (valve) Sharlenelouann Ortiz NP insufficiency 11/12/2018 I12.9 Hypertensive chronic kidney disease Sharlenelouann Ortiz NP with stage 1 through stage 4 chronic kidney disease, or unspecified chronic kidney disease 11/12/2018 I10 Essential (primary) hypertension Sharlenelouann Ortiz NP 11/05/2018 I25.5 Ischemic cardiomyopathy Sharlenelouann Ortiz NP 11/05/2018 I34.0 Nonrheumatic mitral (valve) Sharlenelouann Ortiz NP insufficiency 11/05/2018 I12.9 Hypertensive chronic kidney disease Sharlene Ortiz NP with stage 1 through stage 4 chronic kidney disease, or unspecified chronic kidney disease 11/05/2018 R53.1 Weakness Sharlenelouann Ortiz NP 11/05/2018 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 insufficiency 11/03/2018 I34.0 Nonrheumatic mitral (valve) [facility] insufficiency 11/03/2018 I25.5 Ischemic cardiomyopathy [facility] 1 11/03/2018 Z95.810 Presence of automatic (implantable) [facility] 1 cardiac defibrillator 11/03/2018 I12.9 Hypertensive chronic kidney disease [facility] 1 with stage 1 through stage 4 chronic kidney disease, or unspecified chronic kidney disease 11/03/2018 I25.10 Atherosclerotic heart disease of [facility] 1 [place] coronary artery with 10/30/2018 I25.5 Ischemic cardiomyopathy Sharlenelouann Ortiz NP 10/30/2018 Z95.810 Presence of automatic (implantable) Sharlene OrtizIAIN cardiac defibrillator 10/30/2018 I12.9 Hypertensive chronic kidney disease Sharlenelouann Ortiz NP with stage 1 through stage 4 chronic kidney disease, or unspecified chronic kidney disease 10/30/2018 I25.10 Atherosclerotic heart disease of Sharlene Ortiz NP [place] coronary artery with 10/30/2018 N18.3 Chronic kidney disease, stage 3 Sharlene Ortiz NP (moderate) 10/30/2018 I34.0 Nonrheumatic mitral (valve) Sharlene Ortiz NP insufficiency 09/11/2018 I25.5 Ischemic cardiomyopathy Jeannie Minor M.D. 09/11/2018 I25.5 Ischemic cardiomyopathy Jeannie Minor M.D. 09/11/2018 I25.5 Ischemic cardiomyopathy [facility] Schedule 09/11/2018 Z95.810 Presence of automatic (implantable) Jeannie Minor M.D. cardiac defibrillator 09/11/2018 I25.5 Ischemic cardiomyopathy [facility] Schedule 09/11/2018 Z95.810 Presence of automatic (implantable) [facility] Schedule cardiac defibrillator 09/11/2018 I10 Essential (primary) hypertension [facility] Schedule 09/11/2018 Z95.810 Presence of automatic (implantable) [facility] Pacer Schedule cardiac defibrillator 09/11/2018 I25.10 Atherosclerotic heart disease of [facility] Schedule [place] coronary artery with 09/11/2018 I44.0 Atrioventricular block, first degree [facility] Schedule 08/07/2018 I25.5 Ischemic cardiomyopathy Jeannie Minor M.D. 08/07/2018 Z95.810 Presence of automatic (implantable) Jeannie Minor M.D. cardiac defibrillator 08/07/2018 I25.5 Ischemic cardiomyopathy [facility] Pacer Schedule 08/07/2018 I10 Essential (primary) hypertension Jeannie Minor M.D. 08/07/2018 I25.10 Atherosclerotic heart disease of Jeannie Minor M.D. [place] coronary artery with 08/07/2018 I44.0 Atrioventricular block, first degree [facility] Pacer Schedule 08/07/2018 Z95.810 Presence of automatic (implantable) Jeannie Minor M.D. cardiac defibrillator 08/07/2018 G47.30 Sleep apnea, unspecified Jeannie Minor M.D. 08/07/2018 Z95.810 Presence of automatic (implantable) [facility] Pac[facility] Schedule cardiac defibrillator 07/10/2018 R47.01 Aphasia Catalino Abreu M.D.,FACP 07/03/2018 I25.10 Atherosclerotic heart disease of Sharlene Ortiz IAIN [place] coronary artery with 07/03/2018 I25.5 Ischemic cardiomyopathy Sharlene OrtizIAIN 07/03/2018 N18.3 Chronic kidney disease, stage 3 Sharlenelouann Ortiz NP (moderate) 07/03/2018 G47.30 Sleep apnea, unspecified Sharlenelouann Ortiz NP 06/25/2018 I25.5 Ischemic cardiomyopathy Jeannie Minor M.D. 06/25/2018 I25.5 Ischemic cardiomyopathy [facility] 06/25/2018 I44.4 Left anterior fascicular block [facility] 06/25/2018 I25.10 Atherosclerotic heart disease of [place] [facility] [place] coronary artery with 06/25/2018 I25.2 Old myocardial infarction [facility] 06/25/2018 R94.31 Abnormal electrocardiogram [ECG] [facility] [EKG] 06/05/2018 I44.4 Left anterior fascicular block Jeannie Minor M.D. 06/05/2018 I25.10 Atherosclerotic heart disease of Sharlene OrtizIAIN [place] coronary artery with 06/05/2018 I25.2 Old myocardial infarction Jeannie Minor M.D. 06/05/2018 I25.5 Ischemic cardiomyopathy Sharlene GarciaIAIN hahn 06/05/2018 R94.31 Abnormal electrocardiogram [ECG] Jeannie Minor M.D. [EKG] 06/05/2018 N18.3 Chronic kidney disease, stage 3 Sharlene Ortiz NP (moderate) 06/05/2018 G47.30 Sleep apnea, unspecified Sharlene Ortiz NP Plan of Treatment Future Appointment(s):01/18/2019 3:00 pm - Sharlene Ortiz NP at [facility]02/16/2019 2:00 pm - Jeannie Minor M.D. at [facility]11/27/2018 - Sharlene Ortiz NPI25.5 Ischemic cardiomyopathyFollow up: follow up in 1 months with me (Sharlene Ortiz [facility]-)I34.0 Nonrheumatic mitral ( valve) [id number] Chronic kidney disease, stage 3 (moderate)Z95.810 Presence of automatic (implantable) cardiac uatxngksrdrmkP20.01 termite exterminator ( current) use of anticoagulants Functional Status Description No Information Available Mental Status Description No Information Available Referrals Description No Information Available
--- OUTSIDE RECORDS SUMMARY | 2018-12-18 20:10 | XMS REPORT | Continuity of Care Document ---
:1940 External Reference #:[id number] Author Name Sharlene Ortiz NP (transmitted by agent of provider Felicitas Patiño) Address [address] [place] [id number] Care Team Providers Name Role Phone Addy Quezada MD - Endocrinology, Care Team Information Clinical Laboratory Medical Director Diabetes & Metabolism Wil Das MD - Care Team Information Clinical Laboratory Medical Director [phone] Otolaryngology Problems Active Problems Provider Date Obstructive sleep apnea syndrome Tuyet Soares DNP, RN, URBAN PLANNING PROFESSOR- Onset: Social History Type Date Description Comments Sex Unknown Tobacco Use Start: Unknown Never Smoked Cigarettes Smoking Status Reviewed: 11/05/18 Never Smoked Cigarettes ETOH Use Rarely consumes alcohol Tobacco Use Start: Unknown Patient has never smoked Recreational Drug Use Denies Drug Use Exercise Type/Frequency Does not exercise Allergies, Adverse Reactions, Alerts Active Allergies Reaction Severity Comments Date Pregabalin Per rehab facility 04/09/2018 Keflex Per rehab facility 04/09/2018 Inactive Allergies NKDA 04/13/2015 Medications Active Medications SIG Qnty Indications Ordering Provider Date K-Tab 2tablets by mouth 90tabs Qutaybeh S. 08/07/2018 10Meq Tablets every day Mahogany Minor ER Compression - ble 2units Sharlene Ortiz NP 06/05/2018 Stockings swelling/edema- Misc below the knee Acetaminophen Take 650 mg by Faith Mata 03/27/2018 325mg mouth every 6 Vásquez, ATLASSIAN ADMINISTRATOR Tablets hours as needed for pain Carvedilol take 1.5 tablets 60tabs Sharlene Ortiz NP 03/16/2018 25mg by mouth twice a Tablets day. Torsemide 4 by mouth every Unknown 10mg day Tablets [...] mg po Unknown 30mg twice daily Basaglar Bethelpen Inject 7 units SQ Unknown Q Am [...] 1 by 11/04/2018 Tablets mouth every afternoon Torsemide take 1 by mouth 30tabs Najma Lou 05/22/2018 - 10mg daily N.P. 06/22/2018 Tablets Lasix 1 by mouth every 30tabs Jeannie Salomon 05/19/2018 - 20mg Tablets day Mahogany Minor 05/22/2018 Immunizations CPT Code Status Date Vaccine Lot # [id number] Given 12/12/2014 Influenza Virus Vaccine, Quadrivalent, Split, Preservative Free Vital Signs Date Vital Result Comment 11/05/2018 1:48pm Height 68 inches 5'8" Weight 194.50 lb with clothing and shoes Heart Rate 62 /min right radial BP Systolic Sitting 156 mmHg ule reg cuff BP Diastolic Sitting 80 mmHg ule reg cuff BMI (Body Mass Index) 29.6 kg/m2 Ejection Fraction 30-35% Echocardiogram 11/03/2018 10/30/2018 12:55pm Height 68 inches 5'8" Weight 184.00 lb with shoes Heart Rate 60 /min BP Systolic 140 mmHg Sitting, rechecked BP Diastolic 72 mmHg Sitting, rechecked BP Systolic Sitting 140 mmHg Patient in [facility] BP Diastolic Sitting 80 [facility] BMI (Body Mass Index) 28.0 kg/m2 Results Test Date Facility Test Result H/L Range Note Basic Metabolic 11/03/2018 [facility] Sodium 140 mmol/L Normal 135-145 [address] [place] [address] [phone] Potassium 3.7 mmol/L Normal 3.5-5.0 Chloride 102 mmol/L Normal 101-111 Co2 Carbon Dioxide 32 mmol/L Normal 22-32 Anion Gap 6 mmol/L Normal 2-11 Glucose 87 mg/dL Normal 70-100 Blood Urea Nitrogen 39 mg/dL High 6-24 Creatinine 1.56 mg/dL High 0.67-1.17 BUN/Creatinine Ratio 25.0 High 8-20 Calcium 8.8 mg/dL Normal 8.6-10.3 Egfr Non- 43.0 >60 Egfr 52.1 >60 1 Basic Metabolic 07/17/2018 [facility] Sodium 137 mmol/L Normal 135-145 [address] [place] [address] [phone] Potassium 3.8 mmol/L Normal 3.5-5.0 Chloride 101 mmol/L Normal 101-111 Co2 Carbon Dioxide 32 mmol/L Normal 22-32 Anion Gap 4 mmol/L Normal 2-11 Glucose 158 mg/dL High 70-100 Blood Urea Nitrogen 37 mg/dL High 6-24 Creatinine 1.49 mg/dL High 0.67-1.17 BUN/Creatinine Ratio 24.8 High 8-20 Calcium 8.6 mg/dL Normal 8.6-10.3 Egfr Non- 45.5 >60 Egfr 55.0 >60 2 Basic Metabolic 07/13/2018 [facility] Sodium 138 mmol/L Normal 135-145 [address] [place] [address] [phone] Potassium 3.9 mmol/L Normal 3.5-5.0 Chloride 102 mmol/L Normal 101-111 Co2 Carbon Dioxide 31 mmol/L Normal 22-32 Anion Gap 5 mmol/L Normal 2-11 Glucose 176 mg/dL High 70-100 Blood Urea Nitrogen 34 mg/dL High 6-24 Creatinine 1.39 mg/dL High 0.67-1.17 BUN/Creatinine Ratio 24.5 High 8-20 Calcium 8.2 mg/dL Low 8.6-10.3 Egfr Non- 49.3 >60 Egfr 59.6 >60 3 Basic Metabolic 07/08/2018 [facility] Sodium 140 mmol/L Normal 135-145 [address] [place] [address] [phone] Potassium 3.5 mmol/L Normal 3.5-5.0 Chloride 101 mmol/L Normal 101-111 Co2 Carbon Dioxide 33 mmol/L High 22-32 Anion Gap 6 mmol/L Normal 2-11 Glucose 140 mg/dL High 70-100 Blood Urea Nitrogen 38 mg/dL High 6-24 Creatinine 1.51 mg/dL High 0.67-1.17 BUN/Creatinine Ratio 25.2 High 8-20 Calcium 8.6 mg/dL Normal 8.6-10.3 Egfr Non- 44.8 >60 Egfr 54.2 >60 4 Basic Metabolic 07/06/2018 [facility] Sodium 139 mmol/L Normal 135-145 [address] [place] [address] [phone] Potassium 3.4 mmol/L Low 3.5-5.0 Chloride 102 mmol/L Normal 101-111 Co2 Carbon Dioxide 32 mmol/L Normal 22-32 Anion Gap 5 mmol/L Normal 2-11 Glucose 154 mg/dL High 70-100 Blood Urea Nitrogen 37 mg/dL High 6-24 Creatinine 1.43 mg/dL High 0.67-1.17 BUN/Creatinine Ratio 25.9 High 8-20 Calcium 8.7 mg/dL Normal 8.6-10.3 Egfr Non- 47.7 >60 Egfr 57.7 >60 5 Basic Metabolic 06/29/2018 [facility] Sodium 139 mmol/L Normal 135-145 [address] [place] [address] [phone] Potassium 3.6 mmol/L Normal 3.5-5.0 Chloride 103 mmol/L Normal 101-111 Co2 Carbon Dioxide 32 mmol/L Normal 22-32 Anion Gap 4 mmol/L Normal 2-11 Glucose 157 mg/dL High 70-100 Blood Urea Nitrogen 32 mg/dL High 6-24 Creatinine 1.46 mg/dL High 0.67-1.17 BUN/Creatinine Ratio 21.9 High 8-20 Calcium 8.2 mg/dL Low 8.6-10.3 Egfr Non- 46.6 >60 Egfr 56.4 >60 6 Basic Metabolic 06/12/2018 [facility] Sodium 139 mmol/L Normal 135-145 7 [address] [place] [address] [phone] Potassium 3.7 mmol/L Normal 3.5-5.0 Chloride 104 mmol/L Normal 101-111 Co2 Carbon Dioxide 31 mmol/L Normal 22-32 Anion Gap 4 mmol/L Normal 2-11 Glucose 116 mg/dL High 70-100 Blood Urea Nitrogen 31 mg/dL High 6-24 Creatinine 1.34 mg/dL High 0.67-1.17 BUN/Creatinine Ratio 23.1 High 8-20 Calcium 8.4 mg/dL Low 8.6-10.3 Egfr Non- 51.4 >60 Egfr 62.2 >60 8 Basic Metabolic 06/01/2018 [facility] Sodium 135 mmol/L Normal 135-145 [address] [place] [address] [phone] Potassium 3.9 mmol/L Normal 3.5-5.0 Chloride 102 mmol/L Normal 101-111 Co2 Carbon Dioxide 29 mmol/L Normal 22-32 Anion Gap 4 mmol/L Normal 2-11 Glucose 171 mg/dL High 70-100 Blood Urea Nitrogen 28 mg/dL High 6-24 Creatinine 1.47 mg/dL High 0.67-1.17 BUN/Creatinine Ratio 19.0 Normal 8-20 Calcium 8.0 mg/dL Low 8.6-10.3 Egfr Non- 46.2 >60 Egfr 55.9 >60 9 Basic Metabolic 05/22/2018 [facility] Sodium 137 mmol/L Normal 135-145 [address] [place] [address] [phone] Potassium 4.1 mmol/L Normal 3.5-5.0 Chloride 106 mmol/L Normal 101-111 Co2 Carbon Dioxide 25 mmol/L Normal 22-32 Anion Gap 6 mmol/L Normal 2-11 Glucose 84 mg/dL Normal 70-100 Blood Urea Nitrogen 36 mg/dL High 6-24 Creatinine 1.35 mg/dL High 0.67-1.17 BUN/Creatinine Ratio 26.7 High 8-20 Calcium 8.5 mg/dL Low 8.6-10.3 Egfr Non- 51.0 >60 Egfr 61.7 >60 10 Urinalysis Profile 05/12/2018 [facility] Urine Color Yellow [address] [place] [address] [phone] Urine Appearance Clear Urine Specific [place] 1.012 Normal 1.010-1.030 Urine pH 6.0 Normal 5-9 Urine Urobilinogen Negative Negative Urine Ketones Negative Negative Urine Protein Negative Negative Urine Leukocytes Negative Negative Urine Blood Negative Negative * * Abnormal Negative 11 Urine Nitrite Negative Negative Urine Bilirubin Negative Negative Urine Glucose Negative Negative Laboratory test 05/12/2018 [facility] C Reactive 5.57 mg/L Normal <8.[address] [address] [phone] CBC Auto Diff 05/12/2018 [facility] White Blood 5.6 Normal 3.5 -10.[address] Count 10^3/[place] [address] [phone] Red Blood Count 3.75 10^6/uL Low 4.00-5.40 Hemoglobin 10.9 g/dL Low 14.0-18.0 Hematocrit 32 % Low 42-52 Mean Corpuscular Volume 85 fL Normal 80-94 Mean Corpuscular Hemoglobin 29 pg Normal 27-31 Mean Corpuscular HGB Conc 34 g/dL Normal 31-36 Red Cell Distribution Width 15 % Normal 10.5-15 Platelet Count 180 10^3/uL Normal 150-450 Mean Platelet Volume 7.7 fL Normal 7.4-10.4 Abs Neutrophils 4.0 10^3/uL Normal 1.5-7.7 Abs Lymphocytes 0.9 10^3/uL Low 1.0-4.8 Abs Monocytes 0.6 10^3/uL Normal 0-0.8 Abs Eosinophils 0.1 10^3/uL Normal 0-0.6 Abs Basophils 0 10^3/uL Normal 0-0.2 Abs Nucleated RBC 0 10^3/uL Granulocyte % 71.3 % Lymphocyte % 16.1 % Monocyte % 10.6 % Eosinophil % 1.5 % Basophil % 0.5 % Nucleated Red Blood Cells % 0 Basic Metabolic 05/12/2018 [facility] Sodium 135 mmol/L Normal 135-145 [address] [place] [address] [phone] Potassium 4.9 mmol/L Normal 3.5-5.0 Chloride 104 mmol/L Normal 101-111 Co2 Carbon Dioxide 22 mmol/L Normal 22-32 Anion Gap 9 mmol/L Normal 2-11 Glucose 136 mg/dL High 70-100 Blood Urea Nitrogen 47 mg/dL High 6-24 Creatinine 1.48 mg/dL High 0.67-1.17 BUN/Creatinine Ratio 31.8 High 8-20 Calcium 8.6 mg/dL Normal 8.6-10.3 Egfr Non- 45.8 >60 Egfr 55.5 >60 12 Basic Metabolic 05/09/2018 [facility] Sodium 134 mmol/L Low 135-145 Panel [address] [place] [address] [phone] Potassium 4.8 mmol/L Normal 3.5-5.0 Chloride 103 mmol/L Normal 101-111 Co2 Carbon Dioxide 26 mmol/L Normal 22-32 Anion Gap 5 mmol/L Normal 2-11 Glucose 137 mg/dL High 70-100 Blood Urea Nitrogen 51 mg/dL High 6-24 Creatinine 1.63 mg/dL High 0.67-1.17 BUN/Creatinine Ratio 31.3 High 8-20 Calcium 8.7 mg/dL Normal 8.6-10.3 Egfr Non- 41.0 >60 Egfr 49.6 >60 13 1 Because ethnic data is not always [...] 5 Kidney failure <15 (or dialysis) 7 [id number] Because ethnic data is not always [...] dialysis) Procedures Date Code Description Status 11/03/2018 17331 ECHO Transthoracic, Real-Time 2D With Doppler And Color Completed Flow 09/11/2018 43025 ECHO Transthoracic, Real-Time 2D With Doppler And Color Completed Flow 09/11/2018 34874 ECHO Transthoracic, Real-Time 2D With Doppler And Color Completed Flow 09/11/2018 60529 Icd Eval With Iterative Adjustmt Multiple Lead System Completed 09/11/2018 17689 Icd Eval With Iterative Adjustmt Multiple Lead System Completed 08/07/2018 15249 Icd Eval With Iterative Adjustmt Multiple Lead System Completed 08/07/2018 12335 Icd Eval With Iterative Adjustmt Multiple Lead System Completed 06/25/2018 34446 Echocardiogram, Limited Study Completed 06/25/2018 96850 Echocardiogram, Limited Study Completed 06/05/2018 29195 EKG Tracing & Interpretation Completed 05/18/2018 29132 Polysomnography Sleep Staging 4+ Parameters Completed 05/12/2018 86379 Echocardiogram, Limited Study Completed 05/12/2018 63347 Echocardiogram, Limited Study Completed Medical Devices Description No Information Available Encounters Type Date Location Provider Dx Diagnosis [facility] 2:00p ATLASSIAN ADMINISTRATOR cardiomyopathy I34.0 Nonrheumatic mitral (valve) insufficiency I12.9 Hypertensive chronic kidney disease w stg 1-4/unsp chr kdny R53.1 Weakness I25.10 Athscl heart disease of [place] coronary artery w/o ang pctrs Office [facility] 10/30[facility]2018 [facility], ATLASSIAN ADMINISTRATOR cardiomyopathy [employer] 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 cardiomyopathy [employer] Z95.810 Presence of automatic (implantable) cardiac defibrillator I10 Essential (primary) hypertension I25.10 Athscl heart disease of [place] coronary artery w/o ang pctrs G47.30 Sleep apnea, unspecified Office Visit 07/10/2018 9:48a [facility] Catalino Arnold R47.01 [facility],avril Abreu M.D.,FACP Hospitalists Office Visit 07/03/2018 2:00p [facility], I25.10 Athscl heart Of [facility] ATLASSIAN ADMINISTRATOR disease of [place] coronary artery w/o ang pctrs I25.5 Ischemic cardiomyopathy N18.3 Chronic kidney disease, stage 3 (moderate) G47.30 Sleep apnea, unspecified Office Visit 06/05/2018 2:00p [place] [facility] Sharlene Ortiz, I25.10 Athscl heart Of [facility] ATLASSIAN ADMINISTRATOR disease of [place] coronary artery w/o ang pctrs I25.5 Ischemic cardiomyopathy N18.3 Chronic kidney disease, stage 3 (moderate) G47.30 Sleep apnea, unspecified Office Visit 05/22/2018 3:00p [place] Najma Salomon I25.5 Ischemic Cardiology Of Сергей Lou cardiomyopathy [facility] I25.10 Athscl heart disease of [place] coronary artery w/o ang pctrs N18.3 Chronic kidney disease, stage 3 (moderate) G47.30 Sleep apnea, unspecified Assessments Date Code Description Provider 11/05/2018 I25.5 Ischemic cardiomyopathy Sharlene Ortiz NP 11/05/2018 I34.0 Nonrheumatic mitral (valve) Sharlene Ortiz NP insufficiency 11/05/2018 I12.9 Hypertensive chronic kidney disease Sharlene Ortiz NP with stage 1 through stage 4 chronic kidney disease, or unspecified chronic kidney disease 11/05/2018 R53.1 Weakness Sharlene Ortiz NP 11/05/2018 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 11/03/2018 I34.0 [...] Atherosclerotic heart disease of [facility] ECHO 1 [place] coronary artery with 10/30/2018 I25.5 Ischemic cardiomyopathy Sharlene Ortiz NP 10/30/2018 Z95.810 Presence of automatic (implantable) Sharlene Ortiz NP cardiac defibrillator 10/30/2018 I12.9 Hypertensive chronic kidney disease Sharlene Ortiz NP with stage 1 through stage 4 chronic kidney disease, or unspecified chronic kidney disease 10/30/2018 I25.10 Atherosclerotic heart disease of Sharlene Ortiz NP [place] coronary artery with 10/30/2018 N18.3 Chronic kidney [...] Atherosclerotic heart disease of [place] ECHO Schedule [place] coronary artery with 09/11/2018 I44.0 Atrioventricular block, first degree [place] [facility] Schedule 08/07/2018 I25.5 Ischemic cardiomyopathy Jeannie Minor M.D. 08/07/2018 Z95.810 Presence of automatic (implantable) Jeannie Minor M.D. cardiac defibrillator 08/07/2018 I25.5 Ischemic cardiomyopathy [facility] Pacer Schedule 08/07/2018 I10 Essential (primary) hypertension Jeannie Minor M.D. 08/07/2018 I25.10 Atherosclerotic heart disease of Jeannie Minor M.D. [place] coronary artery with 08/07/2018 I44.0 Atrioventricular block, first degree [place] Pacer Schedule 08/07/2018 Z95.810 Presence of automatic (implantable) Jeannie Minor M.D. cardiac defibrillator 08/07/2018 G47.30 Sleep apnea, unspecified Jeannie Minor M.D. 08/07/2018 Z95.810 Presence of automatic (implantable) [place] Pacer Schedule cardiac defibrillator 07/10/2018 R47.01 Aphasia Catalino Abreu M.D.,FACP 07/03/2018 I25.10 Atherosclerotic heart disease of Sharlene Ortiz NP [place] coronary artery with 07/03/2018 I25.5 Ischemic cardiomyopathy Sharlene Ortiz ATLASSIAN ADMINISTRATOR 07/03/2018 N18.3 Chronic kidney disease, stage 3 Sharlene Ortiz ATLASSIAN ADMINISTRATOR (moderate) 07/03/2018 G47.30 Sleep apnea, unspecified Sharlene Ortiz, ATLASSIAN ADMINISTRATOR 06/25/2018 I25.5 Ischemic cardiomyopathy Jeannie Minor M.D. 06/25/2018 I25.5 Ischemic cardiomyopathy [place] [facility] Schedule 06/25/2018 I44.4 Left anterior fascicular block [place] [facility] Schedule 06/25/2018 I25.10 Atherosclerotic heart disease of [place] [facility] Schedule [place] coronary artery with 06/25/2018 I25.2 Old myocardial infarction [place] [facility] Schedule 06/25/2018 R94.31 Abnormal electrocardiogram [ECG] [place] [facility] Schedule [EKG] 06/05/2018 I44.4 Left anterior fascicular block Jeannie Minor M.D. 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 06/05/2018 I25.5 Ischemic cardiomyopathy Sharlene Ortiz NP 06/05/2018 R94.31 Abnormal electrocardiogram [ECG] Jeannie Minor M.D. [EKG] 06/05/2018 N18.3 Chronic kidney disease, stage 3 Sharlene Ortiz ATLASSIAN ADMINISTRATOR (moderate) 06/05/2018 G47.30 Sleep apnea, unspecified Sharlene Ortiz, ATLASSIAN ADMINISTRATOR 05/22/2018 I25.5 Ischemic cardiomyopathy Najma Lou, N.P. 05/22/2018 I25.10 Atherosclerotic heart disease of Najma Lou, N.P. [place] coronary artery with 05/22/2018 N18.3 Chronic kidney disease, stage 3 Najma S. Carmine, N.P. (moderate) 05/22/2018 G47.30 Sleep apnea, unspecified Najma Lou, N.P. 05/18/2018 G47.33 Obstructive sleep apnea (adult) Angelica Martinez MD (pediatric) 05/12/2018 I25.5 Ischemic cardiomyopathy Jeannie Minor M.D. 05/12/2018 I25.5 Ischemic cardiomyopathy [place] [facility] 1 05/12/2018 I25.10 Atherosclerotic heart disease of Travel[facility] ECHO 1 [place] coronary artery with Plan of Treatment Future Appointment(s):11/12/2018 12:00 pm - Sharlene Ortiz NP at [facility]11/05/2018 - Sharlene Ortiz NPI25.5 Ischemic cardiomyopathyFollow up: follow up with ok Sharlene PIERSON-MISHA in 1.5 weeks. Follow up with Dr. Minor in 3-4 months.Recommendations:Please increase Coreg to 1.5 tablets in the morning and 2 tablets at night. This will equal 37.5mg in the morning and 50mg at apafzM39.0 Nonrheumatic mitral (valve) emfcixjmothqsV94.9 Hypertensive chronic kidney disease with stage 1 through stage 4 chronic kidney disease, or unspecified chronic kidney diseaseNew Labs:Basic Metabolic Panel, Ordered: 11/05R53.1 LrkobhpmR97.10 Atherosclerotic heart disease of [place] coronary artery without angina pectorisRecommendations:Continue Plavix. Functional Status Description No Information Available Mental Status Description No Information Available Referrals Refer to Reason for Referral Status Appt Date Jeronimo Oneal MD Sent [address] [place] [id number] [phone] Closed
--- OUTSIDE RECORDS SUMMARY | 2018-12-18 20:10 | XMS REPORT | Continuity of Care Document ---
:1940 External Reference #:[id number] Author Name Haroon Oropeza, OD Address [address] [place] [address] Care Team Providers Name Role Phone Addy Quezada MD - Internal Medicine Care Team Information Line Locator Problems Active Problems Provider Date Type 2 diabetes mellitus Haroon Oropeza, OD Onset: 10/30/2018 Social History Type Date Description Comments Sex Unknown ETOH Use Denies alcohol use Tobacco Use Start: Unknown Patient has never smoked Smoking Status Reviewed: 11/17/18 Patient has never smoked Allergies, Adverse Reactions, Alerts Description No Known Drug Allergies Medications Active Medications SIG Qnty Indications Ordering Date Provider Neomycin/Polymyxin/Dex apply 1/4 inch 3.500gm Haroon Oropeza, 10/30/2018 amethasone ribbon to left OD 3.5-53616-0.1 outer eyelids Ointment tid x 1 week, then d/c Metolazone Unknown 2.5mg Tablets Basaglar Kwikpen Unknown 100Unit/ML Solution Pen-Inject Miralax Unknown 3350NF Packet Multivitamin Adult Unknown Tablets Klor-Con 10 2 tablets a day Unknown 10Meq Tablets ER Cymbalta Unknown 30mg Caps DR Renetta Bradford Unknown 100mg Capsules Aspirin 81 Low Dose Unknown 81mg Chewtabs Atorvastatin Calcium Take 1 Tablet By Unknown 80mg Mouth Every Day Tablets Bupropion Giovanni Patton, Hydrochloride ER (XL) PATIENT SERVICE ASSOCIATE 150mg Tablets ER 24HR Carvedilol 2- 25 mgs QHS Addy Quezada MD 25mg Tablets Clopidogrel Bisulfate Giovanni Patton, PATIENT SERVICE ASSOCIATE 75mg Tablets Lisinopril Take 1 Tablet By Unknown 10mg Tablets Mouth Every Day Pantoprazole Sodium Giovanni Patton, 40mg PATIENT SERVICE ASSOCIATE Tablets DR Torsemide 3 tablets a day Unknown 10mg Tablets Trazodone HCL Addy Quezada MD 50mg Tablets Immunizations Description No Information Available Vital Signs Date Vital Result Comment 10/30/2018 12:29pm Intraocular Pressure Right Eye 18 mmHg Intraocular Pressure Left Eye 18 mmHg Results Description No Information Available Procedures Description No Information Available Medical Devices Description No Information Available Encounters Type Date Location Provider Dx Diagnosis Office Visit 10/30/2018 Main Office Haroon Oropeza, OD Z96.1 Presence of 11:30a intraocular lens 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, upper and lower eyelids Assessments Date Code Description Provider 11/17/2018 E11.3293 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, 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, bilateral 11/17/2018 Z96.1 Presence of intraocular lens Haroon Oropeza, OD 10/30/2018 Z96.1 Presence of intraocular lens Haroon Oropeza, OD 10/30/2018 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
--- OUTSIDE RECORDS SUMMARY | 2018-12-18 20:10 | XMS REPORT | Continuity of Care Document ---
:1940 External Reference #:[id number] Author Name Sharlene Ortiz NP (transmitted by agent of provider Elana Gallego) Address [address] [place] [id number] Care Team Providers Name Role Phone Addy Quezada MD - Endocrinology, Care Team Information Medical Oncologist Diabetes & Metabolism Wil Das MD - Care Team Information Medical Oncologist [phone] Otolaryngology Problems Active Problems Provider Date Obstructive sleep apnea syndrome Tuyet Soares DNP, RN, LCSW- Onset: Social History Type Date Description Comments [...] Mata 03/27/2018 325mg mouth every 6 Vásquez, RECRUITING ASSOCIATE Tablets hours as needed for pain Carvedilol [...] CPT Code Status Date Vaccine Lot # [id number] Given 12/12/2014 Influenza Virus Vaccine, Quadrivalent, Split, [...] Result H/L Range Note Basic Metabolic 11/19/2018 [facility] Sodium 139 mmol/L Normal 135-[address] [place] [address] [phone] Potassium 3.6 mmol/L Normal 3.5-5.0 Chloride 100 mmol/L Low 101-111 Co2 Carbon Dioxide 35 mmol/L High 22-32 Anion Gap 4 mmol/L Normal 2-11 Glucose 101 mg/dL High 70-100 Blood Urea Nitrogen 38 mg/dL High 6-24 Creatinine 1.46 mg/dL High 0.67-1.17 BUN/Creatinine Ratio 26.0 High 8-20 Calcium 8.7 mg/dL Normal 8.6-10.3 Egfr Non- 46.5 >60 Egfr 56.2 >60 1 Laboratory test 11/19/2018 [facility] Magnesium 2.0 mg/dL Normal 1.9-2.7 finding [address] [place] [address] [phone] Basic Metabolic 11/03/2018 [facility] Sodium 137 mmol/L Normal 135-145 Panel [address] [place] [address] [phone] Potassium 4.0 mmol/L Normal 3.5-5.0 Chloride 100 mmol/L Low 101-111 Co2 Carbon Dioxide 33 mmol/L High 22-32 Anion Gap 4 mmol/L Normal 2-11 Glucose 122 mg/dL High 70-100 Blood Urea Nitrogen 35 mg/dL High 6-24 Creatinine 1.65 mg/dL High 0.67-1.17 BUN/Creatinine Ratio 21.2 High 8-20 Calcium 8.8 mg/dL Normal 8.6-10.3 Egfr Non- 40.3 >60 Egfr 48.8 >60 2 Basic Metabolic 07/17/2018 [facility] Sodium 137 mmol/L Normal 135-145 Panel [address] [place] [address] [phone] Potassium 3.8 mmol/L Normal 3.5-5.0 Chloride 101 mmol/L Normal 101-111 Co2 Carbon Dioxide 32 mmol/L Normal 22-32 Anion Gap 4 mmol/L Normal 2-11 Glucose 158 mg/dL High 70-100 Blood Urea Nitrogen 37 mg/dL High 6-24 Creatinine 1.49 mg/dL High 0.67-1.17 BUN/Creatinine Ratio 24.8 High 8-20 Calcium 8.6 mg/dL Normal 8.6-10.3 Egfr Non- 45.5 >60 Egfr 55.0 >60 3 Basic Metabolic 07/13/2018 [facility] Sodium 138 mmol/L Normal 135-145 Panel [address] [place] [address] [phone] Potassium 3.9 mmol/L Normal 3.5-5.0 Chloride 102 mmol/L Normal 101-111 Co2 Carbon Dioxide 31 mmol/L Normal 22-32 Anion Gap 5 mmol/L Normal 2-11 Glucose 176 mg/dL High 70-100 Blood Urea Nitrogen 34 mg/dL High 6-24 Creatinine 1.39 mg/dL High 0.67-1.17 BUN/Creatinine Ratio 24.5 High 8-20 Calcium 8.2 mg/dL Low 8.6-10.3 Egfr Non- 49.3 >60 Egfr 59.6 >60 4 Basic Metabolic 07/08/2018 [facility] Sodium 140 mmol/L Normal 135-145 Panel [address] [place] [address] [phone] Potassium 3.5 mmol/L Normal 3.5-5.0 Chloride 101 mmol/L Normal 101-111 Co2 Carbon Dioxide 33 mmol/L High 22-32 Anion Gap 6 mmol/L Normal 2-11 Glucose 140 mg/dL High 70-100 Blood Urea Nitrogen 38 mg/dL High 6-24 Creatinine 1.51 mg/dL High 0.67-1.17 BUN/Creatinine Ratio 25.2 High 8-20 Calcium 8.6 mg/dL Normal 8.6-10.3 Egfr Non- 44.8 >60 Egfr 54.2 >60 5 Basic Metabolic 07/06/2018 [facility] Sodium 139 mmol/L Normal 135-145 Panel [address] [place] [address] [phone] Potassium 3.4 mmol/L Low 3.5-5.0 Chloride 102 mmol/L Normal 101-111 Co2 Carbon Dioxide 32 mmol/L Normal 22-32 Anion Gap 5 mmol/L Normal 2-11 Glucose 154 mg/dL High 70-100 Blood Urea Nitrogen 37 mg/dL High 6-24 Creatinine 1.43 mg/dL High 0.67-1.17 BUN/Creatinine Ratio 25.9 High 8-20 Calcium 8.7 mg/dL Normal 8.6-10.3 Egfr Non- 47.7 >60 Egfr 57.7 >60 6 Basic Metabolic 06/29/2018 [facility] Sodium 139 mmol/L Normal 135-145 Panel [address] [place] [address] [phone] Potassium 3.6 mmol/L Normal 3.5-5.0 Chloride 103 mmol/L Normal 101-111 Co2 Carbon Dioxide 32 mmol/L Normal 22-32 Anion Gap 4 mmol/L Normal 2-11 Glucose 157 mg/dL High 70-100 Blood Urea Nitrogen 32 mg/dL High 6-24 Creatinine 1.46 mg/dL High 0.67-1.17 BUN/Creatinine Ratio 21.9 High 8-20 Calcium 8.2 mg/dL Low 8.6-10.3 Egfr Non- 46.6 >60 Egfr 56.4 >60 7 Basic Metabolic 06/12/2018 [facility] Sodium 139 mmol/L Normal 135-145 8 Panel [address] [place] [address] [phone] Potassium 3.7 mmol/L Normal 3.5-5.0 Chloride 104 mmol/L Normal 101-111 Co2 Carbon Dioxide 31 mmol/L Normal 22-32 Anion Gap 4 mmol/L Normal 2-11 Glucose 116 mg/dL High 70-100 Blood Urea Nitrogen 31 mg/dL High 6-24 Creatinine 1.34 mg/dL High 0.67-1.17 BUN/Creatinine Ratio 23.1 High 8-20 Calcium 8.4 mg/dL Low 8.6-10.3 Egfr Non- 51.4 >60 Egfr 62.2 >60 9 Basic Metabolic 06/01/2018 [facility] Sodium 135 mmol/L Normal 135-145 Panel [address] [place] [address] [phone] Potassium 3.9 mmol/L Normal 3.5-5.0 Chloride 102 [...] 5 Kidney failure <15 (or dialysis) 8 [id number] Because ethnic data is not always [...] dialysis) Procedures Date Code Description Status 11/03/2018 37972 ECHO Transthoracic, Real-Time 2D With Doppler And Color Completed Flow 09/11/2018 83175 ECHO Transthoracic, Real-Time 2D With Doppler And Color Completed Flow 09/11/2018 90516 ECHO Transthoracic, Real-Time 2D With Doppler And Color Completed Flow 09/11/2018 45987 Icd Eval With Iterative Adjustmt Multiple Lead System Completed 09/11/2018 28538 Icd Eval With Iterative Adjustmt Multiple Lead System Completed 08/07/2018 36624 Icd Eval With Iterative Adjustmt Multiple Lead System Completed 08/07/2018 86972 Icd Eval With Iterative Adjustmt Multiple Lead System Completed 06/25/2018 72143 Echocardiogram, Limited Study Completed 06/25/2018 68990 Echocardiogram, Limited Study Completed 06/05/2018 64105 EKG Tracing & Interpretation Completed Medical Devices Description No Information Available Encounters Type Date Location Provider Dx Diagnosis Office Visit 11/27/2018 [facility] Sharlene Ortiz, I25.5 Ischemic 3:00p Of Success Coach RECRUITING ASSOCIATE cardiomyopathy I34.0 Nonrheumatic mitral (valve) insufficiency N18.3 Chronic kidney disease, stage 3 (moderate) Z95.810 Presence of automatic (implantable) cardiac defibrillator Z79.01 snf (current) use of anticoagulants Office Visit 11/12/2018 12:00p Ciarra Su I25.5 Ischemic Cardiology Radhaselma, RECRUITING ASSOCIATE cardiomyopathy I34.0 Nonrheumatic mitral (valve) insufficiency I12.9 Hypertensive chronic kidney disease w stg 1-4/unsp chr kdny I10 Essential (primary) hypertension Office Visit 11/05/2018 2:00p [facility] Su I25.5 Ischemic Cardiology Thuman, RECRUITING ASSOCIATE cardiomyopathy I34.0 Nonrheumatic mitral (valve) insufficiency I12.9 Hypertensive chronic kidney disease w stg 1-4/unsp chr kdny R53.1 Weakness I25.10 Athscl heart disease of [place] coronary artery w/o ang pctrs Office Visit 10/30/2018 1:00p [facility] I25.5 Ischemic Cardiology Of Thuman, RECRUITING ASSOCIATE cardiomyopathy [employer] Z95.810 Presence of automatic (implantable) cardiac defibrillator I12.9 Hypertensive chronic kidney disease w stg 1-4/unsp chr kdny I25.10 Athscl heart disease of [place] coronary artery w/o ang pctrs N18.3 Chronic kidney disease, stage 3 (moderate) I34.0 Nonrheumatic mitral (valve) insufficiency Office Visit 08/07/2018 [place] Jeannie Salomon I25.5 Ischemic 4:00p Cardiology Cristina Minor M.D. cardiomyopathy [facility] Z95.810 Presence of automatic (implantable) cardiac defibrillator I10 Essential (primary) hypertension I25.10 Athscl heart disease of [place] coronary artery w/o ang pctrs G47.30 Sleep apnea, unspecified Office Visit 07/10/2018 9:48a [facility] Catalino Arnold R47.01 Aphasia Assoc,avril Abreu M.D.,[facility] Hospitalists Office Visit 07/03/2018 2:00p [facility] Sharlene selma, I25.10 Athscl heart Of [facility] RECRUITING ASSOCIATE disease of [place] coronary artery w/o ang pctrs I25.5 Ischemic cardiomyopathy N18.3 Chronic kidney disease, stage 3 (moderate) G47.30 Sleep apnea, unspecified Office Visit 06/05/2018 2:00p [facility] Sharlene uman, I25.10 Athscl heart Of [facility] RECRUITING ASSOCIATE disease of [place] coronary artery w/o ang pctrs I25.5 Ischemic cardiomyopathy N18.3 Chronic kidney disease, stage 3 (moderate) G47.30 Sleep apnea, unspecified Assessments Date Code Description Provider 11/27/2018 I25.5 Ischemic cardiomyopathy Sharlene Thuman, RECRUITING ASSOCIATE 11/27/2018 I34.0 Nonrheumatic mitral (valve) Sharlene Ortiz, RECRUITING ASSOCIATE insufficiency 11/27/2018 N18.3 Chronic kidney disease, stage 3 Sharlene Thselma, RECRUITING ASSOCIATE (moderate) 11/27/2018 Z95.810 Presence of automatic (implantable) Sharlene IAIN Ortiz cardiac defibrillator 11/27/2018 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 Sharlenelouann Ortiz NP anticoagulants 11/12/2018 I25.5 Ischemic cardiomyopathy Shralene GarciaIAIN hahn 11/12/2018 I34.0 Nonrheumatic mitral (valve) Sharlenelouann Ortiz NP insufficiency 11/12/2018 I12.9 Hypertensive chronic kidney disease Sharlenelounan Ortiz NP with stage 1 through stage [...] 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 11/03/2018 I34.0 [...] Atherosclerotic heart disease of Traveling ECHO 1 [place] coronary artery with 10/30/2018 I25.5 Ischemic cardiomyopathy Sharlenelouann Ortiz NP 10/30/2018 Z95.810 Presence of automatic (implantable) Sharlene OrtizIAIN cardiac defibrillator 10/30/2018 I12.9 Hypertensive chronic kidney disease Sharlenelouann Ortiz NP with stage 1 through stage 4 chronic kidney disease, or unspecified chronic kidney disease 10/30/2018 I25.10 Atherosclerotic heart disease of Sharlene Ortiz NP [place] coronary artery with 10/30/2018 N18.3 Chronic kidney [...] Atherosclerotic heart disease of [place] ECHO Schedule [place] coronary artery with 09/11/2018 I44.0 Atrioventricular block, first degree [place] ECHO Schedule 08/07/2018 I25.5 Ischemic cardiomyopathy Jeannie Minor M.D. 08/07/2018 Z95.810 Presence of automatic (implantable) Jeannie Minor M.D. cardiac defibrillator 08/07/2018 I25.5 Ischemic cardiomyopathy [place] Pacer Schedule 08/07/2018 I10 Essential (primary) hypertension Jeannie Minor M.D. 08/07/2018 I25.10 Atherosclerotic heart disease of Jeannie Minor M.D. [place] coronary artery with 08/07/2018 I44.0 Atrioventricular block, first degree [place] Pacer Schedule 08/07/2018 Z95.810 Presence of automatic (implantable) Jeannie Minor M.D. cardiac defibrillator 08/07/2018 G47.30 Sleep apnea, unspecified Jeannie Minor M.D. 08/07/2018 Z95.810 Presence of automatic (implantable) [place] Pacer Schedule cardiac defibrillator 07/10/2018 R47.01 Aphasia Catalino Abreu M.D.,FACP 07/03/2018 I25.10 Atherosclerotic heart disease of Sharlene Ortiz NP [place] coronary artery with 07/03/2018 I25.5 Ischemic cardiomyopathy Sharlene Ortiz RECRUITING ASSOCIATE 07/03/2018 N18.3 Chronic kidney disease, stage 3 Sharlene OrtizIAIN (moderate) 07/03/2018 G47.30 Sleep apnea, unspecified Sharlene OrtizIAIN 06/25/2018 I25.5 Ischemic cardiomyopathy Jeannie Minor M.D. 06/25/2018 I25.5 Ischemic cardiomyopathy [place] [facility] Schedule 06/25/2018 I44.4 Left anterior fascicular block [place] [facility] Schedule 06/25/2018 I25.10 Atherosclerotic heart disease of [place] [facility]CHO Schedule [place] coronary artery with 06/25/2018 I25.2 Old myocardial infarction [place] [facility] Schedule 06/25/2018 R94.31 Abnormal electrocardiogram [ECG] [place] [facility] Schedule [EKG] 06/05/2018 I44.4 Left anterior fascicular block Jeannie Minor M.D. 06/05/2018 I25.10 Atherosclerotic heart disease of Sharlene Ortiz RECRUITING ASSOCIATE [place] coronary artery with 06/05/2018 I25.2 Old myocardial infarction Jeannie Minor M.D. 06/05/2018 I25.5 Ischemic cardiomyopathy Sharlene OrtizIAIN 06/05/2018 R94.31 Abnormal electrocardiogram [ECG] Jeannie Minor M.D. [EKG] 06/05/2018 N18.3 Chronic kidney disease, stage 3 Sharlene OrtizIAIN (moderate) 06/05/2018 G47.30 Sleep apnea, unspecified Sharlene OrtizIAIN Plan of Treatment Future Appointment(s):02/16/2019 2:00 pm - Je[facility] at [facility]/27[facility] - Sharlene OrtizIAINI25.5 Ischemic cardiomyopathyFollow up:follow up in 1 months with me (Sharlene Garciaselma [facility]-) I34.0 Nonrheumatic mitral (valve) emmzuakbuagvwA65.3 Chronic kidney disease, stage 3 (moderate)Z95.810 Presence of automatic (implantable) cardiac wxzintorlhlojM79.01 snf (current) use of anticoagulants Functional Status Description No Information Available Mental Status Description No Information Available Referrals Description No Information Available
--- OUTSIDE RECORDS SUMMARY | 2018-12-18 20:10 | XMS REPORT | Continuity of Care Document ---
:1940 External Reference #:[id number] Author Name Haroon Oropeza, OD Address [address] [place] [address] Care Team Providers Name Role Phone Addy Quezada MD - Internal Medicine Care Team Information Palliative Care Coordinator Problems Active Problems Provider Date Type 2 diabetes mellitus Haroon Oropeza, OD Onset: 10/30/2018 Social History Type Date Description Comments Sex Unknown ETOH Use Denies alcohol use Tobacco Use Start: Unknown Patient has never smoked Smoking Status Reviewed: 10/30/18 Patient has never smoked Allergies, Adverse Reactions, Alerts Description No Known Drug Allergies Medications Active Medications SIG Qnty Indications Ordering Date Provider Neomycin/Polymyxin/Dex apply 1/4 inch 3.500gm Haroon Oropeza, 10/30/2018 amethasone ribbon to left OD 3.5-04225-6.1 outer eyelids Ointment tid x 1 week, then d/c Trazodone HCL Addy Quezada MD 50mg Tablets Torsemide Unknown 10mg Tablets Pantoprazole Sodium Giovanni Patton, 40mg POLYMERIZATION OVEN TENDER Tablets Lisinopril Take 1 Tablet By Unknown 20mg Tablets Mouth Every Day Clopidogrel Bisulfate Giovanni Patton, POLYMERIZATION OVEN TENDER 75mg Tablets Carvedilol Addy Quezada MD 25mg Tablets Bupropion Giovanni Patton, Hydrochloride ER (XL) POLYMERIZATION OVEN TENDER 150mg Tablets ER 24HR Atorvastatin Calcium Take 1 Tablet By Unknown 80mg Mouth Every Day Tablets Aspirin 81 Low Dose Unknown 81mg Chewtabs Colace Unknown 100mg Capsules Cymbalta Unknown 30mg Caps DR Renetta Rosales-Joni 10 Unknown 10Meq Tablets ER Multivitamin Adult Unknown Tablets Miralax Unknown 3350NF Packet Basaglar Kwikpen Unknown 100Unit/ML Solution Pen-Inject Immunizations Description No Information Available Vital Signs [...] lower eyelids Assessments Date Code Description Provider 10/30/2018 Z96.1 Presence of intraocular lens Haroon Oropeza, OD 10/30/2018 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
--- OUTSIDE RECORDS SUMMARY | 2018-12-18 20:10 | XMS REPORT | Continuity of Care Document ---
:1940 External Reference #:[id number] Author Name Javon Rubio MD Address [address] [place] [address] Care Team Providers Name Role Phone Addy Quezada M.D. - Endocrinology, Care Team Information Manufacture Specialist Diabetes & Metabolism Giovanni Patton NP - Nurse Care Team Information Manufacture Specialist [phone] - Care Team Information Manufacture Specialist [phone] Cardiovascular Disease Problems Active Problems Provider Date Type 2 diabetes mellitus Wil Das M.D. Onset: 03/28/2009 Essential hypertension Wil Das M.D. Onset: 03/28/2009 Impacted cerumen Wil Das M.D. Onset: 06/26/2011 Obstructive sleep apnea syndrome Wil Das M.D. Onset: 06/26/2011 Social History Type Date Description Comments Sex Unknown Tobacco Use Start: Unknown Never Smoked Cigarettes Tobacco Use Start: Unknown End: Unknown current.no Tobacco Use Start: Unknown End: Unknown current.no Smokeless Tobacco current.no ETOH Use does not drink alcohol Tobacco Use Start: Unknown Patient has never smoked Smoking Status Reviewed: 10/27/18 Patient has never smoked Allergies, Adverse Reactions, Alerts Description No Known Drug Allergies Medications Active Medications SIG Qnty Indications Ordering Provider Date Atorvastatin Calcium Daily Abdi TELETYPE INSTALLER, 80mg Giovanni Tablets Bupropion Hydrochloride Daily Abdi TELETYPE INSTALLER, ER (XL) Giovanni 150mg Tablets ER 24HR Carvedilol take 1 1/2 tabs Unknown 25mg Tablets daily Clopidogrel Bisulfate Abdi TELETYPE INSTALLER, 75mg Giovanni Tablets Duloxetine HCL Take 1 Capsule By Unknown 30mg Caps DR Mouth Twice A Day Part Lisinopril Take 1 Tablet By Unknown 5mg Tablets Mouth Every Day Pantoprazole Sodium Take 1 Tablet By Unknown 40mg Mouth Every Day Tablets DR Torsemide Take 2 Tablets By Unknown 10mg Tablets Mouth Every Day Trazodone HCL Take 1 Tablet By Unknown 50mg Tablets Mouth Every Day Novolog Flexpen Inject 3 Units Unknown 100Unit/ML Under The Skin Solution Pen-Inject Three Times Daily And Inject 2 Units For Every 50 Over 150 Up To A Total Daily Dose Of 75 Units Basaglar Kwikpen Inject 7 Units Unknown 100Unit/ML Under The Skin Solution Pen-Inject Twice A Day Nitroglycerin Unknown 0.4mg Tablets Sub Immunizations Description No Information Available Vital Signs Date Vital Result Comment 10/29/2018 3:33pm Weight 204.00 lb Weight 92.534 kg Height 67 inches 5'7" Height in cm's 170.2 cm BMI (Body Mass Index) 31.9 kg/m2 08/05/2018 2:22pm Weight 204.38 lb Weight 92.704 kg Height 67 inches 5'7" Height in cm's 170.2 cm BMI (Body Mass Index) 32.0 kg/m2 Results Description No Information Available Procedures Date Code Description Status 11/02/2018 15359 Anterior/Posterior Packing Completed 10/27/2018 97005 Contol Nasal Hemorrhage, Anterior, Simple Completed 08/05/2018 69570 Fiberoptic Laryngoscopy Completed 06/30/2018 60014 Fiberoptic Laryngoscopy Completed Medical Devices Description No Information Available Encounters Type Date Location Provider Dx Diagnosis Office Visit 10/29/2018 [place] Javon Rubio R04.0 Epistaxis 3:15p 03/10/07 Office Visit 06/30/2018 [place] Wil Aguero H61.23 Impacted cerumen, 2:00p 03/10/07 Mahogany Das bilateral R49.0 Dysphonia 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 unilateral 06/30/2018 H61.23 Impacted cerumen, bilateral Wil Das M.D. 06/30/2018 R49.0 Dysphonia Wil Das M.D. 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 unilateral 06/30/2018 H90.3 Sensorineural hearing loss, bilateral Wil Das M.D. Plan of Treatment No Information Available Functional Status Description No Information Available Mental Status Description No Information Available Referrals Description No Information Available
--- OUTSIDE RECORDS SUMMARY | 2018-12-18 20:10 | XMS REPORT | Continuity of Care Document ---
:1940 External Reference #:[id number] Author Name Sharlene Ortiz NP (transmitted by agent of provider Felicitas Patiño) Address [address] [place] [id number] Care Team Providers Name Role Phone Addy Quezada MD - Endocrinology, Care Team Information [facility] Diabetes & Metabolism Wil Das MD - Care Team Information Ceo [facility] Davis [phone] Otolaryngology Problems Active Problems Provider Date Obstructive sleep apnea syndrome Tuyet Soares DNP, RN, [employer]- Onset: Social History Type Date Description Comments Sex Unknown Tobacco Use Start: Unknown Never Smoked Cigarettes Smoking Status Reviewed: 11/12/18 Never Smoked Cigarettes ETOH Use Rarely consumes [...] Mata 03/27/2018 325mg mouth every 6 Vásquez, [employer] Tablets hours as needed for pain Carvedilol [...] CPT Code Status Date Vaccine Lot # [id number] Given 12/12/2014 Influenza Virus Vaccine, Quadrivalent, Split, Preservative Free Vital Signs Date Vital Result Comment 11/12/2018 11:52am Height 68 inches 5'8" Weight 193.25 lb per pt's daughter at home Heart Rate 62 /min radial, regular BP Systolic Sitting 156 mmHg Ra, reg cuff BP Diastolic Sitting 76 mmHg Ra, reg cuff BMI (Body Mass Index) 29.4 kg/m2 Ejection Fraction 30%-35% echo 11/03/18 11/05/2018 1:48pm Height 68 inches 5'8" Weight 194.50 lb with clothing and shoes Heart Rate 62 /min right radial BP Systolic Sitting 156 mmHg ule reg cuff BP Diastolic Sitting 80 mmHg ule reg cuff BMI (Body Mass Index) 29.6 kg/m2 Ejection Fraction 30-35% Echocardiogram 11/03/2018 Results Test Date Facility Test Result H/L Range Note Basic Metabolic 11/03/2018 [facility] Sodium 137 mmol/L Normal 135-145 [address] [place] [address] [phone] Potassium 4.0 mmol/L Normal 3.5-5.0 Chloride 100 mmol/L Low 101-111 Co2 Carbon Dioxide 33 mmol/L High 22-32 Anion Gap 4 mmol/L Normal 2-11 Glucose 122 mg/dL High 70-100 Blood Urea Nitrogen 35 mg/dL High 6-24 Creatinine 1.65 mg/dL High 0.67-1.17 BUN/Creatinine Ratio 21.2 High 8-20 Calcium 8.8 mg/dL Normal 8.6-10.3 Egfr Non- 40.3 >60 Egfr 48.8 >60 1 Basic Metabolic 07/17/2018 [facility] Sodium 137 mmol/L Normal 135-145 [address] [place] [address] [phone] Potassium 3.8 mmol/L Normal 3.5-5.0 Chloride 101 mmol/L Normal 101-111 Co2 Carbon Dioxide 32 mmol/L Normal 22-32 Anion Gap 4 mmol/L Normal 2-11 Glucose 158 mg/dL High 70-100 Blood Urea Nitrogen 37 mg/dL High 6-24 Creatinine 1.49 mg/dL High 0.67-1.17 BUN/Creatinine Ratio 24.8 High 8-20 Calcium 8.6 mg/dL Normal 8.6-10.3 Egfr Non- 45.5 >60 Egfr 55.0 >60 2 Basic Metabolic 07/13/2018 [facility] Sodium 138 mmol/L Normal 135-145 [address] [place] [address] [phone] Potassium 3.9 mmol/L Normal 3.5-5.0 Chloride 102 mmol/L Normal 101-111 Co2 Carbon Dioxide 31 mmol/L Normal 22-32 Anion Gap 5 mmol/L Normal 2-11 Glucose 176 mg/dL High 70-100 Blood Urea Nitrogen 34 mg/dL High 6-24 Creatinine 1.39 mg/dL High 0.67-1.17 BUN/Creatinine Ratio 24.5 High 8-20 Calcium 8.2 mg/dL Low 8.6-10.3 Egfr Non- 49.3 >60 Egfr 59.6 >60 3 Basic Metabolic 07/08/2018 [facility] Sodium 140 mmol/L Normal 135-145 [address] [place] [address] [phone] Potassium 3.5 mmol/L Normal 3.5-5.0 Chloride 101 mmol/L Normal 101-111 Co2 Carbon Dioxide 33 mmol/L High 22-32 Anion Gap 6 mmol/L Normal 2-11 Glucose 140 mg/dL High 70-100 Blood Urea Nitrogen 38 mg/dL High 6-24 Creatinine 1.51 mg/dL High 0.67-1.17 BUN/Creatinine Ratio 25.2 High 8-20 Calcium 8.6 mg/dL Normal 8.6-10.3 Egfr Non- 44.8 >60 Egfr 54.2 >60 4 Basic Metabolic 07/06/2018 [facility] Sodium 139 mmol/L Normal 135-145 [address] [place] [address] [phone] Potassium 3.4 mmol/L Low 3.5-5.0 Chloride 102 mmol/L Normal 101-111 Co2 Carbon Dioxide 32 mmol/L Normal 22-32 Anion Gap 5 mmol/L Normal 2-11 Glucose 154 mg/dL High 70-100 Blood Urea Nitrogen 37 mg/dL High 6-24 Creatinine 1.43 mg/dL High 0.67-1.17 BUN/Creatinine Ratio 25.9 High 8-20 Calcium 8.7 mg/dL Normal 8.6-10.3 Egfr Non- 47.7 >60 Egfr 57.7 >60 5 Basic Metabolic 06/29/2018 [facility] Sodium 139 mmol/L Normal 135-145 [address] [place] [address] [phone] Potassium 3.6 mmol/L Normal 3.5-5.0 Chloride 103 mmol/L Normal 101-111 Co2 Carbon Dioxide 32 mmol/L Normal 22-32 Anion Gap 4 mmol/L Normal 2-11 Glucose 157 mg/dL High 70-100 Blood Urea Nitrogen 32 mg/dL High 6-24 Creatinine 1.46 mg/dL High 0.67-1.17 BUN/Creatinine Ratio 21.9 High 8-20 Calcium 8.2 mg/dL Low 8.6-10.3 Egfr Non- 46.6 >60 Egfr 56.4 >60 6 Basic Metabolic 06/12/2018 [facility] Sodium 139 mmol/L Normal 135-145 7 [address] [place] [address] [phone] Potassium 3.7 mmol/L Normal 3.5-5.0 Chloride 104 mmol/L Normal 101-111 Co2 Carbon Dioxide 31 mmol/L Normal 22-32 Anion Gap 4 mmol/L Normal 2-11 Glucose 116 mg/dL High 70-100 Blood Urea Nitrogen 31 mg/dL High 6-24 Creatinine 1.34 mg/dL High 0.67-1.17 BUN/Creatinine Ratio 23.1 High 8-20 Calcium 8.4 mg/dL Low 8.6-10.3 Egfr Non- 51.4 >60 Egfr 62.2 >60 8 Basic Metabolic 06/01/2018 [facility] Sodium 135 mmol/L Normal 135-145 [address] [place] [address] [phone] Potassium 3.9 mmol/L Normal 3.5-5.0 Chloride 102 mmol/L Normal 101-111 Co2 Carbon Dioxide 29 mmol/L Normal 22-32 Anion Gap 4 mmol/L Normal 2-11 Glucose 171 mg/dL High 70-100 Blood Urea Nitrogen 28 mg/dL High 6-24 Creatinine 1.47 mg/dL High 0.67-1.17 BUN/Creatinine Ratio 19.0 Normal 8-20 Calcium 8.0 mg/dL Low 8.6-10.3 Egfr Non- 46.2 >60 Egfr 55.9 >60 9 Basic Metabolic 05/22/2018 [facility] Sodium 137 mmol/L Normal 135-145 [address] [place] [address] [phone] Potassium 4.1 mmol/L Normal 3.5-5.0 Chloride 106 mmol/L Normal 101-111 Co2 Carbon Dioxide 25 mmol/L Normal 22-32 Anion Gap 6 mmol/L Normal 2-11 Glucose 84 mg/dL Normal 70-100 Blood Urea Nitrogen 36 mg/dL High 6-24 Creatinine 1.35 mg/dL High 0.67-1.17 BUN/Creatinine Ratio 26.7 High 8-20 Calcium 8.5 mg/dL Low 8.6-10.3 Egfr Non- 51.0 >60 Egfr 61.7 >60 10 1 Because ethnic data is [...] 5 Kidney failure <15 (or dialysis) 7 [id number] Because ethnic data is not always [...] dialysis) Procedures Date Code Description Status 11/03/2018 40360 ECHO Transthoracic, Real-Time 2D With Doppler And Color Completed Flow 09/11/2018 30828 ECHO Transthoracic, Real-Time 2D With Doppler And Color Completed Flow 09/11/2018 85766 ECHO Transthoracic, Real-Time 2D With Doppler And Color Completed Flow 09/11/2018 00116 Icd Eval With Iterative Adjustmt Multiple Lead System Completed 09/11/2018 81901 Icd Eval With Iterative Adjustmt Multiple Lead System Completed 08/07/2018 82981 Icd Eval With Iterative Adjustmt Multiple Lead System Completed 08/07/2018 08089 Icd Eval With Iterative Adjustmt Multiple Lead System Completed 06/25/2018 49168 Echocardiogram, Limited Study Completed 06/25/2018 91531 Echocardiogram, Limited Study Completed 06/05/2018 12231 EKG Tracing & Interpretation Completed 05/18/2018 01749 Polysomnography Sleep Staging 4+ Parameters Completed Medical Devices Description No Information Available Encounters Type Date Location Provider Dx Diagnosis Office Visit 11/05/2018 [facility] Sharlene Ortiz, I25.5 Ischemic 2:00p [employer] cardiomyopathy I34.0 Nonrheumatic mitral (valve) insufficiency I12.9 Hypertensive chronic kidney disease w stg 1-4/unsp chr kdny R53.1 Weakness I25.10 Athscl heart disease of [place] coronary artery w/o ang pctrs Office Visit 10/30/2018 1:00p [place] Sharlene I25.5 Ischemic Cardiology Of [place], [employer]ER cardiomyopathy [employer] 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 I10 Essential (primary) hypertension I25.10 Athscl heart disease of [place] coronary artery w/o ang pctrs G47.30 Sleep apnea, unspecified Office Visit 07/10/2018 9:48a [facility] Catalino Arnold R47.01 [facility],avril Abreu M.D.,FACP Hospitalists Office Visit 07/03/2018 2:00p [facility] Sharlenelouann Ortiz, I25.10 Athscl heart Of [facility] [employer] disease of [place] coronary artery w/o ang pctrs I25.5 Ischemic cardiomyopathy N18.3 Chronic kidney disease, stage 3 (moderate) G47.30 Sleep apnea, unspecified Office Visit 06/05/2018 2:00p [facility] Sharleneoluann Ortiz, I25.10 Athscl heart Of [facility] [employer] disease of [place] coronary artery w/o ang pctrs I25.5 Ischemic cardiomyopathy N18.3 Chronic kidney disease, stage 3 (moderate) G47.30 Sleep apnea, unspecified Office Visit 05/22/2018 3:00p Leander Salomon I25.5 Ischemic Cardiology Of [facility] N.Rocio cardiomyopathy [employer] I25.10 Athscl heart disease of [place] coronary artery w/o ang pctrs N18.3 Chronic kidney disease, stage 3 (moderate) G47.30 Sleep apnea, unspecified Assessments Date Code Description Provider 11/12/2018 I25.5 Ischemic cardiomyopathy Sharlene Ortiz [employer]ER 11/12/2018 I34.0 Nonrheumatic mitral (valve) Sharlene Ortiz IAIN insufficiency 11/12/2018 I12.9 Hypertensive chronic kidney disease Sharlene Ortiz IAIN with stage 1 through stage 4 chronic kidney disease, or unspecified chronic kidney disease 11/12/2018 I10 Essential (primary) hypertension Sharlene OrtizIAIN 11/05/2018 I25.5 Ischemic cardiomyopathy Sharlene OrtizIAIN 11/05/2018 I34.0 Nonrheumatic mitral (valve) Sharlene Ortiz IAIN insufficiency 11/05/2018 I12.9 Hypertensive chronic kidney disease Sharlene OrtizIAIN with stage 1 through stage 4 chronic kidney disease, or unspecified chronic kidney disease 11/05/2018 R53.1 Weakness Sharlene OrtizIAIN 11/05/2018 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 11/03/2018 I34.0 [...] Atherosclerotic heart disease of [place] ECHO 1 [place] coronary artery with 10/30/2018 I25.5 Ischemic cardiomyopathy Sharlene OrtizIAIN 10/30/2018 Z95.810 Presence of automatic (implantable) Sharlene Ortiz IAIN cardiac defibrillator 10/30/2018 I12.9 Hypertensive chronic kidney disease Sharlene OrtizIAIN with stage 1 through stage 4 chronic kidney disease, or unspecified chronic kidney disease 10/30/2018 I25.10 Atherosclerotic heart disease of Sharlene Ortiz IAIN [place] coronary artery with 10/30/2018 N18.3 Chronic kidney disease, stage 3 Sharlene OrtizIAIN (moderate) 10/30/2018 I34.0 Nonrheumatic mitral (valve) Sharlene Ortiz, [employer] insufficiency 09/11/2018 I25.5 Ischemic cardiomyopathy Jeannie Minor [...] Atherosclerotic heart disease of [place] ECHO Schedule [place] coronary artery with 09/11/2018 I44.0 Atrioventricular block, first degree [place] ECHO Schedule 08/07/2018 I25.5 Ischemic cardiomyopathy Jeannie Minor M.D. 08/07/2018 Z95.810 Presence of automatic (implantable) Jeannie Minor M.D. cardiac defibrillator 08/07/2018 I25.5 Ischemic cardiomyopathy [place] Pacer Schedule 08/07/2018 I10 Essential (primary) hypertension Jeannie Minor M.D. 08/07/2018 I25.10 Atherosclerotic heart disease of Jeannie Minor M.D. [place] coronary artery with 08/07/2018 I44.0 Atrioventricular block, first degree [place] Pacer Schedule 08/07/2018 Z95.810 Presence of automatic (implantable) Jeannie Minor M.D. cardiac defibrillator 08/07/2018 G47.30 Sleep apnea, unspecified Jeannie Minor M.D. 08/07/2018 Z95.810 Presence of automatic (implantable) [place] Pacer Schedule cardiac defibrillator 07/10/2018 R47.01 Aphasia Catalino Abreu M.D.,FACP 07/03/2018 I25.10 Atherosclerotic heart disease of Sharlene RadhaselmaIAIN [place] coronary artery with 07/03/2018 I25.5 Ischemic cardiomyopathy Sharlene Ortiz, [employer]ER 07/03/2018 N18.3 Chronic kidney disease, stage 3 Sharlene Ortiz [employer]ER (moderate) 07/03/2018 G47.30 Sleep apnea, unspecified Sharlene Ortiz, [employer]ER 06/25/2018 I25.5 Ischemic cardiomyopathy Jeannie Minor M.D. 06/25/2018 I25.5 Ischemic cardiomyopathy [place] [facility] Schedule 06/25/2018 I44.4 Left anterior fascicular block [place] [facility] Schedule 06/25/2018 I25.10 Atherosclerotic heart disease of [place] ECHO Schedule [place] coronary artery with 06/25/2018 I25.2 Old myocardial infarction [place] [facility] Schedule 06/25/2018 R94.31 Abnormal electrocardiogram [ECG] [place] [facility] Schedule [EKG] 06/05/2018 I44.4 Left anterior fascicular block Jeannie Minor M.D. 06/05/2018 I25.10 Atherosclerotic heart disease of Sharlene Ortiz [employer] [place] coronary artery with 06/05/2018 I25.2 Old myocardial infarction Jeannie Minor M.D. 06/05/2018 I25.5 Ischemic cardiomyopathy Sharlene Ortiz [employer] 06/05/2018 R94.31 Abnormal electrocardiogram [ECG] Jeannie Minor M.D. [EKG] 06/05/2018 N18.3 Chronic kidney disease, stage 3 Sharlene GarciaIAIN hahn (moderate) 06/05/2018 G47.30 Sleep apnea, unspecified Sharlene Ortiz [employer] 05/22/2018 I25.5 Ischemic cardiomyopathy Najma S. Carmine, N.P. 05/22/2018 I25.10 Atherosclerotic heart disease of Najma S. Foster, N.P. [place] coronary artery with 05/22/2018 N18.3 Chronic kidney disease, stage 3 Najma S. Foster, N.P. (moderate) 05/22/2018 G47.30 Sleep apnea, unspecified Najma S. Foster, N.P. 05/18/2018 G47.33 Obstructive sleep apnea (adult) Angelica Martinez MD (pediatric) Plan of Treatment Future Appointment(s):02/16/2019 2:00 pm - Billy Roman.D. at [facility]11/12/2018 - Sharlene Ortiz, NPI25.5 Ischemic cardiomyopathyNew Medication:Metolazone 2.5 mg - 1 tab by mouth every Friday 30 minutes before giving Torsemide.New Labs:Basic Metabolic Panel, Ordered: 11/12/18Magnesium, Ordered: 11/12/18Follow up:Follow up with me (Sharlene Ortiz [facility]-) in two weeks.Recommendations:Please reduce Torsemide to 30mg by mouth daily with equates to 3 tablets by mouth daily starting 11/13/2018 Please strip picker new prescription Metolazone 2.5mg tablet; take 1 tablet by mouth every Friday 30 minutes before giving Torsemide. Monitor urine output, daily weights. If you feel that you are getting dehydrated, dizzy, excessively tired please call me. Get non fasting labs next week so we canclosely monitor potassium and kidney function. Call me next week with weights, unless you hearfrom me first when I review your labs with you on the phone.I34.0 Nonrheumatic mitral (valve) [id number] Hypertensive chronic kidney disease with stage 1 through stage 4 chronic kidney disease, or unspecified chronic kidney [id number] Essential (primary) hypertension Functional Status Description No Information Available Mental Status Description No Information Available Referrals Refer to Reason for Referral Status Appt Date Jeronimo Oneal MD [address] [place] [address] [phone] Closed
--- NOTE | 2018-12-18 20:53 | ED ---
Back Pain - HPI Summary HPI Summary: 78 year old male presents to the ED accompanied by his with a chief complaint of back pain secondary to falling down from a standing position minutes prior to arrival. Per , patient was walking from his walker to a chair when he fell backwards and landed on his buttocks. He did not fall on his head. Per , he complained of lower back pain before his fall. Patient denies neck pain and headache. Per daughter, no history of dementia although he is cognitively slow. 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 Onset/Duration: Started Minutes Ago, Traumatic, Still Present Back Pain Location: Is Diffuse Pain Intensity: 0 Aggravating Symptom(s): Other - falling Associated Signs And Symptoms: Positive: Negative - Allergies/Home Medications Allergies/Adverse Reactions: Allergies Allergy/AdvReac Type Severity Reaction Status Date / Time No Known Allergies Allergy Verified 10/31/18 12:13 Home Medications: Home Medications Atorvastatin* [Lipitor*] 80 mg PO DAILY 12/18/18 [History Confirmed 12/18/18] Carvedilol TAB* [Coreg TAB*] 50 mg PO BEDTIME 12/18/18 [History Confirmed ] Metolazone TAB* [Zaroxolyn TAB*] 5 mg PO WEEKLY 12/18/18 [History Confirmed 01/26] Multivitamins/Minerals TAB* [Theragran/minerals TAB*] 1 tab PO DAILY 12/18/18 [ History Confirmed 12/18/18] Polyethylene Glycol 3350* [Miralax*] 17 gm PO DAILY 12/18/18 [History Confirmed 12/18/18] Potassium Chlor TAB* [Klor Con ER TAB*] 20 meq PO DAILY 12/18/18 [History Confirmed 12/18/18] Torsemide TAB* [Demadex*] 30 mg PO DAILY 12/18/18 [History Confirmed 12/18/18] PMH/Surg Hx/FS Hx/Imm Hx Endocrine/Hematology History: Reports: Hx Anticoagulant Therapy - plavix, aspirin, Hx Diabetes, Hx Anemia Cardiovascular History: Reports: Hx Coronary Artery Disease, Hx Hypertension, Hx Peripheral Vascular Disease Denies: Hx Angina, Hx Auto Implanted Cardiovert Defib, Hx Cardiac Arrest, Hx Congestive Heart Failure - no history prior to current admission. current admission CHF dx, Hx Pacemaker/ICD Respiratory History: Reports: Hx Chronic Obstructive Pulmonary Disease (COPD), Hx Pleural Effusion, Hx Sleep Apnea - NO CPAP GI History: Reports: Hx Gall Bladder Disease, Hx Gastroesophageal Reflux Disease , Other GI Disorders - RECENT LIVER ABSCESS Denies: Hx Jaundice History: Reports: Hx Benign Prostatic Hyperplasia, Other Problems/ Disorders - BPH Denies: Hx Renal Disease Musculoskeletal History: Reports: Hx Arthritis, Hx Back Problems, Other Musculoskeletal History - SPINAL STENOSIS, SPONDYLOLITHESIS Sensory History: Reports: Hx Cataracts - surgery both eyes, Hx Contacts or Glasses Denies: Hx Hearing Aid Opthamlomology History: Reports: Hx Cataracts - surgery both eyes, Hx Contacts or Glasses Neurological History: Reports: Other Neuro Impairments/Disorders - PERIPHERAL NEUROPATHY FEET R/T DM, VERTIGO Denies: Hx Headaches, Hx Migraine, Hx Nerve Disease, Hx Seizures, Hx Spinal Cord Injury, Hx Transient Ischemic Attacks (TIA) Psychiatric History: Reports: Hx Anxiety, Hx Depression Denies: Hx Panic Disorder - Surgical History Surgery Procedure, Year, and Place: CATARACTS. EYE - LASER FOR RETINAL DETACHED. ORIF -FOREARM FX- as a child. LIVER DRNG - FOR ABCESS. 05/25/15 LAP CHOLECYSTECMY. 02/16/15 ERCP. TURP - PROSTATE - BPH Hx Anesthesia Reactions: Yes - EMERGENCE DELIRIUM FOLLOWING ERCP 02/21 Infectious Disease History: No Infectious Disease History: Denies: Hx Clostridium Difficile, Hx of Known/Suspected MRSA, Traveled Outside the [place] in Last 30 Days - Family History Known Family History: Negative: Hypertension, Diabetes - Social History Alcohol Use: Rare Hx Substance Use: No Substance Use Type: Reports: None Substance Use Comment - Amount & Last Used: medical marijuana Hx Tobacco Use: No Smoking Status (MU): Never Smoked Tobacco Have You Smoked in the Last Year: No Review of Systems Musculoskeletal: Negative - negative neck pain Positive: Myalgia - lower back pain Negative: Headache All Other Systems Reviewed And Are Negative: Yes Physical Exam - Summary Physical Exam Summary: VITAL SIGNS: Reviewed. GENERAL: Patient is a well-developed and nourished elderly male who is lying comfortable in the stretcher. Patient is not in any acute respiratory distress. HEAD AND FACE: No signs of trauma. No ecchymosis, hematomas or skull depressions. No sinus tenderness. EYES: PERRLA, EOMI x 2, No injected conjunctiva, no nystagmus. EARS: Hearing grossly intact. Ear canals and tympanic membranes are within normal limits. MOUTH: Oropharynx within normal limits. NECK: Supple, trachea is midline, no adenopathy, no JVD, no carotid bruit, no c- spine tenderness, neck with full ROM. CHEST: Symmetric, no tenderness at palpation. LUNGS: Clear to auscultation bilaterally. No wheezing or crackles. CVS: Regular rate and rhythm, S1 and S2 present, no murmurs or gallops appreciated. ABDOMEN: Soft, non-tender. No signs of distention. No rebound, no guarding, and no masses palpated. Bowel sounds are normal. EXTREMITIES: FROM in all major joints, no edema, no cyanosis or clubbing. NEURO: Alert and oriented x 3. No acute neurological deficits. Speech is normal and follows commands. SKIN: Dry and warm. Triage Information Reviewed: Yes Vital Signs On Initial Exam: Initial Vitals Temp Pulse Resp BP Pulse Ox 99 F 60 17 189/87 89 12/18/18 20:01 12/18/18 20:01 12/18/18 20:01 12/18/18 20:01 12/18/18 20:01 Vital Signs Reviewed: Yes - Dre Coma Scale Best Eye Response: 4 - Spontaneous Best Motor Response: 6 - Obeys Commands Best Verbal Response: 5 - Oriented Coma Scale Total: 15 Procedures - Sedation Patient Received Moderate/Deep Sedation with Procedure: No Diagnostics - Vital Signs Vital Signs Temp Pulse Resp BP Pulse Ox 12/18/18 20:01 99 F 60 17 189/87 89 - Laboratory Result Diagrams: 12/18/18 21:06 12/18/18 21:06 Lab Statement: Any lab studies that have been ordered have been reviewed, and results considered in the medical decision making process. - Radiology Pelvic XR Radiology Interpretation Completed By: ED Physician Summary of Radiographic Findings: Pelvic XR negative. An ED physician has reviewed and interpreted this report. Pending official read. - CT Lumbar CT CT Interpretation Completed By: Radiologist Summary of CT Findings: 1. No lumbar fracture or subluxation. 2. Severe lumbar degenerative change at least moderate central canal stenoses. L2-L3, L3-L4, and L4-L5. Multilevel neural foraminal stenoses. 3. Distended urinary bladder. Moderate bilateral hydronephrosis without. visualized stone which may be related to bladder distention. 4. Bilateral pleural effusions. An ED physician has reviewed this report. C-Spine CT CT Interpretation Completed By: Radiologist Summary of CT Findings: 1. No cervical fracture or subluxation. 2. Bilateral pleural effusions. An ED physician has reviewed this report. Brain CT CT Interpretation Completed By: Radiologist Summary of CT Findings: 1. No intracranial bleed, suspicious mass, or mass effect. Ventricles appear. unremarkable. 2. There is low attenuation change in the white matter most consistent with. chronic age related small vessel ischemic change. No acute territorial. infarction is seen. These can be initially occult on head CT. An ED physician has reviewed this report. - EKG 214 Cardiac Rate: NL - 62 bpm Summary of EKG Findings: EKG at 2146 shows atrial-sensed ventricular-paced rhythm at 62 bpm. Back Pain Course/Dx - Course Assessment/Plan: Patient is an 78-year-old male who presents to the emergency department with a chief complaint of an accidental mechanical fall. The fall was witnessed by his . She reports no trauma to the head or neck. No other complaints. Blood work without any significant abnormality except for hemoglobin 9.7 and hematocrit 28. His baseline. Potassium level is 3.4 for which the patient was given potassium chloride. Chloride 97 carbon dioxide is 34, BUN is 30 creatinine 1.45, glucose 311. Calcium 8.4, and albumin 2.8. I offered patient and his daughter IV fluids and Insulin but they declined. They reported that he is in water restriction and his hyperglycemia is diet controlled. X-ray of the hip is negative for acute fracture dislocation. CT C- spine impression: No cervical fracture or subluxation. bilateral pleural effusions. CT l spine IMPRESSION: 1. No lumbar fracture or subluxation. 2. Severe lumbar degenerative change at least moderate central canal stenoses. L2- L3, L3-L4, and L4-L5. Multilevel neural foraminal stenoses. 3. Distended urinary bladder. Moderate bilateral hydronephrosis without. visualized stone which may be related to bladder distention. 4. Bilateral pleural effusions. Head CT IMPRESSION: 1. No intracranial bleed, suspicious mass, or mass effect. Ventricles appear. unremarkable. 2. There is low attenuation change in the white matter most consistent with. chronic age related small vessel ischemic change. No acute territorial. infarction is seen. These can be initially occult on head CT. Patient has no other complaints. Daughter agrees for the patient to be discharged. All CTs are negative. Therefore the patient will be discharged home with follow-up with PCP. Patient is hemodynamically stable. Daughter will check blood sugars and hydration status. - Diagnoses Provider Diagnoses: Fall, Hyperglycemia Discharge ED - Sign-Out/Discharge Documenting (check all that apply): Patient Departure - discharge - Discharge Plan Condition: Stable Disposition: HOME Patient Education Materials: Fall Prevention (ED) Referrals: Addy Quezada MD [Primary Care Provider] - Additional Instructions: Follow up with your primary care provider in 2-3 days. Return to the Emergency Department if you experience new or worsening symptoms. - Billing Disposition and Condition Condition: STABLE Disposition: Home - Attestation Statements Document Initiated by Tieraibe: Yes Documenting Scribe: Enmanuel Mcpherson Provider For Whom Juan Pablo is Documenting (Include Credential): Zeyad Stone MD. Scribe Attestation: Enmanuel Morfin scribed for Zeyad Stone MD. on 12/19/18 at 2114. Scribe Documentation Reviewed: Yes Provider Attestation: The documentation as recorded by the Enmanuel chin accurately reflects the service I personally performed and the decisions made by Zeyad rutherford MD. Status of Scribe Document: Viewed
[2018-12-18 21:17] LABS: ABS Lymphocytes 0.7 10^3/ul (1.0-4.8); ABS Monocytes 0.8 10^3/ul (0-0.8); ABS Neutrophils 5.2 10^3/ul (1.5-7.7); Eosinophil % 0.5 %; Hematocrit 28 % (42-52); Hemoglobin 9.7 g/dL (14.0-18.0); Lymphocyte % 10.1 %; Mean Corpuscular HGB Conc 34 g/dL (31-36); Mean Corpuscular Hemoglobin 27 pg (27-31); Mean Corpuscular Volume 79 fL (80-94); Mean Platelet Volume 7.3 fL (7.4-10.4); Platelet Count 192 10^3/uL (150-450); Red Blood Count 3.57 10^6 /uL (4.18-5.48); Red Cell Distribution Width 17 % (10-15); White Blood Count 6.7 10^3/uL (3.5-10.8)
[2018-12-18 21:32] LABS: Albumin 2.8 g/dL (3.2-5.2); Albumin/Globulin Ratio 0.7 (1-3); BUN/Creatinine Ratio 20.7 (8-20); Calcium 8.4 mg/dL (8.6-10.3); EGFR African American 56.7 (>60); EGFR Non-African American 46.8 (>60); Potassium 3.4 mmol/L (3.5-5.0); Total Bilirubin 0.4 mg/dL (0.2-1.0); Total Protein 6.8 g/dL (6.4-8.9)
[2018-12-18] MEDS ORDERED: Potassium Chlor TAB* 20 MEQ TAB.ER PO ONE (21:42)
[2018-12-18 21:53] LABS: Urine Appearance Clear; Urine Bacteria Absent (Absent); Urine Bilirubin Negative (Negative); Urine Blood 1+ (Negative); Urine Color Yellow; Urine Glucose 3+(>=500 mg/dL) (Negative); Urine Ketones Negative (Negative); Urine Nitrite Negative (Negative); Urine Protein 1+(30 mg/dL) (Negative); Urine Red Blood Cell 3+(>10/hpf) (Absent); Urine Specific Gravity 1.006 (1.010-1.030); Urine Urobilinogen Negative (Negative); Urine White Blood Cell Trace(0-5/hpf) (Absent)
[2018-12-18] MEDS ORDERED: NS 0.9% 1000 ML** 1,000 ML IV ONE (22:00)
[2018-12-18 22:37] VITALS: BP 172/87
== END 2018-12-18 23:08 | disposition home or self-care (01) ==
LOC: ED 19:59
DX: R73.9 Hyperglycemia, unspecified (principal); Z91.81 History of falling; M54.9 Dorsalgia, unspecified; I25.10 Atherosclerotic heart disease of native coronary artery without angina pectoris; Z79.01 Long term (current) use of anticoagulants; I73.9 Peripheral vascular disease, unspecified; J44.9 Chronic obstructive pulmonary disease, unspecified; K21.9 Gastro-esophageal reflux disease without esophagitis; N40.0 Benign prostatic hyperplasia without lower urinary tract symptoms; F41.9 Anxiety disorder, unspecified
CPT/HCPCS: 36415; 70450; 72125; 72131; 72170; 80053; 81003; 81015; 85025; 87086; 93005; 99284; A9270-GY

== ENCOUNTER 2019-02-16 14:59 | Inpatient (IN) | payer MEDICARE ==
--- OUTSIDE RECORDS SUMMARY | 2019-02-16 15:17 | XMS REPORT | Continuity of Care Document ---
:1940 External Reference #:[id number] Author Name Sharlene Ortiz NP (transmitted by agent of provider Felicitas Patiño) Address [address] [place] [id number] Care Team Providers Name Role Phone Addy Quezada MD - Endocrinology, Care Team Information Program Director [phone] Diabetes & Metabolism Wil Das MD - Care Team Information Program Director [phone] Otolaryngology Problems Active Problems Provider Date Obstructive sleep apnea syndrome Tuyet Soares DNP, RN, GRANTS SPECIALIST- Onset: Social History Type Date Description Comments Sex Unknown Tobacco Use Start: Unknown Never Smoked Cigarettes Smoking Status Reviewed: 01/18/19 Never Smoked Cigarettes ETOH Use Rarely consumes [...] Mata 03/27/2018 325mg mouth every 6 Vásquez, [employer] Tablets hours as needed for pain Carvedilol take 1.5 tablets 60tabs Sharlene Ortiz NP 03/16/2018 25mg by mouth am, 2 by Tablets mouth pm Metformin HCL 1 by mouth twice Unknown 500mg a day Tablets Colace 3 capsules daily Unknown 100mg Capsules Pantoprazole Sodium 1 by mouth every Unknown day 40mg Tablets DR Trazodone HCL 2 by mouth every Unknown 50mg day .. Tablets Nitroglycerin Take 0.4 mg Unknown 0.4mg sublingual every Tablets Sub 5 minutes as needed for chest pain. MDD 3 tabs Clopidogrel Take 75 mg by Unknown Bisulfate mouth every day 75mg Tablets Duloxetine HCL Take 30 mg po Unknown 30mg twice daily Multiple Vitamin Take 1 tablet by Unknown mouth every day Tablets Atorvastatin Take 80 mg by Unknown (Lipitor) mouth at bedtime 80mg Tablets Lisinopril take 1 tablets by 90tabs Sharlene Ortiz NP 10mg mouth every day Tablets History Medications Glipizide take one tablet Huber Arnold 01/15/2019 - 5mg by mouth twice a Mahogany Cedeño 01/17/2019 Tablets day Metolazone 1 tab by mouth 6tabs I25.5 Sharlene Ortiz NP 11/12/2018 - 2.5mg every Friday 30 01/15/2019 Tablets minutes before giving Torsemide. Torsemide 2 by mouth every 180tabs Sharlene Ortiz NP 08/11/2018 - 10mg morning and 1 by 11/04/2018 Tablets mouth every afternoon Immunizations CPT Code Status Date Vaccine Lot # [id number] Given 12/12/2014 Influenza Virus Vaccine, Quadrivalent, Split, Preservative Free Vital Signs Date Vital Result Comment 01/18/2019 2:45pm Height 69 inches 5'9" Weight 183.00 lb Heart Rate 54 /min radial,regular BP Systolic Sitting 118 mmHg LA,reg cuff BP Diastolic Sitting 50 mmHg LA,reg cuff BMI (Body Mass Index) 27.0 kg/m2 Ejection Fraction 30%-35% echo 11/03/18 11/27/2018 2:53pm Weight 179.50 lb Heart Rate 64 /min BP Systolic Sitting 130 mmHg Rue Small BP Diastolic Sitting 78 mmHg Rue Small BP Systolic Standing 132 mmHg Rue Small BP Diastolic Standing 74 mmHg Rue Small Results Test Acquired Date Facility Test Result H/L Range Note Basic Metabolic 12/08/2018 [facility] Sodium 137 mmol/L Normal 135-145 1 [address] [place] [address] [phone] Potassium 4.1 mmol/L Normal 3.5-5.0 Chloride 101 mmol/L Normal 101-111 Co2 Carbon Dioxide 33 mmol/L High 22-32 Anion Gap 3 mmol/L Normal 2-11 Glucose 249 mg/dL High 70-100 Blood Urea Nitrogen 37 mg/dL High 6-24 Creatinine 1.47 mg/dL High 0.67-1.17 BUN/Creatinine Ratio 25.2 High 8-20 Calcium 8.5 mg/dL Low 8.6-10.3 Egfr Non- 46.1 >60 Egfr 55.8 >60 2 Basic Metabolic 11/19/2018 [facility] Sodium 139 mmol/L Normal 135-145 [address] [place] [address] [phone] Potassium 3.6 mmol/L Normal 3.5-5.0 Chloride 100 mmol/L Low 101-111 Co2 Carbon Dioxide 35 mmol/L High 22-32 Anion Gap 4 mmol/L Normal 2-11 Glucose 101 mg/dL High 70-100 Blood Urea Nitrogen 38 mg/dL High 6-24 Creatinine 1.46 mg/dL High 0.67-1.17 BUN/Creatinine Ratio 26.0 High 8-20 Calcium 8.7 mg/dL Normal 8.6-10.3 Egfr Non- 46.5 >60 Egfr 56.2 >60 3 Laboratory test 11/19/2018 [facility] Magnesium 2.0 mg/dL Normal 1.9-2.7 finding [address] [place] [address] [phone] Basic Metabolic 11/03/2018 [facility] Sodium 137 mmol/L Normal 135-145 [address] [place] [address] [phone] Potassium 4.0 mmol/L Normal 3.5-5.0 Chloride 100 mmol/L Low 101-111 Co2 Carbon Dioxide 33 mmol/L High 22-32 Anion Gap 4 mmol/L Normal 2-11 Glucose 122 mg/dL High 70-100 Blood Urea Nitrogen 35 mg/dL High 6-24 Creatinine 1.65 mg/dL High 0.67-1.17 BUN/Creatinine Ratio 21.2 High 8-20 Calcium 8.8 mg/dL Normal 8.6-10.3 Egfr Non- 40.3 >60 Egfr 48.8 >60 4 1 [id number] 2 Because ethnic data is not always [...] (or dialysis) Procedures Date Code Description Status 12/11/2018 17600 Icd Eval Sing,Dual,Multi Lead Remote Recpt Transm Tech Rev Completed Tech S 12/11/2018 62163 Icd Eval Sing,Dual,Multi Lead Remote Recpt Transm Tech Rev Completed Tech S 12/11/2018 35253 Icd Check Remote Up To 90 Days Single,Dual,Multiple Lead Completed 12/11/2018 54676 Icd Check Remote Up To 90 Days Single,Dual,Multiple Lead Completed 11/03/2018 81132 ECHO Transthoracic, Real-Time 2D With Doppler And Color Completed Flow 09/11/2018 72334 ECHO Transthoracic, Real-Time 2D With Doppler And Color Completed Flow 09/11/2018 23156 ECHO Transthoracic, Real-Time 2D With Doppler And Color Completed Flow 09/11/2018 37754 Icd Eval With Iterative Adjustmt Multiple Lead System Completed 09/11/2018 36183 Icd Eval With Iterative Adjustmt Multiple Lead System Completed 08/07/2018 23327 Icd Eval With Iterative Adjustmt Multiple Lead System Completed 08/07/2018 31875 Icd Eval With Iterative Adjustmt Multiple Lead System Completed Medical Devices Description No Information Available Encounters Type Date Location Provider Dx Diagnosis Office Visit 11/27/2018 [facility] Sharlene Ortiz, I25.5 Ischemic 3: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 Of 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 [employer] cardiomyopathy I34.0 Nonrheumatic mitral (valve) insufficiency N18.3 Chronic kidney disease, stage 3 (moderate) Z95.810 Presence of automatic (implantable) cardiac defibrillator Office Visit 11/12/2018 12:00p [facility]iar[facility] Su I25.5 Ischemic Cardiology IAIN Ortiz cardiomyopathy I34.0 Nonrheumatic mitral (valve) insufficiency I12.9 Hypertensive chronic kidney disease w stg 1-4/unsp chr kdny I10 Essential (primary) hypertension Office Visit 11/05/2018 2:00p Ciarra Su I25.5 Ischemic Cardiology IAIN Ortiz cardiomyopathy I34.0 Nonrheumatic mitral (valve) insufficiency I12.9 Hypertensive chronic kidney disease w stg 1-4/unsp chr kdny R53.1 Weakness I25.10 Athscl heart disease of [place] coronary artery w/o ang pctrs Office Visit 10/30/2018 1:00p Leander Su I25.5 Ischemic [facility] IAIN cardiomyopathy 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 cardiomyopathy 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 Z95.810 Presence of automatic (implantable) cardiac defibrillator I10 Essential (primary) hypertension I25.10 Athscl heart disease of [place] coronary artery w/o ang pctrs G47.30 Sleep apnea, unspecified Assessments Date Code Description Provider 01/18/2019 Z95.810 Presence of automatic (implantable) Sharlene Ortiz NP cardiac defibrillator 01/18/2019 I25.5 Ischemic cardiomyopathy Sharlene Ortiz NP 01/18/2019 I34.0 Nonrheumatic mitral (valve) Sharlene Ortiz NP insufficiency 01/18/2019 N18.3 Chronic kidney disease, stage 3 Sharlene Ortiz NP (moderate) 12/11/2018 I44.0 Atrioventricular block, first degree Jeannie Minor M.D. 12/11/2018 I44.0 Atrioventricular block, first degree Remote Device Checks 12/11/2018 Z95.810 Presence of automatic (implantable) Jeannie Minor M.D. cardiac defibrillator 12/11/2018 Z95.810 Presence of automatic (implantable) Remote Device Checks cardiac defibrillator 11/27/2018 I25.5 Ischemic cardiomyopathy Sharlene Ortiz [employer] 11/27/2018 I34.0 Nonrheumatic mitral (valve) Sharlene Ortiz NP insufficiency 11/27/2018 N18.3 Chronic kidney disease, stage 3 Sharlene Ortiz NP (moderate) 11/27/2018 Z95.810 Presence of automatic (implantable) Sharlene Ortiz IAIN cardiac defibrillator 11/12/2018 I25.5 Ischemic cardiomyopathy Sharlene Ortiz [employer] 11/12/2018 I34.0 Nonrheumatic mitral (valve) Sharlene Ortiz [employer] insufficiency 11/12/2018 I12.9 Hypertensive chronic kidney disease Sharlene Ortiz IAIN with stage 1 through stage 4 chronic kidney disease, or unspecified chronic kidney disease 11/12/2018 I10 Essential (primary) hypertension Sharlene Ortiz [employer] 11/05/2018 I25.5 Ischemic cardiomyopathy Sharlene Ortiz [employer] 11/05/2018 I34.0 Nonrheumatic mitral (valve) Sharlene Ortiz IAIN insufficiency 11/05/2018 I12.9 Hypertensive chronic kidney disease Sharlene Ortiz IAIN with stage 1 through stage 4 chronic kidney disease, or unspecified chronic kidney disease 11/05/2018 R53.1 Weakness Sharlene OrtizIAIN 11/05/2018 I25.10 Atherosclerotic heart disease of Sharlene Ortiz IAIN [place] coronary artery without angina pectoris 11/03/2018 I34.0 [...] Atherosclerotic heart disease of Traveling ECHO 1 [place] coronary artery with 10/30/2018 I25.5 Ischemic cardiomyopathy Sharlene Ortiz IAIN 10/30/2018 Z95.810 Presence of automatic (implantable) Sharlene Ortiz IAIN cardiac defibrillator 10/30/2018 I12.9 Hypertensive chronic kidney disease Sharlene Ortiz IAIN with stage 1 through stage 4 chronic kidney disease, or unspecified chronic kidney disease 10/30/2018 I25.10 Atherosclerotic heart disease of Sharlene Ortiz IAIN [place] coronary artery with 10/30/2018 N18.3 Chronic kidney [...] Atherosclerotic heart disease of Ica ECHO Schedule [place] coronary artery with 09/11/2018 I44.0 Atrioventricular block, first degree Ica ECHO Schedule 08/07/2018 I25.5 Ischemic cardiomyopathy Jeannie Minor M.D. 08/07/2018 Z95.810 Presence of automatic (implantable) Jeannie Minor M.D. cardiac defibrillator 08/07/2018 I25.5 Ischemic cardiomyopathy Ica Pacer Schedule 08/07/2018 I10 Essential (primary) hypertension Jeannie Minro M.D. 08/07/2018 I25.10 Atherosclerotic heart disease of Jeannie Minor M.D. [place] coronary artery with 08/07/2018 I44.0 Atrioventricular block, first degree Ica Pacer Schedule 08/07/2018 Z95.810 Presence of automatic (implantable) Jeannie Minor M.D. cardiac defibrillator 08/07/2018 G47.30 Sleep apnea, unspecified Jeannie Minor M.D. 08/07/2018 Z95.810 Presence of automatic (implantable) Ica Pacer Schedule cardiac defibrillator Plan of Treatment Future Appointment(s):02/16/2019 2:00 pm - [facility]. [facility]01[facility]18[facility]2019 - Sharlene Ortiz, NPZ95.810 Presence of automatic ( implantable) cardiac ifejhialvhpiuI81.5 Ischemic cardiomyopathyFollow up:in 3-4 weeks with Sharlene Ortiz [employer]S SPECIALIST-BCI34.0 Nonrheumatic mitral (valve) jpytgnbmkoftiY51.3 Chronic kidney disease, stage 3 (moderate) Functional Status Description No Information Available Mental Status Description No Information Available Referrals Description No Information Available
--- OUTSIDE RECORDS SUMMARY | 2019-02-16 15:17 | XMS REPORT | Continuity of Care Document ---
:1940 External Reference #:[id number] Author Name Sean Jensen Care Team Providers Name Role Phone Addy Quezada MD - Endocrinology, Care Team Information [facility] Diabetes & Metabolism Wil Das MD - Care Team Information [facility] [phone] Otolaryngology Problems Active Problems Provider Date Obstructive sleep apnea syndrome Tuyet Soares DNP, RN, [employer]- Onset: Social History Type Date Description Comments [...] Tablets every day [facility] Compression 30/40 - ble 2units Sharlene Ortiz NP 06/05/2018 Stockings swelling/edema- Misc below the knee Acetaminophen Take 650 mg by Faith Mata 03/27/2018 325mg mouth every 6 Vásquez, OUTREACH LIAISON Tablets hours as needed for pain Carvedilol [...] mg po Unknown 30mg twice daily Basaglar Ricardaikpen Inject 7 units SQ Unknown Q Am [...] CPT Code Status Date Vaccine Lot # [id number] Given 12/12/2014 Influenza Virus Vaccine, Quadrivalent, Split, Preservative Free Vital Signs Date Vital Result Comment 11/27/2018 2:53pm Weight 179.50 lb Heart Rate 64 /min BP Systolic Sitting 130 mmHg Rue Small BP Diastolic Sitting 78 mmHg Rue Small BP Systolic Standing 132 mmHg Rue Small BP Diastolic Standing 74 mmHg Rue Small 11/12/2018 12:34pm Weight 194.25 lb with clothes/shoes Results Test Acquired Date Facility Test Result H/L Range Note Basic Metabolic 12/08/2018 [facility] Sodium 137 mmol/L Normal 135-[address] [place] [address] [phone] Potassium 4.1 mmol/L Normal 3.5-5.0 Chloride 101 mmol/L Normal 101-111 Co2 Carbon Dioxide 33 mmol/L High 22-32 Anion Gap 3 mmol/L Normal 2-11 Glucose 249 mg/dL High 70-100 Blood Urea Nitrogen 37 mg/dL High 6-24 Creatinine 1.47 mg/dL High 0.67-1.17 BUN/Creatinine Ratio 25.2 High 8-20 Calcium 8.5 mg/dL Low 8.6-10.3 Egfr Non- 46.1 >60 Egfr 55.8 >60 2 Basic Metabolic 11/19/2018 [facility] Sodium 139 mmol/L Normal 135-145 Panel [address] [place] [address] [phone] Potassium 3.6 mmol/L Normal 3.5-5.0 Chloride 100 mmol/L Low 101-111 Co2 Carbon Dioxide 35 mmol/L High 22-32 Anion Gap 4 mmol/L Normal 2-11 Glucose 101 mg/dL High 70-100 Blood Urea Nitrogen 38 mg/dL High 6-24 Creatinine 1.46 mg/dL High 0.67-1.17 BUN/Creatinine Ratio 26.0 High 8-20 Calcium 8.7 mg/dL Normal 8.6-10.3 Egfr Non- 46.5 >60 Egfr 56.2 >60 3 Laboratory test 11/19/2018 [facility] Magnesium 2.0 mg/dL Normal 1.9-2.7 finding [address] [place] [address] [phone] Basic Metabolic 11/03/2018 [facility] Sodium 137 mmol/L Normal 135-145 Panel [address] [place] [address] [phone] Potassium 4.0 mmol/L Normal 3.5-5.0 Chloride 100 mmol/L Low 101-111 Co2 Carbon Dioxide 33 mmol/L High 22-32 Anion Gap 4 mmol/L Normal 2-11 Glucose 122 mg/dL High 70-100 Blood Urea Nitrogen 35 mg/dL High 6-24 Creatinine 1.65 mg/dL High 0.67-1.17 BUN/Creatinine Ratio 21.2 High 8-20 Calcium 8.8 mg/dL Normal 8.6-10.3 Egfr Non- 40.3 >60 Egfr 48.8 >60 4 Basic Metabolic 07/17/2018 [facility] Sodium 137 mmol/L Normal 135-145 Panel [address] [place] [address] [phone] Potassium 3.8 mmol/L Normal 3.5-5.0 Chloride 101 mmol/L Normal 101-111 Co2 Carbon Dioxide 32 mmol/L Normal 22-32 Anion Gap 4 mmol/L Normal 2-11 Glucose 158 mg/dL High 70-100 Blood Urea Nitrogen 37 mg/dL High 6-24 Creatinine 1.49 mg/dL High 0.67-1.17 BUN/Creatinine Ratio 24.8 High 8-20 Calcium 8.6 mg/dL Normal 8.6-10.3 Egfr Non- 45.5 >60 Egfr 55.0 >60 5 1 [id number] 2 Because ethnic data is not always [...] dialysis) Procedures Date Code Description Status 12/11/2018 98129 Icd Eval Sing,Dual,Multi Lead Remote Recpt Transm Tech Rev Completed Tech S 12/11/2018 44740 Icd Eval Sing,Dual,Multi Lead Remote Recpt Transm Tech Rev Completed Tech S 12/11/2018 31648 Icd Check Remote Up To 90 Days Single,Dual,Multiple Lead Completed 12/11/2018 60287 Icd Check Remote Up To 90 Days Single,Dual,Multiple Lead Completed 11/03/2018 26283 ECHO Transthoracic, Real-Time 2D With Doppler And Color Completed Flow 09/11/2018 22236 ECHO Transthoracic, Real-Time 2D With Doppler And Color Completed Flow 09/11/2018 60311 ECHO Transthoracic, Real-Time 2D With Doppler And Color Completed Flow 09/11/2018 70872 Icd Eval With Iterative Adjustmt Multiple Lead System Completed 09/11/2018 11918 Icd Eval With Iterative Adjustmt Multiple Lead System Completed 08/07/2018 36111 Icd Eval With Iterative Adjustmt Multiple Lead System Completed 08/07/2018 09684 Icd Eval With Iterative Adjustmt Multiple Lead System Completed Medical Devices Description No Information Available Encounters Type Date Location Provider Dx Diagnosis Office Visit 11/27/2018 [facility], I25.5 Ischemic 3:00p Of [employer]ACH LIAISON cardiomyopathy I34.0 Nonrheumatic mitral (valve) insufficiency N18.3 Chronic kidney disease, stage 3 (moderate) Z95.810 Presence of automatic (implantable) cardiac defibrillator Office Visit 11/12/2018 12[facility]p [facility] I[facility] Cardiology Diana, OUTREACH LIAISON cardiomyopathy I34.0 Nonrheumatic mitral (valve) insufficiency I12.9 Hypertensive chronic kidney disease w stg 1-4/unsp chr kdny I10 Essential (primary) hypertension Office Visit 11/05/2018 2:00p [facility] Ischem[facility] Cardiology Diana, OUTREACH LIAISON cardiomyopathy I34.0 Nonrheumatic mitral (valve) insufficiency I12.9 Hypertensive chronic kidney disease w stg 1-4/unsp chr kdny R53.1 Weakness I25.10 Athscl heart disease of [place] coronary artery w/o ang pctrs Office Visit 10/30/2018 1:00p [facility] I[facility] Cardiology Of selma, OUTREACH LIAISON cardiomyopathy [employer] Z95.810 Presence of automatic (implantable) cardiac defibrillator I12.9 Hypertensive chronic kidney disease w stg 1-4/unsp chr kdny I25.10 Athscl heart disease of [place] coronary artery w/o ang pctrs N18.3 Chronic kidney disease, stage 3 (moderate) I34.0 Nonrheumatic mitral (valve) insufficiency Office Visit 08/07/2018 [facility] Jeannie Salomon I25.5 Ischemic 4:00p Cardiology Cristina Minor M.D. cardiomyopathy [employer] Z95.810 Presence of automatic (implantable) cardiac defibrillator I10 Essential (primary) hypertension I25.10 Athscl heart disease of [place] coronary artery w/o ang pctrs G47.30 Sleep apnea, unspecified Assessments Date Code Description Provider 12/11/2018 I44.0 Atrioventricular block, first degree Jeannie Minor M.D. 12/11/2018 I44.0 Atrioventricular block, first degree Remote Device Checks 12/11/2018 Z95.810 Presence of automatic (implantable) Jeannie Minor M.D. cardiac defibrillator 12/11/2018 Z95.810 Presence of automatic (implantable) Remote Device Checks cardiac defibrillator 11/27/2018 I25.5 Ischemic cardiomyopathy Sharlenelouann Ortiz NP 11/27/2018 I34.0 Nonrheumatic mitral (valve) Sharlene Ortiz NP insufficiency 11/27/2018 N18.3 Chronic kidney disease, stage 3 Sharlene Ortiz NP (moderate) 11/27/2018 Z95.810 Presence of automatic (implantable) Sharlene Ortiz NP cardiac defibrillator 11/12/2018 I25.5 Ischemic cardiomyopathy Sharlene Ortiz NP 11/12/2018 I34.0 Nonrheumatic mitral (valve) Sharlene Ortiz NP insufficiency 11/12/2018 I12.9 Hypertensive chronic kidney disease Sharlene Ortiz NP with stage 1 through stage 4 chronic kidney disease, or unspecified chronic kidney disease 11/12/2018 I10 Essential (primary) hypertension Sharlene Ortiz NP 11/05/2018 I25.5 Ischemic cardiomyopathy Sharlene Ortiz NP 11/05/2018 I34.0 Nonrheumatic mitral (valve) Sharlene Ortiz NP insufficiency 11/05/2018 I12.9 Hypertensive chronic kidney disease Sharlene Ortiz NP with stage 1 through stage 4 chronic kidney disease, or unspecified chronic kidney disease 11/05/2018 R53.1 Weakness Sharlene Ortiz NP 11/05/2018 I25.10 Atherosclerotic heart disease of Sharlene Ortiz NP [place] coronary artery without angina pectoris 11/03/2018 I34.0 [...] Atherosclerotic heart disease of Traveling ECHO 1 [place] coronary artery with 10/30/2018 I25.5 Ischemic cardiomyopathy Sharlene Ortiz OUTREACH LIAISON 10/30/2018 Z95.810 Presence of automatic (implantable) Sharlene OrtizIAIN cardiac defibrillator 10/30/2018 I12.9 Hypertensive chronic kidney disease Sharlenelouann Ortiz NP with stage 1 through stage 4 chronic kidney disease, or unspecified chronic kidney disease 10/30/2018 I25.10 Atherosclerotic heart disease of Sharlene OrtizIAIN [place] coronary artery with 10/30/2018 N18.3 Chronic kidney disease, stage 3 Sharlenelouann Ortiz NP (moderate) 10/30/2018 I34.0 Nonrheumatic mitral (valve) Sharlene IAIN Ortiz insufficiency 09/11/2018 I25.5 Ischemic cardiomyopathy Jeannie Minor [...] Atherosclerotic heart disease of Ica ECHO Schedule [place] coronary artery with 09/11/2018 I44.0 Atrioventricular block, first degree Ica ECHO Schedule 08/07/2018 I25.5 Ischemic cardiomyopathy Jeannie Minor M.D. 08/07/2018 Z95.810 Presence of automatic (implantable) Jeannie Minor M.D. cardiac defibrillator 08/07/2018 I25.5 Ischemic cardiomyopathy Ica Pacer Schedule 08/07/2018 I10 Essential (primary) hypertension Jeannie Minor M.D. 08/07/2018 I25.10 Atherosclerotic heart disease of Jeannie Minor M.D. [place] coronary artery with 08/07/2018 I44.0 Atrioventricular block, first degree Ica Pacer Schedule 08/07/2018 Z95.810 Presence of automatic (implantable) Jeannie Minor M.D. cardiac defibrillator 08/07/2018 G47.30 Sleep apnea, unspecified Jeannie Minor M.D. 08/07/2018 Z95.810 Presence of automatic (implantable) Ica Pacer Schedule cardiac defibrillator Plan of Treatment Future Appointment(s):02/16/2019 2:00 pm - Jeannie Minor M.D. at [facility]11/27/2018 - Sharlene Ortiz, NPI25.5 Ischemic cardiomyopathyFollow up:follow up in 1 months with me (Sharlene Ortiz [facility]) Follow up in February as planned with Dr. Almodovar34.0 Nonrheumatic mitral ( valve) [id number] Chronic kidney disease, stage 3 (moderate)Z95.810 Presence of automatic (implantable) cardiac defibrillator Functional Status Description No Information Available Mental Status Description No Information Available Referrals Description No Information Available
[2019-02-16 15:54] LABS: ABS Lymphocytes 0.5 10^3/ul (1.0-4.8); ABS Monocytes 0.6 10^3/ul (0-0.8); ABS Neutrophils 4.8 10^3/ul (1.5-7.7); Eosinophil % 0.5 %; Hematocrit 32 % (42-52); Hemoglobin 10.4 g/dL (14.0-18.0); Lymphocyte % 8.1 %; Mean Corpuscular HGB Conc 33 g/dL (31-36); Mean Corpuscular Hemoglobin 27 pg (27-31); Mean Corpuscular Volume 83 fL (80-94); Mean Platelet Volume 7.6 fL (7.4-10.4); Nucleated Red Blood Cells % 0.1; Platelet Count 213 10^3/uL (150-450); Red Blood Count 3.85 10^6 /uL (4.18-5.48); Red Cell Distribution Width 19 % (10-15); White Blood Count 5.9 10^3/uL (3.5-10.8)
[2019-02-16 16:03] LABS: Albumin 2.9 g/dL (3.2-5.2); Anion Gap 4 mmol/L (2-11); CO2 Carbon Dioxide 27 mmol/L (22-32); Calcium 8.8 mg/dL (8.6-10.3); Chloride 107 mmol/L (101-111); Potassium 4.7 mmol/L (3.5-5.0); Sodium 138 mmol/L (135-145)
[2019-02-16 16:09] LABS: BUN/Creatinine Ratio 29.7 (8-20); Blood Urea Nitrogen 33 mg/dL (6-24); EGFR Non-African American 63.7 (>60); Glucose 166 mg/dL (70-100)
[2019-02-16 16:10] LABS: ALT 14 U/L (7-52); AST 12 U/L (13-39); Albumin/Globulin Ratio 0.8 (1-3); Alkaline Phosphatase 111 U/L (34-104); EGFR African American 77.1 (>60); Globulin 3.7 g/dL (2-4); Total Protein 6.6 g/dL (6.4-8.9)
[2019-02-16 16:13] LABS: Troponin I 0.05 ng/mL (<0.03)
[2019-02-16] MEDS ORDERED: Furosemide IV* 10 MG/ML VIAL (40 MG) IV ONE (16:46)
--- NOTE | 2019-02-16 17:37 | ED ---
HPI Cardiac - HPI Summary HPI Summary: Patient is a 78 y/o M w/ Hx of diabetes, pacemaker/defib, and six cardiac stents who presents to [facility] via EMS with chief complaint of a 28 lbs weight gain over the past month. Patient had gone to his patient flow coordinator, Dr. Minor, for appointment today. Patient was sent to ED for further workup. Daughter notes that the patient has been more disoriented and fatigued recently. She also states that the patient has also had difficulty with ambulation. Patient denies chest pain and SOB. Daughter states that the patient has been non- compliant with oxygen usage. She notes that the patient's medications were changed either 01/17 or 01/18, she is unsure of the nature of these medication changes. Home medications and allergies are reviewed. - History of Current Complaint Chief Complaint: EDHypertension Stated Complaint: HIGH BLOOD PRESSURE Time Seen by Provider: 02/16/19 15:11 Hx Obtained From: Patient Onset/Duration: Started Weeks Ago Timing: Constant, Lasting Weeks Current Severity: None - pain denied Pain Intensity: 0 Pain Scale Used: 0-10 Numeric Associated Signs and Symptoms: Positive: Other: - positive - fatigue, disorientation, difficulty ambulating. Negative: Chest Pain, Shortness of Breath - Additional Pertinent History Primary Care Physician: [id number] - Allergy/Home Medications Allergies/Adverse Reactions: Allergies Allergy/AdvReac Type Severity Reaction Status Date / Time No Known Allergies Allergy Verified 10/31/18 12:13 Home Medications: Home Medications Acetaminophen TAB* [Tylenol TAB*] 325 mg PO Q6H PRN 02/16/19 [History Confirmed 02/16/19] Nitroglycerin TAB 0.4 MG* 0.4 mg SL Q5M PRN 02/16/19 [History Confirmed 02/16/19 ] Nut.tx.gluc.intoler,Lac-Fr,Soy [Glucerna] 237 ml PO BID 02/16/19 [History Confirmed 02/16/19] glipiZIDE TAB* [Glucotrol TAB*] 5 mg PO BID 02/16/19 [History Confirmed 02/16/19 ] metFORMIN* [Glucophage 500 MG TAB *] 500 mg PO BID 02/16/19 [History Confirmed 02/16/19] PMH/Surg Hx/FS Hx/Imm Hx Endocrine/Hematology History: Reports: Hx Anticoagulant Therapy - plavix, aspirin, Hx Diabetes, Hx Anemia Cardiovascular History: Reports: Hx Coronary Artery Disease, Hx Hypertension, Hx Peripheral Vascular Disease Denies: Hx Angina, Hx Auto Implanted Cardiovert Defib, Hx Cardiac Arrest, Hx Congestive Heart Failure - no history prior to current admission. current admission CHF dx, Hx Pacemaker/ICD Respiratory History: Reports: Hx Chronic Obstructive Pulmonary Disease (COPD), Hx Pleural Effusion, Hx Sleep Apnea - NO CPAP GI History: Reports: Hx Gall Bladder Disease, Hx Gastroesophageal Reflux Disease , Other GI Disorders - RECENT LIVER ABSCESS Denies: Hx Jaundice History: Reports: Hx Benign Prostatic Hyperplasia, Other Problems/ Disorders - BPH Denies: Hx Renal Disease Musculoskeletal History: Reports: Hx Arthritis, Hx Back Problems, Other Musculoskeletal History - SPINAL STENOSIS, SPONDYLOLITHESIS Sensory History: Reports: Hx Cataracts - surgery both eyes, Hx Contacts or Glasses Denies: Hx Hearing Aid Opthamlomology History: Reports: Hx Cataracts - surgery both eyes, Hx Contacts or Glasses Neurological History: Reports: Other Neuro Impairments/Disorders - PERIPHERAL NEUROPATHY FEET R/T DM, VERTIGO Denies: Hx Headaches, Hx Migraine, Hx Nerve Disease, Hx Seizures, Hx Spinal Cord Injury, Hx Transient Ischemic Attacks (TIA) Psychiatric History: Reports: Hx Anxiety, Hx Depression Denies: Hx Panic Disorder - Surgical History Surgery Procedure, Year, and Place: CATARACTS. EYE - LASER FOR RETINAL DETACHED. ORIF -FOREARM FX- as a child. LIVER DRNG - FOR ABCESS. 05/25/15 LAP CHOLECYSTECMY. 02/16/15 ERCP. TURP - PROSTATE - BPH Hx Anesthesia Reactions: Yes - EMERGENCE DELIRIUM FOLLOWING ERCP 02/21 Infectious Disease History: No Infectious Disease History: Denies: Hx Clostridium Difficile, Hx of Known/Suspected MRSA, Traveled Outside the [place] in Last 30 Days - Family History Known Family History: Negative: Hypertension, Diabetes - Social History Alcohol Use: Rare Hx Substance Use: No Substance Use Type: Reports: None Substance Use Comment - Amount & Last Used: medical marijuana Hx Tobacco Use: No Smoking Status (MU): Never Smoked Tobacco Have You Smoked in the Last Year: No Review of Systems Constitutional: Other - positive - fatigue, difficulty ambulating, weight gain Negative: Chest Pain Negative: Shortness Of Breath Neurological: Other - positive - increased disorientation All Other Systems Reviewed And Are Negative: Yes Physical Exam - Summary Physical Exam Summary: Constitutional: Well-developed, Well-nourished, Alert. (-) Distressed Skin: Warm, Dry HENT: Normocephalic; Atraumatic Eyes: Conjunctiva normal Neck: Musculoskeletal ROM normal neck. (-) JVD, (-) Stridor, (-) Tracheal deviation Cardio: Rhythm regular, rate normal, Heart sounds normal; Intact distal pulses; Radial pulses are 2+ and symmetric. (-) Murmur Pulmonary/Chest wall: (+) bilateral crackles, worse at lung bases, patient desats to o2 of 90% on RA (-) Respiratory distress, (-) Wheezes, (-) Rales Abd: Soft, (-) tenderness, (-) Distension, (-) Guarding, (-) Rebound Musculoskeletal: 3+ BLE pitting edema Lymph: (-) Cervical adenopathy Neuro: Alert, Oriented x3 Psych: Mood and affect Normal Triage Information Reviewed: Yes Vital Signs On Initial Exam: Initial Vitals Temp Pulse Resp BP Pulse Ox 98.6 F 60 16 206/99 100 02/16/19 15:09 02/16/19 15:09 02/16/19 15:09 02/16/19 15:09 02/16/19 15:09 Vital Signs Reviewed: Yes Procedures - Sedation Patient Received Moderate/Deep Sedation with Procedure: No Diagnostics - Vital Signs Vital Signs Temp Pulse Resp BP Pulse Ox 02/16/19 16:00 60 25 100 02/16/19 15:38 60 4 210/111 99 02/16/19 15:30 61 16 200/149 100 02/16/19 15:10 60 206/99 99 02/16/19 15:09 98.6 F 60 16 206/99 98 - Laboratory Lab Results: Lab Results 02/16/19 02/16/19 02/16/19 Range/Units 15:40 15:40 15:40 WBC 5.9 (3.5-10.8) 10^3/uL RBC 3.85 L (4.18-5.48) 10^6 /uL Hgb 10.4 L (14.0-18.0) g/dL Hct 32 L (42-52) % MCV 83 (80-94) fL MCH 27 (27-31) pg MCHC 33 (31-36) g/dL RDW 19 H (10-15) % Plt Count 213 (150-450) 10^3/uL MPV 7.6 (7.4-10.4) fL Neut % (Auto) 80.9 % Lymph % (Auto) 8.1 % [facility] % (Auto) 10.1 % Eos % (Auto) 0.5 % Baso % (Auto) 0.4 % Absolute Neuts (auto) 4.8 (1.5-7.7) 10^3/ul Absolute Lymphs (auto) 0.5 L (1.0-4.8) 10^3/ul Absolute Monos (auto) 0.6 (0-0.8) 10^3/ul Absolute Eos (auto) 0.0 (0-0.6) 10^3/ul Absolute Basos (auto) 0.0 (0-0.2) 10^3/ul Absolute Nucleated RBC 0.0 10^3/ul Nucleated RBC % 0.1 Sodium 138 (135-145) mmol/L Potassium 4.7 (3.5-5.0) mmol/L Chloride 107 (101-111) mmol/L Carbon Dioxide 27 (22-32) mmol/L Anion Gap 4 (2-11) mmol/L BUN 33 H (6-24) mg/dL Creatinine 1.11 (0.67-1.17) mg/dL Est GFR ( Amer) 77.1 (>60) Est GFR (Non-Af Amer) 63.7 (>60) BUN/Creatinine Ratio 29.7 H (8-20) Glucose 166 H (70-100) mg/dL Calcium 8.8 (8.6-10.3) mg/dL Total Bilirubin 0.50 (0.2-1.0) mg/dL AST 12 L (13-39) U/L ALT 14 (7-52) U/L Alkaline Phosphatase 111 H (34-104) U/L Troponin I 0.05 H* (<0.03) ng/mL B-Natriuretic Peptide > 1300 H (<=100) pg/mL Total Protein 6.6 (6.4-8.9) g/dL Albumin 2.9 L (3.2-5.2) g/dL Globulin 3.7 (2-4) g/dL Albumin/Globulin Ratio 0.8 L (1-3) Result Diagrams: 02/16/19 15:40 02/16/19 15:40 Lab Statement: Any lab studies that have been ordered have been reviewed, and results considered in the medical decision making process. - Radiology CXR Radiology Interpretation Completed By: Radiologist Summary of Radiographic Findings: IMPRESSION: 1. PULMONARY INTERSTITIAL EDEMA WITH AIRSPACE DISEASE OF THE LOWER LUNGS WHICH MAY. REFLECT PULMONARY ALVEOLAR EDEMA VERSUS SUPERIMPOSED PNEUMONIC CONSOLIDATION. 2. BILATERAL PLEURAL EFFUSIONS. ED PHYSICIAN HAS REVIEWED THIS REPORT. - EKG 1555 Cardiac Rate: Other Rate - paced rhythm with rate of 60 BPM Summary of EKG Findings: EKG showed paced rhythm with rate of 60 BPM, no STEMI. ED physician has reviewed and interpreted this EKG. Disposition - Course Course Of Treatment: Patient is here with a 28 pound weight gain over the past month with obvious fluid retention secondary to CHF. Patient crackles bilaterally which was confirmed on chest x-ray. Patient has a BNP greater than 1300. Patient is given 40 mg of IV Lasix. Patient is admitted to the hospitalist for further management. - Diagnoses Provider Diagnoses: CHF exacerbation, Fluid overload, Pulmonary edema, Bilateral pleural effusion - Physician Notifications Discussed Care Of Patient With: Pippa Hood Time Discussed With Above Provider: 16:48 Instructed by Provider To: Other - Patient's case was discussed with Dr. Hood, Dr. Hood accepts for admission. Discharge ED - Sign-Out/Discharge Documenting (check all that apply): Patient Departure - ADMIT - Discharge Plan Condition: Fair Disposition: ADMITTED TO [facility] Referrals: Addy Quezada MD [Primary Care Provider] - - Billing Disposition and Condition Condition: FAIR Disposition: Admitted to [facility] - Attestation Statements Document Initiated by Juan Pablo: Yes Documenting Scribe: CRUZ WILSON Provider For Whom Juan Pablo is Documenting (Include Credential): LEANNA AUGUSTIN MD Scribe Attestation: Shelbie, CRUZ WILSON, scribed for LEANNA AUGUSTIN MD on 02/16/19 at 1844. Scribe Documentation Reviewed: Yes Provider Attestation: The documentation as recorded by the CRUZ chin accurately reflects the service I personally performed and the decisions made by me, LEANNA AUGUSTIN MD Status of Scribe Document: Viewed
[2019-02-16] MEDS ORDERED: hydrALAZINE IV* 20 MG/ML VIAL IV SLOW PU ONE ×2 (18:25→19:23)
[2019-02-16] MEDS ORDERED: Carvedilol TAB* 6.25 MG PO ONE (18:28)
[2019-02-16] MEDS ORDERED: hydrALAZINE IV* 20 MG/ML VIAL IV SLOW PU PRN ×2 (18:35→19:17)
[2019-02-16] MEDS ORDERED: Furosemide IV* 10 MG/ML 2 ML VIAL (20 MG) IV ONE (18:45)
[2019-02-16 22:07] LABS: Troponin I 0.05 ng/mL (<0.03)
--- NOTE | 2019-02-16 23:56 | HP ---
CC: Dr. Quezada * HISTORY AND PHYSICAL: DATE OF ADMISSION: 02/16/19 PROVIDER: Lorena Quinonez NP PRIMARY CARE PROVIDER: Dr. Quezada. ATTENDING PHYSICIAN WHILE IN THE HOSPITAL: Dr. Patricia oCrona * (dictated by Lorena Quinonez NP). CHIEF COMPLAINT: Shortness of breath, weakness, fatigue, 25-pound weight gain, bilateral lower extremity edema. HISTORY OF PRESENT ILLNESS: Mr. 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 He was also noted 4+ pitting edema to bilateral lower extremities with associated shortness of breath , fatigue, and weakness. Due to these findings, the patient was sent to the emergency room for further evaluation and treatment of underlying congestive heart failure. The patient's daughter reports that the patient is currently residing at [facility] and has been compliant with medications at [facility]. She denies any dietary changes or increased uses of salt intake within his diet. She does report that he is not on a low-sodium diet though she makes healthy choices on his menu and picks foods that are lower in sodium. She does report that over the past week, the patient has had increased weakness, fatigue, and increased confusion, but denies any recent fever or chills. She does report a decreased appetite x4 days and increased work of breathing x1 week. The patient denies any chest pain or edema. No cough or hemoptysis. Denies any nausea, vomiting, diarrhea, abdominal pain, hematuria, or dysuria. Does report generalized weakness. No visual complaints, dysphagia, arthralgias, or myalgias. He does have redness to bilateral lower extremities with blistering of the skin. Denies any psychosis or anxiety. Record were reviewed from [facility] and it appears that the patient's Torsemide and Zaroxolyn were discontinued on 01/15/2019. While in the emergency room, the patient had routine lab work drawn. He was found to have an elevated troponin of 0.05 with an elevated BNP of greater than 1300. Due to these findings, Hospital Medicine was asked to see and evaluate him for admission. PAST MEDICAL HISTORY: Significant for: 1. Type 2 diabetes. 2. History of diastolic congestive heart failure. 3. Cardiomyopathy. 4. Hyperlipidemia. 5. Vertigo. 6. Hypertension. 7. Chronic kidney disease, stage 3. 8. Coronary artery disease. 9. Depression. 10. Anemia. 11. GERD. 12. Obstructive sleep apnea, noncompliant. 13. Anxiety. PAST SURGICAL HISTORY: 1. ICD pacemaker placement. 2. Cholecystectomy. 3. Cataract surgery. 4. Cardiac stents x6 last in February 2018. HOME MEDICATIONS: Include: 1. Atorvastatin 80 mg p.o. daily. 2. Carvedilol 37.5 mg at 9:30 a.m., 50 mg at 8 p.m. 3. Clopidogrel 75 mg p.o. daily. 4. Docusate 300 mg p.o. daily. 5. Metolazone 2.5 mg discontinued on 01/15/19. 6. Pantoprazole 40 mg p.o. daily. 7. MiraLAX 17 g p.o. daily. 8. Potassium 20 mEq p.o. daily. 9. Multivitamin 1 tablet p.o. daily. 10. Duloxetine 30 mg p.o. b.i.d. 11. Glipizide 5 mg p.o. b.i.d. 12. Glucerna 1 can b.i.d. 13. Lisinopril 10 mg p.o. daily. 14. Metformin 500 mg p.o. daily. 15. Torsemide 30 mg p.o. daily, discontinued on 01/15/19. 16. Trazodone 100 mg at bedtime. 17. Acetaminophen 325 mg 1 tablet every 6 hours as needed for pain. 18. Nitro 0.4 mg as needed for chest pain. ALLERGIES: No known drug allergies. FAMILY HISTORY: Father at young age due to suicide. Mother with an WI in her 80s. No reported history of diabetes. Brother from Hodgkin lymphoma. SOCIAL HISTORY: Denies any tobacco, alcohol, or illicit drug use. He is . He currently lives at [facility]. He walks with a walker. Surrogate decision maker in the event he is unable to make his own decisions is his daughter. He is a DNR/DNI. A MOLST form was completed and placed on the chart. REVIEW OF SYSTEMS: A 14-point review of systems was completed, all pertinent positives are mentioned in the HPI, otherwise were negative. PHYSICAL EXAMINATION GENERAL: At this time, Mr. Paniagua is an 78-year-old male. He is drowsy, resting on the stretcher in the emergency room. He is alert and oriented x3, but falls asleep during conversation. VITAL SIGNS: Blood pressure 199/109, heart rate 64, respirations 14, O2 saturation 98% on 2 L nasal cannula, temperature was 98.6. HEENT: Head is atraumatic and normocephalic. Eyes: EOMIs are intact. Sclerae anicteric and not pale. Oral mucosa is moist. NECK: Supple. Positive for mild JVD. LUNGS: Diminished bilaterally with crackles in the bases. CARDIAC: S1 and S2. Regular rate and rhythm. No rubs or gallops. ABDOMEN: Soft and nontender. Bowel sounds are present x4. EXTREMITIES: He has 4+ pitting edema to bilateral lower extremities. He does have some erythema and blistering noted to his right lower leg. No weeping is noted. NEUROLOGIC: He is drowsy, resting on the stretcher in the emergency room. He is alert and oriented. He has no gross focal deficits. SKIN: He does have an open area noted to his right lower leg without drainage. He does have mild erythema to bilateral lower legs and blistering noted to his right lower leg. LABORATORY DATA AND DIAGNOSTIC STUDIES: WBC are 5.9, RBC 3.85, hemoglobin 10.4 , hematocrit was 32, and platelet count was 213. Sodium 138, potassium 4.7, chloride 107, carbon dioxide was 27, BUN gap was 4, BUN 33, creatinine 1.11, glucose was 166, calcium 8.8. ASTs were 12, ALTs were 14, alkaline phosphatase was 105. Troponin was 0.05. BNP was greater than 1300. He had a chest x-ray, radiologist's impression: Pulmonary interstitial edema with airspace disease in the lower lung which may reflect a pulmonary alveolar edema versus superimposed pulmonic consolidation, bilateral pleural effusions. He had an electrocardiogram, which showed a paced rhythm at a rate of 60. ASSESSMENT AND PLAN: Mr. Paniagua is an 78-year-old male with the past medical history significant for cardiomyopathy, coronary artery disease, chronic kidney disease stage 3, hypertension, hyperlipidemia, type 2 diabetes, gastroesophageal reflux disease, anxiety, and obstructive sleep apnea, who presented to the emergency room with complaints of 25- to 30-pound weight gain in 28 days, weakness, fatigue, and increased confusion. He will be admitted inpatient for: 1. Diastolic congestive heart failure exacerbation. The patient has experienced a 25-pound weight gain in the last 28 days. I suspect this is related to discontinuation of his furosemide and Zaroxolyn. It appears that the patient has lab work on 01/12/19 at that time when he did show an elevation in his creatinine of 2.09. I suspect that his Zaroxolyn and torsemide were discontinued due to his elevation in BUN and creatinine and these medications were not resumed. I suspect this is the cause of his increased swelling in his lower extremities and exacerbation of his underlying congestive heart failure. His daughter reports that he has had no dietary changes over the past month and has had a decreased appetite in the past 4 days and has not had a significant amount of intake. She denies any extra salt in his diet. The patient did receive Lasix 40 mg in the emergency room. I will give him an extra dose of 20 for a total of [address] him on Lasix 60 mg IV daily. He will be placed on strict I's and O's and daily weights. We will continue his carvedilol as previously prescribed. 2. Hypertension. The patient is hypertensive in the emergency room. I will give him his evening dose of carvedilol [address] him on hydralazine 10 mg every 6 hours for systolic blood pressure greater than 150. He will also continue his lisinopril and b.i.d. dosing of carvedilol. The patient has received Lasix and will continue on Lasix 60 mg IV b.i.d. He may require potassium supplementation due to the Lasix. 3. Elevated Troponin. He is noted to have an elevated troponin. The patient is noted to have consistent elevation in his troponin on previous lab work. I suspect this is related to his underlying exacerbation of congestive heart failure. 4. Coronary artery disease. The patient will continue on clopidogrel and atorvastatin as previously prescribed. 5. Gastroesophageal reflux disease. He will continue on pantoprazole 40 mg p.o. daily. 6. Type [address] him on lispro sliding scale with Accu-Cheks a.c. 7. FEN. He can have a low-sodium diet. 8. Code status. He is a DNR/DNI. MOLST form was completed and placed on the chart. 9. DVT prophylaxis. I will place him on heparin subcu. At this time, SCDs are contraindicated due to the patient's congestive heart failure. TIME SPENT: Time spent on this admission was 60 minutes, greater than half that time was spent reviewing the events leading thus far to this hospitalization, performing physical exam, and reviewing my plan of care. I have discussed this with my attending Dr. Patricia Corona, she is in agreement with my plan. LORENA QUINONEZ, IAIN [id number]/[facility] #: [id number] FRANCES
[2019-02-17 00:27] LABS: Troponin I 0.05 ng/mL (<0.03)
[2019-02-17] MEDS: DULoxetine DR CAP* 30 MG CAP.DR PO SCH ×3 (01:42→23:13)
[2019-02-17] MEDS: Heparin VIAL(*) 5000 UNITS/ML VIAL (FIVE THOUSAND) SUBCUT SCH ×4 (01:42→23:14)
[2019-02-17] MEDS: Pantoprazole TAB * 40 MG TAB PO SCH ×2 (01:42→23:14)
[2019-02-17 06:02] LABS: ABS Lymphocytes 0.5 10^3/ul (1.0-4.8); ABS Monocytes 0.7 10^3/ul (0-0.8); ABS Neutrophils 3.6 10^3/ul (1.5-7.7); Eosinophil % 0.6 %; Hematocrit 31 % (42-52); Hemoglobin 10.1 g/dL (14.0-18.0); Lymphocyte % 10.2 %; Mean Corpuscular HGB Conc 33 g/dL (31-36); Mean Corpuscular Hemoglobin 27 pg (27-31); Mean Corpuscular Volume 82 fL (80-94); Mean Platelet Volume 7.3 fL (7.4-10.4); Platelet Count 196 10^3/uL (150-450); Red Blood Count 3.76 10^6 /uL (4.18-5.48); Red Cell Distribution Width 18 % (10-15); White Blood Count 4.8 10^3/uL (3.5-10.8)
[2019-02-17 06:17] LABS: BUN/Creatinine Ratio 28.5 (8-20); Calcium 8.7 mg/dL (8.6-10.3); EGFR African American 68.5 (>60); EGFR Non-African American 56.6 (>60)
--- NOTE | 2019-02-17 08:06 | PN ---
Subjective - Subjective Reason for Note: Progress Note History: I obtained this history from Hannah Ramon (daughter). 1 week history - lethargic , confused, depressed and he has had problems standing up from walker. He has had labored breathing. He can't make it to the dining [facility] - just 20 feet. Has been wheelchair bound. "Everything he does feels heavy, he is always slumped down". He has been eating, talking very little. He has difficulty following order. 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 He hasn't been drinking enough fluid. No notification about high or low glucose, or of 30 lb weight gain. She thinks this is similar to 1 year ago. He is not waking up, though. He was not aware in cardiology office yesterday - sent him to the ED. I have reviewed his presentation from Lorena RAMIREZ's admitting history and physical. He is a primary care patient of [facility] and lives at [facility] assisted [facility]. This morning he is unable to say more than his name after many prompts. He appears to understand simple commands, but is slow to respond - he closes his eyes to command and squeezes my hands to command. He is unable to give an account of himself and I cannot assess his orientation. Active Problems: Active Problems Acute systolic (congestive) heart failure (Acute) I50.21 Altered mental status (Acute) R41.82 Aphasia (Acute) R47.01 Biventricular cardiac pacemaker in situ (Acute) Z95.0 Cellulitis of right lower leg (Acute) L03.115 Edema (Acute) R60.9 Right leg weakness (Acute) R29.898 History of heart artery stent (Chronic) Z95.5 ICD (implantable cardioverter-defibrillator) in place (Chronic) Z95.810 Current Medications: Current Medications Acetaminophen (Tylenol Tab*) 650 mg PO Q4H PRN PRN Reason: MILD PAIN or TEMP > 100.4 Atorvastatin Calcium (Lipitor*) 80 mg PO DAILY [facility] Carvedilol (Coreg Tab*) 37.5 mg PO QAM [facility] Carvedilol (Coreg Tab*) 50 mg PO QPM [facility] Clopidogrel Bisulfate (Plavix Tab*) 75 mg PO QAM [facility] Docusate Sodium (Colace Cap*) 300 mg PO DAILY [facility] Duloxetine HCl (Cymbalta Cap*) 30 mg PO BID [facility] Last Admin: 02/17/19 01:42 Dose: 30 mg Furosemide (Lasix Iv*) 60 mg IV BID [facility] Heparin Sodium (Porcine) (Heparin Vial(*)) 5,000 units SUBCUT Q8HR [facility] Last Admin: 02/17/19 05:57 Dose: 5,000 units Hydralazine HCl (Apresoline Iv*) 10 mg IV SLOW PU Q6H PRN PRN Reason: Systolic Bp Greater Than:180 Lisinopril (Prinivil Tab*) 10 mg PO DAILY [facility] Multivitamins/Minerals (Theragran/Minerals Tab*) 1 tab PO DAILY [facility] Pantoprazole Sodium (Protonix Tab*) 40 mg PO BEDTIME [facility] Last Admin: 02/17/19 01:42 Dose: 40 mg Polyethylene Glycol/Electrolytes (Miralax*) 17 gm PO DAILY [facility] Potassium Chloride (Klor Con Er Tab*) 20 meq PO DAILY [facility] Home Medications: Home Medications Medication Instructions Recorded Confirmed Type Carvedilol TAB* [Coreg TAB*] 37.5 mg PO QAM 07/10/18 02/16/19 History Clopidogrel TAB* [Plavix TAB*] 75 mg PO QAM 07/10/18 02/16/[address] CAP* [Cymbalta CAP*] 30 mg PO BID 07/10/18 02/16/19 History Docusate CAP* [Colace Cap*] 300 mg PO DAILY 07/10/18 02/16/19 History Lisinopril TAB* [Prinivil TAB 5 10 mg PO DAILY 07/10/18 02/16/19 History MG*] Pantoprazole TAB * [Protonix TAB*] 40 mg PO BEDTIME 07/10/18 02/16/19 History traZODone TAB* [Desyrel TAB*] 100 mg PO BEDTIME PRN 07/10/18 02/16/19 History Atorvastatin* [Lipitor*] 80 mg PO DAILY 12/18/18 02/16/19 History Carvedilol TAB* [Coreg TAB*] 50 mg PO QPM 12/18/18 02/16/19 History Multivitamins/Minerals TAB* 1 tab PO DAILY 12/18/18 02/16/19 History [Theragran/minerals TAB*] Polyethylene Glycol 3350* 17 gm PO DAILY 12/18/18 02/16/19 History [Miralax*] Potassium Chlor TAB* [Klor Con ER 20 meq PO DAILY 12/18/18 02/16/19 History TAB*] Acetaminophen TAB* [Tylenol TAB*] 325 mg PO Q6H PRN 02/16/19 02/16/19 History Nitroglycerin TAB 0.4 MG* 0.4 mg SL Q5M PRN 02/16/19 02/16/19 History Nut.tx.gluc.intoler,Lac-Fr,Soy 237 ml PO BID 02/16/19 02/16/19 History [Glucerna] glipiZIDE TAB* [Glucotrol TAB*] 5 mg PO BID 02/16/19 02/16/19 History metFORMIN* [Glucophage 500 MG TAB 500 mg PO BID 02/16/19 02/16/19 History *] Allergies: Allergies Allergy/AdvReac Type Severity Reaction Status Date / Time No Known Allergies Allergy Verified 10/31/18 12:13 Objective - Vital Signs Vital Signs: Vital Signs 02/16/19 02/16/19 02/16/19 15:09 15:10 15:30 Temperature 98.6 F Pulse Rate 60 60 61 Respiratory 16 16 Rate Blood Pressure 206/99 206/99 200/149 (mmHg) O2 Sat by Pulse 98 99 100 Oximetry 02/16/19 02/16/19 02/16/19 15:38 16:00 16:08 Temperature Pulse Rate 60 60 60 Respiratory 4 25 4 Rate Blood Pressure 210/111 203/113 (mmHg) O2 Sat by Pulse 99 100 99 Oximetry 02/16/19 02/16/19 02/16/19 16:38 17:00 17:08 Temperature Pulse Rate 60 60 60 Respiratory 16 12 21 Rate Blood Pressure 203/114 203/111 (mmHg) O2 Sat by Pulse 100 97 98 Oximetry 02/16/19 02/16/19 02/16/19 17:38 18:00 18:08 Temperature Pulse Rate 64 62 60 Respiratory 14 20 21 Rate Blood Pressure 199/109 222/121 (mmHg) O2 Sat by Pulse 98 99 91 Oximetry 02/16/19 02/16/19 02/16/19 18:39 19:00 19:09 Temperature Pulse Rate 61 63 63 Respiratory 15 23 Rate Blood Pressure 167/122 197/104 (mmHg) O2 Sat by Pulse 96 96 97 Oximetry 02/16/19 02/16/19 02/16/19 19:39 20:00 20:01 Temperature Pulse Rate 62 61 61 Respiratory 17 13 12 Rate Blood Pressure 197/111 185/102 (mmHg) O2 Sat by Pulse 98 98 98 Oximetry 02/16/19 02/16/19 02/16/19 20:08 20:28 20:43 Temperature Pulse Rate 60 62 63 Respiratory 17 19 16 Rate Blood Pressure 180/96 170/105 180/80 (mmHg) O2 Sat by Pulse 99 99 99 Oximetry 02/16/19 02/16/19 02/16/19 20:58 21:00 21:09 Temperature Pulse Rate 60 62 60 Respiratory 30 27 22 Rate Blood Pressure 154/78 151/79 (mmHg) O2 Sat by Pulse 99 99 97 Oximetry 02/16/19 02/16/19 02/16/19 21:10 21:13 21:40 Temperature 98.5 F 98.5 F Pulse Rate 64 60 60 Respiratory 18 18 Rate Blood Pressure 151/79 158/80 158/80 (mmHg) O2 Sat by Pulse 97 98 98 Oximetry 02/16/19 02/16/19 02/17/19 21:53 23:15 03:15 Temperature 97.0 F 97.6 F 96.7 F Pulse Rate 59 60 59 Respiratory 20 20 19 Rate Blood Pressure 140/64 148/64 139/53 (mmHg) O2 Sat by Pulse 98 99 95 Oximetry - Intake and Output Intake and Output: Intake & Output 02/14/19 02/15/19 02/16/19 02/17/19 11:59 11:59 11:59 11:59 Intake Total 0 Output Total 0 Balance 0 Weight 199 lb Intake: Oral 0 Output: Urine 0 Other: Estimated Void Large # Voids 1 ADLs: Meal Record Start: 02/16/19 21: 53 Freq: DAILY@0900,1400,1800 Status: Active Protocol: Created 02/16/19 21:53 System (Rec: 02/16/19 21:53 System [id number]) Intake and Output Start: 02/16/19 18: 21 Freq: Status: Active Protocol: Created 02/16/19 18:21 [id number] (Rec: 02/16/19 18:21 [id number]) Document 02/16/19 18:22 [id number] (Rec: 02/16/19 18:22 [id number] [id number]) Intake and Output Start: 02/16/19 21: 53 Freq: DAILY@0600,1400,2200 Status: Active Protocol: Created 02/16/19 21:53 System (Rec: 02/16/19 21:53 System [email or web address]) Document 02/16/19 22:00 [id number] (Rec: 02/16/19 23:42 [id number] MININT- [id number]) Document 02/17/19 06:00 [id number] (Rec: 02/17/19 06:25 [id number]) - Physical Exam General Physical Exam Comment: Lying on his back without signs of acute dyspnea , tachypnea or distress. He is difficult to rouse. He drifts off. He had difficulty keeping each eye open. He has no spontaneous conversation - said his name after much prompting. He closed his eyes to command and squeezed my fingers to command. He could lift his left leg straight, but not his right. He has a patch of cellulitis on his right jefferson and also a blister from edema. He has some erythema of his left sole - which is marginated (see clinical photograph under Results). General: No Cyanosis, No Anemia, No Jaundice, No Clubbing Eye Exam: bilateral: EOMI Skin: Abnormal: Rash - Cellulitis patch right jefferson Lungs and Chest: Yes: Chest Expansion Full, Chest Expansion Symetrica. No: Percussion Note Resonant - dull both bases, Vessicular Breath Sounds - diminished air entry both bases, Crackles, Wheezes, Respiratory Distress, Use of Accessory Muscles Heart Rate and Rhythm: Regular Additional Cardiovascular: Yes: Normal Heart Sounds, Heart Murmur - 3/6 systolic murmur at apex, Pedal Edema - 2+ Abdominal Exam: Yes: Soft, Bowel Sounds Present. No: Distention, Abdominal Mass , Hepatomegaly, Abdominal Tenderness, Guarding - Extremities Cranial Nerves II-XII Intact: No - difficult to fully assess due to altered mental state. Limbs: Abnormal Power - generalized weakness, right leg weaker than left - Neuro Orientation: Person Psychiatric: Depressed Speech: Dysphasia Results - Results Lab Results: Laboratory Results - last 24 hr 02/16/19 02/16/19 02/16/19 15:40 15:40 15:40 WBC 5.9 RBC 3.85 L Hgb 10.4 L Hct 32 L MCV 83 MCH 27 MCHC 33 RDW 19 H Plt Count 213 MPV 7.6 Neut % (Auto) 80.9 Lymph % (Auto) 8.1 Villalba % (Auto) 10.1 Eos % (Auto) 0.5 Baso % (Auto) 0.4 Absolute Neuts (auto) 4.8 Absolute Lymphs (auto) 0.5 L Absolute Monos (auto) 0.6 Absolute Eos (auto) 0.0 Absolute Basos (auto) 0.0 Absolute Nucleated RBC 0.0 Nucleated RBC % 0.1 Sodium 138 Potassium 4.7 Chloride 107 Carbon Dioxide 27 Anion Gap 4 BUN 33 H Creatinine 1.11 Est GFR ( Amer) 77.1 Est GFR (Non-Af Amer) 63.7 BUN/Creatinine Ratio 29.7 H Glucose 166 H Calcium 8.8 Total Bilirubin 0.50 AST 12 L ALT 14 Alkaline Phosphatase 111 H Troponin I 0.05 H* B-Natriuretic Peptide > 1300 H Total Protein 6.6 Albumin 2.9 L Globulin 3.7 Albumin/Globulin Ratio 0.8 L 02/16/19 02/16/19 02/17/19 21:37 23:49 05:33 WBC 4.8 RBC 3.76 L Hgb 10.1 L Hct 31 L MCV 82 MCH 27 MCHC 33 RDW 18 H Plt Count 196 MPV 7.3 L Neut % (Auto) 74.1 Lymph % (Auto) 10.2 Villalba % (Auto) 14.2 Eos % (Auto) 0.6 Baso % (Auto) 0.9 Absolute Neuts (auto) 3.6 Absolute Lymphs (auto) 0.5 L Absolute Monos (auto) 0.7 Absolute Eos (auto) 0.0 Absolute Basos (auto) 0.0 Absolute Nucleated RBC 0.0 Nucleated RBC % 0.0 Sodium Potassium Chloride Carbon Dioxide Anion Gap BUN Creatinine Est GFR ( Amer) Est GFR (Non-Af Amer) BUN/Creatinine Ratio Glucose Calcium Total Bilirubin AST ALT Alkaline Phosphatase Troponin I 0.05 H* 0.05 H* B-Natriuretic Peptide Total Protein Albumin Globulin Albumin/Globulin Ratio 02/17/19 05:33 WBC RBC Hgb Hct MCV MCH MCHC RDW Plt Count MPV Neut % (Auto) Lymph % (Auto) Villalba % (Auto) Eos % (Auto) Baso % (Auto) Absolute Neuts (auto) Absolute Lymphs (auto) Absolute Monos (auto) Absolute Eos (auto) Absolute Basos (auto) Absolute Nucleated RBC Nucleated RBC % Sodium 140 Potassium 4.0 Chloride 107 Carbon Dioxide 29 Anion Gap 4 BUN 35 H Creatinine 1.23 H Est GFR ( Amer) 68.5 Est GFR (Non-Af Amer) 56.6 BUN/Creatinine Ratio 28.5 H Glucose 101 H Calcium 8.7 Total Bilirubin AST ALT Alkaline Phosphatase Troponin I B-Natriuretic Peptide Total Protein Albumin Globulin Albumin/Globulin Ratio Radiology Results: Patient Name: SURENDRA PANIAGUA Medical Record#: [id number] Ordering Physician: Nick Cárdenas MD Acct.#: [id number] : 1940 Age: 78 Sex: M Location: EMERGENCY DEPARTMENT Exam Date: 02/16/191519 ADM Status: REG ER Order Information: CHEST AP OR PORT Accession Number: [id number] CPT: 69655 HISTORY: fluid overload COMPARISONS: July 10, 2018 VIEWS: 1: frontal AP view of the chest at 3:38 PM FINDINGS: LINES AND TUBES: A left-sided pacemaker is noted CARDIOMEDIASTINAL SILHOUETTE: The cardiac silhouette is enlarged. The cardiomediastinal silhouette is otherwise normal for portable technique. PLEURA: There are large bilateral pleural effusion. LUNG PARENCHYMA: There is a diffuse reticular pattern with indistinct pulmonary vessels. There is confluent alveolar opacification of the lower lungs bilaterally. ABDOMEN: The upper abdomen is clear. There is no subphrenic gas. BONES AND SOFT TISSUES: No bone or soft tissue abnormalities are noted. IMPRESSION: 1. PULMONARY INTERSTITIAL EDEMA WITH AIRSPACE DISEASE OF THE LOWER LUNGS WHICH MAY REFLECT PULMONARY ALVEOLAR EDEMA VERSUS SUPERIMPOSED PNEUMONIC CONSOLIDATION. 2. BILATERAL PLEURAL EFFUSIONS. <Electronically signed by Emil Urbano MD in OV> 02/16/19 1600 Dictated By: Emil Urbano MD Dictated Date/Time: 02/16/19 1558 Transcribed Date/Time: 02/16/19 1558 Copy to: EKG Report: paced rhythm. Other Results/Reports: Assessment - Problem List Assessment: Patient Problems Acute systolic (congestive) heart failure (Acute) Altered mental status (Acute) Aphasia (Acute) Biventricular cardiac pacemaker in situ (Acute) Cellulitis of right lower leg (Acute) Edema (Acute) Right leg weakness (Acute) History of heart artery stent (Chronic) ICD (implantable cardioverter-defibrillator) in place (Chronic) Chronic low back pain (Chronic) Chronic renal disease, stage 3, moderately decreased glomerular filtration rate between 30-59 mL/min/1.73 square meter (Chronic) DVT prophylaxis (Chronic) Essential (primary) hypertension (Chronic) Hypercholesteremia (Chronic) Ischemic cardiomyopathy (Chronic) Lumbar spinal stenosis (Chronic) Mitral regurgitation (Chronic) Obesity (BMI 35.0-39.9 without comorbidity) (Chronic) Pancreatic mass (Chronic) S/P cholecystectomy (Chronic) Type 2 diabetes mellitus treated with insulin (Chronic) Plan: Acute systolic (congestive) heart failure (Acute)Ischemic cardiomyopathy ( Chronic) 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 We stopped his diuretics in January due to pre-renal azotemia. However, we were not informed about his weight gain or edema by his assisted living or family. He has a BNP above the reference range. I will start him on diuretic therapy. I will ask cardiology to consult. Altered mental status (Acute) Aphasia (Acute) Right leg weakness (Acute) It is unclear to me if this is due to a new CVA or if it is due to delirium. I will initially check a CT scan of his brain and proceed to an MRI as needed. I will look at other potential reasons - including hypothyroidism. I will obtain a swallowing evaluation. I will consider a neurology consultation in due course. Cellulitis of right lower leg (Acute) This is in an area where there has been some skin stress due to edema. His WBC is not increased, but his % neutrophils are higher than usual. He has no fever. I will check his CRP and sed rate. I will start him on vancomycin and zosyn- although this is not a severe cellulitis. Biventricular cardiac pacemaker in situ (Acute)Edema (Acute) I can't tell if there is any new injury. He had a transthoracic echocardiogram 11/03/18 - I will leave to cardiology if they want to repeat this. Type 2 diabetes mellitus treated with insulin (Chronic) He has come off insulin as this is not possible to administer at [place] [facility]. I will restart insulin here, but as he is not eating/drinking much, I will use a smaller amount. Comorbidities: Chronic renal disease, stage 3, moderately decreased glomerular filtration rate between 30-59 mL/min/1.73 square meter (Chronic) I will watch this carefully with the diuretic therapy secondary diagnoses History of heart artery stent (Chronic) ICD (implantable cardioverter-defibrillator) in place (Chronic) - he is DNR, but has this in situ Chronic low back pain (Chronic) DNR - he has MOLST DVT prophylaxis (Chronic) Essential (primary) hypertension (Chronic) stable Hypercholesteremia (Chronic) ongoing treatment Lumbar spinal stenosis (Chronic) Mitral regurgitation (Chronic) Obesity (BMI 35.0-39.9 without comorbidity) (Chronic) Pancreatic mass (Chronic) S/P cholecystectomy (Chronic) I spoke with Hannah Ramon, his daughter. Surendra Paniagua lacks capacity at present. She agrees with the management plan.
[2019-02-17] MEDS ORDERED: Zosyn per Pharmacy* NOTE FOLLOW UP SCH (09:00)
[2019-02-17] MEDS ORDERED: Vancomycin per Pharmacy* NOTE FOLLOW UP SCH (09:00)
[2019-02-17] MEDS ORDERED: Iodixanol* (CONTRAST) 320 MG/ML 100 ML SDV IV ONE (09:00)
[2019-02-17] MEDS ORDERED: Potassium Chlor TAB* 20 MEQ TAB.ER PO SCH (09:00)
[2019-02-17] MEDS ORDERED: ZOSYN 3.375 GM x ONE DOSE over 30 miuntes IVPB ×2 (09:15)
[2019-02-17] MEDS ORDERED: Vancomycin(*) 1,250 MG in NS 0.9% 250 ML* 250 ML IVPB ONE (10:00)
[2019-02-17] MEDS: Furosemide IV* 10 MG/ML 10 ML VIAL (100 MG) IV SCH ×2 (10:38→23:13)
[2019-02-17 12:26] LABS: BUN/Creatinine Ratio 25.4 (8-20); C Reactive Protein 5.83 mg/L (<8.01); Calcium 8.4 mg/dL (8.6-10.3); EGFR African American 64.3 (>60); EGFR Non-African American 53.1 (>60); Potassium 4.2 mmol/L (3.5-5.0)
[2019-02-17 12:43] LABS: TSH (Thyroid Stimulating Horm) 0.94 mcIU/mL (0.34-5.60)
[2019-02-17 12:50] LABS: Albumin 2.7 g/dL (3.2-5.2); Albumin/Globulin Ratio 0.7 (1-3); Globulin 3.9 g/dL (2-4); Indirect Bilirubin 0.4 mg/dL (0.3-1.0); Total Bilirubin 0.5 mg/dL (0.2-1.0); Total Protein 6.6 g/dL (6.4-8.9)
--- NOTE | 2019-02-17 13:20 | PN ---
Cardiology Progress Note Date of Service: 02/17/19 - CC: mentation changes, Full note dictated. Diuretics held 01/15/19 Presented 02/16/19 with SOB, fluid overload, mentation changes and leg exam c/w cellulitis. BP on arrival very high. Agree with IV diuretics and antibiotics. Agree stopping metformin and would leave him off of this. Unsure if kidneys will allow the patient to replace with SGLT2 inhibitor, but if so should wait until mentation improves. Recommendations: STOP lisinopril REPLACE once washed out with ENTRESTO (or add ARB first) Once Entresto is on we may be able to lower Coreg to 25 BID in case beta eugenio leading to/contributing to depressed mentation Will have FIELD SERVICE SUPERVISOR-D device interrogated to ensure no asymptomtic AFIB.
[2019-02-17] MEDS: ZOSYN 3.375 GM Q8H per EXTENDED INFUSION IVPB SCH ×4 (15:16→23:14)
[2019-02-17] MEDS: Docusate CAP* 100 MG PO SCH (15:16)
[2019-02-17] MEDS: Carvedilol TAB* 25 MG PO SCH (15:17)
[2019-02-17] MEDS: Multivitamins/Minerals TAB PO SCH (15:17)
[2019-02-17] MEDS: Potassium Chlor TAB* 20 MEQ TAB.ER PO SCH ×2 (15:18→23:35)
[2019-02-17] MEDS: Lisinopril TAB* 10 MG PO SCH (15:18)
[2019-02-17] MEDS: Atorvastatin* 80 MG TAB PO SCH (15:18)
[2019-02-17] MEDS: Clopidogrel TAB* 75 MG PO SCH (15:19)
[2019-02-17] MEDS: Insulin GLARGINE(*) 1 UNITS UNIT SUBCUT SCH (15:19)
[2019-02-17] MEDS: Polyethylene Glycol 3350* 17 GM PACKET PO SCH (15:29)
--- NOTE | 2019-02-17 15:48 | ECHO ---
*[facility]* [place] [address] Fax #: [phone] Transthoracic Echocardiogram Patient: Yosvany Paniagua : 1940 Study Date: 02/17/2019 Age: 78 Gender: M HR: 65 bpm Height: 69 in /175.3 cm BSA: 2.06 m^2 Weight: 198.6 lb /90.3 kg BMI: 29.4 kg/m^2 *Systems Spec: Yola Miles *Referring Physician: * Yajaira Sanchez MD *Reading Physician: * Yajaira Sanchez MD Indications: Congestive Heart Failure. History: Murmur. Coronary artery disease. Congestive heart failure. Mitral regurgitation. Risk factors: Hypertension. Dyslipidemia. Conclusions Summary: - Left ventricle: Systolic function is severely reduced. The estimated ejection fraction is 25-30%. Akinesis of the apical myocardium. Doppler parameters are consistent with abnormal left ventricular relaxation (grade 1 diastolic dysfunction). - Right ventricle: Pacer wire was noted in right atrium and right ventricle. Systolic function is low normal. - Mitral valve: There is mild to moderate regurgitation, directed eccentrically. - Aortic valve: Noncoronary cusp immobility is noted. Right coronary cusp and LCC open well. There is no evidence of stenosis. Stenosis is probably underestimated due to poor left ventricular function. There is trace regurgitation. - Tricuspid valve: There is mild-moderate regurgitation. - Pericardium, extracardiac: There is a right pleural effusion and a left pleural effusion. - Pulmonary arteries: Systolic pressure is severely increased, estimated to be 72 mm Hg. - Compared with prior echocardiogram of 02/18/18, ejection fraction is stable, wall motion stable, aortic valve stable, mitral regurgitation stable, tricuspid regurgitation is stable, pulmonary artery pressure not previously estimated. Study data: Transthoracic echocardiogram. Procedure: Transthoracic echocardiography was performed. Image quality was good. Complete 2D, spectral Doppler, and color flow Doppler. Location: Bedside. Patient status: Inpatient. Patient room number: 443-02. Rhythm: Normal sinus rhythm. Findings Left ventricle: The cavity size is normal. Wall thickness is moderately increased. Systolic function is severely reduced. The estimated ejection fraction is 25-30%. Regional wall motion abnormalities: Akinesis of the apical myocardium. Doppler parameters are consistent with abnormal left ventricular relaxation (grade 1 diastolic dysfunction). Right ventricle: The cavity size is normal. Wall thickness is normal. Pacer wire was noted in right atrium and right ventricle. Systolic function is low normal. Left atrium: The atrium is mildly dilated. Right atrium: The atrium is normal in size. Mitral valve: The leaflets are normal thickness. There is no evidence of stenosis. There is mild to moderate regurgitation, directed eccentrically. Aortic valve: The valve is probably trileaflet. The leaflets are moderately calcified. Noncoronary cusp immobility is noted. There is no evidence of stenosis. Stenosis is probably underestimated due to poor left ventricular function. There is trace regurgitation. Tricuspid valve: The leaflets are normal thickness. There is no evidence of stenosis. There is mild-moderate regurgitation. Pulmonic valve: The leaflets are normal thickness. There is no evidence of stenosis. There is trace regurgitation. Aorta: The aortic root appears normal. The aortic arch appears normal. Pericardium: There is no significant pericardial effusion. There is a right pleural effusion and a left pleural effusion. Pulmonary arteries: Systolic pressure is severely increased, estimated to be 72 mm Hg. Systemic veins: Inferior vena cava: The vessel is normal in size. Pulmonary veins: The Pulmonary veins appear normal. Measurements Left ventricle Value Ref Aortic valve Value Ref ELI, LAX 5.6 cm 4.2 - Peak v, S 1.01 m/sec ----- 5.8 VTI, S 22.1 cm ----- ESD, LAX (H) 4.4 cm 2.5 - Mean grad, S 2.0 mm Hg ----- 4.0 Peak grad, S 4.0 mm Hg ----- FS, LAX (L) 21 % 25 - 43 SANTOSH, VTI 2.70 cm^2 ----- PW, ED, LAX (H) 1.4 cm 0.6 - SANTOSH, Vmax 2.62 cm^2 ----- 1.0 E', lat jessica, TDI (L) 6.9 cm/sec >=10.0 Mitral valve Value Ref E/e', lat jessica, TDI 9 -------- Peak E 0.6 m/sec -- --- E', med jessica, TDI (L) 4.1 cm/sec >=7.0 Peak A 0.94 m/sec ----- E/e', med jessica, TDI 15 -------- Decel time 222 ms -- --- E', avg, TDI 5.5 cm/sec -------- Peak E/A ratio 0.6 -- --- E/e', avg, TDI 11 <=14 Pulmonic valve Value Ref LVOT Value Ref Peak v, S 0.67 m/sec ----- Diam, S 2.00 cm -------- Peak grad, S 2.0 mm Hg ----- Area 3.1 cm^2 -------- Peak cece, S 0.84 m/sec -------- Tricuspid valve Value Ref Mean grad, S 2 mm Hg -------- TR peak v (H) 4.08 m/sec <=2. 8 SV 60 ml -------- Peak RV-RA grad, S 67 mm Hg ----- SV/bsa 29 ml/m^2 -------- Max TR cece 3.95 m/sec ----- Ventricular septum Value Ref Aortic root Value Ref IVS, ED (H) 1.5 cm 0.6 - Root diam 3.4 cm <4.2 1.0 Ascending aorta Value Ref Right ventricle Value Ref AAo AP diam, S 3.3 cm ----- ELI, LAX 3.0 cm -------- AAo AP diam/bsa, S 1.6 cm/m^2 ----- ELI minor ax, A4C (H) 4.4 cm 1.9 - mid 3.5 Aortic arch Value Ref Arch diam 2.1 cm ----- Left atrium Value Ref ML dim, A4C 5.5 cm -------- Decending aorta Value Ref SI dim, A4C 6.0 cm -------- Gordon peak cece 0.63 m/sec ----- Vol/bsa, ES, 1-p 26 ml/m^2 12 - 37 A4C Inferior vena cava Value Ref Vol/bsa, ES, A/L (H) 41 ml/m^2 16 - 34 Diam 2.2 cm ----- Right atrium Value Ref SI dim, ES 4.1 cm 3.4 - 5.3 ML dim, ES, A4C (H) 4.5 cm 2.6 - 4.4 SI dim, ES, A4C 4.1 cm 3.4 - 5.3 SI dim/bsa, ES, 2.0 cm/m^2 1.8 - A4C 3.0 Legend: (L) and (H) rigoberto values outside specified reference range. Prepared and electronically signed by Yajaira Sanchez MD 02/17/2019 15:47
--- NOTE | 2019-02-17 15:59 | CONS ---
CC: Dr. Addy Quezada; Dr. Minor; Hospitalist * CONSULTATION REPORT: DATE OF CONSULT: 02/17/19 REASON FOR CONSULTATION: Congestive heart failure. CHIEF COMPLAINT: Daughter and Dr. Quezada reported acute changes in mentation. HISTORY OF PRESENT ILLNESS: Mr. Paniagua is an 78-year-old gentleman followed by Dr. Minor with an extensive past cardiac history. The patient was seen by Dr. Minor yesterday 02/16/19 with his daughter (the patient's daughter was not in the room with the patient when I saw him). She reports depression, lethargy, change in memory in addition to increased shortness of breath. The daughter also reported that the patient was thirstier and hungrier. He had noted increased lower extremity edema. He was admitted to the hospital yesterday and there was concern on admission for possible cellulitis. Today, the patient's mentation has been depressed. At the time I saw him, nursing was there and they stated it was not worse than when he was seen by Dr. Quezada this morning. He is able to be aroused and knows his name and the date he was born. On my questioning, it took quite a lot of repeated asking to get him to answer my first question. He denies shortness of breath, pain of any sort, and denies feeling badly, but he does not offer any information. His eyes are closed most of the time. I could not hold any sort of conversation with him. PAST MEDICAL HISTORY: The patient has a past medical history of: 1. Severe ischemic cardiomyopathy. 2. ICD implanted July 2018. 3. Recurrent congestive heart failure, left and right. 4. Hypertension. 5. Chronic renal insufficiency. 6. Anemia. 7. Mitral insufficiency, mild. 8. Diabetes. 9. Obstructive sleep apnea, noncompliant with CPAP. 10. GERD. PAST SURGICAL HISTORY: ICD implantation in July 2018, cyst procedure on liver, cataract surgery in 2009, lung surgery in 2016, tonsillectomy. MEDICATIONS: Outpatient medications reviewed and significant for: 1. Carvedilol 37.5 mg in the morning, 50 mg at night. 2. Lisinopril 10 mg a day. 3. Torsemide 30 mg a day. 4. Metformin 500 mg b.i.d. Current inpatient medications include: 1. Tylenol p.r.n. 2. Lipitor 80 mg a day. 3. Coreg 37.5 mg a day, 50 mg at h.s. 4. Plavix 75 mg a day. 5. Colace 300 mg a day. 6. Cymbalta 30 mg b.i.d. 7. Lasix 60 mg IV b.i.d. 8. Subcutaneous heparin. 9. Lantus insulin 8 units q.24 hours. 10. Prinivil 10 mg a day. 11. MultiVites 1 tablet a day. 12. Protonix 40 mg a day. 13. Vancomycin. 14. Zosyn. 15. PEG/MiraLAX 17 g a day. 16. Potassium 40 mEq a day. ALLERGIES: Include PREGABALIN and KEFLEX. FAMILY HISTORY: Positive for sleep apnea. No coronary artery disease. Father of suicide. He has a sibling that of Hodgkin's lymphoma. Mother of, I believe GI obstruction. SOCIAL HISTORY: The patient is a resident of [place]. Never smoked. REVIEW OF SYSTEMS: In reviewing the chart, it is revealed that his torsemide and Zaroxolyn were stopped a month ago on 01/15/19. Review of systems was unable to be obtained directly from the patient due to his mentation and lethargy. PHYSICAL EXAM: On exam, the patient is 5 feet 9 inches, weighs 199 pounds with a BMI of 29.4. Vitals on arrival to the hospital with blood pressure 206/99, pulse was 60, he was afebrile, oxygen saturation 100% on room air. At the time I saw him, his most recent vitals were 3 a.m., blood pressure 139/53, pulse was 60. Because of his lethargy, we repeated it on him in the room, blood pressure was 129/60. Glucose was 149. General Appearance: Elderly gentleman, centripetally overweight, lying flat in bed, appears comfortable and sleeping but not easy to arouse, answers questions simply. Skin: Warm and dry with a bit of little bluish tinge to the nail beds. Lips appear good in color. Mucous membranes appear hydrated. Neck: Without obvious increased JVD, but hard to evaluate on examining in flat. Breath sounds somewhat diminished, but difficult exam because the patient would not take deep breath. We had to role him over with the nurses. Coronary: S1, S2 regular. 3/6 low-pitched blowing systolic murmur heard in the left lower sternal border and apex. Abdomen: Overweight, active bowel sounds, and soft. No evidence of tenderness with palpation in the epigastrium or liver area. Lower extremities showed 2 to 3+ edema with hyperemic areas consistent with cellulitis in the anterior legs. DIAGNOSTIC STUDIES/LAB DATA: Labs here today sodium 141, potassium 4.2, chloride 107, bicarb 29, BUN 33, creatinine 1.3, glucose 103. On arrival, total bili 0.5, AST 12, ALT 14, alk phos 111. Troponin #1 was 0.05, troponin # 2 was 0.05, troponin #3 was 0.05. BNP of greater than 1300. TSH 0.94. Venous gas showed pH 7.34, pCO2 of 19, pO2 of 177, pCO3 of 14.7, oxygen saturation 99% (on nasal cannula). White count 4.8, hemoglobin 10, hematocrit 31, platelets 196. Differential unremarkable. Sed rate 36. C-reactive protein 5.83. Echo done in October [address] Minor's office showed moderate left ventricular hypertrophy, ejection fraction 30% to 35% with focal wall motion abnormalities, mild mitral insufficiency, mild elevation in PA pressures. The patient's last stress test was in December 2016. The patient's last stenting was 6 stents at [facility] in December 2017. Chest x-ray here showed pulmonary interstitial edema in the lower lungs and bilateral pleural effusions (pleural effusions not new). EKG today consistent with dual-chamber pacing at a rate of 60 beats a minute. When this EKG is compared with his EKG of 12/18/18, this is stable with dual- chamber pacing. The patient's most recent pacemaker interrogation was December 2018. This showed he is in dual-chamber mode with a rate of 60 beats a minute. He atrially paces 28% of the time, ventricularly paces 99% of the time, battery life of 11 years ([employer] device). Atrial left and right ventricular pacing thresholds appear stable and good. The patient's percentage of RV pacing is 99 and percentage of LV pacing A is 100% (i.e., good biventricular pacing). IMPRESSION AND PLAN: In summary, Mr. Paniagua is an 78-year-old gentleman with longstanding ischemic cardiomyopathy with a biventricular pacer defibrillator who had his diuretics stopped 5 weeks ago and now presents with increasing edema , shortness of breath, change in mentation, evidence of congestive heart failure and pleural effusions on chest x-ray, and hyperemia of the legs consistent with cellulitis. We do not have blood cultures on the patient, but he is getting empiric aggressive management for infection. The mentation issues appear out of proportion to lab and physical findings and the CT scan was pending at the time I saw him, but has subsequently been completed and shows no acute findings, no mass or hemorrhage. The fluid buildup , I think, can be explained by the combination of the cardiomyopathy and holding diuretics. Going forward for the patient's cardiomyopathy, 1. I would recommend stopping metformin as has been done, but not resuming it as an outpatient. 2. Resume torsemide as has been done. 3. Option of Aldactone and spironolactone unless he has been hyperkalemic or intolerant in the past. 4. I would stop his low-dose lisinopril during this hospitalization with the aim of replacing this with Entresto in the near future, but we must wash out the lisinopril first. Can replace with ARB as inpatient. 5. Once the Entresto is started, then maybe we could consider lowering his carvedilol dose unless in the past this has led to lower amounts of biventricular pacing. 6. I am going to get an updated echo as his exam is suggestive of more than mild mitral insufficiency and we will update for ventricular and valvular function. For the patient's mentation changes, I will defer to Dr. Quezada predominantly, but I think we should interrogate his pacemaker to ensure he has not had asymptomatic paroxysmal atrial fibrillation. I agree with Dr. Quezada that if possible cellulitis is present and therefore could change mentation, urinalysis might be an order, although antibiotics have been given to ensure there is not an underlying urinary tract infection in this nice elderly gentleman. Further recommendations can be made pending his clinical course and response to the above measures. ADDENDUM; DEVICE CHECK DONE BY [employer] SHOWED NO AFIB SINCE LAST INTEROGATION. [id number]/[facility] #: [id number] FRANCES
[2019-02-17] MEDS ORDERED: Carvedilol TAB* 25 MG PO SCH (18:00)
[2019-02-17] MEDS: Potassium Chloride* LIQUID 20 MEQ/15 ML UDC PO SCH (23:27)
[2019-02-18] MEDS: Heparin VIAL(*) 5000 UNITS/ML VIAL (FIVE THOUSAND) SUBCUT SCH ×3 (05:40→21:26)
[2019-02-18 05:50] LABS: ABS Lymphocytes 0.4 10^3/ul (1.0-4.8); ABS Monocytes 0.5 10^3/ul (0-0.8); Eosinophil % 0.4 %; Hematocrit 27 % (42-52); Lymphocyte % 7.5 %; Mean Corpuscular HGB Conc 34 g/dL (31-36); Mean Corpuscular Hemoglobin 27 pg (27-31); Mean Corpuscular Volume 81 fL (80-94); Mean Platelet Volume 7.3 fL (7.4-10.4); Platelet Count 164 10^3/uL (150-450); Red Blood Count 3.29 10^6 /uL (4.18-5.48); Red Cell Distribution Width 18 % (10-15); White Blood Count 4.9 10^3/uL (3.5-10.8)
[2019-02-18 06:04] LABS: C Reactive Protein 7.03 mg/L (<8.01); Calcium 8.4 mg/dL (8.6-10.3); EGFR African American 52.9 (>60); EGFR Non-African American 43.7 (>60); Potassium 4.1 mmol/L (3.5-5.0)
[2019-02-18] MEDS: ZOSYN 3.375 GM Q8H per EXTENDED INFUSION IVPB SCH ×4 (06:16→14:03)
--- NOTE | 2019-02-18 08:05 | PN ---
Subjective - Subjective Reason for Note: Progress Note History: He is slightly more alert this morning, but not much. He was able to say his name and to state "hospital" on orientation question. Otherwise, he had no spontaneous speech and he is not speaking in sentences. He was able to close his eyes on command, but unable to lift either arm to direct questioning. He denies any pain or dyspnea. He is unable to give an account of himself. I reviewed Dr. Sanchez's consultation note and the note from speech therapy's swallowing evaluation. Active Problems: Active Problems Acute systolic (congestive) heart failure (Acute) I50.21 Altered mental status (Acute) R41.82 Aphasia (Acute) R47.01 Biventricular cardiac pacemaker in situ (Acute) Z95.0 Cellulitis of right lower leg (Acute) L03.115 Edema (Acute) R60.9 Right leg weakness (Acute) R29.898 Ulcer of sacral region, stage 1 (Acute) L98.429 History of heart artery stent (Chronic) Z95.5 ICD (implantable cardioverter-defibrillator) in place (Chronic) Z95.810 Current Medications: Current Medications Acetaminophen (Tylenol Tab*) 650 mg PO Q4H PRN PRN Reason: MILD PAIN or TEMP > 100.4 Atorvastatin Calcium (Lipitor*) 80 mg PO DAILY [facility] [place] Last Admin: 02/17/19 15:18 Dose: 80 mg Carvedilol (Coreg Tab*) 37.5 mg PO QAM [facility] [place] Last Admin: 02/17/19 15:17 Dose: 37.5 mg Carvedilol (Coreg Tab*) 50 mg PO QPM [facility] [place] Last Admin: 02/17/19 18:22 Dose: 50 mg Clopidogrel Bisulfate (Plavix Tab*) 75 mg PO QAM [facility] [place] Last Admin: 02/17/19 15:19 Dose: 75 mg Docusate Sodium (Colace Cap*) 300 mg PO DAILY [facility] [place] Last Admin: 02/17/19 15:16 Dose: 300 mg Duloxetine HCl (Cymbalta Cap*) 30 mg PO BID [facility] [place] Last Admin: 02/17/19 23:13 Dose: 30 mg Furosemide (Lasix Iv*) 60 mg IV BID [facility] [place] Last Admin: 02/17/19 23:13 Dose: 60 mg Heparin Sodium (Porcine) (Heparin Vial(*)) 5,000 units SUBCUT Q8HR [facility] [place] Last Admin: 02/18/19 05:40 Dose: 5,000 units Piperacillin Sod/Tazobactam (Sod 3.375 gm/ Sodium Chloride) 100 mls @ 25 mls/ hr IVPB Q8H [facility] [place] Last Admin: 02/18/19 06:16 Dose: 25 mls/hr Vancomycin HCl 1,250 mg/ (Sodium Chloride) 250 mls @ 166.667 mls/hr IVPB Q24H [facility] [place] Insulin Glargine (Lantus(*)) 8 units SUBCUT Q24H [facility] [place] Last Admin: 02/17/19 15:19 Dose: Not Given Lisinopril (Prinivil Tab*) 10 mg PO DAILY [facility] [place] Last Admin: 02/17/19 15:18 Dose: 10 mg Multivitamins/Minerals (Theragran/Minerals Tab*) 1 tab PO DAILY [facility] [place] Last Admin: 02/17/19 15:17 Dose: 1 tab Pantoprazole Sodium (Protonix Tab*) 40 mg PO BEDTIME [facility] [place] Last Admin: 02/17/19 23:14 Dose: 40 mg Pharmacy Consult (Vancomycin Per Pharmacy*) 1 note FOLLOW UP .VANC PER PHARMACY [facility] [place]; Protocol Pharmacy Consult (Zosyn Per Pharmacy*) 1 note FOLLOW UP .ZOSYN PER PHARMACY [facility] [place] Pharmacy Profile Note (Vancomycin Trough Check) 1 note FOLLOW UP 1100 ONE Stop: 02/19/19 11:01 Polyethylene Glycol/Electrolytes (Miralax*) 17 gm PO DAILY [facility] [place] Last Admin: 02/17/19 15:29 Dose: 17 gm Potassium Chloride (Potassium Chloride Liquid) 20 meq PO BID [facility] [place] Last Admin: 02/17/19 23:27 Dose: 20 meq Home Medications: Home Medications Medication Instructions Recorded Confirmed Type Carvedilol TAB* [Coreg TAB*] 37.5 mg PO QAM 07/10/18 02/16/19 History Clopidogrel TAB* [Plavix TAB*] 75 mg PO QAM 07/10/18 02/16/[address] CAP* [Cymbalta CAP*] 30 mg PO BID 07/10/18 02/16/19 History Docusate CAP* [Colace Cap*] 300 mg PO DAILY 07/10/18 02/16/19 History Lisinopril TAB* [Prinivil TAB 5 10 mg PO DAILY 07/10/18 02/16/19 History MG*] Pantoprazole TAB * [Protonix TAB*] 40 mg PO BEDTIME 07/10/18 02/16/19 History traZODone TAB* [Desyrel TAB*] 100 mg PO BEDTIME PRN 07/10/18 02/16/19 History Atorvastatin* [Lipitor*] 80 mg PO DAILY 12/18/18 02/16/19 History Carvedilol TAB* [Coreg TAB*] 50 mg PO QPM 12/18/18 02/16/19 History Multivitamins/Minerals TAB* 1 tab PO DAILY 12/18/18 02/16/19 History [Theragran/minerals TAB*] Polyethylene Glycol 3350* 17 gm PO DAILY 12/18/18 02/16/19 History [Miralax*] Potassium Chlor TAB* [Klor Con ER 20 meq PO DAILY 12/18/18 02/16/19 History TAB*] Acetaminophen TAB* [Tylenol TAB*] 325 mg PO Q6H PRN 02/16/19 02/16/19 History Nitroglycerin TAB 0.4 MG* 0.4 mg SL Q5M PRN 02/16/19 02/16/19 History Nut.tx.gluc.intoler,Lac-Fr,Soy 237 ml PO BID 02/16/19 02/16/19 History [Glucerna] glipiZIDE TAB* [Glucotrol TAB*] 5 mg PO BID 02/16/19 02/16/19 History metFORMIN* [Glucophage 500 MG TAB 500 mg PO BID 02/16/19 02/16/19 History *] Allergies: Allergies Allergy/AdvReac Type Severity Reaction Status Date / Time cephalexin [From Keflex] AdvReac Unknown Unknown Verified 02/17/19 23:25 Reaction Details pregabalin AdvReac Unknown Unknown Verified 02/17/19 23:25 Reaction Details Objective - Vital Signs Vital Signs: Vital Signs 02/17/19 02/17/19 02/17/19 08:00 11:25 15:43 Temperature 98.1 F 97.9 F Pulse Rate 62 62 Respiratory 20 20 19 Rate Blood Pressure 147/61 150/67 (mmHg) O2 Sat by Pulse 96 98 Oximetry 02/17/19 02/17/19 02/17/19 19:41 20:00 23:12 Temperature 97.7 F 97.3 F Pulse Rate 60 60 Respiratory 18 18 18 Rate Blood Pressure 136/60 131/57 (mmHg) O2 Sat by Pulse 94 96 Oximetry 02/18/19 02/18/19 03:12 07:28 Temperature 97.1 F Pulse Rate 60 Respiratory 20 20 Rate Blood Pressure 136/59 (mmHg) O2 Sat by Pulse 98 Oximetry - Intake and Output Intake and Output: Intake & Output 02/15/19 02/16/19 02/17/19 02/18/19 11:59 11:59 11:59 11:59 Intake Total 0 370 Output Total 0 1200 Balance 0 -830 Weight 199 lb 224 lb 12.8 oz Intake: IV Fluids 260 ABX - VANCOMYCIN 250 NS (0.9%) 10 IVPB 110 ABX - ZOSYN 110 Oral 0 0 Output: Urine 0 200 Verduzco 1000 Other: Estimated Void Large Large # Voids 1 1 ADLs: Meal Record Start: 02/16/19 21: 53 Freq: DAILY@0900,1400,1800 Status: Active Protocol: Created 02/16/19 21:53 System (Rec: 02/16/19 21:53 System [id number]) Document 02/17/19 09:00 [id number] (Rec: 02/17/19 14:31 [id number] TELE-C05) Document 02/17/19 14:00 [id number] (Rec: 02/17/19 14:32 [id number] TELE-C05) Document 02/17/19 18:00 [id number] (Rec: 02/17/19 22:21 [id number] TELE-C05) Intake and Output Start: 02/16/19 18: 21 Freq: Status: Active Protocol: Created 02/16/19 18:21 [id number] (Rec: 02/16/19 18:21 [id number] ED-C25) Document 02/16/19 18:22 [id number] (Rec: 02/16/19 18:22 [id number] ED-C25) Intake and Output Start: 02/16/19 21: 53 Freq: DAILY@0600,1400,2200 Status: Active Protocol: Created 02/16/19 21:53 System (Rec: 02/16/19 21:53 System TELE-C15) Document 02/16/19 22:00 [id number] (Rec: 02/16/19 23:42 [id number] [facility]- [id number]) Document 02/17/19 06:00 [id number] (Rec: 02/17/19 06:25 [id number] TELE-C05) Document 02/17/19 14:00 [id number] (Rec: 02/17/19 14:32 [id number] TELE-C05) Document 02/17/19 22:00 [id number] (Rec: 02/17/19 22:21 [id number] TELE-C05) Document 02/18/19 05:30 [id number] (Rec: 02/18/19 05:31 [id number] TELE-C13) - Physical Exam General Physical Exam Comment: He is not in acute distress. He is not dyspneic/ tachypneic. He has erythema over his sacral area, no clear areas of skin break down - tho' this may be obscured by cream (see clinical photo in results). His right jefferson cellulitis is less bright this morning. He is reluctant, but can open his left eye. He has a tremor. He doesn't lift either arm to command. He can keep his right arm elevated if I lift it passively. General: No Cyanosis, No Anemia, No Jaundice, No Clubbing Lungs and Chest: Yes: Chest Expansion Full, Chest Expansion Symetrica, Crackles - scattered. No: Percussion Note Resonant, Vessicular Breath Sounds - diminished at bases, Wheezes, Respiratory Distress, Use of Accessory Muscles Heart Rate and Rhythm: Regular Additional Cardiovascular: Yes: Normal Heart Sounds, Heart Murmur - pansystolic at apex, Other - edema +1 feet. No: Pedal Edema Abdominal Exam: Yes: Soft, Bowel Sounds Present. No: Distention, Abdominal Mass , Abdominal Tenderness - Extremities Cranial Nerves II-XII Intact: No - not possible to formally test Limbs: Abnormal Power - not possible to formally test Results - Results Lab Results: Laboratory Results - last 24 hr 02/17/19 02/17/19 02/17/19 09:23 11:06 11:23 WBC RBC Hgb Hct MCV MCH MCHC RDW Plt Count MPV Neut % (Auto) Lymph % (Auto) [place] % (Auto) Eos % (Auto) Baso % (Auto) Absolute Neuts (auto) Absolute Lymphs (auto) Absolute Monos (auto) Absolute Eos (auto) Absolute Basos (auto) Absolute Nucleated RBC Nucleated RBC % ESR VBG pH VBG pCO2 VBG pO2 VBG HCO3 VBG O2 Saturation VBG Base Excess Sodium 141 Potassium 4.2 Chloride 107 Carbon Dioxide 29 Anion Gap 5 BUN 33 H Creatinine 1.30 H Est GFR ( Amer) 64.3 Est GFR (Non-Af Amer) 53.1 BUN/Creatinine Ratio 25.4 H Glucose 103 H POC Glucose (mg/dL) 124 H 129 H Calcium 8.4 L Total Bilirubin 0.50 Direct Bilirubin 0.10 Indirect Bilirubin 0.4 AST 13 ALT 13 Alkaline Phosphatase 98 Ammonia C-Reactive Protein 5.83 Total Protein 6.6 Albumin 2.7 L Globulin 3.9 Albumin/Globulin Ratio 0.7 L TSH 0.94 02/17/19 02/17/19 02/17/19 11:23 11:23 12:49 WBC RBC Hgb Hct MCV MCH MCHC RDW Plt Count MPV Neut % (Auto) Lymph % (Auto) [place] % (Auto) Eos % (Auto) Baso % (Auto) Absolute Neuts (auto) Absolute Lymphs (auto) Absolute Monos (auto) Absolute Eos (auto) Absolute Basos (auto) Absolute Nucleated RBC Nucleated RBC % ESR 36 H VBG pH 7.34 VBG pCO2 19 L VBG pO2 177.0 H VBG HCO3 14.7 L VBG O2 Saturation 99.4 H VBG Base Excess -13.1 L Sodium Potassium Chloride Carbon Dioxide Anion Gap BUN Creatinine Est GFR ( Amer) Est GFR (Non-Af Amer) BUN/Creatinine Ratio Glucose POC Glucose (mg/dL) Calcium Total Bilirubin Direct Bilirubin Indirect Bilirubin AST ALT Alkaline Phosphatase Ammonia 44 C-Reactive Protein Total Protein Albumin Globulin Albumin/Globulin Ratio [facility] 02/17/19 02/17/19 02/18/19 18:12 22:13 05:33 WBC 4.9 RBC 3.29 L Hgb 9.0 L Hct 27 L MCV 81 MCH 27 MCHC 34 RDW 18 H Plt Count 164 MPV 7.3 L Neut % (Auto) 80.6 Lymph % (Auto) 7.5 [place] % (Auto) 11.0 Eos % (Auto) 0.4 Baso % (Auto) 0.5 Absolute Neuts (auto) 4.0 Absolute Lymphs (auto) 0.4 L Absolute Monos (auto) 0.5 Absolute Eos (auto) 0.0 Absolute Basos (auto) 0.0 Absolute Nucleated RBC 0.0 Nucleated RBC % 0.0 ESR VBG pH VBG pCO2 VBG pO2 VBG HCO3 VBG O2 Saturation VBG Base Excess Sodium Potassium Chloride Carbon Dioxide Anion Gap BUN Creatinine Est GFR ( Amer) Est GFR (Non-Af Amer) BUN/Creatinine Ratio Glucose POC Glucose (mg/dL) 134 H 123 H Calcium Total Bilirubin Direct Bilirubin Indirect Bilirubin AST ALT Alkaline Phosphatase Ammonia C-Reactive Protein Total Protein Albumin Globulin Albumin/Globulin Ratio TSH 02/18/19 02/18/19 05:33 07:39 WBC RBC Hgb Hct MCV MCH MCHC RDW Plt Count MPV Neut % (Auto) Lymph % (Auto) [place] % (Auto) Eos % (Auto) Baso % (Auto) Absolute Neuts (auto) Absolute Lymphs (auto) Absolute Monos (auto) Absolute Eos (auto) Absolute Basos (auto) Absolute Nucleated RBC Nucleated RBC % ESR VBG pH VBG pCO2 VBG pO2 VBG HCO3 VBG O2 Saturation VBG Base Excess Sodium 142 Potassium 4.1 Chloride 108 Carbon Dioxide 30 Anion Gap 4 BUN 37 H Creatinine 1.54 H Est GFR ( Amer) 52.9 Est GFR (Non-Af Amer) 43.7 BUN/Creatinine Ratio 24.0 H Glucose 87 POC Glucose (mg/dL) 97 Calcium 8.4 L Total Bilirubin Direct Bilirubin Indirect Bilirubin AST ALT Alkaline Phosphatase Ammonia C-Reactive Protein 7.03 Total Protein Albumin Globulin Albumin/Globulin Ratio TSH Radiology Results: Patient Name: SURENDRA MAYES Medical Record#: [id number] Ordering Physician: Addy Quezada MD Acct.#: [id number] : 1940 Age: 78 Sex: M Location: [address] [place] [address]/[place] Exam Date: 02/17/19 0850 ADM Status: ADM IN Order Information: CT BRAIN WO Accession Number: [id number] CPT: 41966 Indication: Altered mental status, right leg weakness CT of the brain performed without IV contrast. Comparison is made with previous exam dated December 18, 2018. Ventricular structures are midline. No shift is noted. The extra-axial spaces are unremarkable. There is no evidence of intracranial mass or hemorrhage. No other high or low density lesions are identified. Mastoid air cells and paranasal sinuses are unremarkable. IMPRESSION: No intracranial mass or hemorrhage is noted. <Electronically signed by Edna Castillo MD in [place]> 02/17/19 1240 Dictated By: Edna Castillo MD Dictated Date/Time: 02/17/19 1228 Transcribed Date/Time: 02/17/19 1228 Copy to: Other Results/Reports: Assessment - Problem List Assessment: Patient Problems Acute systolic (congestive) heart failure (Acute) Altered mental status (Acute) Aphasia (Acute) Biventricular cardiac pacemaker in situ (Acute) Cellulitis of right lower leg (Acute) Edema (Acute) Right leg weakness (Acute) Ulcer of sacral region, stage 1 (Acute) History of heart artery stent (Chronic) ICD (implantable cardioverter-defibrillator) in place (Chronic) Chronic low back pain (Chronic) Chronic renal disease, stage 3, moderately decreased glomerular filtration rate between 30-59 mL/min/1.73 square meter (Chronic) DVT prophylaxis (Chronic) Essential (primary) hypertension (Chronic) Hypercholesteremia (Chronic) Ischemic cardiomyopathy (Chronic) Lumbar spinal stenosis (Chronic) Mitral regurgitation (Chronic) Obesity (BMI 35.0-39.9 without comorbidity) (Chronic) Pancreatic mass (Chronic) S/P cholecystectomy (Chronic) Type 2 diabetes mellitus treated with insulin (Chronic) Plan: Acute medical problems: Acute systolic (congestive) heart failure (Acute) Edema (Acute)Mitral regurgitation (Chronic)Ischemic cardiomyopathy (Chronic) I have reviewed Dr. Yajaira Sanchez's consultation note. She makes recommendations to restart torsemide, consider spironolactone, stop lisinopril and start entresto. She comments that we may need to decrease the dose of carvedilol. He had a net negative balance yesterday owing to being NPO for part of the day and a diuresis from furosemide. Altered mental status (Acute) Right leg weakness (Acute) He may be slightly more alert today, but he remains weak. His CT brain showed no acute pathology. Possibilities: * Delirium from infection (cellulitis or UTI) - this is being covered with antibacterials. His CRP is not elevated which speaks against this. It is possible, though not probable that he has a TROUBLE DISPATCHER infection * Metabolic - his ammonia is normal, he has no hypo or hyperglycemia. His thyroid function is normal. * Neurologic - He has no acute changes on his CT brain - but this is not high resolution. This could be status complex partial seizures - I will check an EEG and a neurological consultation. We can't do an MRI due to his pacemaker. * Dementia/disorientation - this is likely a component, though this is an acute change and so I don't think this is the cause. Aphasia (Acute) He is able to articulate a few words, but is not fluent. Cellulitis of right lower leg (Acute) This is improving Ulcer of sacral region, stage 1 (Acute) He has erythema and some concerning areas for potential breakdown. We will use an air mattress and keep him on his sides with frequen turning Type 2 diabetes mellitus treated with insulin (Chronic) He is on a small dose of lantus insulin - he will start consistent carb/low sodium diet - mechanical ground per speech therapy Comorbidities: Essential (primary) hypertension (Chronic) BP controlled. Secondary diagnosis: Biventricular cardiac pacemaker in situ (Acute) History of heart artery stent (Chronic) ICD (implantable cardioverter-defibrillator) in place (Chronic) Chronic low back pain (Chronic) Chronic renal disease, stage 3, moderately decreased glomerular filtration rate between 30-59 mL/min/1.73 square meter (Chronic) DVT prophylaxis (Chronic) Hypercholesteremia (Chronic) Lumbar spinal stenosis (Chronic) Obesity (BMI 35.0-39.9 without comorbidity) (Chronic) Pancreatic mass (Chronic) S/P cholecystectomy (Chronic) Phone call to Hannah Ramon (daughter) - health care proxy. I discussed the above plan and she agreed. I raised end of life issues - she agrees with DNR/MOLST, but wants ongoing investigations/acute medical care as this came on acutely and we have no clear cause.
[2019-02-18] MEDS: Docusate CAP* 100 MG PO SCH (08:10)
[2019-02-18] MEDS: Lisinopril TAB* 10 MG PO SCH (08:10)
[2019-02-18] MEDS: Carvedilol TAB* 25 MG PO SCH ×3 (08:11→21:08)
[2019-02-18] MEDS: Potassium Chloride* LIQUID 20 MEQ/15 ML UDC PO SCH ×2 (08:11→21:08)
[2019-02-18] MEDS: Furosemide IV* 10 MG/ML 10 ML VIAL (100 MG) IV SCH ×2 (08:11→21:08)
[2019-02-18] MEDS: Insulin GLARGINE(*) 1 UNITS UNIT SUBCUT SCH (08:11)
[2019-02-18] MEDS: Atorvastatin* 80 MG TAB PO SCH (08:11)
[2019-02-18] MEDS: DULoxetine DR CAP* 30 MG CAP.DR PO SCH ×2 (08:11→21:07)
[2019-02-18] MEDS: Clopidogrel TAB* 75 MG PO SCH (08:11)
[2019-02-18] MEDS: Multivitamins/Minerals TAB PO SCH (08:11)
[2019-02-18] MEDS: Polyethylene Glycol 3350* 17 GM PACKET PO SCH (08:11)
[2019-02-18] MEDS: Spironolactone TAB* 25 MG PO SCH (08:56)
[2019-02-18] MEDS ORDERED: Potassium Chloride* LIQUID 20 MEQ/15 ML UDC PO SCH (09:00)
[2019-02-18] MEDS: Vancomycin(*) 1,250 MG in NS 0.9% 250 ML* 250 ML IVPB SCH (10:35)
[2019-02-18] MEDS: Acetaminophen TAB* 325 MG PO PRN ×2 (13:19→21:06)
--- NOTE | 2019-02-18 19:06 | CONS ---
NEUROLOGY CONSULTATION NOTE: DATE OF CONSULT: 02/18/19 CONSULTED BY: Dr. Addy Quezada. REASON FOR CONSULT: Confusion. CHIEF COMPLAINT: Unable to provide chief complaint due to a degree of confusion. HISTORY OF PRESENT ILLNESS: Mr. 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 The background history was mostly obtained by reviewing the electronic medical records as well as talking to the patient's daughter, Hannah. The patient lives in [facility] for the past 2-1/2 months. The patient has baseline cognitive decline according to [facility]. At baseline, the patient uses a walker. He cannot finish his sentences when he is talking. He would change topics a few times when speaking, for instance, he would be talking about the weather but then within seconds switch and talk about the burglary that he is heard of. He has intermittent confusion. He has always had this idling problem when he is addressing something. He has been diagnosed with dementia according to [facility] but she is not aware of it. [facility] stated that she has seen a diagnosis of dementia in his medical chart. The patient had similar presentation of confusion, progressive weakness and falls in 2016, again in 2018. In 2016, Dr. Quezada thought that he may have had a lacunar stroke. The patient has a pacemaker that was reported to be MRI incompatible. In 2018, the patient was hospitalized and was found to have coronary artery disease and that is when he had 6 stents placed. According to the outpatient notes, the patient has had multiple falls in 2018 that were attributed to increase in swelling in his lower extremities. He had a head CTA done in 2019 for an episode of speech disturbance and aphasia. He also had a CT maxillofacial in 2019 for a fall causing facial trauma but there were no fractures. He has had multiple EEGs done in the past, one in 10/16/09 and again 10/16/15 which were both read as normal. The 2009 EEG was ordered because of the patient's complaint of speech problems. The EEG done in 2015 was related to the patient's history of tremor of the right hand. The patient is never seen by a neurologist. At baseline, the patient does not like to drink water. His daughter brings him flavored water for which he usually can tolerate. However, for the past 1 week , the patient has not touched a bottle of water. Hannah stated that she sees her father daily. She has noticed that he has been confused, he is having trouble standing, he cannot walk with a walker, he cannot even get to the [employer] in [place], and he cannot talk for the past 1 week. This is a gradual progression and not an acute onset. There was a concern that the patient may have been short of breath for some time before the hospitalization. The patient was admitted for further evaluation and was found to possibly be in congestive heart failure exacerbation. The patient had worsening creatinine function over the last few days where his creatinine is now at 1.54 when it was 1.11. His glucose is normal. The BUN and creatinine ratio was elevated at 29. Ammonia level is 44. TSH is 0.94. PAST MEDICAL HISTORY: Diabetes mellitus type 2, CKD, diabetic retinopathy, dyslipidemia, hypertension, spinal stenosis, chronic low back pain, BPH, GERD, hearing impairment, gastroscopy, retinal tear, bilateral cataract surgery, neuropathy. PAST SURGICAL HISTORY: ICD pacemaker placement, cholecystectomy, cataract surgery, cardiac stents x6 last in February 2018. HOME MEDICATIONS: Include the followin. Trazodone 100 mg p.o. at bedtime as needed. 2. Lisinopril 10 mg p.o. daily. 3. Duloxetine 30 mg p.o. b.i.d. 4. Clopidogrel 75 mg p.o. in the morning. 5. Carvedilol 37.5 mg in the morning. 6. Pantoprazole 40 mg p.o. at bedtime. 7. Docusate 300 mg p.o. daily. 8. Carvedilol 50 mg p.o. at night. 9. Potassium 20 mEq p.o. daily. 10. Atorvastatin 80 mg daily. 11. Nitroglycerin 0.4 mg sublingual every 5 minutes as needed. 12. Acetaminophen 325 mg p.o. every 6 hours. 13. Metformin 500 mg p.o. b.i.d. 14. Glipizide 5 mg p.o. b.i.d. ALLERGIES: No known drug allergies. FAMILY HISTORY: Mother of an [place]. There is no history of stroke or cancer. SOCIAL HISTORY: The patient does not smoke, drink, or consume any illicit drug. He is but lives in [place]. He walks with a walker. 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 REVIEW OF SYSTEMS: The patient is unable to participate with the review of systems at this time. PHYSICAL EXAM: Vitals: Temperature of 97.2, pulse is 61, respiratory rate of 23, oxygen saturation of 92%, blood pressure of 138/63. Please note that the patient's systolic blood pressure was significantly elevated upon admission with the systolic blood pressure ranging in the 200s. General: Ill-appearing, elderly man who is frail, who is also drowsy but wakes to the examiner. Head: Atraumatic and normocephalic without any obvious abnormality. Neck is supple and symmetrical with no carotid bruits. Eyes: Conjunctivae/corneas are clear. Chest: Crackles in the bibasilar area bilaterally. Cardiovascular: Regular rate and rhythm with possible 1/6 holosystolic murmur. Extremities: Flat feet , 3+ pitting edema. He has erythema on both lower extremities, none are warm to touch. Skin: No clear skin laceration seen. Psych: Inappropriate at this time as the patient is not awake enough to participate with the psychological evaluation. Neurological Examination: Mental Status: The patient is awake, alert to self but not place, time, or general circumstances. He has preservative speech. Cranial Nerves: Pupils equal, round, reactive to light. Extraocular muscles are intact. There is no facial asymmetry. He has intact sensation to the face bilaterally. Motor Examination: He is able to elevate both arms and legs symmetrically. Tone is normal all throughout. I was unable to appreciate any focal deficits. Gait was not assessed. Coordination was not assessed. Sensation: The patient reports intact sensation bilaterally. Reflexes: 1+ throughout the uppers and 0 at the lower extremities bilaterally. ASSESSMENT: Mr. 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 Dr. Quezada had requested a neurology consultation to evaluate the patient for any possible neurological causes for the patient's mental status change. Please note that the patient has underlying cognitive decline that may have been possibly diagnosed in the past. He lives in a [facility] most likely due to underlying diagnosis of dementia which has not been confirmed. In order to confirm this diagnosis, this should be done in the outpatient setting. 1. Acute encephalopathy manifesting as hypoactive delirium in a patient with cognitive decline at baseline. I suspect this is related to his overall medical morbidities. There is a concern that the patient may have been hypoxic prior to this presentation, exacerbating or triggering some of his confusion. Another differential diagnosis to consider would be hypertensive encephalopathy given that when he presented to the ED, his systolic blood pressure was in the 220s. Posterior reversible encephalopathy can be a complication related to sudden surge in blood pressure. However, his mentation should be slowly improving after correcting his pressures. I do not suspect that he had a stroke given the nonlateralizing neurological examination. The right lower extremity weakness was not significant on my examination. However, if there is a concern for cellulitis in that limb concomitant with the patient's edema, it may explain some of his asymmetric exam reported by Dr. Quezada this morning. It is difficult to assess the patient given his cognitive status. We have ruled out any seizure like activity given that the patient has no history of seizures in the past and the EEG showed no evidence of any interictal discharges. We have not evaluated for vitamin B12 deficiency. Other differential diagnosis could be poor nourishment as well as hydration as the patient has not been able to eat or drink for the past 1 week. RECOMMENDATION: Continue the medical care. Obtain a vitamin B12 level. Neuro check every 4 hours. I recommend PT/OT evaluation and treatment. Given his age and history of dementia, (?) does he really need 80 mg of atorvastatin therapy. Statin therapy has been linked to some cognitive decline although argument in this case is he has been on statins for a long period of time. However, he also has had confusion and some cognitive dysfunction since 2016 from reviewing the records. Another possible way to help minimize or reduce any possible toxic encephalopathy would be to minimize the trazodone use and reduce the Cymbalta dose in half. I will defer further recommendation to the primary team. The patient is not on any other neurotoxic medication, nor he is on any neurotoxic antibiotic therapy at this point. Continue supportive care. I will continue to follow. [id number]/[facility] #: [id number] [facility] HOSPITALTabatha
[2019-02-18] MEDS: Pantoprazole TAB * 40 MG TAB PO SCH (21:07)
--- NOTE | 2019-02-18 22:10 | EEG ---
ELECTROENCEPHALOGRAPHY: DATE OF STUDY: 02/18/19 DURATION: 0224 - 1253. ORDERED BY: Dr. Addy Quezada.* CLINICAL PROBLEM: Mr. Yosvany Paniagua is an 78-year-old man who has history of confusion and reduced alertness. This EEG was obtained to evaluate for epileptiform abnormalities or electrographic seizures. CLINICAL STATE: Encephalopathy with mostly awake and drowsy state. MEDICATIONS: 1. Vancomycin. 2. Heparin. 3. Zosyn. 4. Coreg. 5. Cymbalta. 6. Lasix. 7. Protonix. 8. Potassium. 9. Lipitor. 10. Plavix. 11. Colace. 12. Lantus. 13. Multivitamin. 14. MiraLAX. 15. Aldactone. 16. Tylenol. REPORT: The background lacked organization or clearly defined anterior- posterior voltage and frequency gradients. There was no discernible posterior dominant rhythm. Instead, the background consisted of diffuse medium amplitude polymorphic 3-7 Hz delta and theta range slowing. There were poorly sustained posterior dominant rhythm of a low voltage 7 Hz that was seen symmetrically. There was emergence of fast frequency with verbal and tactile stimulation. Hyperventilation and photic stimulation were not performed. Single-electrode EKG showed a normal sinus rhythm with the rate of 75 beats per minute. CLINICAL IMPRESSION: This is an abnormal EEG due to the presence of diffuse, but reactive slowing. These findings are suggestive of a nonspecific mild to moderate diffuse encephalopathy. There were no epileptiform discharges or focal abnormalities. [id number]/[facility] #: [id number] [facility]
[2019-02-19] MEDS: ZOSYN 3.375 GM Q8H per EXTENDED INFUSION IVPB SCH ×8 (00:14→20:52)
[2019-02-19] MEDS: Acetaminophen TAB* 325 MG PO PRN (02:35)
[2019-02-19] MEDS: Heparin VIAL(*) 5000 UNITS/ML VIAL (FIVE THOUSAND) SUBCUT SCH ×3 (06:07→20:52)
[2019-02-19 06:54] LABS: ABS Lymphocytes 0.4 10^3/ul (1.0-4.8); ABS Monocytes 0.6 10^3/ul (0-0.8); ABS Neutrophils 4.9 10^3/ul (1.5-7.7); Eosinophil % 0.2 %; Hematocrit 26 % (42-52); Hemoglobin 8.9 g/dL (14.0-18.0); Mean Corpuscular HGB Conc 34 g/dL (31-36); Mean Corpuscular Hemoglobin 27 pg (27-31); Mean Corpuscular Volume 80 fL (80-94); Mean Platelet Volume 7.5 fL (7.4-10.4); Platelet Count 165 10^3/uL (150-450); Red Blood Count 3.26 10^6 /uL (4.18-5.48); Red Cell Distribution Width 18 % (10-15)
[2019-02-19 07:23] LABS: BUN/Creatinine Ratio 23.2 (8-20); Calcium 8.1 mg/dL (8.6-10.3); EGFR Non-African American 37.2 (>60); Potassium 4.3 mmol/L (3.5-5.0)
--- NOTE | 2019-02-19 08:05 | PN ---
Subjective - Subjective Reason for Note: Progress Note History: He has woken up. Today he is close to his baseline. He is able to talk fluently and follow complex commands. He remains disoriented (March,). He can't give an account of himself. He stated [place] on asking location. He denies any pain or distress. He denies chest pain, shortness of breath. He has no cough. He has no indigestion, nausea or vomiting. He states he is not hungry. His glucose levels are rising now that he is able to eat again. His BP has been on target. Active Problems: Active Problems Acute systolic (congestive) heart failure (Acute) I50.21 Altered mental status (Acute) R41.82 Anemia (Acute) D64.9 Aphasia (Acute) R47.01 Biventricular cardiac pacemaker in situ (Acute) Z95.0 Cellulitis of right lower leg (Acute) L03.115 Edema (Acute) R60.9 Right leg weakness (Acute) R29.898 Ulcer of sacral region, stage 1 (Acute) L98.429 History of heart artery stent (Chronic) Z95.5 ICD (implantable cardioverter-defibrillator) in place (Chronic) Z95.810 Current Medications: Current Medications Acetaminophen (Tylenol Tab*) 650 mg PO Q4H PRN PRN Reason: MILD PAIN or TEMP > 100.4 Last Admin: 02/19/19 02:35 Dose: 650 mg Atorvastatin Calcium (Lipitor*) 80 mg PO DAILY [facility] Last Admin: 02/18/19 08:11 Dose: 80 mg Carvedilol (Coreg Tab*) 37.5 mg PO BID [facility] Last Admin: 02/18/19 21:08 Dose: 37.5 mg Clopidogrel Bisulfate (Plavix Tab*) 75 mg PO QAM [facility] Last Admin: 02/18/19 08:11 Dose: 75 mg Docusate Sodium (Colace Cap*) 300 mg PO DAILY [facility] Last Admin: 02/18/19 08:10 Dose: 300 mg Duloxetine HCl (Cymbalta Cap*) 30 mg PO BID [facility] Last Admin: 02/18/19 21:07 Dose: 30 mg Furosemide (Lasix Iv*) 60 mg IV BID [facility] Last Admin: 02/18/19 21:08 Dose: 60 mg Heparin Sodium (Porcine) (Heparin Vial(*)) 5,000 units SUBCUT Q8HR [facility] Last Admin: 02/19/19 06:07 Dose: 5,000 units Piperacillin Sod/Tazobactam (Sod 3.375 gm/ Sodium Chloride) 100 mls @ 25 mls/ hr IVPB Q8H [facility] Last Admin: 02/19/19 06:17 Dose: 25 mls/hr Vancomycin HCl 1,250 mg/ (Sodium Chloride) 250 mls @ 166.667 mls/hr IVPB Q24H [facility] Last Admin: 02/18/19 10:35 Dose: 166.667 mls/hr Insulin Glargine (Lantus(*)) 8 units SUBCUT Q24H [facility] Last Admin: 02/18/19 08:11 Dose: 8 units Multivitamins/Minerals (Theragran/Minerals Tab*) 1 tab PO DAILY [facility] Last Admin: 02/18/19 08:11 Dose: 1 tab Pantoprazole Sodium (Protonix Tab*) 40 mg PO BEDTIME [facility] Last Admin: 02/18/19 21:07 Dose: 40 mg Pharmacy Consult (Vancomycin Per Pharmacy*) 1 note FOLLOW UP .VANC PER PHARMACY [facility]; Protocol Pharmacy Consult (Zosyn Per Pharmacy*) 1 note FOLLOW UP .ZOSYN PER PHARMACY [facility] Pharmacy Profile Note (Vancomycin Trough Check) 1 note FOLLOW UP 1100 ONE Stop: 02/20/19 11:01 Polyethylene Glycol/Electrolytes (Miralax*) 17 gm PO DAILY [facility] Last Admin: 02/18/19 08:11 Dose: 17 gm Potassium Chloride (Potassium Chloride Liquid) 20 meq PO BID [facility] Last Admin: 02/18/19 21:08 Dose: 20 meq Spironolactone (Aldactone Tab*) 12.5 mg PO DAILY [facility] Last Admin: 02/18/19 08:56 Dose: 12.5 mg Home Medications: Home Medications Medication Instructions Recorded Confirmed Type Carvedilol TAB* [Coreg TAB*] 37.5 mg PO [facility] 07/10/18 02/16/19 History Clopidogrel TAB* [Plavix TAB*] 75 mg PO QA 07/10/18 02/16/[address] CAP* [Cymbalta CAP*] 30 mg PO BID 07/10/18 02/16/19 History Docusate CAP* [Colace Cap*] 300 mg PO DAILY 07/10/18 02/16/19 History Lisinopril TAB* [Prinivil TAB 5 10 mg PO DAILY 07/10/18 02/16/19 History MG*] Pantoprazole TAB * [Protonix TAB*] 40 mg PO BEDTIME 07/10/18 02/16/19 History traZODone TAB* [Desyrel TAB*] 100 mg PO BEDTIME PRN 07/10/18 02/16/19 History Atorvastatin* [Lipitor*] 80 mg PO DAILY 12/18/18 02/16/19 History Carvedilol TAB* [Coreg TAB*] 50 mg PO QPM 12/18/18 02/16/19 History Multivitamins/Minerals TAB* 1 tab PO DAILY 12/18/18 02/16/19 History [Theragran/minerals TAB*] Polyethylene Glycol 3350* 17 gm PO DAILY 12/18/18 02/16/19 History [Miralax*] Potassium Chlor TAB* [Klor Con ER 20 meq PO DAILY 12/18/18 02/16/19 History TAB*] Acetaminophen TAB* [Tylenol TAB*] 325 mg PO Q6H PRN 02/16/19 02/16/19 History Nitroglycerin TAB 0.4 MG* 0.4 mg SL Q5M PRN 02/16/19 02/16/19 History Nut.tx.gluc.intoler,Lac-Fr,Soy 237 ml PO BID 02/16/19 02/16/19 History [Glucerna] glipiZIDE TAB* [Glucotrol TAB*] 5 mg PO BID 02/16/19 02/16/19 History metFORMIN* [Glucophage 500 MG TAB 500 mg PO BID 02/16/19 02/16/19 History *] Allergies: Allergies Allergy/AdvReac Type Severity Reaction Status Date / Time cephalexin [From Keflex] AdvReac Unknown Unknown Verified 02/17/19 23:25 Reaction Details pregabalin AdvReac Unknown Unknown Verified 02/17/19 23:25 Reaction Details Objective - Vital Signs Vital Signs: Vital Signs 02/18/19 02/18/19 02/18/19 11:48 15:15 19:04 Temperature 97.7 F 97.2 F 97.6 F Pulse Rate 60 59 59 Respiratory 16 23 24 Rate Blood Pressure 133/57 138/63 157/65 (mmHg) O2 Sat by Pulse 95 92 94 Oximetry 02/18/19 02/18/19 02/19/19 20:00 23:23 02:58 Temperature 97.5 F 97.6 F Pulse Rate 60 60 Respiratory 20 19 Rate Blood Pressure 139/65 140/53 (mmHg) O2 Sat by Pulse 94 97 Oximetry - Intake and Output Intake and Output: Intake & Output 02/16/19 02/17/19 02/18/19 02/19/19 11:59 11:59 11:59 11:59 Intake Total 0 730 2307 Output Total 0 1550 0 Balance 0 -820 2307 Weight 199 lb 224 lb 12.8 oz 192 lb 8 oz Intake: IV Fluids 260 95 ABX - VANCOMYCIN 250 NS (0.9%) 10 95 IVPB 110 472 ABX - ZOSYN 110 197 NS (0.9%) 275 Oral 0 360 1740 Output: Urine 0 550 0 Verduzco 1000 Other: Estimated Void Large Large Large # Bowel Movements 2 Estimated Stool Amount Large Small # Voids 1 1 1 ADLs: Meal Record Start: 02/16/19 21: 53 Freq: DAILY@0900,1400,1800 Status: Active Protocol: Created 02/16/19 21:53 System (Rec: 02/16/19 21:53 System TELE-C15) Document 02/17/19 09:00 [id number] (Rec: 02/17/19 14:31 [id number] TELE-C05) Document 02/17/19 14:00 [id number] (Rec: 02/17/19 14:32 [id number] TELE-C05) Document 02/17/19 18:00 [id number] (Rec: 02/17/19 22:21 [id number] TELE-C05) Document 02/18/19 09:00 [id number] (Rec: 02/18/19 09:41 [id number] TELE-C11) Document 02/18/19 14:00 [id number] (Rec: 02/18/19 14:19 [id number] TELE-C07) Document 02/18/19 17:56 [id number] (Rec: 02/18/19 17:56 [id number] TELE-C09) Intake and Output Start: 02/16/19 18: 21 Freq: Status: Active Protocol: Created 02/16/19 18:21 [id number] (Rec: 02/16/19 18:21 [id number] ED-C25) Document 02/16/19 18:22 [id number] (Rec: 02/16/19 18:22 [id number] ED-C25) Intake and Output Start: 02/16/19 21: 53 Freq: DAILY@0600,1400,2200 Status: Active Protocol: Created 02/16/19 21:53 System (Rec: 02/16/19 21:53 System TELE-C15) Document 02/16/19 22:00 [id number] (Rec: 02/16/19 23:42 [id number] MININT- [id number]) Document 02/17/19 06:00 [id number] (Rec: 02/17/19 06:25 [id number] TELE-C05) Document 02/17/19 14:00 [id number] (Rec: 02/17/19 14:32 [id number] TELE-C05) Document 02/17/19 22:00 [id number] (Rec: 02/17/19 22:21 [id number] TELE-C05) Document 02/18/19 05:30 [id number] (Rec: 02/18/19 05:31 [id number] TELE-C13) Document 02/18/19 14:00 [id number] (Rec: 02/18/19 14:31 [id number] TELE-C09) Document 02/18/19 21:29 [id number] (Rec: 02/18/19 21:29 [id number] MED-M02) Document 02/19/19 00:39 [id number] (Rec: 02/19/19 00:39 [id number] TELE-C05) Document 02/19/19 01:09 [id number] (Rec: 02/19/19 01:09 [id number] TELE-C34) Document 02/19/19 02:38 [id number] (Rec: 02/19/19 02:38 [id number] MED-M02) Document 02/19/19 06:00 [id number] (Rec: 02/19/19 06:13 [id number] MED-M02) - Physical Exam General Physical Exam Comment: He is alert and conversational. He follows commands - including finger-nose test. He is able to lift both legs to command. The patch of cellulitis on his right jefferson is improving. I note the area on both soles that has a serpiginous margin is less erythematous. General: No Cyanosis, Yes Anemia, No Jaundice, No Clubbing Lungs and Chest: Yes: Chest Expansion Full, Chest Expansion Symetrica, Percussion Note Resonant, Vessicular Breath Sounds. No: Crackles, Wheezes Heart Rate and Rhythm: Regular Additional Cardiovascular: Yes: Normal Heart Sounds, Heart Murmur, Pedal Edema Abdominal Exam: Yes: Soft, Bowel Sounds Present. No: Distention, Abdominal Tenderness - Neuro Orientation: Person Psychiatric: Normal Speech: Normal Results - Results Lab Results: Laboratory Results - last 24 hr 02/18/19 02/18/19 02/18/19 05:33 11:36 16:44 WBC RBC Hgb Hct MCV MCH MCHC RDW Plt Count MPV Neut % (Auto) Lymph % (Auto) [place] % (Auto) Eos % (Auto) Baso % (Auto) Absolute Neuts (auto) Absolute Lymphs (auto) Absolute Monos (auto) Absolute Eos (auto) Absolute Basos (auto) Absolute Nucleated RBC Nucleated RBC % Sodium 142 Potassium 4.1 Chloride 108 Carbon Dioxide 30 Anion Gap 4 BUN 37 H Creatinine 1.54 H Est GFR ( Amer) 52.9 Est GFR (Non-Af Amer) 43.7 BUN/Creatinine Ratio 24.0 H Glucose 87 POC Glucose (mg/dL) 171 H 173 H Calcium 8.4 L C-Reactive Protein 7.03 Vitamin B12 656 02/18/19 02/19/19 02/19/19 22:01 06:15 06:15 WBC 6.0 RBC 3.26 L Hgb 8.9 L Hct 26 L MCV 80 MCH 27 MCHC 34 RDW 18 H Plt Count 165 MPV 7.5 Neut % (Auto) 81.8 Lymph % (Auto) 7.0 [place] % (Auto) 10.5 Eos % (Auto) 0.2 Baso % (Auto) 0.5 Absolute Neuts (auto) 4.9 Absolute Lymphs (auto) 0.4 L Absolute Monos (auto) 0.6 Absolute Eos (auto) 0.0 Absolute Basos (auto) 0.0 Absolute Nucleated RBC 0.0 Nucleated RBC % 0.0 Sodium 139 Potassium 4.3 Chloride 104 Carbon Dioxide 30 Anion Gap 5 BUN 41 H Creatinine 1.77 H Est GFR ( Amer) 45.0 Est GFR (Non-Af Amer) 37.2 BUN/Creatinine Ratio 23.2 H Glucose 222 H POC Glucose (mg/dL) 260 H Calcium 8.1 L C-Reactive Protein Vitamin B12 Radiology Results: Electroencephalogram Report Patient: SURENDRA PANIAGUA /Age: 06 1940 78 Medical Record#: [id number] Admission Date: 02/16/19 Provider: Lyly Masterson MD ELECTROENCEPHALOGRAPHY: DATE OF STUDY: 02/18/19 DURATION: 1428 - 1711. ORDERED BY: Dr. Addy Quezada.* CLINICAL PROBLEM: Mr. Surendra Paniagua is an 78-year-old man who has history of confusion and reduced alertness. This EEG was obtained to evaluate for epileptiform abnormalities or electrographic seizures. CLINICAL STATE: Encephalopathy with mostly awake and drowsy state. MEDICATIONS: 1. Vancomycin. 2. Heparin. 3. Zosyn. 4. Coreg. 5. Cymbalta. 6. Lasix. 7. Protonix. 8. Potassium. 9. Lipitor. 10. Plavix. 11. Colace. 12. Lantus. 13. Multivitamin. 14. MiraLAX. 15. Aldactone. 16. Tylenol. REPORT: The background lacked organization or clearly defined anterior- posterior voltage and frequency gradients. There was no discernible posterior dominant rhythm. Instead, the background consisted of diffuse medium amplitude polymorphic 3-7 Hz delta and theta range slowing. There were poorly sustained posterior dominant rhythm of a low voltage 7 Hz that was seen symmetrically. There was emergence of fast frequency with verbal and tactile stimulation. Hyperventilation and photic stimulation were not performed. Single-electrode EKG showed a normal sinus rhythm with the rate of 75 beats per minute. CLINICAL IMPRESSION: This is an abnormal EEG due to the presence of diffuse, but reactive slowing. These findings are suggestive of a nonspecific mild to moderate diffuse encephalopathy. There were no epileptiform discharges or focal abnormalities. This report is only to be considered final once signed by the Provider(s) as displayed in the "<Electronically Signed by >" field (s). Absence of a signature indicates the report is in a draft status and still needs to be finalized. In the event this document was created by someone other than the signing Provider, the individual initiating the document will be listed in the "Entered by:" or "Dictated by:" montes de oca. 1 of 2 Other Results/Reports: *[facility]* [place] [address] Fax #: [phone] Transthoracic Echocardiogram Conclusions Summary: - Left ventricle: Systolic function is severely reduced. The estimated ejection fraction is 25-30%. Akinesis of the apical myocardium. Doppler parameters are consistent with abnormal left ventricular relaxation (grade 1 diastolic dysfunction). - Right ventricle: Pacer wire was noted in right atrium and right ventricle. Systolic function is low normal. - Mitral valve: There is mild to moderate regurgitation, directed eccentrically. - Aortic valve: Noncoronary cusp immobility is noted. Right coronary cusp and LCC open well. There is no evidence of stenosis. Stenosis is probably underestimated due to poor left ventricular function. There is trace regurgitation. - Tricuspid valve: There is mild-moderate regurgitation. - Pericardium, extracardiac: There is a right pleural effusion and a left pleural effusion. .- Pulmonary arteries: Systolic pressure is severely increased, estimated to be 72 mm Hg. - Compared with prior echocardiogram of 02/18/18, ejection fraction is stable, wall motion stable, aortic valve stable, mitral regurgitation stable, tricuspid regurgitation is stable, pulmonary artery pressure not previously estimated. - Pulmonary arteries: Systolic pressure is severely increased, estimated to be 72 mm Hg. - Compared with prior echocardiogram of 02/18/18, ejection fraction is stable, wall motion stable, aortic valve stable, mitral regurgitation stable, tricuspid regurgitation is stable, pulmonary artery pressure not previously estimated. Assessment - Problem List Assessment: Patient Problems Acute systolic (congestive) heart failure (Acute) Altered mental status (Acute) Anemia (Acute) Aphasia (Acute) Biventricular cardiac pacemaker in situ (Acute) Cellulitis of right lower leg (Acute) Edema (Acute) Right leg weakness (Acute) Ulcer of sacral region, stage 1 (Acute) History of heart artery stent (Chronic) ICD (implantable cardioverter-defibrillator) in place (Chronic) Chronic low back pain (Chronic) Chronic renal disease, stage 3, moderately decreased glomerular filtration rate between 30-59 mL/min/1.73 square meter (Chronic) DVT prophylaxis (Chronic) Essential (primary) hypertension (Chronic) Hypercholesteremia (Chronic) Ischemic cardiomyopathy (Chronic) Lumbar spinal stenosis (Chronic) Mitral regurgitation (Chronic) Obesity (BMI 35.0-39.9 without comorbidity) (Chronic) Pancreatic mass (Chronic) S/P cholecystectomy (Chronic) Type 2 diabetes mellitus treated with insulin (Chronic) Plan: Acute problems: Acute systolic (congestive) heart failure (Acute) Ischemic cardiomyopathy ( Chronic) He is responding to diuretic therapy. His BUN/Cr are rising. I will stop IV furosemide and change him to oral torsemide. I will start him on entresto tomorrow Altered mental status (Acute) Aphasia (Acute) I appreciate Dr. Lyly Masterson's consultation note. Today proves he is correct. The delirium is lifting and he is close to baseline. He is conversational and follows commands (aside from some deafness). There is no sign of any CVA on physical examination. He had an occult infections I best understand Anemia (Acute) This is likely multifactorial. This could be an acute phase response, poor nutrition. I note his B12 is normal. I will check his iron/ ferritin (though ferritin may be falsely negative due to an acute phase response ). His renal insufficiency likely contributes Cellulitis of right lower leg (Acute) This is improving and may be the reason for his derlirium Edema (Acute) Improving Right leg weakness (Acute) This has vanished Ulcer of sacral region, stage 1 (Acute) I discussed this with the patient. Comorbidities: Chronic renal disease, stage 3, moderately decreased glomerular filtration rate between 30-59 mL/min/1.73 square meter (Chronic) I will watch this carefully during diuretic therapy Type 2 diabetes mellitus treated with insulin (Chronic) I will start prandial insulin Essential (primary) hypertension (Chronic) He had hypertension at presentation. I don't think this was an episode of hypertensive encephalopathy , though it is on the differential diagnosis Biventricular cardiac pacemaker in situ (Acute) I will stop his telemetry Secondary diagnoses - not exacerbated: History of heart artery stent (Chronic) ICD (implantable cardioverter-defibrillator) in place (Chronic) Chronic low back pain (Chronic) DVT prophylaxis (Chronic) Hypercholesteremia (Chronic) Lumbar spinal stenosis (Chronic) Mitral regurgitation (Chronic) Obesity (BMI 35.0-39.9 without comorbidity) (Chronic) Pancreatic mass (Chronic) S/P cholecystectomy (Chronic) I discussed the above with the patient who appeared to have insight. I explained that enhanced assisted living was an insufficient level of care and that he now requires [facility] for a period of subacute rehabilitation. He may then be strong enough to return to [facility]. He requires 2 more days of IV antibacterials and hence hospitalization. I spoke to Hannah Ramon (daughter/ proxy). She has spoken to [facility]. They are accommodating and want him back. They are prepared for him to have a wheelchair and also help with his diabetes. I am optimistic to day that he will get back to a stronger baseline and will be able to return to enhanced assisted living with some rehab. I wonder also about PMRU.
[2019-02-19] MEDS ORDERED: Dextrose 50% VIAL 50 ml IV PUSH PRN (08:23)
[2019-02-19] MEDS: Polyethylene Glycol 3350* 17 GM PACKET PO SCH (08:34)
[2019-02-19] MEDS: Docusate CAP* 100 MG PO SCH (08:35)
[2019-02-19] MEDS: Carvedilol TAB* 25 MG PO SCH ×2 (08:35→20:48)
[2019-02-19] MEDS: DULoxetine DR CAP* 30 MG CAP.DR PO SCH ×2 (08:35→20:52)
[2019-02-19] MEDS: Clopidogrel TAB* 75 MG PO SCH (08:35)
[2019-02-19] MEDS: Multivitamins/Minerals TAB PO SCH (08:37)
[2019-02-19] MEDS: Spironolactone TAB* 25 MG PO SCH (08:37)
[2019-02-19] MEDS: Atorvastatin* 80 MG TAB PO SCH (08:38)
[2019-02-19] MEDS: Insulin GLARGINE(*) 1 UNITS UNIT SUBCUT SCH (09:59)
[2019-02-19] MEDS: Torsemide TAB* 20 MG PO SCH (10:00)
[2019-02-19] MEDS: Vancomycin(*) 1,250 MG in NS 0.9% 250 ML* 250 ML IVPB SCH (10:57)
[2019-02-19] MEDS: Insulin LISPRO* 1 UNITS UNIT SUBCUT SCH ×2 (12:10→17:03)
[2019-02-19 12:26] LABS: % Iron Saturation 13 % (15-55); Iron 32 ug/dL (50-212); Total Iron Binding Capacity 244 mcg/dL (250-450); Transferrin 174 mg/dL (203-362)
[2019-02-19 12:30] LABS: Ferritin 41.8 ng/mL (24-336)
--- NOTE | 2019-02-19 15:48 | PN ---
Subjective Date of Service: 02/19/19 Length of Stay: 3 Days Neurology is following for encephalopathy. Interval History: He is awake and more responsive today. He is asking if he will go back to [place] after this hospitalization. He denied headaches, visual disturbance, or new areas of weakness. B12 Level: 656 TSH: 0.94 Review of Systems: Denied CP, SOB, or palpitations. Objective Active Medications: Acetaminophen (Tylenol Tab*) 650 mg PO Q4H PRN PRN Reason: MILD PAIN or TEMP > 100.4 Last Admin: 02/19/19 02:35 Dose: 650 mg Atorvastatin Calcium (Lipitor*) 80 mg PO DAILY [facility] Last Admin: 02/19/19 08:38 Dose: 80 mg Carvedilol (Coreg Tab*) 37.5 mg PO BID [facility] Last Admin: 02/19/19 08:35 Dose: 37.5 mg Clopidogrel Bisulfate (Plavix Tab*) 75 mg PO QAM [facility] Last Admin: 02/19/19 08:35 Dose: 75 mg Dextrose (Dextrose 50% Vial 50 Ml*) 25 ml IV PUSH .FOR FS < 60 - SS PRN PRN Reason: FS < 60 Docusate Sodium (Colace Cap*) 300 mg PO DAILY [facility] Last Admin: 02/19/19 08:35 Dose: 300 mg Duloxetine HCl (Cymbalta Cap*) 30 mg PO BID [facility] Last Admin: 02/19/19 08:35 Dose: 30 mg Heparin Sodium (Porcine) (Heparin Vial(*)) 5,000 units SUBCUT Q8HR [facility] Last Admin: 02/19/19 13:58 Dose: 5,000 units Piperacillin Sod/Tazobactam (Sod 3.375 gm/ Sodium Chloride) 100 mls @ 25 mls/ hr IVPB Q8H [facility] Last Admin: 02/19/19 13:58 Dose: 25 mls/hr Vancomycin HCl 1,250 mg/ (Sodium Chloride) 250 mls @ 166.667 mls/hr IVPB Q24H [facility] Last Admin: 02/19/19 10:57 Dose: 166.667 mls/hr Insulin Glargine (Lantus(*)) 14 units SUBCUT Q24H [facility] Last Admin: 02/19/19 09:59 Dose: 14 units Insulin Human Lispro (Humalog*) 5 units SUBCUT AC [facility]; Protocol Last Admin: 02/19/19 12:10 Dose: 5 units Multivitamins/Minerals (Theragran/Minerals Tab*) 1 tab PO DAILY [facility] Last Admin: 02/19/19 08:37 Dose: 1 tab Pantoprazole Sodium (Protonix Tab*) 40 mg PO BEDTIME [facility] Last Admin: 02/18/19 21:07 Dose: 40 mg Pharmacy Consult (Vancomycin Per Pharmacy*) 1 note FOLLOW UP .VANC PER PHARMACY [facility]; Protocol Pharmacy Consult (Zosyn Per Pharmacy*) 1 note FOLLOW UP .ZOSYN PER PHARMACY [facility] Pharmacy Profile Note (Vancomycin Trough Check) 1 note FOLLOW UP 1100 ONE Stop: 02/20/19 11:01 Polyethylene Glycol/Electrolytes (Miralax*) 17 gm PO DAILY [facility] Last Admin: 02/19/19 08:34 Dose: 17 gm Spironolactone (Aldactone Tab*) 12.5 mg PO DAILY [facility] Last Admin: 02/19/19 08:37 Dose: 12.5 mg Torsemide (Demadex*) 20 mg PO DAILY [facility] Last Admin: 02/19/19 10:00 Dose: 20 mg Vital Signs 02/18/19 02/18/19 02/18/19 19:04 20:00 23:23 Temperature 97.6 F 97.5 F Pulse Rate 59 60 Respiratory 24 20 19 Rate Blood Pressure 157/65 139/65 (mmHg) O2 Sat by Pulse 94 94 Oximetry 02/19/19 02/19/19 02/19/19 02:58 07:44 08:45 Temperature 97.6 F 97.6 F Pulse Rate 60 59 Respiratory 19 20 16 Rate Blood Pressure 140/53 154/69 (mmHg) O2 Sat by Pulse 97 96 Oximetry 02/19/19 11:50 Temperature 97.6 F Pulse Rate 60 Respiratory 20 Rate Blood Pressure 141/59 (mmHg) O2 Sat by Pulse 94 Oximetry Intake and Output Last 24 Hours 02/17/19 02/18/19 02/19/19 02/20/19 06:59 06:59 06:59 06:59 Intake Total 0 370 2667 480 Output Total 0 1200 350 Balance 0 -830 2317 480 Weight 199 lb 224 lb 12.8 oz 192 lb 8 oz Intake: IV Fluids 260 95 ABX - VANCOMYCIN 250 NS (0.9%) 10 95 IVPB 110 472 ABX - ZOSYN 110 197 NS (0.9%) 275 Oral 0 0 2100 480 Output: Urine 0 200 350 Verduzco 1000 Other: Estimated Void Large Large Large # Bowel Movements 2 Estimated Stool Amount Small Large # Voids 1 1 1 Oxygen Devices in Use Now: Nasal Cannula Neurology Exam: General: Ill appearing frail elderly man in no distress. HEENT: Normocephelic/atraumatic, sclera anicteric, mucous membranes moist Neck: Supple Extremities: bilateral lower extremity edema. Neurological Findings: Awake, alert, and oriented to person, place, and time (this was after he was seen by other providers). He knew the president. He seems to have mild psychomotor slowing and bradyphrenia. Speech: mild dysarthria. Cranial Nerve: PERRL, EOM intact, VFF, no nystagmus, normal facial symmetry. Motor: able to elevate both arms and legs anti-gravity. Normal tone throughout. Mild tremor in the right arm that is action induced Sensation: intact to LT/PP bilaterally upper and lower extremities Deep Tendon Reflex: trace throughout, 0 at the ankles. Finger to nose, rapid alternating movements intact without tremor, no dysdiadochokinesia Gait: n/a Result Diagrams: 02/19/19 06:15 02/19/19 06:15 Additional Lab and Data: Lab Results 02/16/19 02/16/19 02/16/19 Range/Units 15:40 15:40 15:40 WBC 5.9 (3.5-10.8) 10^3/uL RBC 3.85 L (4.18-5.48) 10^6 /uL Hgb 10.4 L (14.0-18.0) g/dL Hct 32 L (42-52) % MCV 83 (80-94) fL MCH 27 (27-31) pg MCHC 33 (31-36) g/dL RDW 19 H (10-15) % Plt Count 213 (150-450) 10^3/uL MPV 7.6 (7.4-10.4) fL Neut % (Auto) 80.9 % Lymph % (Auto) 8.1 % [place] % (Auto) 10.1 % Eos % (Auto) 0.5 % Baso % (Auto) 0.4 % Absolute Neuts (auto) 4.8 (1.5-7.7) 10^3/ul Absolute Lymphs (auto) 0.5 L (1.0-4.8) 10^3/ul Absolute Monos (auto) 0.6 (0-0.8) 10^3/ul Absolute Eos (auto) 0.0 (0-0.6) 10^3/ul Absolute Basos (auto) 0.0 (0-0.2) 10^3/ul Absolute Nucleated RBC 0.0 10^3/ul Nucleated RBC % 0.1 Sodium 138 (135-145) mmol/L Potassium 4.7 (3.5-5.0) mmol/L Chloride 107 (101-111) mmol/L Carbon Dioxide 27 (22-32) mmol/L Anion Gap 4 (2-11) mmol/L BUN 33 H (6-24) mg/dL Creatinine 1.11 (0.67-1.17) mg/dL Est GFR ( Amer) 77.1 (>60) Est GFR (Non-Af Amer) 63.7 (>60) BUN/Creatinine Ratio 29.7 H (8-20) Glucose 166 H (70-100) mg/dL Calcium 8.8 (8.6-10.3) mg/dL Total Bilirubin 0.50 (0.2-1.0) mg/dL AST 12 L (13-39) U/L ALT 14 (7-52) U/L Alkaline Phosphatase 111 H (34-104) U/L Troponin I 0.05 H* (<0.03) ng/mL B-Natriuretic Peptide > 1300 H (<=100) pg/mL Total Protein 6.6 (6.4-8.9) g/dL Albumin 2.9 L (3.2-5.2) g/dL Globulin 3.7 (2-4) g/dL Albumin/Globulin Ratio 0.8 L (1-3) Microbiology and Other Data: Microbiology 02/16/19 22:15 Nasal Screen MRSA (PCR) - Final Nasal Mrsa Not Detected Assessment/Plan 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 He had poor oral intake of water and food for the past one week. He was found to have CHF exacerbation and was started on antibiotic therapy for a suspected cellulitis. 1. Acute hypoxic and infectious encephalopathy. Slowly improving. Dr. Quezada reported that the patient is almost at baseline. I agree, he appears to be more awake and interactive. I still suspect he has an underlying neurodegenerative disorder, probably vascular vs. Alzheimer's dementia. Recommend neuropsychatric testing as an outpatient, or we would be more than happy to see the patient as an outpatient for a routine cognitive assessment evaluation for dementia. I will set up an appointment with our staff at [facility] Neurology. No further acute neurological work-up is recommended for now. We are available for any questions. I will sign off.
[2019-02-19] MEDS: Pantoprazole TAB * 40 MG TAB PO SCH (20:52)
[2019-02-20] MEDS ORDERED: Loperamide CAP* 2 MG PO PRN (00:53)
[2019-02-20] MEDS ORDERED: LORazepam INJ* 2 MG/ML 1 ML VIAL IV PUSH ONE (03:25)
[2019-02-20] MEDS ORDERED: Lorazepam PYXIS KEY PRN (03:34)
[2019-02-20] MEDS ORDERED: hydrALAZINE IV* 20 MG/ML VIAL IV SLOW PU ONE (04:30)
[2019-02-20] MEDS: Heparin VIAL(*) 5000 UNITS/ML VIAL (FIVE THOUSAND) SUBCUT SCH ×3 (04:57→20:04)
[2019-02-20] MEDS: ZOSYN 3.375 GM Q8H per EXTENDED INFUSION IVPB SCH ×6 (04:57→20:29)
[2019-02-20 07:03] LABS: BUN/Creatinine Ratio 23.4 (8-20); Calcium 8.5 mg/dL (8.6-10.3); EGFR African American 48.1 (>60); EGFR Non-African American 39.8 (>60); Potassium 3.9 mmol/L (3.5-5.0)
[2019-02-20] MEDS: Insulin LISPRO* 1 UNITS UNIT SUBCUT SCH ×3 (09:12→16:45)
--- NOTE | 2019-02-20 09:29 | PN ---
Subjective - Subjective Reason for Note: Progress Note History: I woke him up this morning, so he is sleepy. However, he is able to talk and tell me about his symptoms. He denies pain, dyspnea, cough. His abdomen is not causing him pain. Active Problems: Active Problems Acute systolic (congestive) heart failure (Acute) I50.21 Altered mental status (Acute) R41.82 Anemia (Acute) D64.9 Biventricular cardiac pacemaker in situ (Acute) Z95.0 Cellulitis of right lower leg (Acute) L03.115 Edema (Acute) R60.9 Ulcer of sacral region, stage 1 (Acute) L98.429 History of heart artery stent (Chronic) Z95.5 ICD (implantable cardioverter-defibrillator) in place (Chronic) Z95.810 Current Medications: Current Medications Acetaminophen (Tylenol Tab*) 650 mg PO Q4H PRN PRN Reason: MILD PAIN or TEMP > 100.4 Last Admin: 02/19/19 02:35 Dose: 650 mg Atorvastatin Calcium (Lipitor*) 80 mg PO DAILY [facility] Last Admin: 02/19/19 08:38 Dose: 80 mg Carvedilol (Coreg Tab*) 37.5 mg PO BID [facility] Last Admin: 02/19/19 20:48 Dose: 37.5 mg Clopidogrel Bisulfate (Plavix Tab*) 75 mg PO QAM [facility] Last Admin: 02/19/19 08:35 Dose: 75 mg Dextrose (Dextrose 50% Vial 50 Ml*) 25 ml IV PUSH .FOR FS < 60 - SS PRN PRN Reason: FS < 60 Docusate Sodium (Colace Cap*) 300 mg PO DAILY [facility] Last Admin: 02/19/19 08:35 Dose: 300 mg Duloxetine HCl (Cymbalta Cap*) 30 mg PO BID [facility] Last Admin: 02/19/19 20:52 Dose: 30 mg Heparin Sodium (Porcine) (Heparin Vial(*)) 5,000 units SUBCUT Q8HR [facility] Last Admin: 02/20/19 04:57 Dose: 5,000 units Piperacillin Sod/Tazobactam (Sod 3.375 gm/ Sodium Chloride) 100 mls @ 25 mls/ hr IVPB Q8H [facility] Last Admin: 02/20/19 04:57 Dose: 25 mls/hr Vancomycin HCl 1,250 mg/ (Sodium Chloride) 250 mls @ 166.667 mls/hr IVPB Q24H [facility] Last Admin: 02/19/19 10:57 Dose: 166.667 mls/hr Insulin Glargine (Lantus(*)) 14 units SUBCUT Q24H [facility] Last Admin: 02/19/19 09:59 Dose: 14 units Insulin Human Lispro (Humalog*) 5 units SUBCUT AC [facility]; Protocol Last Admin: 02/20/19 09:12 Dose: Not Given Loperamide HCl (Imodium Cap*) 2 mg PO .SEE DIRECTIONS PRN PRN Reason: DIARRHEA Last Admin: 02/20/19 01:06 Dose: 2 mg Miscellaneous (Ativan Pyxis [place]) 1 ea N/A .PYXIS [place] PRN PRN Reason: PER PROTOCOL Multivitamins/Minerals (Theragran/Minerals Tab*) 1 tab PO DAILY [facility] Last Admin: 02/19/19 08:37 Dose: 1 tab Pantoprazole Sodium (Protonix Tab*) 40 mg PO BEDTIME [facility] Last Admin: 02/19/19 20:52 Dose: 40 mg Pharmacy Consult (Vancomycin Per Pharmacy*) 1 note FOLLOW UP .VANC PER PHARMACY [facility]; Protocol Pharmacy Consult (Zosyn Per Pharmacy*) 1 note FOLLOW UP .ZOSYN PER PHARMACY [facility] Pharmacy Profile Note (Vancomycin Trough Check) 1 note FOLLOW UP 1100 ONE Stop: 02/20/19 11:01 Polyethylene Glycol/Electrolytes (Miralax*) 17 gm PO DAILY [facility] Last Admin: 02/19/19 08:34 Dose: 17 gm Spironolactone (Aldactone Tab*) 12.5 mg PO DAILY [facility] Last Admin: 02/19/19 08:37 Dose: 12.5 mg Torsemide (Demadex*) 20 mg PO DAILY [facility] Last Admin: 02/19/19 10:00 Dose: 20 mg Home Medications: Home Medications Medication Instructions Recorded Confirmed Type Carvedilol TAB* [Coreg TAB*] 37.5 mg PO QA 07/10/18 02/16/19 History Clopidogrel TAB* [Plavix TAB*] 75 mg PO QA 07/10/18 02/16/[address] CAP* [Cymbalta CAP*] 30 mg PO BID 07/10/18 02/16/19 History Docusate CAP* [Colace Cap*] 300 mg PO DAILY 07/10/18 02/16/19 History Lisinopril TAB* [Prinivil TAB 5 10 mg PO DAILY 07/10/18 02/16/19 History MG*] Pantoprazole TAB * [Protonix TAB*] 40 mg PO BEDTIME 07/10/18 02/16/19 History traZODone TAB* [Desyrel TAB*] 100 mg PO BEDTIME PRN 07/10/18 02/16/19 History Atorvastatin* [Lipitor*] 80 mg PO DAILY 12/18/18 02/16/19 History Carvedilol TAB* [Coreg TAB*] 50 mg PO QPM 12/18/18 02/16/19 History Multivitamins/Minerals TAB* 1 tab PO DAILY 12/18/18 02/16/19 History [Theragran/minerals TAB*] Polyethylene Glycol 3350* 17 gm PO DAILY 12/18/18 02/16/19 History [Miralax*] Potassium Chlor TAB* [Klor Con ER 20 meq PO DAILY 12/18/18 02/16/19 History TAB*] Acetaminophen TAB* [Tylenol TAB*] 325 mg PO Q6H PRN 02/16/19 02/16/19 History Nitroglycerin TAB 0.4 MG* 0.4 mg SL Q5M PRN 02/16/19 02/16/19 History Nut.tx.gluc.intoler,Lac-Fr,Soy 237 ml PO BID 02/16/19 02/16/19 History [Glucerna] glipiZIDE TAB* [Glucotrol TAB*] 5 mg PO BID 02/16/19 02/16/19 History metFORMIN* [Glucophage 500 MG TAB 500 mg PO BID 02/16/19 02/16/19 History *] Allergies: Allergies Allergy/AdvReac Type Severity Reaction Status Date / Time cephalexin [From Keflex] AdvReac Unknown Unknown Verified 02/17/19 23:25 Reaction Details pregabalin AdvReac Unknown Unknown Verified 02/17/19 23:25 Reaction Details Objective - Vital Signs Vital Signs: Vital Signs 02/19/19 02/19/19 02/19/19 11:50 15:24 19:15 Temperature 97.6 F 97.1 F 97 F Pulse Rate 60 58 60 Respiratory 20 20 24 Rate Blood Pressure 141/59 147/63 165/71 (mmHg) O2 Sat by Pulse 94 98 98 Oximetry 02/19/19 02/19/19 02/20/19 20:00 23:15 01:06 Temperature 97.5 F Pulse Rate 60 Respiratory 24 18 18 Rate Blood Pressure 160/76 (mmHg) O2 Sat by Pulse 100 Oximetry 02/20/19 02/20/19 02/20/19 03:06 03:15 03:17 Temperature 97.5 F Pulse Rate 60 Respiratory 16 18 Rate Blood Pressure 187/93 184/99 (mmHg) O2 Sat by Pulse 98 Oximetry 02/20/19 02/20/19 02/20/19 04:16 05:11 05:48 Temperature 97 F Pulse Rate 60 60 Respiratory 16 16 Rate Blood Pressure 183/85 178/78 (mmHg) O2 Sat by Pulse 99 Oximetry 02/20/19 02/20/19 02/20/19 07:17 07:18 08:30 Temperature 98 F Pulse Rate 60 Respiratory 18 18 17 Rate Blood Pressure 160/71 (mmHg) O2 Sat by Pulse 98 Oximetry - Intake and Output Intake and Output: Intake & Output 02/17/19 02/18/19 02/19/19 02/20/19 11:59 11:59 11:59 11:59 Intake Total 0 730 2547 1313 Output Total 0 1550 0 Balance 0 -820 2547 1313 Weight 199 lb 224 lb 12.8 oz 192 lb 8 oz 198 lb 3.2 oz Intake: IV Fluids 260 95 70 ABX - VANCOMYCIN 250 20 ABX - ZOSYN 50 NS (0.9%) 10 95 IVPB 110 472 563 ABX - VANCOMYCIN 250 ABX - ZOSYN 110 197 313 NS (0.9%) 275 Oral 0 360 1980 680 Output: Urine 0 550 0 Verduzco 1000 Other: Estimated Void Large Large Large Medium # Bowel Movements 2 1 Estimated Stool Amount Large Small Medium # Voids 1 1 1 1 ADLs: Meal Record Start: 02/16/19 21: 53 Freq: DAILY@0900,1400,1800 Status: Active Protocol: Created 02/16/19 21:53 System (Rec: 02/16/19 21:53 System TELE-C15) Document 02/17/19 09:00 [id number] (Rec: 02/17/19 14:31 [id number] TELE-C05) Document 02/17/19 14:00 [id number] (Rec: 02/17/19 14:32 [id number] TELE-C05) Document 02/17/19 18:00 [id number] (Rec: 02/17/19 22:21 [id number] TELE-C05) Document 02/18/19 09:00 [id number] (Rec: 02/18/19 09:41 [id number] TELE-C11) Document 02/18/19 14:00 [id number] (Rec: 02/18/19 14:19 [id number] TELE-C07) Document 02/18/19 17:56 [id number] (Rec: 02/18/19 17:56 [id number] TELE-C09) Document 02/19/19 09:00 [id number] (Rec: 02/19/19 11:43 [id number] TELE-M03) Document 02/19/19 14:00 [id number] (Rec: 02/19/19 15:01 [id number] TELE-C05) Document 02/19/19 17:44 [id number] (Rec: 02/19/19 17:45 [id number] TELE-C03) Intake and Output Start: 02/16/19 18: 21 Freq: Status: Active Protocol: Created 02/16/19 18:21 [id number] (Rec: 02/16/19 18:21 [id number] ED-C25) Document 02/16/19 18:22 [id number] (Rec: 02/16/19 18:22 [id number] ED-C25) Intake and Output Start: 02/16/19 21: 53 Freq: DAILY@0600,1400,2200 Status: Active Protocol: Created 02/16/19 21:53 System (Rec: 02/16/19 21:53 System TELE-C15) Document 02/16/19 22:00 [id number] (Rec: 02/16/19 23:42 [id number] [facility]- [id number]) Document 02/17/19 06:00 [id number] (Rec: 02/17/19 06:25 [id number] TELE-C05) Document 02/17/19 14:00 [id number] (Rec: 02/17/19 14:32 [id number] TELE-C05) Document 02/17/19 22:00 [id number] (Rec: 02/17/19 22:21 [id number] TELE-C05) Document 02/18/19 05:30 [id number] (Rec: 02/18/19 05:31 [id number] TELE-C13) Document 02/18/19 14:00 [id number] (Rec: 02/18/19 14:31 [id number] TELE-C09) Document 02/18/19 21:29 [id number] (Rec: 02/18/19 21:29 [id number] MED-M02) Document 02/19/19 00:39 [id number] (Rec: 02/19/19 00:39 [id number] TELE-C05) Document 02/19/19 01:09 [id number] (Rec: 02/19/19 01:09 [id number] TELE-C34) Document 02/19/19 02:38 [id number] (Rec: 02/19/19 02:38 [id number] MED-M02) Document 02/19/19 06:00 [id number] (Rec: 02/19/19 06:13 [id number] MED-M02) Document 02/19/19 22:00 [id number] (Rec: 02/19/19 22:36 [id number] TELE-C05) Document 02/20/19 01:14 [id number] (Rec: 02/20/19 01:14 [id number] TELE-C03) Document 02/20/19 02:38 [id number] (Rec: 02/20/19 02:39 [id number] TELE-C13) Document 02/20/19 06:00 [id number] (Rec: 02/20/19 06:10 [id number] TELE-C13) - Physical Exam General Physical Exam Comment: The cellulitis patch on his right jefferson is resolving General: No Cyanosis, Yes Anemia, No Jaundice, No Clubbing Lungs and Chest: Yes: Chest Expansion Full, Chest Expansion Symetrica, Vessicular Breath Sounds. No: Crackles, Wheezes Heart Rate and Rhythm: Regular Additional Cardiovascular: Yes: Normal Heart Sounds, Heart Murmur, Pedal Edema Abdominal Exam: Yes: Soft, Bowel Sounds Present. No: Distention, Abdominal Tenderness - Extremities Cranial Nerves II-XII Intact: Yes Limbs: Abnormal Power - generalized weakness - Neuro Orientation: Person Psychiatric: Normal Speech: Normal Results - Results Lab Results: Laboratory Results - last 24 hr 02/19/19 02/19/19 02/19/19 06:11 11:06 16:42 Sodium Potassium Chloride Carbon Dioxide Anion Gap BUN Creatinine Est GFR ( Amer) Est GFR (Non-Af Amer) BUN/Creatinine Ratio Glucose POC Glucose (mg/dL) 265 H 179 H Calcium Iron 32 L TIBC 244 L % Saturation 13 L Unsat Iron Binding < 229 Transferrin 174 L Ferritin 41.8 02/19/19 02/20/19 02/20/19 19:55 06:39 07:14 Sodium 140 Potassium 3.9 Chloride 103 Carbon Dioxide 34 H Anion Gap 3 BUN 39 H Creatinine 1.67 H Est GFR ( Amer) 48.1 Est GFR (Non-Af Amer) 39.8 BUN/Creatinine Ratio 23.4 H Glucose 65 L POC Glucose (mg/dL) 145 H 79 Calcium 8.5 L Iron TIBC % Saturation Unsat Iron Binding Transferrin Ferritin Assessment - Problem List Assessment: Patient Problems Acute systolic (congestive) heart failure (Acute) Altered mental status (Acute) Anemia (Acute) Biventricular cardiac pacemaker in situ (Acute) Cellulitis of right lower leg (Acute) Edema (Acute) Ulcer of sacral region, stage 1 (Acute) History of heart artery stent (Chronic) ICD (implantable cardioverter-defibrillator) in place (Chronic) Chronic low back pain (Chronic) Chronic renal disease, stage 3, moderately decreased glomerular filtration rate between 30-59 mL/min/1.73 square meter (Chronic) DVT prophylaxis (Chronic) Essential (primary) hypertension (Chronic) Hypercholesteremia (Chronic) Ischemic cardiomyopathy (Chronic) Lumbar spinal stenosis (Chronic) Mitral regurgitation (Chronic) Obesity (BMI 35.0-39.9 without comorbidity) (Chronic) Pancreatic mass (Chronic) S/P cholecystectomy (Chronic) Type 2 diabetes mellitus treated with insulin (Chronic) Plan: Acute medical problems: Acute systolic (congestive) heart failure (Acute) Edema (Acute) asymptomatic - now on oral torsemide and spironolactone. Urine output not being recorded, so output unknown. I will start im on entresto Altered mental status (Acute) improved Anemia (Acute) He has a low iron, his ferritin may be falsely elevated. I will start him on qod iron sulfate and vitamin C Cellulitis of right lower leg (Acute) Resolving - continue antibacterials Ulcer of sacral region, stage 1 (Acute) He is on his side comorbidities: Biventricular cardiac pacemaker in situ (Acute) Chronic renal disease, stage 3, moderately decreased glomerular filtration rate between 30-59 mL/min/1.73 square meter (Chronic) Mild improvement BUN/Cr Essential (primary) hypertension (Chronic) His BP has increased. Type 2 diabetes mellitus treated with insulin (Chronic) I will cut back his lantus as the glucose was 65 mg/dl this morning secondary diagnoses History of heart artery stent (Chronic) ICD (implantable cardioverter-defibrillator) in place (Chronic) Chronic low back pain (Chronic) DVT prophylaxis (Chronic) Hypercholesteremia (Chronic) Ischemic cardiomyopathy (Chronic) Lumbar spinal stenosis (Chronic) Mitral regurgitation (Chronic) Obesity (BMI 35.0-39.9 without comorbidity) (Chronic) Pancreatic mass (Chronic) S/P cholecystectomy (Chronic) I explained the above to the patient and called Hannah Ramon - she favors [facility].
--- NOTE | 2019-02-20 09:46 | PN ---
Progress Note - Progress Note Date of Service: 02/20/19 Note: Additional note: According to his RN he has had multiple episodes of diarrhea related to his antibacterials. I will stop the IV zosyn and vancomycin. I will start him on Bactrim which should cover Staph and Strep. Valsartan has an interaction with spironolactone - I will discontinue spironolactone and start KCL ER 20 meq bid
[2019-02-20] MEDS: Atorvastatin* 80 MG TAB PO SCH (09:59)
[2019-02-20] MEDS: Multivitamins/Minerals TAB PO SCH (09:59)
[2019-02-20] MEDS: Clopidogrel TAB* 75 MG PO SCH (09:59)
[2019-02-20] MEDS: Carvedilol TAB* 25 MG PO SCH ×2 (09:59→19:46)
[2019-02-20] MEDS: DULoxetine DR CAP* 30 MG CAP.DR PO SCH ×2 (09:59→20:02)
[2019-02-20] MEDS: Polyethylene Glycol 3350* 17 GM PACKET PO SCH (10:15)
[2019-02-20] MEDS: Docusate CAP* 100 MG PO SCH (10:15)
[2019-02-20] MEDS: Torsemide TAB* 20 MG PO SCH ×2 (10:16→20:04)
[2019-02-20] MEDS: Spironolactone TAB* 25 MG PO SCH (10:17)
[2019-02-20] MEDS: Insulin GLARGINE(*) 1 UNITS UNIT SUBCUT SCH ×2 (10:17→10:38)
[2019-02-20] MEDS ORDERED: Vancomycin Trough Check NOTE FOLLOW UP ONE (11:00)
[2019-02-20] MEDS: Pantoprazole TAB * 40 MG TAB PO SCH (20:02)
[2019-02-20] MEDS: Potassium Chlor TAB* 20 MEQ TAB.ER PO SCH (20:03)
[2019-02-20] MEDS: Sulfamethox/Trimethoprim DS 800/160* TAB PO SCH (20:03)
[2019-02-20] MEDS: Acetaminophen TAB* 325 MG PO PRN (20:15)
[2019-02-21] MEDS: Heparin VIAL(*) 5000 UNITS/ML VIAL (FIVE THOUSAND) SUBCUT SCH ×3 (05:37→21:32)
--- NOTE | 2019-02-21 10:14 | PN ---
Subjective - Subjective Reason for Note: Progress Note History: He is alert and conversational. Orientation - person and place. 2018 ? month. He has some low back soreness, otherwise is in no pain. He is hungry. His glycemic control is improved. His BP is higher, despite the valsartan. He denies chest pain, dyspnea or cough. He is reported to have diarrhea - I stopped his IV antibacterials and substituted oral bactrim for Staph coverage yesterday. Active Problems: Active Problems Acute systolic (congestive) heart failure (Acute) I50.21 Altered mental status (Acute) R41.82 Anemia (Acute) D64.9 Biventricular cardiac pacemaker in situ (Acute) Z95.0 Cellulitis of right lower leg (Acute) L03.115 Edema (Acute) R60.9 Ulcer of sacral region, stage 1 (Acute) L98.429 History of heart artery stent (Chronic) Z95.5 ICD (implantable cardioverter-defibrillator) in place (Chronic) Z95.810 Current Medications: Current Medications Acetaminophen (Tylenol Tab*) 650 mg PO Q4H PRN PRN Reason: MILD PAIN or TEMP > 100.4 Last Admin: 02/20/19 20:15 Dose: 650 mg Ascorbic Acid (Vitamin C Tab*) 500 mg PO EVERY OTHER DAY [facility] Atorvastatin Calcium (Lipitor*) 80 mg PO DAILY [facility] Last Admin: 02/20/19 09:59 Dose: 80 mg Carvedilol (Coreg Tab*) 37.5 mg PO BID [facility] Last Admin: 02/20/19 19:46 Dose: 37.5 mg Clopidogrel Bisulfate (Plavix Tab*) 75 mg PO QAM [facility] Last Admin: 02/20/19 09:59 Dose: 75 mg Dextrose (Dextrose 50% Vial 50 Ml*) 25 ml IV PUSH .FOR FS < 60 - SS PRN PRN Reason: FS < 60 Docusate Sodium (Colace Cap*) 300 mg PO DAILY [facility] Last Admin: 02/20/19 10:15 Dose: Not Given Duloxetine HCl (Cymbalta Cap*) 30 mg PO BID [facility] Last Admin: 02/20/19 20:02 Dose: 30 mg Ferrous Sulfate (Ferrous Sulfate Tab*) 325 mg PO EVERY OTHER DAY [facility] Heparin Sodium (Porcine) (Heparin Vial(*)) 5,000 units SUBCUT Q8HR [facility] Last Admin: 02/21/19 05:37 Dose: 5,000 units Insulin Glargine (Lantus(*)) 10 units SUBCUT DAILY [facility] Last Admin: 02/20/19 10:38 Dose: 10 units Insulin Human Lispro (Humalog*) 5 units SUBCUT AC [facility]; Protocol Last Admin: 02/20/19 16:45 Dose: 5 units Loperamide HCl (Imodium Cap*) 2 mg PO .SEE DIRECTIONS PRN PRN Reason: DIARRHEA Last Admin: 02/20/19 01:06 Dose: 2 mg Miscellaneous (Ativan Pyxis Park) 1 ea N/A .PYXIS PARK PRN PRN Reason: PER PROTOCOL Multivitamins/Minerals (Theragran/Minerals Tab*) 1 tab PO DAILY [facility] Last Admin: 02/20/19 09:59 Dose: 1 tab Pantoprazole Sodium (Protonix Tab*) 40 mg PO BEDTIME [facility] Last Admin: 02/20/19 20:02 Dose: 40 mg Polyethylene Glycol/Electrolytes (Miralax*) 17 gm PO DAILY [facility] Last Admin: 02/20/19 10:15 Dose: Not Given Potassium Chloride (Klor Con Er Tab*) 20 meq PO BID [facility] Last Admin: 02/20/19 20:03 Dose: 20 meq Torsemide (Demadex*) 20 mg PO BID [facility] Last Admin: 02/20/19 20:04 Dose: 20 mg Trimethoprim/Sulfamethoxazole (Bactrim Ds 800/160 Tab*) 1 tab PO BID [facility] Last Admin: 02/20/19 20:03 Dose: 1 tab Valsartan (Diovan Tab*) 80 mg PO DAILY [facility] Home Medications: Home Medications Medication Instructions Recorded Confirmed Type Carvedilol TAB* [Coreg TAB*] 37.5 mg PO [facility] 07/10/18 02/16/19 History Clopidogrel TAB* [Plavix TAB*] 75 mg PO QAM 07/10/18 02/16/[address] CAP* [Cymbalta CAP*] 30 mg PO BID 07/10/18 02/16/19 History Docusate CAP* [Colace Cap*] 300 mg PO DAILY 07/10/18 02/16/19 History Lisinopril TAB* [Prinivil TAB 5 10 mg PO DAILY 07/10/18 02/16/19 History MG*] Pantoprazole TAB * [Protonix TAB*] 40 mg PO BEDTIME 07/10/18 02/16/19 History traZODone TAB* [Desyrel TAB*] 100 mg PO BEDTIME PRN 07/10/18 02/16/19 History Atorvastatin* [Lipitor*] 80 mg PO DAILY 12/18/18 02/16/19 History Carvedilol TAB* [Coreg TAB*] 50 mg PO QPM 12/18/18 02/16/19 History Multivitamins/Minerals TAB* 1 tab PO DAILY 12/18/18 02/16/19 History [Theragran/minerals TAB*] Polyethylene Glycol 3350* 17 gm PO DAILY 12/18/18 02/16/19 History [Miralax*] Potassium Chlor TAB* [Klor Con ER 20 meq PO DAILY 12/18/18 02/16/19 History TAB*] Acetaminophen TAB* [Tylenol TAB*] 325 mg PO Q6H PRN 02/16/19 02/16/19 History Nitroglycerin TAB 0.4 MG* 0.4 mg SL Q5M PRN 02/16/19 02/16/19 History Nut.tx.gluc.intoler,Lac-Fr,Soy 237 ml PO BID 02/16/19 02/16/19 History [Glucerna] glipiZIDE TAB* [Glucotrol TAB*] 5 mg PO BID 02/16/19 02/16/19 History metFORMIN* [Glucophage 500 MG TAB 500 mg PO BID 02/16/19 02/16/19 History *] Allergies: Allergies Allergy/AdvReac Type Severity Reaction Status Date / Time cephalexin [From Keflex] AdvReac Unknown Unknown Verified 02/17/19 23:25 Reaction Details pregabalin AdvReac Unknown Unknown Verified 02/17/19 23:25 Reaction Details Objective - Vital Signs Vital Signs: Vital Signs 02/20/19 02/20/19 02/20/19 11:43 15:27 19:48 Temperature 97.5 F 97.3 F 97.6 F Pulse Rate 60 69 63 Respiratory 20 16 20 Rate Blood Pressure 123/50 154/64 151/60 (mmHg) O2 Sat by Pulse 95 94 90 Oximetry 02/20/19 02/20/19 02/21/19 20:00 23:44 03:38 Temperature 97.1 F 97.5 F Pulse Rate 60 60 Respiratory 20 18 18 Rate Blood Pressure 136/59 163/73 (mmHg) O2 Sat by Pulse 94 98 Oximetry - Intake and Output Intake and Output: Intake & Output 02/18/19 02/19/19 02/20/19 02/21/19 11:59 11:59 11:59 11:59 Intake Total 730 2547 1553 1037 Output Total 1550 0 Balance -820 2547 1553 1037 Weight 224 lb 12.8 oz 192 lb 8 oz 198 lb 3.2 oz 195 lb 3.2 oz Intake: IV Fluids 260 95 70 50 ABX - VANCOMYCIN 250 20 ABX - ZOSYN 50 50 NS (0.9%) 10 95 IVPB 110 472 563 210 ABX - VANCOMYCIN 250 ABX - ZOSYN 110 197 313 210 NS (0.9%) 275 Oral 360 1980 920 777 Output: Urine 550 0 Verduzco 1000 Other: Estimated Void Large Large Medium Large # Bowel Movements 2 1 1 Estimated Stool Amount Large Small Medium Medium # Voids 1 1 1 1 ADLs: Meal Record Start: 02/16/19 21: 53 Freq: DAILY@0900,1400,1800 Status: Active Protocol: Created 02/16/19 21:53 System (Rec: 02/16/19 21:53 System TELE-C15) Document 02/17/19 09:00 [id number] (Rec: 02/17/19 14:31 [id number] TELE-C05) Document 02/17/19 14:00 [id number] (Rec: 02/17/19 14:32 [id number] TELE-C05) Document 02/17/19 18:00 [id number] (Rec: 02/17/19 22:21 [id number] TELE-C05) Document 02/18/19 09:00 [id number] (Rec: 02/18/19 09:41 [id number] TELE-C11) Document 02/18/19 14:00 [id number] (Rec: 02/18/19 14:19 [id number] TELE-C07) Document 02/18/19 17:56 [id number] (Rec: 02/18/19 17:56 [id number] TELE-C09) Document 02/19/19 09:00 [id number] (Rec: 02/19/19 11:43 [id number] TELE-M03) Document 02/19/19 14:00 [id number] (Rec: 02/19/19 15:01 [id number] TELE-C05) Document 02/19/19 17:44 [id number] (Rec: 02/19/19 17:45 [id number] TELE-C03) Document 02/20/19 09:00 [id number] (Rec: 02/20/19 10:50 [id number] TELE-C05) Document 02/20/19 14:00 BYC1603 (Rec: 02/20/19 14:24 [id number] TELE-C05) Document 02/20/19 18:00 [id number] (Rec: 02/20/19 21:44 UEY1399 TELE-C05) Document 02/21/19 09:00 [id number] (Rec: 02/21/19 09:53 NSS9576 TELE-C09) Intake and Output Start: 02/16/19 18: 21 Freq: Status: Active Protocol: Created 02/16/19 18:21 [id number] (Rec: 02/16/19 18:21 [id number] ED-C25) Document 02/16/19 18:22 [id number] (Rec: 02/16/19 18:22 [id number] ED-C25) Intake and Output Start: 02/16/19 21: 53 Freq: DAILY@0600,1400,2200 Status: Active Protocol: Created 02/16/19 21:53 System (Rec: 02/16/19 21:53 System TELE-C15) Document 02/16/19 22:00 [id number] (Rec: 02/16/19 23:42 [id number] [facility]- [id number]) Document 02/17/19 06:00 [id number] (Rec: 02/17/19 06:25 [id number] TELE-C05) Document 02/17/19 14:00 [id number] (Rec: 02/17/19 14:32 [id number] TELE-C05) Document 02/17/19 22:00 UZP0134 (Rec: 02/17/19 22:21 [id number] TELE-C05) Document 02/18/19 05:30 [id number] (Rec: 02/18/19 05:31 [id number] TELE-C13) Document 02/18/19 14:00 [id number] (Rec: 02/18/19 14:31 [id number] TELE-C09) Document 02/18/19 21:29 [id number] (Rec: 02/18/19 21:29 [id number] MED-M02) Document 02/19/19 00:39 [id number] (Rec: 02/19/19 00:39 [id number] TELE-C05) Document 02/19/19 01:09 ORE3404 (Rec: 02/19/19 01:09 [id number] TELE-C34) Document 02/19/19 02:38 [id number] (Rec: 02/19/19 02:38 [id number] MED-M02) Document 02/19/19 06:00 [id number] (Rec: 02/19/19 06:13 [id number] MED-M02) Document 02/19/19 22:00 [id number] (Rec: 02/19/19 22:36 [id number] TELE-C05) Document 02/20/19 01:14 [id number] (Rec: 02/20/19 01:14 BPE0002 TELE-C03) Document 02/20/19 02:38 [id number] (Rec: 02/20/19 02:39 [id number] TELE-C13) Document 02/20/19 06:00 [id number] (Rec: 02/20/19 06:10 [id number] TELE-C13) Document 02/20/19 14:00 [id number] (Rec: 02/20/19 14:35 [id number] TELE-C05) Document 02/20/19 21:44 [id number] (Rec: 02/20/19 21:46 [id number] TELE-C05) Document 02/21/19 06:00 [id number] (Rec: 02/21/19 06:48 [id number] TELE-C05) - Physical Exam General Physical Exam Comment: The patch of cellulitis is much improved. General: No Cyanosis, Yes Anemia, No Jaundice, No Clubbing Lungs and Chest: Yes: Chest Expansion Full, Chest Expansion Symetrica, Vessicular Breath Sounds. No: Crackles, Wheezes Heart Rate and Rhythm: Regular Additional Cardiovascular: Yes: Normal Heart Sounds, Heart Murmur, Pedal Edema - 1+ Abdominal Exam: Yes: Soft, Bowel Sounds Present. No: Distention, Abdominal Tenderness - Extremities Cranial Nerves II-XII Intact: Yes Limbs: Abnormal Power - moving all limbs against gravity, but weak - Neuro Orientation: Person, Place Speech: Normal Results - Results Lab Results: Laboratory Results - last 24 hr 02/20/19 02/20/19 02/20/19 10:05 10:21 11:35 POC Glucose (mg/dL) 83 160 H Vancomycin Trough 15.8 02/20/19 02/20/19 02/20/19 16:26 20:31 23:42 POC Glucose (mg/dL) 157 H 94 181 H Vancomycin Trough 02/21/19 08:27 POC Glucose (mg/dL) 128 H Vancomycin Trough Assessment - Problem List Assessment: Patient Problems Acute systolic (congestive) heart failure (Acute) Altered mental status (Acute) Anemia (Acute) Biventricular cardiac pacemaker in situ (Acute) Cellulitis of right lower leg (Acute) Edema (Acute) Ulcer of sacral region, stage 1 (Acute) History of heart artery stent (Chronic) ICD (implantable cardioverter-defibrillator) in place (Chronic) Chronic low back pain (Chronic) Chronic renal disease, stage 3, moderately decreased glomerular filtration rate between 30-59 mL/min/1.73 square meter (Chronic) DVT prophylaxis (Chronic) Essential (primary) hypertension (Chronic) Hypercholesteremia (Chronic) Ischemic cardiomyopathy (Chronic) Lumbar spinal stenosis (Chronic) Mitral regurgitation (Chronic) Obesity (BMI 35.0-39.9 without comorbidity) (Chronic) Pancreatic mass (Chronic) S/P cholecystectomy (Chronic) Type 2 diabetes mellitus treated with insulin (Chronic) Plan: Acute systolic (congestive) heart failure (Acute) I started him on valsartan to replace lisinopril. He will start entresto upon discharge per Dr. Sanchez. Altered mental status (Acute) Improved Anemia (Acute) ongoing Biventricular cardiac pacemaker in situ (Acute) Cellulitis of right lower leg (Acute) Improved - bactrim is appropriate. Edema (Acute) improved Ulcer of sacral region, stage 1 (Acute) He has some soreness - on an air mattress Essential (primary) hypertension (Chronic) His BP is moderately elevated - no need for more antihypertensives Comorbidities: Type 2 diabetes mellitus treated with insulin (Chronic) Chronic renal disease, stage 3, moderately decreased glomerular filtration rate between 30-59 mL/min/1.73 square meter (Chronic) Recheck tomorrow Secondary diagnoses History of heart artery stent (Chronic) ICD (implantable cardioverter-defibrillator) in place (Chronic) Chronic low back pain (Chronic) DVT prophylaxis (Chronic) Hypercholesteremia (Chronic) Ischemic cardiomyopathy (Chronic) Lumbar spinal stenosis (Chronic) Mitral regurgitation (Chronic) Obesity (BMI 35.0-39.9 without comorbidity) (Chronic) Pancreatic mass (Chronic) S/P cholecystectomy (Chronic) I explained to Yosvany Paniagua that he is likely to go to [facility] for subacute rehabilitation. I called Hannah Ramon (daughter/health care proxy) - no response.
[2019-02-21] MEDS: Insulin LISPRO* 1 UNITS UNIT SUBCUT SCH ×3 (11:11→19:01)
[2019-02-21] MEDS: Multivitamins/Minerals TAB PO SCH (11:22)
[2019-02-21] MEDS: Sulfamethox/Trimethoprim DS 800/160* TAB PO SCH ×2 (11:22→21:28)
[2019-02-21] MEDS: Clopidogrel TAB* 75 MG PO SCH (11:22)
[2019-02-21] MEDS: Potassium Chlor TAB* 20 MEQ TAB.ER PO SCH ×2 (11:22→21:27)
[2019-02-21] MEDS: DULoxetine DR CAP* 30 MG CAP.DR PO SCH ×2 (11:22→21:28)
[2019-02-21] MEDS: Carvedilol TAB* 25 MG PO SCH ×2 (11:22→21:28)
[2019-02-21] MEDS: Valsartan TAB* 80 MG PO SCH (11:22)
[2019-02-21] MEDS: Atorvastatin* 80 MG TAB PO SCH (11:22)
[2019-02-21] MEDS: Insulin GLARGINE(*) 1 UNITS UNIT SUBCUT SCH (11:28)
[2019-02-21] MEDS: Polyethylene Glycol 3350* 17 GM PACKET PO SCH (11:28)
[2019-02-21] MEDS: Docusate CAP* 100 MG PO SCH (11:28)
[2019-02-21] MEDS: Torsemide TAB* 20 MG PO SCH ×2 (12:21→21:29)
[2019-02-21] MEDS: Pantoprazole TAB * 40 MG TAB PO SCH (21:28)
[2019-02-22] MEDS: Heparin VIAL(*) 5000 UNITS/ML VIAL (FIVE THOUSAND) SUBCUT SCH ×2 (06:01→12:59)
[2019-02-22 07:46] LABS: ABS Lymphocytes 0.6 10^3/ul (1.0-4.8); ABS Monocytes 0.7 10^3/ul (0-0.8); ABS Neutrophils 3.7 10^3/ul (1.5-7.7); Eosinophil % 0.9 %; Hematocrit 30 % (42-52); Lymphocyte % 11.7 %; Mean Corpuscular HGB Conc 33 g/dL (31-36); Mean Corpuscular Hemoglobin 27 pg (27-31); Mean Corpuscular Volume 81 fL (80-94); Mean Platelet Volume 7.5 fL (7.4-10.4); Platelet Count 159 10^3/uL (150-450); Red Blood Count 3.75 10^6 /uL (4.18-5.48); Red Cell Distribution Width 18 % (10-15); White Blood Count 5.1 10^3/uL (3.5-10.8)
[2019-02-22 08:02] LABS: BUN/Creatinine Ratio 26.4 (8-20); C Reactive Protein 3.94 mg/L (<8.01); Calcium 8.5 mg/dL (8.6-10.3); EGFR African American 55.3 (>60); EGFR Non-African American 45.7 (>60); Potassium 4.1 mmol/L (3.5-5.0)
[2019-02-22] MEDS ORDERED: Ferrous Sulfate TAB* 325 MG PO SCH (09:00)
[2019-02-22] MEDS ORDERED: Ascorbic Acid TAB* 500 MG PO SCH (09:00)
[2019-02-22] MEDS: Insulin LISPRO* 1 UNITS UNIT SUBCUT SCH ×2 (09:11→12:58)
[2019-02-22] MEDS: Potassium Chlor TAB* 20 MEQ TAB.ER PO SCH (09:12)
[2019-02-22] MEDS: Multivitamins/Minerals TAB PO SCH (09:12)
[2019-02-22] MEDS: Insulin GLARGINE(*) 1 UNITS UNIT SUBCUT SCH (09:12)
[2019-02-22] MEDS: Docusate CAP* 100 MG PO SCH ×2 (09:13→09:32)
[2019-02-22] MEDS: Carvedilol TAB* 25 MG PO SCH (09:14)
[2019-02-22] MEDS: Valsartan TAB* 80 MG PO SCH (09:15)
[2019-02-22] MEDS: Sulfamethox/Trimethoprim DS 800/160* TAB PO SCH (09:15)
[2019-02-22] MEDS: Torsemide TAB* 20 MG PO SCH (09:15)
[2019-02-22] MEDS: DULoxetine DR CAP* 30 MG CAP.DR PO SCH (09:15)
[2019-02-22] MEDS: Clopidogrel TAB* 75 MG PO SCH (09:16)
[2019-02-22] MEDS: Polyethylene Glycol 3350* 17 GM PACKET PO SCH (09:17)
[2019-02-22] MEDS: Atorvastatin* 80 MG TAB PO SCH (09:17)
[2019-02-22 11:22] VITALS: BP 145/55
--- NOTE | 2019-02-22 12:31 | DS ---
AMENDED REPORT TO REMOVE COSIGNER CC: [facility] * DISCHARGE SUMMARY: DATE OF ADMISSION: 02/16/19 DATE OF DISCHARGE: 02/22/19 DISCHARGE DIAGNOSES: 1. Acute diagnosis congestive cardiac failure both systolic and diastolic. 2. Altered mental state. 3. Cellulitis of the right lower leg. 4. Comorbidities. 5. Anemia. 6. Edema. 7. Sacral region stage I decubitus. 8. Type 2 diabetes mellitus, uncontrolled at first. SECONDARY DIAGNOSES: 1. Ischemic cardiomyopathy. 2. Hypercholesterolemia. 3. Central hypertension. 4. Deep venous thrombosis. 5. Stage 3 chronic renal insufficiency. 6. Chronic low back pain. 7. Implantable cardioverter defibrillator. 8. History of coronary artery stent. 9. Mitral regurgitation. 10. Lumbar spinal stenosis. 11. Obesity. Condition on day of discharge: Stable Disposition: [facility] cc Dr. Minor HISTORY: Yosvany Paniagua is an 78-year-old right-handed white male. His presentation is documented in the history and physical provided by Lorena Quinonez NP. He is a resident at [facility]. He had approximately 1-week history of increasing confusion, weakness, fatigue, 4+ pitting edema. He went to see his advertising internship Dr. Minor, who sent him owing to his 20- to 30-pound weight gain to the [facility]. PHYSICAL EXAMINATION: Blood pressure 199/109, heart rate 64, respirations 14, oxygen saturation 98%, oxygen 2 L nasal cannula, temperature 98.6. Heart sounds were normal. Regular rate and rhythm. Abdomen was benign. He had crackles in the bases of his lungs. Drowsy state. He is alert and oriented. No growth deficits. Open area right lower leg without drainage. Mild erythema both lower legs. INITIAL INVESTIGATIONS: White count 5.9, hemoglobin 10.4, platelets 213. Sodium 138, potassium 4.7, chloride 107, bicarbonate 27, BUN 33, creatinine 1.11. Glucose 166, calcium 8.8, AST 12, ALT 14, alkaline phosphatase 105, troponin I 0.05, BNP greater than 1300. Chest x-ray, pulmonary interstitial edema with airspace disease, which might represent alveolar edema versus consolidation, bilateral pleural effusions. EKG, paced rhythm at 16. INITIAL IMPRESSION: 1. Congestive cardiac failure exacerbation. 2. Hypertension. 3. Elevated troponin I. CONSULTATIONS: On 02/17/19, Dr. Yajaira Sanchez, her impression: Longstanding ischemic cardiomyopathy, biventricular pacer defibrillator, diuretics have been stopped and hence he had worsening congestive cardiac failure, also likely cellulitis of his legs, metal state was out of proportion to the lab and physical findings. Treatment of cardiomyopathy, suggestion of stopping metformin, restarting torsemide, consider spironolactone, stop lisinopril and start Entresto. Obtained an updated echocardiogram. Neurology consultation by Dr. Lyly Masterson, 02/18/19 His assessment included encephalopathy due to delirium with some cognitive decline at baseline, attributed it to his medical comorbidities, wondered about his blood pressure at presentation, recommended continuation of medical management. INVESTIGATIONS: Lab, hematology: He remained anemic during his hospital stay. He had no signs of an elevated white count, though his neutrophil percent was around 80 when he arrived and came down to 73.6. His sed rate was 36. Chemistry: His troponin remained the same, most likely due to congestive cardiac failure. B12 656, TSH 0.94, ammonia 44. Imaging: Brain CT scan on 02/17/19, no intracranial masses or hemorrhage. On 02/18/19, EEG: Abnormal EEG due to the presence of diffuse reactive slowing , nonspecific [id number] diffuse encephalopathy. Transthoracic echocardiogram demonstrated severely reduced left ventricular systolic function with an ejection fraction 25 - 30% with akinesis of the cardiac apex, mild to moderate mitral regurgitation and aortic stenosis. There was mild to moderate tricuspid regurgitation and severe pulmonary hypertension with a calculated pressure of 72 mmHg. These findings were stable compared with 02/18/18 transthoracic echocardiogram HOSPITAL COURSE: I saw him on 02/17/19, my impression was that he had a cellulitis of his right lower leg, congestive cardiac failure. I treated both, CHF with parenteral diuretics, the cellulitis with vancomycin and piperacillin- tazobactam. He was in delirium when I first saw him. Interestingly, his C- reactive protein was not especially elevated. He responded to the treatment and 2 days prior to discharge, he became alert and oriented and able to discuss his condition. He had some diarrhea and I transitioned him to oral Bactrim as his cellulitis responded very rapidly. His blood pressure came under control. I started him on insulin therapy for his diabetes and stopped his metformin and glipizide. I changed him from lisinopril to valsartan and readiness for Entresto as an outpatient. On the day of discharge, he is alert and oriented to person and place. He knows it is 2018, but does not know the month. He knows the name of the President and also he is aware of the impeachment trial in congress this week. He denies any pain or discomfort, has no further diarrhea. He is not short of breath or coughing. PHYSICAL EXAMINATION: Vital Signs: Temperature 97.1, heart rate 63, respirations 22, oxygen saturation 96% on 2 L by nasal cannula, blood pressure 150/57. No cyanosis. He is anemic. No jaundice, clubbing, or adenopathy. Cardiovascular System: His pulse was regular. Heart sounds are normal. He has a 3/6 pansystolic murmur at the apex. He has 2+ pedal edema. Respiratory System: Chest expansion. Full and symmetrical. Percussion not resonant. Breath sounds vesicular. A few crackles at the bases. Abdomen: No distention , masses, tenderness, or organomegaly. Nervous System: He is alert and conversational. Cranial nerves II through XII intact. Speech was normal. He is moving his arms and legs, but he is generally weak. ASSESSMENT AND PLAN: 1. Congestive cardiac failure, systolic and diastolic mitral regurgitation. He requires longstanding diuretic therapy. In the past, he has had a time when he had too much diuretic therapy and hence it was discontinued. Unfortunately, it was not restarted. At this time, he has lost some weight during the hospitalization. He is no longer dyspneic; however, he continues to have peripheral edema. I recommend that he continues torsemide 20 mg twice daily, potassium chloride 20 mEq twice daily. He is going to start Entresto and we have reduced his carvedilol dose. He will follow up within [address] Minor of Cardiology and will have weekly BMP measurements. He will require daily weights and the nursing facility should inform the provider if his weight changes more than 2 pounds in a 24-hour period. 2. Altered mental status, this is improved. He has some underlying mild dementia. 3. Cellulitis, right lower leg, this is improved. I will continue him on Bactrim for another 5 days. 4. Sacral decubitus areas erythematous and it looks as if it has got a stage 1 ulcer, he requires frequent turning and encouragement not to place all his weight on this. 5. Essential hypertension. His blood pressure has been slightly elevated. This will need to be watched as an outpatient. 6. Type 2 diabetes mellitus. I have started him on insulin therapy. I think this is necessary for glycemic control when he starts eating again. 7. Chronic renal insufficiency, this is stable. SECONDARY DIAGNOSES: 1. Cardiac biventricular pacemaker ICD, this is in place. 2. History of coronary artery disease, this is stable. 3. Chronic low back pain, this is stable. 4. Hypercholesterolemia, continue current medication. 5. Obesity. He actually has some malnutrition at this current time and will require some protein in order rebuild from this catabolic state. I have kept his daughter Hannah Ramon, who is the healthcare proxy, informed during this hospital stay. DISCHARGE MEDICATIONS: 1. Acetaminophen 650 mg q.4 hours. 2. Ascorbic acid 500 mg every other day alongside ferritin 325 mg every other day for anemia. 3. Lispro insulin 5 units before meals. 4. Glargine insulin 10 units daily. 5. MiraLAX 17 g daily. 6. Potassium chloride 20 mEq twice daily. 7. Torsemide 20 mg twice daily. 8. Trazodone 100 mg at bedtime as needed for sleep. 9. Duloxetine 30 mg twice daily. 10. Clopidogrel 75 mg q.a.m. 11. Pantoprazole 40 mg q.h.s. 12. Docusate 300 mg daily. 13. Multivitamin 1 each day. 14. Atorvastatin 80 mg q.h.s. 15. Nitroglycerin 0.4 mg sublingually every 5 minutes as needed for angina. 16. Carvedilol 25 mg twice daily. 17. Bactrim double strength 1 twice daily for 5 days. 18. Entresto 24 mg/26 mg daily, increase after 2 weeks to 49/51 mg daily. [id number]/[facility] #: [id number] MTDD
== END 2019-02-22 14:00 | DRG 291 ==
LOC: ED 14:59 → MEDTELE 21:09
PROVIDERS: ADMIT Student in an Organized Health Care Education/Training Program; ATTEND Internal Medicine
DX: I13.0 Hypertensive heart and chronic kidney disease with heart failure and stage 1 through stage 4 chronic kidney disease, or unspecified chronic kidney disease (principal); I50.41 Acute combined systolic (congestive) and diastolic (congestive) heart failure; G93.49 Other encephalopathy; E46 Unspecified protein-calorie malnutrition; L03.115 Cellulitis of right lower limb; K52.1 Toxic gastroenteritis and colitis; R47.01 Aphasia; L89.151 Pressure ulcer of sacral region, stage 1; E11.319 Type 2 diabetes mellitus with unspecified diabetic retinopathy without macular edema; N18.3 Chronic kidney disease, stage 3 (moderate); E11.22 Type 2 diabetes mellitus with diabetic chronic kidney disease; F03.90 Unspecified dementia, unspecified severity, without behavioral disturbance, psychotic disturbance, mood disturbance, and anxiety; E11.40 Type 2 diabetes mellitus with diabetic neuropathy, unspecified; E11.65 Type 2 diabetes mellitus with hyperglycemia; D64.9 Anemia, unspecified; R60.9 Edema, unspecified; Z66 Do not resuscitate; I25.5 Ischemic cardiomyopathy; E78.00 Pure hypercholesterolemia, unspecified; M54.5 Low back pain; I25.10 Atherosclerotic heart disease of native coronary artery without angina pectoris; I08.0 Rheumatic disorders of both mitral and aortic valves; M48.061 Spinal stenosis, lumbar region without neurogenic claudication; E66.9 Obesity, unspecified; F41.9 Anxiety disorder, unspecified; E78.5 Hyperlipidemia, unspecified; R74.8 Abnormal levels of other serum enzymes; R09.02 Hypoxemia; K21.9 Gastro-esophageal reflux disease without esophagitis; F32.9 Major depressive disorder, single episode, unspecified; G47.33 Obstructive sleep apnea (adult) (pediatric); T36.95XA Adverse effect of unspecified systemic antibiotic, initial encounter; Y92.230 Patient room in hospital as the place of occurrence of the external cause; Z68.29 Body mass index [BMI] 29.0-29.9, adult; Z95.810 Presence of automatic (implantable) cardiac defibrillator; Z95.5 Presence of coronary angioplasty implant and graft; Z91.19 Patient's noncompliance with other medical treatment and regimen; Z79.84 Long term (current) use of oral hypoglycemic drugs; Z79.1 Long term (current) use of non-steroidal anti-inflammatories (NSAID); Z79.899 Other long term (current) drug therapy; Z82.49 Family history of ischemic heart disease and other diseases of the circulatory system; Z80.7 Family history of other malignant neoplasms of lymphoid, hematopoietic and related tissues; Z88.8 Allergy status to other drugs, medicaments and biological substances
CPT/HCPCS: 36415; 70450; 71045; 80048; 80053; 80076; 80202; 82140; 82607; 82728; 82803; 83540; 83550; 83880; 84443; 84484; 85025; 85652; 86140; 87641; 93005; 93306; 95819; 99284; A9270-GY; G8978-GP-CM; G8978-GP-CN; G8979-GP-CJ; G8979-GP-CN; G8980-GP-CN; J0360; J1644; J1940; J2060; J2543; J3370

== ENCOUNTER 2019-12-28 15:30 | Inpatient (IN) ==
[2019-12-28] MEDS ORDERED: Furosemide 40 mg/4 ml IV VIAL IV SLOW PU ONE (17:59)
[2019-12-28 18:38] LABS: ABS Eosinophils 0.1 10^3/ul (0-0.6); ABS Lymphocytes 0.5 10^3/ul (1.0-4.8); ABS Monocytes 0.6 10^3/ul (0-0.8); ABS Neutrophils 3.8 10^3/ul (1.5-7.7); Eosinophil % 1.1 %; Hematocrit 33 % (42-52); Hemoglobin 11.1 g/dL (14.0-18.0); Lymphocyte % 10.5 %; Mean Corpuscular HGB Conc 34 g/dL (31-36); Mean Corpuscular Hemoglobin 30 pg (27-31); Mean Corpuscular Volume 89 fL (80-94); Mean Platelet Volume 8.5 fL (7.4-10.4); Platelet Count 161 10^3/uL (150-450); Red Blood Count 3.67 10^6 /uL (4.18-5.48); Red Cell Distribution Width 15 % (10-15); White Blood Count 5.1 10^3/uL (3.5-10.8)
[2019-12-28 18:55] LABS: Albumin 3.4 g/dL (3.2-5.2); CO2 Carbon Dioxide 34 mmol/L (22-32)
[2019-12-28 19:01] LABS: ALT 15 U/L (7-52); AST 14 U/L (13-39); Albumin/Globulin Ratio 0.9 (1-3); Alkaline Phosphatase 106 U/L (34-104); BUN/Creatinine Ratio 26.4 (8-20); Blood Urea Nitrogen 42 mg/dL (6-24); EGFR African American 50.8 (>60); Globulin 3.8 g/dL (2-4); Glucose 92 mg/dL (70-100); Total Protein 7.2 g/dL (6.4-8.9)
[2019-12-28 19:04] LABS: Chloride 103 mmol/L (101-111); Potassium 4.3 mmol/L (3.5-5.0); Sodium 141 mmol/L (135-145)
[2019-12-28 19:05] LABS: Anion Gap 4 mmol/L (2-11)
[2019-12-28 19:18] LABS: Troponin I 0.07 ng/mL (<0.03)
[2019-12-28] MEDS ORDERED: Polyethylene Glycol 3350 17 GM PACKET PO PRN (20:37)
[2019-12-28] MEDS ORDERED: Dextrose 50% Syringe 50 ml 25 GM/50 ML SYRINGE IV PUSH PRN (20:40)
[2019-12-28 21:07] LABS: Urine Appearance Cloudy; Urine Bacteria Absent (Absent); Urine Bilirubin Negative (Negative); Urine Blood 3+ (Negative); Urine Glucose Negative (Negative); Urine Ketones Negative (Negative); Urine Nitrite Negative (Negative); Urine Protein 2+(100 mg/dL) (Negative); Urine Red Blood Cell 3+(>10/hpf) (Absent); Urine Urobilinogen Negative (Negative); Urine White Blood Cell Absent (Absent)
[2019-12-28 21:13] LABS: Urine Color Red
[2019-12-28 21:46] LABS: Ferritin 74.5 ng/mL (24-336)
[2019-12-28 21:48] LABS: % Iron Saturation 20 % (15-55); Iron 51 ug/dL (50-212); Total Iron Binding Capacity 255 mcg/dL (250-450); Transferrin 182 mg/dL (203-362); Unsaturated Iron Binding < 240 ug/dL
[2019-12-28] MEDS ORDERED: Labetalol IV 5 MG/ML 20 ml VIAL IV PRN (22:39)
[2019-12-28] MEDS: Enoxaparin 40 MG/0.4 ML SYR SUBCUT SCH (23:40)
[2019-12-28] MEDS: Potassium Chlor 20 meq TAB.ER PO SCH (23:40)
[2019-12-28] MEDS: DULoxetine DR 30 mg CAP PO SCH (23:40)
[2019-12-29 01:43] LABS: Troponin I 0.07 ng/mL (<0.03)
[2019-12-29 08:15] LABS: Hematocrit 32 % (42-52); Hemoglobin 10.9 g/dL (14.0-18.0); Mean Corpuscular HGB Conc 34 g/dL (31-36); Mean Corpuscular Hemoglobin 30 pg (27-31); Mean Corpuscular Volume 88 fL (80-94); Mean Platelet Volume 8.5 fL (7.4-10.4); Platelet Count 136 10^3/uL (150-450); Red Blood Count 3.62 10^6 /uL (4.18-5.48); Red Cell Distribution Width 15 % (10-15); White Blood Count 3.8 10^3/uL (3.5-10.8)
[2019-12-29 08:28] LABS: BUN/Creatinine Ratio 26.8 (8-20); Calcium 8.5 mg/dL (8.6-10.3); EGFR African American 53.1 (>60); EGFR Non-African American 43.9 (>60); Potassium 3.8 mmol/L (3.5-5.0)
[2019-12-29] MEDS ORDERED: Bumetanide IV 0.25 MG/ML 4 ml VIAL (1 mg) SLOW PUSH SCH ×2 (09:00)
[2019-12-29] MEDS ORDERED: Bumetanide IV 0.25 MG/ML 4 ml VIAL (1 mg) SLOW PUSH ONE ×2 (09:00→16:00)
[2019-12-29] MEDS ORDERED: Insulin GLARGINE 100 un/ml 10 ml VIAL SUBCUT SCH (09:00)
[2019-12-29] MEDS: DULoxetine DR 30 mg CAP PO SCH ×2 (10:24→22:03)
[2019-12-29] MEDS: Multivitamins/Minerals TAB PO SCH (10:24)
[2019-12-29] MEDS: Potassium Chlor 20 meq TAB.ER PO SCH ×2 (10:25→22:03)
[2019-12-29 14:35] LABS: Body Fluid Source Pleural Fluid
[2019-12-29 16:58] LABS: Body Fluid Mono 4 %; Body Fluid Variant Lymph 4 %
[2019-12-29] MEDS ORDERED: METOLAZONE 5 MG PO SCH (20:37)
[2019-12-29] MEDS: Enoxaparin 40 MG/0.4 ML SYR SUBCUT SCH (22:04)
[2019-12-29] MEDS: Enalaprilat IV 1.25 mg/ml 2 ml VIAL (2.5 MG) IV SCH (22:05)
[2019-12-29] MEDS: Metoprolol Tartrate 5 mg VIAL 5 ml VIAL (1 mg/ml) IV SCH (22:08)
[2019-12-29] MEDS: KCL 20 MEQ/100 ML IVPREMIX 20 MEQ/100 ML BAG IV SCH (22:11)
[2019-12-30] MEDS: KCL 20 MEQ/100 ML IVPREMIX 20 MEQ/100 ML BAG IV SCH (00:12)
[2019-12-30 03:42] LABS: ABS Lymphocytes 0.4 10^3/ul (1.0-4.8); ABS Monocytes 0.8 10^3/ul (0-0.8); ABS Neutrophils 5.2 10^3/ul (1.5-7.7); Hematocrit 36 % (42-52); Hemoglobin 11.9 g/dL (14.0-18.0); Lymphocyte % 5.5 %; Mean Corpuscular HGB Conc 34 g/dL (31-36); Mean Corpuscular Hemoglobin 30 pg (27-31); Mean Corpuscular Volume 89 fL (80-94); Mean Platelet Volume 8.1 fL (7.4-10.4); Platelet Count 128 10^3/uL (150-450); Red Blood Count 3.99 10^6 /uL (4.18-5.48); Red Cell Distribution Width 15 % (10-15); White Blood Count 6.4 10^3/uL (3.5-10.8)
[2019-12-30 03:58] LABS: BUN/Creatinine Ratio 29.4 (8-20); Calcium 8.7 mg/dL (8.6-10.3); EGFR Non-African American 38.9 (>60); Potassium 4.2 mmol/L (3.5-5.0)
[2019-12-30] MEDS ORDERED: Lorazepam PYXIS KEY ONE (04:09)
[2019-12-30] MEDS ORDERED: LORazepam 2 mg VIAL 1 ml ONE (04:09)
[2019-12-30] MEDS: Enalaprilat IV 1.25 mg/ml 2 ml VIAL (2.5 MG) IV SCH (04:49)
[2019-12-30] MEDS: Metoprolol Tartrate 5 mg VIAL 5 ml VIAL (1 mg/ml) IV SCH ×2 (04:49→10:38)
[2019-12-30] MEDS ORDERED: Bumetanide IV 0.25 MG/ML 4 ml VIAL (1 mg) SLOW PUSH PRN (07:00)
[2019-12-30] MEDS ORDERED: Bumetanide IV 0.25 MG/ML 4 ml VIAL (1 mg) SLOW PUSH SCH (09:00)
[2019-12-30] MEDS: Aspirin EC 81 mg TAB.EC (enteric coated) PO SCH (10:33)
[2019-12-30] MEDS: DULoxetine DR 30 mg CAP PO SCH ×3 (10:34→22:39)
[2019-12-30] MEDS: Multivitamins/Minerals TAB PO SCH (10:36)
[2019-12-30] MEDS: Potassium Chlor 20 meq TAB.ER PO SCH ×2 (10:37→22:39)
[2019-12-30] MEDS: Enoxaparin 40 MG/0.4 ML SYR SUBCUT SCH (22:29)
[2019-12-31] MEDS: Aspirin EC 81 mg TAB.EC (enteric coated) PO SCH (08:25)
[2019-12-31] MEDS: Potassium Chlor 20 meq TAB.ER PO SCH ×2 (08:25→22:39)
[2019-12-31] MEDS: DULoxetine DR 30 mg CAP PO SCH ×2 (08:26→22:39)
[2019-12-31] MEDS: Multivitamins/Minerals TAB PO SCH (08:26)
[2019-12-31 10:32] LABS: BUN/Creatinine Ratio 36.4 (8-20); Calcium 8.1 mg/dL (8.6-10.3); EGFR African American 49.7 (>60); EGFR Non-African American 41.1 (>60); Potassium 3.5 mmol/L (3.5-5.0)
[2019-12-31 12:30] LABS: Lactate Dehydrogenase, BF 85 U/L
[2019-12-31] MEDS ORDERED: Metoprolol Tartrate 5 mg VIAL 5 ml VIAL (1 mg/ml) IV ONE (12:54)
[2019-12-31] MEDS ORDERED: Haloperidol 5 mg/ml SDV IV/IM 5 MG/ML AMP IM ONE ×3 (19:44→22:46)
[2019-12-31] MEDS: Haloperidol 5 mg/ml SDV IV/IM 5 MG/ML AMP ONE ×2 (20:01→20:03)
[2019-12-31] MEDS: Enoxaparin 40 MG/0.4 ML SYR SUBCUT SCH (22:39)
[2019-12-31] MEDS ORDERED: Lorazepam PYXIS KEY PRN (22:46)
[2019-12-31] MEDS ORDERED: LORazepam 2 mg VIAL 1 ml IV PUSH ONE (22:46)
[2019-12-31] MEDS ORDERED: LORazepam 2 mg VIAL 1 ml ONE (22:49)
[2019-12-31] MEDS ORDERED: Lorazepam PYXIS KEY ONE (22:49)
[2020-01-01 04:31] LABS: BUN/Creatinine Ratio 36.3 (8-20); EGFR African American 38.8 (>60); Magnesium 2.1 mg/dL (1.9-2.7)
[2020-01-01] MEDS: Aspirin EC 81 mg TAB.EC (enteric coated) PO SCH ×2 (09:24→11:40)
[2020-01-01] MEDS: Multivitamins/Minerals TAB PO SCH (09:25)
[2020-01-01] MEDS: DULoxetine DR 30 mg CAP PO SCH ×2 (09:25→20:44)
[2020-01-01] MEDS: Potassium Chlor 20 meq TAB.ER PO SCH ×2 (09:25→20:44)
[2020-01-01 14:16] LABS: Fluid Type, Glucose PLEURAL; Glucose, BF 78 mg/dL
[2020-01-01 14:20] LABS: Fluid Type: PLEURAL
[2020-01-01 14:21] LABS: Fluid Type, Albumin PLEURAL; Fluid Type, Protein, Total PLEURAL
[2020-01-01 15:53] LABS: Urine Appearance Cloudy; Urine Bilirubin Negative (Negative); Urine Blood 3+ (Negative); Urine Color Yellow; Urine Glucose Negative (Negative); Urine Ketones Negative (Negative); Urine Nitrite Negative (Negative); Urine Protein 1+(30 mg/dL) (Negative); Urine Specific Gravity 1.009 (1.010-1.030); Urine Urobilinogen Negative (Negative)
[2020-01-01 15:58] LABS: Urine Bacteria Absent (Absent); Urine Red Blood Cell 3+(>10/hpf) (Absent); Urine White Blood Cell Trace(0-5/hpf) (Absent)
[2020-01-01 17:16] LABS: ABS Lymphocytes 0.5 10^3/ul (1.0-4.8); ABS Monocytes 0.9 10^3/ul (0-0.8); ABS Neutrophils 5.1 10^3/ul (1.5-7.7); Eosinophil % 0.1 %; Hematocrit 29 % (42-52); Hemoglobin 9.8 g/dL (14.0-18.0); Lymphocyte % 8.1 %; Mean Corpuscular HGB Conc 34 g/dL (31-36); Mean Corpuscular Hemoglobin 30 pg (27-31); Mean Corpuscular Volume 88 fL (80-94); Mean Platelet Volume 8.7 fL (7.4-10.4); Platelet Count 139 10^3/uL (150-450); Red Blood Count 3.27 10^6 /uL (4.18-5.48); Red Cell Distribution Width 16 % (10-15); White Blood Count 6.6 10^3/uL (3.5-10.8)
[2020-01-01] MEDS ORDERED: Enoxaparin 30 MG/0.3 ML SYR ONE (20:48)
[2020-01-01] MEDS ORDERED: Enoxaparin 30 MG/0.3 ML SYR SUBCUT SCH (22:00)
[2020-01-02] MEDS: DULoxetine DR 30 mg CAP PO SCH ×2 (08:23→20:23)
[2020-01-02] MEDS: Aspirin EC 81 mg TAB.EC (enteric coated) PO SCH (08:23)
[2020-01-02] MEDS: Potassium Chlor 20 meq TAB.ER PO SCH ×2 (08:25→20:23)
[2020-01-02] MEDS: Multivitamins/Minerals TAB PO SCH (08:25)
[2020-01-02 10:21] LABS: Albumin 2.6 g/dL (3.2-5.2); Albumin/Globulin Ratio 0.8 (1-3); Calcium 8.3 mg/dL (8.6-10.3); EGFR African American 42.1 (>60); EGFR Non-African American 34.8 (>60); Globulin 3.2 g/dL (2-4); Total Bilirubin 0.5 mg/dL (0.2-1.0); Total Protein 5.8 g/dL (6.4-8.9)
[2020-01-02 11:00] LABS: ABS Lymphocytes 0.3 10^3/ul (1.0-4.8); ABS Monocytes 0.8 10^3/ul (0-0.8); ABS Neutrophils 4.5 10^3/ul (1.5-7.7); Eosinophil % 0.1 %; Hematocrit 30 % (42-52); Lymphocyte % 5.5 %; Mean Corpuscular HGB Conc 34 g/dL (31-36); Mean Corpuscular Hemoglobin 30 pg (27-31); Mean Corpuscular Volume 88 fL (80-94); Mean Platelet Volume 8.8 fL (7.4-10.4); Platelet Count 134 10^3/uL (150-450); Red Blood Count 3.35 10^6 /uL (4.18-5.48); Red Cell Distribution Width 15 % (10-15); White Blood Count 5.6 10^3/uL (3.5-10.8)
[2020-01-02 11:13] LABS: Potassium 3.7 mmol/L (3.5-5.0)
[2020-01-03 08:30] LABS: BUN/Creatinine Ratio 40.1 (8-20); Calcium 8.3 mg/dL (8.6-10.3); EGFR Non-African American 39.7 (>60); Potassium 3.6 mmol/L (3.5-5.0)
[2020-01-03] MEDS: Multivitamins/Minerals TAB PO SCH (08:44)
[2020-01-03] MEDS: Aspirin EC 81 mg TAB.EC (enteric coated) PO SCH (08:44)
[2020-01-03] MEDS: DULoxetine DR 30 mg CAP PO SCH ×2 (08:44→22:44)
[2020-01-03] MEDS: Potassium Chlor 20 meq TAB.ER PO SCH ×2 (08:45→22:44)
[2020-01-04] MEDS: Multivitamins/Minerals TAB PO SCH (09:23)
[2020-01-04] MEDS: Aspirin EC 81 mg TAB.EC (enteric coated) PO SCH (09:23)
[2020-01-04] MEDS: DULoxetine DR 30 mg CAP PO SCH (09:29)
[2020-01-04] MEDS: Potassium Chlor 20 meq TAB.ER PO SCH (09:31)
[2020-01-04 12:56] VITALS: BP 131/50
== END 2020-01-04 14:40 | DRG 291 ==
LOC: MEDTELE 15:30 → ED 15:30 → ICU 12-29 15:07 → MEDTELE 01-01 07:23
PROVIDERS: ADMIT Internal Medicine; ATTEND Pediatrics